=== PATIENT | male | born 1935 | race Caucasian/White ===

== ENCOUNTER 2016-06-19 14:29 | Inpatient (IN) | payer MEDICARE ==
[2016-06-19] MEDS ORDERED: IPRATROPIUM-ALBUTEROL 3 ML NEB INHALATION STA (14:54)
--- NOTE | 2016-06-19 15:01 | ED ---
SOB HPI - General Chief Complaint: Shortness of Breath Stated Complaint: diff breathing Time Seen by Provider: 06/19/16 14:48 Source: patient Mode of arrival: wheelchair Limitations: physical limitation - History of Present Illness Initial Comments: This patient is an 80-year-old man who presents to be evaluated for dyspnea. Most of the history comes from the patient's as the patient is very dyspneic and is only able to give very short answers. The shortness of breath came on starting last evening and became worse this morning. The patient believe that this was related to using his riding lawnmower yesterday. After he had used that he noted that his left lower quadrant of his abdomen seemed to be more prominent than usual. He does have an ostomy there. He also had a number of episodes of vomiting last night. The patient however denies any abdominal pain currently. In fact he is denying any pain at all including no chest pain or back pain. The shortness of breath became worse this morning and he did try his home medications and when they were working he came here to be seen. The patient denies fever or chills, cough, leg pain or swelling. MD Complaint: shortness of breath -: days(s) Consistency: constant Improves With: nothing Worsens With: nothing Known History Of: COPD Associated Symptoms: nausea/vomiting, abdominal pain Treatments Prior to Arrival: bronchodilator - Related Data Home Medications Medication Instructions Recorded Confirmed Citalopram Hydrobromide [CeleXA] 40 mg PO DAILY 11/18/13 06/19/16 Finasteride [Proscar] 5 mg PO DAILY 11/18/13 06/19/16 Fluticasone/Salmeterol [Advair 1 puff INHALATION RT-BID 11/18/13 06/19/16 500-50 Diskus] Metoprolol Tartrate [Lopressor] 6.25 mg PO HS 11/18/13 06/19/16 Tamsulosin [Flomax] 0.4 mg PO DAILY 11/18/13 06/19/16 Aspirin EC [Ecotrin] 325 mg PO DAILY 03/10/14 06/19/16 Simvastatin [Zocor] 40 mg PO HS 05/11/15 06/19/16 ALPRAZolam [Xanax] 0.5 mg PO DAILY PRN 06/19/16 06/19/16 Budesonide/Formoterol Fumarate 2 puff INHALATION RT-BID 06/19/16 06/19/16 [Symbicort 160-4.5 Mcg Inhaler] Levalbuterol HCl [Xopenex 1.25 mg INHALATION RT-QID 06/19/16 06/19/16 Nebulized] Primidone [Mysoline] 25 mg PO BID 06/19/16 06/19/16 guaiFENesin [Mucinex] 600 mg PO BID 06/19/16 06/19/16 Allergies Allergy/AdvReac Type Severity Reaction Status Date / Time dobutamine Allergy Severe Swelling Verified 06/19/16 15:59 hydromorphone HCl Allergy Intermediate AGRESSIVE Verified 06/19/16 15:59 [From Dilaudid] sulfamethoxazole Allergy DIAPHORESIS Verified 06/19/16 15:59 [From Bactrim] trimethoprim [From Bactrim] Allergy DIAPHORESIS Verified 06/19/16 15:59 Review of Systems ROS Statement: Those systems with pertinent positive or pertinent negative responses have been documented in the HPI. ROS Other: All systems not noted in ROS Statement are negative. Constitutional: Denies: fever, chills Respiratory: Reports: as per HPI, dyspnea, wheezes. Denies: cough, hemoptysis Cardiovascular: Reports: orthopnea. Denies: chest pain, edema, syncope Gastrointestinal: Reports: as per HPI, abdominal pain, vomiting. Denies: hematemesis, melena, hematochezia Genitourinary: Denies: dysuria Musculoskeletal: Denies: back pain Skin: Denies: rash Neurological: Denies: headache, weakness, numbness Past Medical History Past Medical History: Coronary Artery Disease (CAD), Cancer, COPD, Hyperlipidemia, Hypertension, Pneumonia, Prostate Disorder Additional Past Medical History / Comment(s): BLADDER CANCER, COPD, TREMORS, . HX OF DIVERTICULITIS WITH PERFORATED BOWEL . HAS COLOSTOMY. HERNIA AT [facility] AND INCISIONAL HERNIA . CAROTID ARTERY STENOSIS, ENLARGED PROSTATE. , FX LEFT HIP 10/2013 AND NOW USING WALKER AND HAS VISITING NURSE AND PHYSICAL THERAPY. History of Any Multi-Drug Resistant Organisms: None Reported Past Surgical History: Bowel Resection, Coronary Bypass/CABG, Hernia Repair Additional Past Surgical History / Comment(s): COLOSTOMY D/T PERFORATED BOWEL FROM DIVERTICULITIS, CABG (2005), ING HERNIA REPAIR, ORIF FX LEFT HIP (10/2013) Past Anesthesia/Blood Transfusion Reactions: No Reported Reaction, Motion Sickness Additional Past Anesthesia/Blood Transfusion Reaction / Comment(s): CLAUSTERPHOBIC Past Psychological History: Anxiety, Depression Smoking Status: Former smoker Past Alcohol Use History: None Reported Additional Past Alcohol Use History / Comment(s): STARTED SMOKING AT AGE 14- SMOKED 2 PPD, QUIT 1997 Past Drug Use History: None Reported - Past Family History Father Family Medical History: Unable to Obtain Mother Family Medical History: Unable to Obtain General Exam Limitations: no limitations General appearance: alert, in distress, cachectic Head exam: Present: atraumatic, normocephalic Eye exam: Present: normal appearance. Absent: scleral icterus, conjunctival injection Neck exam: Present: normal inspection Respiratory exam: Present: respiratory distress (Tachypnea), wheezes, accessory muscle use, decreased breath sounds, prolonged expiratory. Absent: rales, rhonchi, stridor Cardiovascular Exam: Present: tachycardia, irregular rhythm. Absent: systolic murmur, diastolic murmur, rubs, gallop GI/Abdominal exam: Present: soft, hernia, other (The patient has an ostomy in the left lower quadrant. There is no abdominal tenderness. The ostomy bag does not have much gas, however there is some brown stool present, and the patient's states that she had just changed the bag prior to coming to the hospital). Absent: distended, tenderness, guarding, rebound, mass, pulsatile mass Extremities exam: Present: normal inspection, normal capillary refill. Absent: pedal edema, calf tenderness Back exam: Present: normal inspection. Absent: CVA tenderness (R), CVA tenderness (L) Neurological exam: Present: alert Skin exam: Present: warm, dry, intact, normal color. Absent: rash, cyanosis, diaphoretic, erythema, petechiae, pallor, mottled Course Vital Signs 06/19/16 06/19/16 06/19/16 14:32 15:48 15:59 Temperature 99.4 F Pulse Rate 108 H 105 H 115 H Respiratory 36 H Rate Blood Pressure 155/98 O2 Sat by Pulse 84 L Oximetry 06/19/16 06/19/16 06/19/16 16:15 17:20 18:40 Temperature 98.5 F Pulse Rate 104 H 98 90 Respiratory 22 20 20 Rate Blood Pressure 138/73 117/66 146/69 O2 Sat by Pulse 99 99 100 Oximetry 06/19/16 06/19/16 19:42 20:51 Temperature 98.4 F Pulse Rate 93 84 Respiratory 20 20 Rate Blood Pressure 153/80 164/75 O2 Sat by Pulse 95 95 Oximetry Medical Decision Making - Medical Decision Making This patient is an 80-year-old man with COPD exacerbation, requiring BiPAP. Patient be admitted for further treatment. 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 In addition on the labs the patient does have an elevated BNP consistent with an element of congestive heart failure. Patient will have diuretics and if he has not had recent echocardiograms be provided. The patient's troponin is also elevated and this probably is related to the CHF as she is not having chest pain nor any ST segment changes on EKG. This will be repeated. the patient's d-dimer came back at 0.85 which is acceptable by the age adjusted criteria. - Lab Data Result diagrams: 06/19/16 14:50 06/19/16 14:50 Lab Results 06/19/16 06/19/16 06/19/16 Range/Units 14:50 14:50 14:50 WBC 19.7 H (3.8-10.6) k/uL RBC 5.01 (4.30-5.90) m/uL Hgb 15.4 (13.0-17.5) gm/dL Hct 48.4 (39.0-53.0) % MCV 96.7 (80.0-100.0) fL MCH 30.7 (25.0-35.0) pg MCHC 31.8 (31.0-37.0) g/dL RDW 14.7 (11.5-15.5) % Plt Count 221 (150-450) k/uL Neutrophils % 89 % Lymphocytes % 4 % Monocytes % 5 % Eosinophils % 1 % Basophils % 0 % Neutrophils # 17.4 H (1.3-7.7) k/uL Lymphocytes # 0.8 L (1.0-4.8) k/uL Monocytes # 1.1 H (0-1.0) k/uL Eosinophils # 0.1 (0-0.7) k/uL Basophils # 0.0 (0-0.2) k/uL PT 10.4 (9.0-12.0) sec INR 1.0 (<1.1) APTT 21.4 L (22.0-30.0) sec D-Dimer 0.85 H (<0.60) mg/L FEU Sodium 142 (137-145) mmol/L Potassium 4.2 (3.5-5.1) mmol/L Chloride 103 (98-107) mmol/L Carbon Dioxide 29 (22-30) mmol/L Anion Gap 10 mmol/L BUN 18 (9-20) mg/dL Creatinine 0.84 (0.66-1.25) mg/dL Est GFR (MDRD) Af Amer >60 (>60 ml/min/1.73 sqM) Est GFR (MDRD) Non-Af >60 (>60 ml/min/1.73 sqM) Glucose 78 (74-99) mg/dL Plasma Lactic Acid Hugh (0.7-2.0) mmol/L Calcium 9.1 (8.4-10.2) mg/dL Magnesium 2.0 (1.6-2.3) mg/dL Total Bilirubin 1.3 (0.2-1.3) mg/dL AST 21 (17-59) U/L ALT 33 (21-72) U/L Alkaline Phosphatase 85 (38-126) U/L Troponin I (0.000-0.034) ng/mL NT-Pro-B Natriuret Pep pg/mL Total Protein 7.0 (6.3-8.2) g/dL Albumin 4.0 (3.5-5.0) g/dL Urine Color Urine Appearance (Clear) Urine pH (5.0-8.0) Ur Specific Troy (1.001-1.035) Urine Protein (Negative) Urine Glucose (UA) (Negative) Urine Ketones (Negative) Urine Blood (Negative) Urine Nitrite (Negative) Urine Bilirubin (Negative) Urine Urobilinogen (<2.0) mg/dL Ur Leukocyte Esterase (Negative) Urine RBC (0-5) /hpf Urine WBC (0-5) /hpf Hyaline Casts (0-2) /lpf Urine Mucus (None) /hpf 06/19/16 06/19/16 06/19/16 Range/Units 14:50 14:50 14:50 WBC (3.8-10.6) k/uL RBC (4.30-5.90) m/uL Hgb (13.0-17.5) gm/dL Hct (39.0-53.0) % MCV (80.0-100.0) fL MCH (25.0-35.0) pg MCHC (31.0-37.0) g/dL RDW (11.5-15.5) % Plt Count (150-450) k/uL Neutrophils % % Lymphocytes % % Monocytes % % Eosinophils % % Basophils % % Neutrophils # (1.3-7.7) k/uL Lymphocytes # (1.0-4.8) k/uL Monocytes # (0-1.0) k/uL Eosinophils # (0-0.7) k/uL Basophils # (0-0.2) k/uL PT (9.0-12.0) sec INR (<1.1) APTT (22.0-30.0) sec D-Dimer (<0.60) mg/L FEU Sodium (137-145) mmol/L Potassium (3.5-5.1) mmol/L Chloride (98-107) mmol/L Carbon Dioxide (22-30) mmol/L Anion Gap mmol/L BUN (9-20) mg/dL Creatinine (0.66-1.25) mg/dL Est GFR (MDRD) Af Amer (>60 ml/min/1.73 sqM) Est GFR (MDRD) Non-Af (>60 ml/min/1.73 sqM) Glucose (74-99) mg/dL Plasma Lactic Acid Hugh 1.7 (0.7-2.0) mmol/L Calcium (8.4-10.2) mg/dL Magnesium (1.6-2.3) mg/dL Total Bilirubin (0.2-1.3) mg/dL AST (17-59) U/L ALT (21-72) U/L Alkaline Phosphatase (38-126) U/L Troponin I 0.222 H* (0.000-0.034) ng/mL NT-Pro-B Natriuret Pep 2630 pg/mL Total Protein (6.3-8.2) g/dL Albumin (3.5-5.0) g/dL Urine Color Urine Appearance (Clear) Urine pH (5.0-8.0) Ur Specific Troy (1.001-1.035) Urine Protein (Negative) Urine Glucose (UA) (Negative) Urine Ketones (Negative) Urine Blood (Negative) Urine Nitrite (Negative) Urine Bilirubin (Negative) Urine Urobilinogen (<2.0) mg/dL Ur Leukocyte Esterase (Negative) Urine RBC (0-5) /hpf Urine WBC (0-5) /hpf Hyaline Casts (0-2) /lpf Urine Mucus (None) /hpf 06/19/16 Range/Units 15:44 WBC (3.8-10.6) k/uL RBC (4.30-5.90) m/uL Hgb (13.0-17.5) gm/dL Hct (39.0-53.0) % MCV (80.0-100.0) fL MCH (25.0-35.0) pg MCHC (31.0-37.0) g/dL RDW (11.5-15.5) % Plt Count (150-450) k/uL Neutrophils % % Lymphocytes % % Monocytes % % Eosinophils % % Basophils % % Neutrophils # (1.3-7.7) k/uL Lymphocytes # (1.0-4.8) k/uL Monocytes # (0-1.0) k/uL Eosinophils # (0-0.7) k/uL Basophils # (0-0.2) k/uL PT (9.0-12.0) sec INR (<1.1) APTT (22.0-30.0) sec D-Dimer (<0.60) mg/L FEU Sodium (137-145) mmol/L Potassium (3.5-5.1) mmol/L Chloride (98-107) mmol/L Carbon Dioxide (22-30) mmol/L Anion Gap mmol/L BUN (9-20) mg/dL Creatinine (0.66-1.25) mg/dL Est GFR (MDRD) Af Amer (>60 ml/min/1.73 sqM) Est GFR (MDRD) Non-Af (>60 ml/min/1.73 sqM) Glucose (74-99) mg/dL Plasma Lactic Acid Hugh (0.7-2.0) mmol/L Calcium (8.4-10.2) mg/dL Magnesium (1.6-2.3) mg/dL Total Bilirubin (0.2-1.3) mg/dL AST (17-59) U/L ALT (21-72) U/L Alkaline Phosphatase (38-126) U/L Troponin I (0.000-0.034) ng/mL NT-Pro-B Natriuret Pep pg/mL Total Protein (6.3-8.2) g/dL Albumin (3.5-5.0) g/dL Urine Color Light Yellow Urine Appearance Clear (Clear) Urine pH 5.5 (5.0-8.0) Ur Specific [place] 1.009 (1.001-1.035) Urine Protein 2+ H (Negative) Urine Glucose (UA) Negative (Negative) Urine Ketones Negative (Negative) Urine Blood Negative (Negative) Urine Nitrite Negative (Negative) Urine Bilirubin Negative (Negative) Urine Urobilinogen <2.0 (<2.0) mg/dL Ur Leukocyte Esterase Negative (Negative) Urine RBC <1 (0-5) /hpf Urine WBC 2 (0-5) /hpf Hyaline Casts 1 (0-2) /lpf Urine Mucus Rare H (None) /hpf - EKG Data -: EKG Interpreted by Ne EKG shows normal: axis (Normal), intervals Rate: tachycardia Interpretation: other (The patient's EKG shows a narrow complex tachycardia there appear to be a couple of different P-wave morphologies. There are also relatively frequent PVCs.) Disposition Clinical Impression: Acute exacerbation of chronic obstructive airways disease, Elevated troponin I level, CHF exacerbation Disposition: ADMITTED IP TO THIS HOSP Condition: Fair
[2016-06-19 15:18] LABS: Basophils % (A) 0 %; CH 30.5; CHCM 31.8; Eosinophils # (A) 0.1 k/uL (0-0.7); Eosinophils % (A) 1 %; HCT 48.4 % (39.0-53.0); HDW 2.45; HGB 15.4 gm/dL (13.0-17.5); Luc # (Auto) 0.14; Luc % (Auto) 1; Lymphocytes # (A) 0.8 k/uL (1.0-4.8); Lymphocytes % (A) 4 %; MCH 30.7 pg (25.0-35.0); MCHC 31.8 g/dL (31.0-37.0); MCV 96.7 fL (80.0-100.0); Monocytes # (A) 1.1 k/uL (0-1.0); Monocytes % (A) 5 %; Neutrophils # (A) 17.4 k/uL (1.3-7.7); Neutrophils % (A) 89 %; RBC 5.01 m/uL (4.30-5.90); RDW 14.7 % (11.5-15.5); WBC 19.7 k/uL (3.8-10.6); WBC (Perox) 19.43
[2016-06-19 15:26] LABS: ALT 33 U/L (21-72); AST 21 U/L (17-59); Alkaline Phosphatase 85 U/L (38-126); Anion Gap 10 mmol/L; Blood Urea Nitrogen 18 mg/dL (9-20); Calcium 9.1 mg/dL (8.4-10.2); Carbon Dioxide 29 mmol/L (22-30); Chloride 103 mmol/L (98-107); Glucose 78 mg/dL (74-99); Non-African American GFR(MDRD) >60 (>60 ml/min/1.73 sqM); Partial Thromboplastin Time 21.4 sec (22.0-30.0); Potassium 4.2 mmol/L (3.5-5.1); Prothrombin Time 10.4 sec (9.0-12.0); Sodium 142 mmol/L (137-145); Total Bilirubin 1.3 mg/dL (0.2-1.3)
[2016-06-19 15:50] LABS: Appearance,Urine Clear (Clear); Bilirubin,Urine Negative (Negative); Glucose,Urine (UA) Negative (Negative); Ketones,Urine Negative (Negative); Leukocyte Esterase,Urine Negative (Negative); Mucus,Urine Rare /hpf; Nitrite,Urine Negative (Negative); PH, Urine 5.5 (5.0-8.0); Particle Count 817; Protein,Urine 2+ (Negative); RBC,Urine <1 /hpf (0-5); Specific Gravity,Urine 1.009 (1.001-1.035); UA Billing (MACRO vs. MICRO) MICRO; Urobilinogen,Urine <2.0 mg/dL (<2.0); WBC,Urine 2 /hpf (0-5)
--- NOTE | 2016-06-19 15:55 | XR ---
EXAMINATION TYPE: XR chest 1V portable DATE OF EXAM: 06/19/2016 3:47 PM COMPARISON: 11/26/2013 HISTORY: Shortness of breath TECHNIQUE: Single frontal view of the chest is obtained. FINDINGS: There is pleural-based thickening which appears increased from the previous exam within th e right upper lobe with areas of linear scar or atelectasis. Underlying diffuse COPD noted. Postopera tive change and epicardial lead noted. No interstitial congestion or pneumothorax. Diffuse osteopenia and arthropathy of the shoulder noted. IMPRESSION: 1. COPD with chronic pleural parenchymal changes, however, there appears to be increased pleural-base d thickening within the right upper lobe which could be correlated with CT scan.
[2016-06-19] MEDS ORDERED: ALBUTEROL NEBULIZED 2.5 MG/3 ML INHALATION PRN (16:30)
[2016-06-19] MEDS ORDERED: methylPREDNISolone SOD SUCCI 125 MG/2 ML VIAL IV STA (16:30)
[2016-06-19] MEDS ORDERED: FUROSEMIDE 10 MG/ML 4 ML VIAL IV STA ×2 (16:41→23:01)
[2016-06-19] MEDS ORDERED: methylPREDNISolone SOD SUCCI 125 MG/2 ML VIAL IV SCH (18:00)
[2016-06-19] MEDS ORDERED: NON-FORMULARY DRUG (Fluticasone/Salmeterol [Advair 500-50 Diskus] 1 PUFF) INHALATION SCH (20:00)
[2016-06-19] MEDS ORDERED: IPRATROPIUM-ALBUTEROL 3 ML NEB INHALATION SCH (20:00)
[2016-06-19] MEDS: SYMBICORT 160-4.5 MCG INHALER INHALATION SCH (21:26)
[2016-06-19 21:30] VITALS: BMI 22.5
[2016-06-19] MEDS: guaiFENesin 600 MG TABLET.ER PO SCH (21:52)
[2016-06-19] MEDS: METOPROLOL TARTRATE 12.5 MG TAB PO SCH (21:52)
[2016-06-19] MEDS: ATORVASTATIN 20 MG TAB PO SCH (21:52)
[2016-06-19] MEDS: PRIMIDONE 25 MG TAB PO SCH (21:53)
[2016-06-19] MEDS ORDERED: RX INFO: IV CONTRAST WAS GIVEN 1 EACH MISC MISCELLANE PRN (23:00)
[2016-06-19] MEDS: methylPREDNISolone SOD SUCCI 125 MG/2 ML VIAL IV SCH (23:55)
[2016-06-20] MEDS ORDERED: HEPARIN SODIUM,PORCINE 5,000 UNIT/ML 1 ML VIAL IV PRN
[2016-06-20] MEDS ORDERED: HEPARIN SODIUM,PORCINE 5,000 UNIT/ML 1 ML VIAL IV ONE
--- NOTE | 2016-06-20 00:18 | CT ---
EXAM: CT Angiography Chest With Intravenous Contrast CLINICAL HISTORY: Reason: elevated d-dimer TECHNIQUE: Axial computed tomographic angiography images of the chest with intravenous contrast using pulmonary embolism protocol. CTDI is 72.9 mGy and DLP is 206.40 mGy-cm This CT exam was performed using one or more of the following dose reduction techniques: automated exposure control, adjustment of the mA and/or kV according to patient size, and/or use of iterative reconstruction technique. MIP reconstructed images were created and reviewed. COMPARISON: CT chest on 11/26/2013 and 02/16/2015 FINDINGS: Lung parenchyma: Again seen are extensive paraseptal and centrilobular emphysematous changes throughout the lungs with biapical pleural thickening, calcifications, and scarring, including nodular areas of scarring that appears similar to prior exams. New patchy scattered densities and groundglass opacities are seen in both lower lobes. Pleural space: Normal. No pleural effusion or pneumothorax. Mediastinum/lesley: Median sternotomy changes. No mass or lymphadenopathy. Heart: Coronary artery calcifications. No cardiomegaly or pericardial effusion. Vasculature: Normal. No pulmonary embolus. Aorta: Atherosclerotic calcifications. No aneurysm. Airways: Patent. Bones: Generalized osteopenia. Degenerative changes of the spine. No bony lesion or acute fracture. Muscles: No mass. Subcutaneous tissues: Normal. Upper abdomen: Small hiatal hernia. Similar small hypodensity in the posterior right hepatic lobe is too small to characterize definitively. Similar bilateral renal cysts. Similar probable small nonspecific nodule in the right adrenal gland. Reflux of contrast into the hepatic veins suggests elevated right heart pressures. Other: Tiny hypodense nodules in the left thyroid lobe. IMPRESSION: 1. No pulmonary embolus identified. 2. New patchy scattered densities and groundglass opacities in both lower lobes may represent an infectious/inflammatory process. 3. Similar extensive paraseptal and centrilobular emphysematous changes with biapical pleural thickening, calcifications, and scarring.
[2016-06-20] MEDS: HEPARIN SODIUM,PORCINE/D5W PMX 25,000 UNIT in DEXTROSE/WATER 1 500ML.BAG IV SCH (00:58)
[2016-06-20] MEDS: methylPREDNISolone SOD SUCCI 125 MG/2 ML VIAL IV SCH ×4 (06:29→23:27)
[2016-06-20] MEDS: SYMBICORT 160-4.5 MCG INHALER INHALATION SCH ×2 (07:52→20:22)
[2016-06-20] MEDS: IPRATROPIUM-ALBUTEROL 3 ML NEB INHALATION SCH ×4 (07:52→20:22)
[2016-06-20] MEDS: ASPIRIN 325 MG TAB PO SCH (09:39)
[2016-06-20] MEDS: guaiFENesin 600 MG TABLET.ER PO SCH ×2 (09:40→21:18)
[2016-06-20] MEDS: CITALOPRAM HYDROBROMIDE 20 MG TAB PO SCH (09:40)
[2016-06-20] MEDS: FINASTERIDE 5 MG TAB PO SCH (09:40)
[2016-06-20] MEDS: TAMSULOSIN 0.4 MG CAP.ER.24H PO SCH (09:41)
[2016-06-20] MEDS: PRIMIDONE 25 MG TAB PO SCH ×2 (09:41→21:19)
[2016-06-20] MEDS: LEVOFLOXACIN 750 MG TAB PO SCH (11:49)
[2016-06-20 12:07] LABS: Glucose,Whole Blood 249 mg/dL (75-99)
[2016-06-20] MEDS: INSULIN LISPRO (humaLOG) 300 UNIT/3 ML VIAL SQ SCH ×3 (12:34→21:35)
--- NOTE | 2016-06-20 12:41 | P.CRDCN ---
History of Present Illness Consult date: 06/20/16 History of present illness: This is a 80-year-old gentleman with history of severe COPD and emphysema being followed by Dr. Hayes. He also has history of ischemic heart disease and previous bypass surgery, used to be followed by Dr. Rodas. Patient apparently was doing well until yesterday afternoon. He was on a lawnmower and suddenly started having shortness of breath. By the time patient came to the emergency room, He was very short of breath and most of the information was gathered from the patient's . His chest x-ray showed mostly chronic COPD changes without any overt signs of congestive heart failure. His EKG showed multifocal atrial rhythm with PVCs. D-dimer was mildly elevated but computed tomography scan did not reveal any evidence of pulmonary emboli but showed bilateral new infiltrates. His proBNP was elevated and his troponin values are also mildly elevated. The elevation of the troponin may represent type II [place] related to supply demand mismatch. The possibility of apical ballooning syndrome to be considered. Patient is going to have an echocardiogram and repeat EKG. Meanwhile we'll continue with current medical therapy. Review of Systems As per the chart Past Medical History Past Medical History: Coronary Artery Disease (CAD), Cancer, COPD, Hyperlipidemia, Hypertension, Pneumonia, Prostate Disorder Additional Past Medical History / Comment(s): BLADDER CANCER, COPD, TREMORS, . HX OF DIVERTICULITIS WITH PERFORATED BOWEL . HAS COLOSTOMY. HERNIA AT [facility] AND INCISIONAL HERNIA . CAROTID ARTERY STENOSIS, ENLARGED PROSTATE. , FX LEFT HIP 10/2013 AND NOW USING CANE History of Any Multi-Drug Resistant Organisms: None Reported Past Surgical History: Bowel Resection, Coronary Bypass/CABG, Hernia Repair Additional Past Surgical History / Comment(s): COLOSTOMY D/T PERFORATED BOWEL FROM DIVERTICULITIS, CABG (2005), ING HERNIA REPAIR, ORIF FX LEFT HIP (10/2013) Past Anesthesia/Blood Transfusion Reactions: No Reported Reaction, Motion Sickness Additional Past Anesthesia/Blood Transfusion Reaction / Comment(s): CLAUSTERPHOBIC Past Psychological History: Anxiety, Depression Smoking Status: Former smoker Past Alcohol Use History: None Reported Additional Past Alcohol Use History / Comment(s): STARTED SMOKING AT AGE 14- SMOKED 2 PPD, QUIT 1997 Past Drug Use History: None Reported - Past Family History Father Family Medical History: Unable to Obtain Mother Family Medical History: Unable to Obtain Medications and Allergies Home Medications Medication Instructions Recorded Confirmed Type Citalopram Hydrobromide [CeleXA] 40 mg PO DAILY 11/18/13 06/19/16 History Finasteride [Proscar] 5 mg PO DAILY 11/18/13 06/19/16 History Fluticasone/Salmeterol [Advair 1 puff INHALATION RT-BID 11/18/13 06/19/16 History 500-50 Diskus] Metoprolol Tartrate [Lopressor] 6.25 mg PO HS 11/18/13 06/19/16 History Tamsulosin [Flomax] 0.4 mg PO DAILY 11/18/13 06/19/16 History Aspirin EC [Ecotrin] 325 mg PO DAILY 03/10/14 06/19/16 History Simvastatin [Zocor] 40 mg PO HS 05/11/15 06/19/16 History ALPRAZolam [Xanax] 0.5 mg PO DAILY PRN 06/19/16 06/19/16 History Budesonide/Formoterol Fumarate 2 puff INHALATION RT-BID 06/19/16 06/19/16 History [Symbicort 160-4.5 Mcg Inhaler] Levalbuterol HCl [Xopenex 1.25 mg INHALATION RT-QID 06/19/16 06/19/16 History Nebulized] Primidone [Mysoline] 25 mg PO BID 06/19/16 06/19/16 History guaiFENesin [Mucinex] 600 mg PO BID 06/19/16 06/19/16 History Allergies Allergy/AdvReac Type Severity Reaction Status Date / Time dobutamine Allergy Severe Swelling Verified 06/19/16 15:59 hydromorphone HCl Allergy Intermediate AGRESSIVE Verified 06/19/16 15:59 [From Dilaudid] sulfamethoxazole Allergy DIAPHORESIS Verified 06/19/16 15:59 [From Bactrim] trimethoprim [From Bactrim] Allergy DIAPHORESIS Verified 06/19/16 15:59 Physical Exam Vitals: Vital Signs Temp Pulse Pulse Resp BP BP Pulse Ox 06/20/16 12:06 76 06/20/16 11:54 72 06/20/16 08:21 76 06/20/16 08:10 95 18 165/74 93 L 06/20/16 07:52 76 93 L 06/20/16 04:00 99.3 F 79 18 171/74 94 L 06/20/16 00:00 98.1 F 76 18 135/85 96 06/19/16 23:52 80 06/19/16 23:42 88 06/19/16 21:37 92 06/19/16 21:26 84 06/19/16 21:15 98 F 88 18 158/81 95 06/19/16 20:51 98.4 F 84 20 164/75 95 06/19/16 19:42 93 20 153/80 95 06/19/16 18:40 90 20 146/69 100 06/19/16 17:20 98 20 117/66 99 Intake and Output 06/19/16 06/20/16 06/20/16 22:59 06:59 14:59 Intake Total 221.798 0 Output Total 950 150 Balance -728.202 -150 Intake: IV 128.3 0.9 50 Heparin Sodium,Porcine/ 78.3 D5w Pmx 25,000 unit In Dextrose/Water 1 500ml. bag @ 12 UNITS/KG/HR 15. 67 mls/hr IV .Q24H [facility] Rx #:[id number] Intake, IV Titration 93.498 Amount Heparin Sodium,Porcine/ 93.498 D5w Pmx 25,000 unit In Dextrose/Water 1 500ml. bag @ 12 UNITS/KG/HR 15. 67 mls/hr IV .Q24H [facility] Rx #:[id number] Oral 0 0 Output: Urine 950 150 Other: Voiding Method Urinal Urinal Urinal # Voids 1 Weight 65.317 kg 57.6 kg GENERAL EXAM: Patient is alert and oriented and appears to be in severe distress HEENT: Normocephalic. Normal reaction of pupils, equal size, normal range of extraocular motion. No erythema or exudates in the throat. NECK: No masses, no nuchal rigidity. CHEST: No chest wall deformity. LUNGS: Diminished breath sounds and expiratory rhonchi and wheezing HEART: Distant heart sounds. Difficult to appreciate any murmurs ABDOMEN: No hepatosplenomegaly, normal bowel sounds, no guarding or rigidity. SKIN: No rashes CENTRAL NERVOUS SYSTEM: No focal deficits. EXTREMITIES: No cyanosis, clubbing or edema. Results 06/19/16 14:50 06/19/16 14:50 Cardiac Enzymes 06/19/16 Range/Units 21:11 Troponin I 1.360 H* (0.000-0.034) ng/mL Coagulation 06/20/16 06/20/16 Range/Units 06:00 11:46 APTT 93.0 H 49.1 H (22.0-30.0) sec Current Medications Generic Name Dose Route Start Last Admin Trade Name Freq PRN Reason Stop Dose Admin Albuterol Sulfate 2.5 mg 06/19/16 16:30 06/19/16 23:50 Ventolin Nebulized INHALATION 2.5 mg RT-QID PRN Administration Dyspnea Albuterol/Ipratropium 3 ml 06/20/16 08:00 06/20/16 11:54 Duoneb 0.5 Mg-3 Mg/3 Ml Soln INHALATION 3 ml RT-QID [facility] Administration Alprazolam 0.5 mg 06/19/16 16:35 Xanax PO DAILY PRN Anxiety Aspirin 325 mg 06/20/16 09:00 06/20/16 09:39 Aspirin PO 325 mg DAILY [facility] Administration Atorvastatin Calcium 20 mg 06/19/16 21:00 06/19/16 21:52 Lipitor PO 20 mg HS ALEX Administration Budesonide/Formoterol Fumarate 2 puff 06/19/16 20:00 06/20/16 07:52 Symbicort 160-4.5 Mcg Inhaler INHALATION 2 puff RT-BID [facility] Administration Citalopram Hydrobromide 40 mg 06/20/16 09:00 06/20/16 09:40 Celexa PO 40 mg DAILY [facility] Administration Finasteride 5 mg 06/20/16 09:00 06/20/16 09:40 Proscar PO 5 mg DAILY [facility]LEX Administration Guaifenesin 600 mg 06/19/16 21:00 06/20/16 09:40 Mucinex PO 600 mg BID ALEX Administration Heparin Sodium (Porcine) 0 unit 06/20/16 00:00 Heparin IV PER PROTOCOL PRN Low PTT Protocol Heparin Sodium/Dextrose 25,000 500 mls @ 15.67 mls/hr 06/20/16 00:00 06:56 unit/ IV Solution IV 10 units/kg/hr .Q24H [facility] 13.06 mls/hr Protocol Titration 12 UNITS/KG/HR Insulin Human Lispro 0 unit 06/20/16 12:30 Humalog SQ ACHS [facility] Protocol Levofloxacin 750 mg 06/20/16 12:00 06/20/16 11:49 Levaquin PO 750 mg DAILY@1200 [facility] Administration Methylprednisolone Sodium Succinate 60 mg 06/20/16 00:00 06/20/16 11:51 Solu-Medrol IV 60 mg Q6HR [facility] Administration Metoprolol Tartrate 6.25 mg 06/19/16 21:00 06/19/16 21:52 Lopressor PO 6.25 mg HS [facility]LEX Administration Miscellaneous Information 1 each 06/19/16 23:00 Rx Info: Iv Contrast Was Given MISCELLANE 06/21/16 23:01 DAILY PRN Per Protocol Primidone 25 mg 06/19/16 21:00 06/20/16 09:41 Mysoline PO 25 mg BID [facility] Administration Sodium Chloride 10 ml 06/19/16 21:00 06/20/16 09:39 Saline Flush IV 10 ml BID ALEX Administration Tamsulosin HCl 0.4 mg 06/20/16 09:00 06/20/16 09:41 Flomax PO 0.4 mg DAILY [facility] Administration Intake and Output 06/19/16 06/20/16 06/20/16 22:59 06:59 14:59 Intake Total 221.798 0 Output Total 950 150 Balance -728.202 -150 Intake: IV 128.3 0.9 50 Heparin Sodium,Porcine/ 78.3 D5w Pmx 25,000 unit In Dextrose/Water 1 500ml. bag @ 12 UNITS/KG/HR 15. 67 mls/hr IV .Q24H [facility] Rx #:[id number] Intake, IV Titration 93.498 Amount Heparin Sodium,Porcine/ 93.498 D5w Pmx 25,000 unit In Dextrose/Water 1 500ml. bag @ 12 UNITS/KG/HR 15. 67 mls/hr IV .Q24H [facility] Rx #:[id number] Oral 0 0 Output: Urine 950 150 Other: Voiding Method Urinal Urinal Urinal # Voids 1 Weight 65.317 kg 57.6 kg EKG Interpretations (text) 6. Multifocal atrial rhythm and PVCs Assessment and Plan (1) CAD (coronary artery disease) Status: Acute (2) Acute exacerbation of chronic obstructive airways disease Status: Acute (3) Elevated troponin I level Status: Acute (4) History of coronary artery bypass graft Status: Acute (5) Non-ST elevation [place] (NSTEMI) Status: Acute Plan: I will nitrates in the form of Nitropaste. I will wait for the reports of the echocardiogram and repeat EKG. Patient doesn't appear to be volume overloaded. Further recommendations will depend upon the clinical course and the results of the tests
--- NOTE | 2016-06-20 12:57 | P.CNPUL ---
History of Present Illness Consult date: 06/20/16 Reason for consult: dyspnea History of present illness: 80-year-old male patient, very well-known to me due to advanced COPD and chronic biapical scarring in addition to coronary artery disease and previous bypass surgery, and known history of bladder cancer coming to the emergency department yesterday because of increased shortness of breath. The patient was gradually getting worse over the past 1 week or so. He had a congested cough lung with increased dyspnea, and wheezing. The shortness of breath became worse on the day of the admission specially in the morning. Prior to that, the patient was quite active and apparently was riding the lawnmower without any major difficulties. He denied having any chest pain although his troponin was positive and it peaked at 1.36. The EKG showed normal sinus rhythm with frequent PVCs. No ischemic ST segment changes such as elevation or depression. In any rate, a cardiology consultation was requested in regards to this abnormal troponin. Meanwhile, the patient had a chest x-ray that showed biapical scarring more so on the right. CAT scan of the chest was also obtained and showed chronic scarring in the lung apices most on the right along with diffuse emphysematous changes more so in the upper lobes. No acute pneumonia. No lung masses or lesions identified. No pleural effusion and no pneumothorax. The patient denies having any fever or chills. The patient denies having any mental status change. He was feeling quite weak. No nausea. No vomiting. No diarrhea. No other complaints otherwise. Review of Systems A 12 point review of system was done and the positive findings are almost above in history of present illness. He is currently free of any chest pain. He is still short of breath. He is improved compared to yesterday. He is off the BiPAP. No nausea. No vomiting. No change in mental status. No dysuria frequency or urgency. No hematuria. Appetite has been relatively well- preserved. No falls. No open wounds or sores or ulceration. Past Medical History Past Medical History: Coronary Artery Disease (CAD), Cancer, COPD, Hyperlipidemia, Hypertension, Pneumonia, Prostate Disorder Additional Past Medical History / Comment(s): Advanced COPD with chronic biapical scarring and upper lobe COPD predominance, bladder cancer status post transurethral resection of bladder tumors on multiple occasions by Dr. Bernard , complicated diverticular disease/diverticulitis requiring a bowel resection and diverticular colostomy, parastomal hernia, carotid artery stenosis, BPH, coronary artery disease, previous bypass surgery, hypertension, hyperlipidemia, left hip fracture status post ORIF in October 2013 and since then the patient walking out with the help of a cane, carotid artery stenosis History of Any Multi-Drug Resistant Organisms: None Reported Past Surgical History: Bowel Resection, Coronary Bypass/CABG, Hernia Repair Additional Past Surgical History / Comment(s): COLOSTOMY D/T PERFORATED BOWEL FROM DIVERTICULITIS, CABG (2005), ING HERNIA REPAIR, ORIF FX LEFT HIP (10/2013) Past Anesthesia/Blood Transfusion Reactions: No Reported Reaction, Motion Sickness Additional Past Anesthesia/Blood Transfusion Reaction / Comment(s): CLAUSTERPHOBIC Past Psychological History: Anxiety, Depression Smoking Status: Former smoker Past Alcohol Use History: None Reported Additional Past Alcohol Use History / Comment(s): STARTED SMOKING AT AGE 14- SMOKED 2 PPD, QUIT 1997 Past Drug Use History: None Reported - Past Family History Father Family Medical History: Unable to Obtain Mother Family Medical History: Unable to Obtain Medications and Allergies Home Medications Medication Instructions Recorded Confirmed Type Citalopram Hydrobromide [CeleXA] 40 mg PO DAILY 11/18/13 06/19/16 History Finasteride [Proscar] 5 mg PO DAILY 11/18/13 06/19/16 History Fluticasone/Salmeterol [Advair 1 puff INHALATION RT-BID 11/18/13 06/19/16 History 500-50 Diskus] Metoprolol Tartrate [Lopressor] 6.25 mg PO HS 11/18/13 06/19/16 History Tamsulosin [Flomax] 0.4 mg PO DAILY 11/18/13 06/19/16 History Aspirin EC [Ecotrin] 325 mg PO DAILY 03/10/14 06/19/16 History Simvastatin [Zocor] 40 mg PO HS 05/11/15 06/19/16 History ALPRAZolam [Xanax] 0.5 mg PO DAILY PRN 06/19/16 06/19/16 History Budesonide/Formoterol Fumarate 2 puff INHALATION RT-BID 06/19/16 06/19/16 History [Symbicort 160-4.5 Mcg Inhaler] Levalbuterol HCl [Xopenex 1.25 mg INHALATION RT-QID 06/19/16 06/19/16 History Nebulized] Primidone [Mysoline] 25 mg PO BID 06/19/16 06/19/16 History guaiFENesin [Mucinex] 600 mg PO BID 06/19/16 06/19/16 History Allergies Allergy/AdvReac Type Severity Reaction Status Date / Time dobutamine Allergy Severe Swelling Verified 06/19/16 15:59 hydromorphone HCl Allergy Intermediate AGRESSIVE Verified 06/19/16 15:59 [From Dilaudid] sulfamethoxazole Allergy DIAPHORESIS Verified 06/19/16 15:59 [From Bactrim] trimethoprim [From Bactrim] Allergy DIAPHORESIS Verified 06/19/16 15:59 Physical Exam Vitals: Vital Signs Temp Pulse Pulse Resp BP BP Pulse Ox 06/20/16 12:06 76 06/20/16 11:54 72 06/20/16 08:21 76 06/20/16 08:10 95 18 165/74 93 L 06/20/16 07:52 76 93 L 06/20/16 04:00 99.3 F 79 18 171/74 94 L 06/20/16 00:00 98.1 F 76 18 135/85 96 06/19/16 23:52 80 06/19/16 23:42 88 06/19/16 21:37 92 06/19/16 21:26 84 06/19/16 21:15 98 F 88 18 158/81 95 06/19/16 20:51 98.4 F 84 20 164/75 95 06/19/16 19:42 93 20 153/80 95 06/19/16 18:40 90 20 146/69 100 06/19/16 17:20 98 20 117/66 99 Intake and Output 06/19/16 06/20/16 06/20/16 22:59 06:59 14:59 Intake Total 221.798 0 Output Total 950 150 Balance -728.202 -150 Intake: IV 128.3 0.9 50 Heparin Sodium,Porcine/ 78.3 D5w Pmx 25,000 unit In Dextrose/Water 1 500ml. bag @ 12 UNITS/KG/HR 15. 67 mls/hr IV .Q24H [facility] Rx #:[id number] Intake, IV Titration 93.498 Amount Heparin Sodium,Porcine/ 93.498 D5w Pmx 25,000 unit In Dextrose/Water 1 500ml. bag @ 12 UNITS/KG/HR 15. 67 mls/hr IV .Q24H [facility] Rx #:[id number] Oral 0 0 Output: Urine 950 150 Other: Voiding Method Urinal Urinal Urinal # Voids 1 Weight 65.317 kg 57.6 kg The patient appeared well nourished and normally developed. Vital signs as documented. Head exam is unremarkable. No scleral icterus or corneal arcus noted. Neck is without jugular venous distension, thyromegaly, or carotid bruits. Carotid upstrokes are brisk bilaterally. Lung sounds are diminished bilaterally along with that there is scattered rhonchi and diffuse extremity wheezes without the lung [place] bilaterally along with some degree of prolongation of expiratory phase of breathing. Heart examination shows a normal sternum. Cardiac exam revealed the PMI to be normally situated and sized. The rhythm was regular and no extrasystoles were noted during several minutes of auscultation. The first and second heart sounds were normal and physiologic splitting of the second heart sound was noted. There were no murmurs , rubs, clicks, or gallops. Surgical wound site over the anterior chest is dry clean and intact. Abdominal exam reveals normal bowel sounds, no masses, no organomegaly and no aortic enlargement. Extremities are nonedematous and both femoral and pedal pulses are normal. Results - Laboratory Findings CBC and BMP: 06/19/16 14:50 06/19/16 14:50 PT/INR, D-dimer PT 10.4 sec (9.0-12.0) 06/19/16 14:50 INR 1.0 (<1.1) 06/19/16 14:50 D-Dimer 0.85 mg/L FEU (<0.60) H 06/19/16 14:50 Abnormal lab findings: Abnormal Labs 06/19/16 06/20/16 06/20/16 21:11 06:00 11:46 APTT 93.0 H 49.1 H POC Glucose (mg/dL) Troponin I 1.360 H* 06/20/16 11:59 APTT POC Glucose (mg/dL) 249 H Troponin I - Diagnostic Findings Chest x-ray: image reviewed Assessment and Plan Plan: Assessment 1 acute COPD exacerbation/acute bronchitis with secondary shortness of breath. 2 abnormal troponin elevation, rule out acute non-ST segment elevation myocardial infarction 3 atherosclerotic heart disease with previous coronary bypass surgery 4 bladder cancer status post transurethral resection of the bladder tumor following that the patient received intravesicular chemotherapy 5 diverticular disease with history of complicated diverticulitis with bowel perforation requiring colostomy and colectomy. 6 large parastomal hernia/incisional hernia not candidate for surgical resection /repair 7 carotid artery stenosis 8 anxiety chronic/depression 9 hypertension 10 hyperlipidemia 11 history of smoking quit in 1997 Plan Treatment of acute COPD exacerbation with a combination of bronchodilators, and steroids. We'll add empiric antibiotic coverage with Levaquin 750 mg by mouth on a daily basis. Cardiology evaluation. Echocardiogram was ordered. Continue IV heparin until the patient is seen by cardiology. Outpatient medication will be resumed. We'll continue to follow make further recommendations based on his progress.
[2016-06-20] MEDS: BUDESONIDE 1 MG/2 ML NEBU INHALATION SCH ×2 (17:00→20:22)
[2016-06-20 17:17] LABS: Glucose,Whole Blood 134 mg/dL (75-99)
[2016-06-20] MEDS: NITROGLYCERIN OINT 1 INCH/GM PACKET TOPICAL SCH ×2 (18:44→23:27)
[2016-06-20 21:08] LABS: Glucose,Whole Blood 153 mg/dL (75-99)
[2016-06-20] MEDS: ATORVASTATIN 20 MG TAB PO SCH (21:18)
[2016-06-20] MEDS: METOPROLOL TARTRATE 12.5 MG TAB PO SCH (21:18)
--- NOTE | 2016-06-20 21:33 | HP ---
DATE OF ADMISSION: 06/19/2016 PRESENTING COMPLAINT: Short of breath. HISTORY OF PRESENTING COMPLAINT: This is a very pleasant 80-year-old patient of Dr. Hayes with a rather extensive medical history. Chronic stable medical conditions include hyperlipidemia, hypertension, lung and bladder cancer, carotid artery stenosis, BPH, anxiety, depression. Patient was out on the lawn using his lawnmower for about 2 hours. Patient became increasingly short of breath, started coughing and becoming congested, not able to expectorate, short of breath, tired, rundown. He presented to the ER. Patient's initial troponin was 0.2, then went up to 1.3. The patient is rather congested, tired. His is at the bedside. REVIEW OF SYSTEMS: CONSTITUTIONAL: Weak and tired. HEENT: None. RESPIRATORY: As above. CARDIOVASCULAR: Some chest pressure. GASTROINTESTINAL: None. GENITOURINARY: None. MUSCULOSKELETAL: Some pain in the joints. DERMATOLOGICAL: None. HEMATOLOGICAL: None. LYMPHATICS: None. PSYCHIATRY: Anxiety, depression. NEUROLOGICAL: None. PAST MEDICAL HISTORY: 1. Coronary artery disease. 2. COPD. 3. Hyperlipidemia. 4. Hypertension. 5. Bladder cancer. 6. Tremors. 7. Diverticulitis with perforated bowel; colostomy in place. 8. Hernia stoma and incisional hernia. 9. Carotid artery stenosis. 10. Enlarged prostate. 11. Fractured left hip. 12. Has a walker. PAST SURGICAL HISTORY: 1. Bowel resection. 2. CABG. 3. Hernia repair. 4. Colostomy due to perforated bowel from diverticulitis. 5. CABG in 2005. 6. Inguinal hernia repair. 7. ORIF of left hip in 2013. PAST PSYCHIATRIC HISTORY: Anxiety, depression. SOCIAL HISTORY: Patient smoked from the age of 49 two packs a day; quit in 1997. Patient lives with his . FAMILY HISTORY: Reviewed; noncontributory to presentation. HOME MEDICATIONS: 1. Advair 500/50 one puff twice a day. 2. Xopenex 1.25 q.i.d. 3. Symbicort 160/4.5 two puffs b.i.d. 4. Xanax 0.5 b.i.d. p.r.n. 5. Zocor 40 mg p.o. at bedtime. 6. Lopressor 6.25 p.o. at bedtime. 7. Mucinex 600 mg p.o. b.i.d. 8. Mysoline 25 p.o. b.i.d. 9. Celexa 40 mg p.o. daily. 10. Flomax 0.4 p.o. daily. 11. Proscar 5 mg p.o. daily. 12. Aspirin 325 p.o. daily. ALLERGIES: 1. DOBUTAMINE. 2. DILAUDID. 3. BACTRIM. PHYSICAL EXAMINATION: VITAL SIGNS ON PRESENTATION: Temperature 99.4, pulse 108, respiration 36, blood pressure 155/98, pulse ox 84% on room air. GENERAL APPEARANCE: Average build. Tired-appearing. Short of breath at rest. EYES: Pupils equal. Conjunctivae normal. HEENT: External appearance of nose and ears normal. Oral cavity normal. NECK: JVD unable to assess. Mass not palpable. RESPIRATORY: Effort increased. LUNGS: Some wheezing, congestion, expiratory crackles. CARDIOVASCULAR: First and second sounds normal. No edema. ABDOMEN: Soft, nontender. Liver and spleen not palpable. LYMPHATIC: No lymph node palpable in neck or axillae. PSYCHIATRY: Alert and oriented x3. Mood and affect tired-appearing. NEUROLOGIC: Pupils equal. Cranial nerves grossly intact. Power and sensation grossly intact. INVESTIGATIONS: White count 19.7, hemoglobin 15.4. Potassium 4.2. BUN and creatinine are normal. Troponin 0.22; repeat is 1.3. ProBNP is 2630. CT of the chest shows emphysematous changes, scarring and new patchy scattered densities in both the lower lobes. EKG showed multiple PVCs, PACs, some ST-segment changes. ASSESSMENT: 1. Acute [id number] myocardial infarction. 2. Acute chronic obstructive pulmonary disease exacerbation in an ex-smoker, possibly associated with community-acquired pneumonia; suspect Gram-negative organism. 3. Acute chronic obstructive pulmonary disease exacerbation in an ex-smoker. 4. Acute hypoxic respiratory failure from pneumonia. 5. Chronic hypoxic respiratory failure, on home oxygen. 6. Hyperlipidemia. 7. Essential hypertension. 8. Coronary artery disease with prior history of coronary artery bypass graft. 9. Carotid artery stenosis. 10. Benign prostatic hypertrophy. 11. Anxiety, depression not otherwise specified. PLAN: Patient was started on IV insulin, nebulized bronchodilators, steroids, Mucinex. Sputum will be sent off for Gram stain and culture. Patient is not really a good candidate for coronary intervention; will let Cardiology decide that. Pulmonary is also consulted for same. Overall prognosis is guarded. Sputum will be sent for Gram stain and culture. Patient is also on aspirin, Solu-Medrol and beta blockers.
[2016-06-21] MEDS: HEPARIN SODIUM,PORCINE/D5W PMX 25,000 UNIT in DEXTROSE/WATER 1 500ML.BAG IV SCH ×2 (05:36→10:14)
[2016-06-21 06:28] LABS: Glucose,Whole Blood 116 mg/dL (75-99)
[2016-06-21] MEDS: INSULIN LISPRO (humaLOG) 300 UNIT/3 ML VIAL SQ SCH ×4 (06:50→21:24)
[2016-06-21] MEDS: methylPREDNISolone SOD SUCCI 125 MG/2 ML VIAL IV SCH ×2 (06:50→12:44)
[2016-06-21] MEDS: NITROGLYCERIN OINT 1 INCH/GM PACKET TOPICAL SCH (08:31)
[2016-06-21] MEDS: CITALOPRAM HYDROBROMIDE 20 MG TAB PO SCH (08:32)
[2016-06-21] MEDS: ASPIRIN 325 MG TAB PO SCH (08:32)
[2016-06-21] MEDS: guaiFENesin 600 MG TABLET.ER PO SCH ×2 (08:32→21:24)
[2016-06-21] MEDS: FINASTERIDE 5 MG TAB PO SCH (08:32)
[2016-06-21] MEDS: PRIMIDONE 25 MG TAB PO SCH ×2 (08:33→21:24)
[2016-06-21] MEDS: TAMSULOSIN 0.4 MG CAP.ER.24H PO SCH (08:34)
--- NOTE | 2016-06-21 09:01 | XR ---
EXAMINATION TYPE: XR chest 2V DATE OF EXAM: 06/21/2016 8:19 AM COMPARISON: 06/19/2016 TECHNIQUE: PA and lateral views submitted. HISTORY: CHF FINDINGS: There is pleural-based thickening which appears increased from the previous exam within the right upp er lobe with areas of linear scar or atelectasis. Underlying diffuse COPD noted. Postoperative change and epicardial lead noted. No interstitial congestion or pneumothorax. Diffuse osteopenia and arthro raisa of the shoulder noted. IMPRESSION: 1. COPD with chronic pleural parenchymal changes, however, there appears to be increased pleural-base d thickening within the right upper lobe. Right paratracheal soft tissue fullness remains. Vague left upper lobe peripheral nodularity is also noted. No interval change.
[2016-06-21] MEDS: SYMBICORT 160-4.5 MCG INHALER INHALATION SCH ×2 (09:21→19:50)
[2016-06-21] MEDS: BUDESONIDE 1 MG/2 ML NEBU INHALATION SCH (09:21)
[2016-06-21] MEDS: IPRATROPIUM-ALBUTEROL 3 ML NEB INHALATION SCH ×4 (09:21→19:51)
--- NOTE | 2016-06-21 09:59 | ECHOF ---
Referral Reason:NSI MEASUREMENTS -------- HEIGHT: 170.2 cm WEIGHT: 57.6 kg BP: RVIDd: 2.9 cm (< 3.3) IVSd: 1.6 cm (0.6 - 1.1) LVIDd: 3.6 cm (3.9 - 5.3) LVPWd: 1.4 cm (0.6 - 1.1) IVSs: 1.9 cm LVIDs: 3.0 cm LVPWs: 1.5 cm LA Diam: 3.7 cm (2.7 - 3.8) Ao Diam: 3.2 cm (2.0 - 3.7) AV Cusp: 1.4 cm (1.5 - 2.6) LA Diam: 3.9 cm (2.7 - 3.8) MV EXCURSION: 17.354 mm (> 18.000) MV EF SLOPE: 59 mm/s (70 - 150) EPSS: 0.9 cm MV E Jason: 1.01 m/s MV DecT: 140 ms MV A Jason: 1.10 m/s MV E/A Ratio: 0.92 RAP: 5.00 mmHg RVSP: 25.07 mmHg FINDINGS -------- Sinus rhythm. This was a techncally difficult study with suboptimal views, , Definity utilized for enhancement of images. There is mild concentric left ventricular hypertrophy. Overall left ventricular systolic function is mildly impaired with, an EF between 45 - 50 %. Inferior Hypokinesis Basal septal hypokinesis The right ventricle is normal in size. The left atrial size is normal. The right atrial size is normal. 1.5MG OF DEFINITY UTLIZED: 2 OR MORE WALL SEGMENTS NOT VISUALIZED. The aortic valve was not well visualized. There is mild aortic valve sclerosis. Mild mitral annular calcification present. Mild mitral regurgitation is present. Mild tricuspid regurgitation present. There is no evidence of pulmonary hypertension. The right ventricular systolic pressure, as measured by Doppler, is 25.07mmHg. There is no pulmonic regurgitation present. The aortic root size is normal. There is no pericardial effusion. CONCLUSIONS -------- 1. This was a techncally difficult study with suboptimal views, , Definity utilized for enhancement of images. 2. Mild tricuspid regurgitation present. 3. There is no evidence of pulmonary hypertension. 4. The right ventricular systolic pressure, as measured by Doppler, is 25.07mmHg. 5. There is mild concentric left ventricular hypertrophy. 6. Overall left ventricular systolic function is mildly impaired with, an EF between 45 - 50 %. 7. Inferior Hypokinesis 8. Basal septal hypokinesis 9. 1.5MG OF DEFINITY UTLIZED: 2 OR MORE WALL SEGMENTS NOT VISUALIZED. 10. There is mild aortic valve sclerosis. 11. Mild mitral annular calcification present. 12. Mild mitral regurgitation is present. CLOTH REELER: Kortney Kemp RDCS
[2016-06-21 11:55] LABS: Glucose,Whole Blood 104 mg/dL (75-99)
[2016-06-21] MEDS: DOCUSATE 100 MG CAP PO SCH ×2 (12:39→21:24)
[2016-06-21] MEDS: LEVOFLOXACIN 750 MG TAB PO SCH (12:40)
--- NOTE | 2016-06-21 14:51 | P.PN ---
Subjective Principal diagnosis: COPD This is a 80-year-old gentleman with history of severe COPD and emphysema being followed by Dr. Hayes. He also has history of ischemic heart disease and previous bypass surgery, used to be followed by Dr. Rodas. He presented to the hospital with symptoms of progressively worsening shortness of breath. His chest x-ray revealed mostly chronic COPD changes without any evidence of congestive heart failure. EKG showed multifocal atrial rhythm with PVCs. D- dimer was mildly elevated but a CT of the chest did not reveal any evidence of a pulmonary embolism. It did reveal new bilateral infiltrates. Troponin was also noted to be mildly elevated, representing a type II myocardial infarction secondary to oxygen supply and demand mismatch. Echocardiogram with Doppler study was performed an ejection fraction of 45-50%. Patient is noted on the monitor to have episodes of multifocal atrial tachycardia mode no evidence of any atrial fibrillation. He is currently on metoprolol tartrate 6.25 mg at at bedtime which we will increase to 12-1/2 mg daily. We'll discontinue the Nitropaste. Discontinue. Objective - Vital Signs Vital signs: Vital Signs Temp 97.3 F L 06/21/16 12:00 Pulse 82 06/21/16 12:00 Resp 16 06/21/16 12:00 BP 129/71 06/21/16 12:00 Pulse Ox 94 L 06/21/16 12:00 Intake & Output 06/20/16 06/21/16 06/21/16 18:59 06:59 18:59 Intake Total 0 513.658 525.751 Output Total 150 200 200 Balance -150 313.658 325.751 Weight 63 kg Intake: IV 240 0.9 120 Heparin Sodium,Porcine/ 120 D5w Pmx 25,000 unit In Dextrose/Water 1 500ml. bag @ 12 UNITS/KG/HR 15. 67 mls/hr IV .Q24H ALEX Rx #:[id number] Intake, IV Titration 313.658 55.751 Amount Heparin Sodium,Porcine/ 313.658 55.751 D5w Pmx 25,000 unit In Dextrose/Water 1 500ml. bag @ 12 UNITS/KG/HR 15. 67 mls/hr IV .Q24H ALEX Rx #:[id number] Oral 0 200 230 Output: Urine 150 200 200 Other: Voiding Method Urinal Urinal Urinal # Voids 0 0 # Bowel Movements 0 - Exam PHYSICAL EXAMINATION: HEENT: Head is atraumatic, normocephalic. Pupils equal, round. Neck is supple. There is no elevated jugular venous pressure. HEART EXAMINATION: Heart S1, S2 normal. No murmur or gallop heard. CHEST EXAMINATION: Lungs reveal diminished breath sounds bilaterally with fine scattered ABDOMEN: Soft, nontender. Bowel sounds are heard. No organomegaly noted. EXTREMITIES: 2+ peripheral pulses with no evidence of peripheral edema and no calf tenderness noted. NEUROLOGIC patient is awake, alert and oriented -3. . - Labs CBC & Chem 7: 06/19/16 14:50 06/19/16 14:50 Labs: Abnormal Lab Results - Last 24 Hours (Table) 06/20/16 06/20/16 06/21/16 Range/Units 17:03 21:06 06:22 APTT 35.8 H (22.0-30.0) sec POC Glucose (mg/dL) 134 H 153 H (75-99) mg/dL 06/21/16 06/21/16 06/21/16 Range/Units 06:27 11:53 13:17 APTT 40.3 H (22.0-30.0) sec POC Glucose (mg/dL) 116 H 104 H (75-99) mg/dL Assessment and Plan (1) Acute exacerbation of chronic obstructive airways disease Status: Acute (2) CAD (coronary artery disease) Status: Acute (3) Elevated troponin I level Status: Acute (4) History of coronary artery bypass graft Status: Acute (5) Multifocal atrial tachycardia Status: Acute Plan: From cardiology's perspective, we will increase the patient's dose of metoprolol tartrate 12-1/2 mg one tablet by mouth twice a day, his continue Nitropaste and IV heparin. DNP note has been reviewed, I agree with a documented findings and plan of care. Patient was seen and examined.
[2016-06-21 17:17] LABS: Glucose,Whole Blood 140 mg/dL (75-99)
[2016-06-21] MEDS: methylPREDNISolone SOD SUCCI 40 MG/ML 1 ML VIAL IV SCH (17:54)
--- NOTE | 2016-06-21 17:55 | P.PN ---
Subjective Principal diagnosis: 80-year-old male patient, very well-known to me due to advanced COPD and chronic biapical scarring in addition to coronary artery disease and previous bypass surgery, and known history of bladder cancer coming to the emergency department yesterday because of increased shortness of breath. The patient was gradually getting worse over the past 1 week or so. He had a congested cough lung with increased dyspnea, and wheezing. The shortness of breath became worse on the day of the admission specially in the morning. Prior to that, the patient was quite active and apparently was riding the lawnmower without any major difficulties. He denied having any chest pain although his troponin was positive and it peaked at 1.36. The EKG showed normal sinus rhythm with frequent PVCs. No ischemic ST segment changes such as elevation or depression. In any rate, a cardiology consultation was requested in regards to this abnormal troponin. Meanwhile, the patient had a chest x-ray that showed biapical scarring more so on the right. CAT scan of the chest was also obtained and showed chronic scarring in the lung apices most on the right along with diffuse emphysematous changes more so in the upper lobes. No acute pneumonia. No lung masses or lesions identified. No pleural effusion and no pneumothorax. The patient denies having any fever or chills. The patient denies having any mental status change. He was feeling quite weak. No nausea. No vomiting. No diarrhea. No other complaints otherwise. The patient is seen again today in follow-up 06/21/2016 on the selective care unit. He is awake and alert in no acute distress. He is breathing easier today as compared to yesterday. Not quite back to his baseline. He is dyspneic on minimal exertion. Today's chest x-ray shows COPD with chronic pleural parenchymal changes. There is some increased pleural-based thickening within the right upper lobe. He denies any chest pain. No worsening shortness of breath. He has a loose nonproductive cough. No chills or night sweats. Objective - Vital Signs Vital signs: Vital Signs Temp 97.6 F 06/21/16 15:47 Pulse 108 H 06/21/16 15:47 Resp 16 06/21/16 16:00 BP 124/60 06/21/16 15:47 Pulse Ox 95 06/21/16 15:47 Intake & Output 06/20/16 06/21/16 06/21/16 18:59 06:59 18:59 Intake Total 0 513.658 835.707 Output Total 150 200 200 Balance -150 313.658 635.707 Weight 63 kg Intake: IV 456 0.9 200 Heparin Sodium,Porcine/ 256 D5w Pmx 25,000 unit In Dextrose/Water 1 500ml. bag @ 12 UNITS/KG/HR 15. 67 mls/hr IV .Q24H ALEX Rx #:[id number] Intake, IV Titration 313.658 149.707 Amount Heparin Sodium,Porcine/ 313.658 149.707 D5w Pmx 25,000 unit In Dextrose/Water 1 500ml. bag @ 12 UNITS/KG/HR 15. 67 mls/hr IV .Q24H ALEX Rx #:[id number] Oral 0 200 230 Output: Urine 150 200 200 Other: Voiding Method Urinal Urinal Urinal # Voids 0 0 # Bowel Movements 0 - Exam The patient appeared well nourished and normally developed. Vital signs as documented. Head exam is unremarkable. No scleral icterus or corneal arcus noted. Neck is without jugular venous distension, thyromegaly, or carotid bruits. Carotid upstrokes are brisk bilaterally. Lung sounds are diminished bilaterally along with that there is scattered rhonchi and diffuse extremity wheezes without the lung [place] bilaterally along with some degree of prolongation of expiratory phase of breathing. Heart examination shows a normal sternum. Cardiac exam revealed the PMI to be normally situated and sized. The rhythm was regular and no extrasystoles were noted during several minutes of auscultation. The first and second heart sounds were normal and physiologic splitting of the second heart sound was noted. There were no murmurs , rubs, clicks, or gallops. Surgical wound site over the anterior chest is dry clean and intact. Abdominal exam reveals normal bowel sounds, no masses, no organomegaly and no aortic enlargement. Extremities are nonedematous and both femoral and pedal pulses are normal. - Labs CBC & Chem 7: 06/19/16 14:50 06/19/16 14:50 Labs: Abnormal Lab Results - Last 24 Hours (Table) 06/20/16 06/21/16 06/21/16 Range/Units 21:06 06:22 06:27 APTT 35.8 H (22.0-30.0) sec POC Glucose (mg/dL) 153 H 116 H (75-99) mg/dL 06/21/16 06/21/16 06/21/16 Range/Units 11:53 13:17 17:16 APTT 40.3 H (22.0-30.0) sec POC Glucose (mg/dL) 104 H 140 H (75-99) mg/dL Assessment and Plan Plan: Assessment 1 acute COPD exacerbation/acute bronchitis with secondary shortness of breath. 2 abnormal troponin elevation, rule out acute non-ST segment elevation myocardial infarction. Echocardiogram reveals mildly impaired left ventricular systolic function with estimated ejection fraction 45-50%. There is also inferior, basal septal hypokinesia. 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 6 large parastomal hernia/incisional hernia not candidate for surgical resection /repair 7 carotid artery stenosis 8 anxiety chronic/depression 9 hypertension 10 hyperlipidemia 11 history of smoking quit in 1997 Plan The patient was seen and evaluated by Dr. Hayes. His chest x-ray was reviewed. We'll continue with his current pulmonary medications including empiric antibiotics in the form of Levaquin. Cardiology is on the case as well. We will increase his activity as tolerated. We'll continue to follow make further recommendations based on his clinical status.
--- NOTE | 2016-06-21 18:15 | PN ---
DATE OF SERVICE: 06/21/2016 PRESENTING COMPLAINT: Shortness of breath. INTERVAL HISTORY: This is an 80-year-old gentleman who presented with shortness of breath. He was using his complex care nurse and became increasingly short of breath, began coughing and congested and was not able to expectorate today. Patient appears tired, less short of breath then yesterday on the day of arrival. Patient is slow to respond to interventions. Review of systems done for constitutional cardiovascular, GI, pulmonary, with relevant findings listed above. Current medications: Patient continues on: 1. Albuterol. 2. DuoNeb. 3. Xanax for anxiety. 4. Mucinex. 5. Levaquin. 6. Solu-Medrol. Physical exam: Vital signs: Temperature 97.6, heart rate 108, respiratory rate 16, blood pressure 124/60. Oxygen saturation 95% on nasal cannula 3 liters. General appearance: Tired appearing, short of breath, but improved from yesterday. Eyes pupils equal. Conjunctivae normal. Neck JVD unable to assess. Mass not palpable. Respiratory effort increased lungs, some wheezing, congestion, some crackles noted. Cardiovascular, S1, S2 noted and normal. No edema. Abdomen soft, nontender. Liver and spleen are not palpable; psychiatric: alert and oriented x3. Mood and affect are tired appearing. INVESTIGATIONS: Chest x-ray from 06/21 reveals COPD with chronic pleural parenchymal changes, however, no interval change noted. ASSESSMENT: 1. Acute non-ST elevated myocardial infarction. 2. Acute chronic obstructive pulmonary disease exacerbation in an ex-smoker, possibly associated with community-acquired pneumonia suspect gram-negative organism. 3. Acute chronic obstructive pulmonary disease exacerbation in an ex-smoker. 4. Acute hypoxic respiratory failure from pneumonia. 5. Acute hypoxic respiratory failure, on home oxygen. 6. Hyperlipidemia. 7. Essential hypertension. 8. Coronary artery disease with history of coronary artery bypass graft. 9. Coronary artery stenosis. 10. Benign prostatic hypertrophy. 11. Anxiety, depression, not otherwise specified. PLAN: Patient was started on steroids, nebulized bronchodilators, Mucinex, and IV insulin. Sputum sent awaiting results from Gram stain and cultures, Solu-Medrol, will progressively exam, tapering the dose each day. History and physical was performed on the patient by me/the nurse practitioner and attending/Dr. Maddox. The relevant points of the history/physical/diagnoses/plan was discussed and is as dictated above. I performed a history and physical examination of this patient and discussed the same with the dictator. I agree with the dictator's note. Any additional findings/opinions, etc. will be noted.
[2016-06-21 18:44] LABS: Basophils # (A) 0.1 k/uL (0-0.2); Basophils % (A) 1 %; CH 30.8; CHCM 32.2; Eosinophils # (A) 0.1 k/uL (0-0.7); Eosinophils % (A) 0 %; HDW 2.22; HGB 14.3 gm/dL (13.0-17.5); Luc # (Auto) 0.07; Luc % (Auto) 0; Lymphocytes # (A) 0.3 k/uL (1.0-4.8); Lymphocytes % (A) 2 %; MCH 30.8 pg (25.0-35.0); MCHC 31.9 g/dL (31.0-37.0); MCV 96.4 fL (80.0-100.0); Monocytes # (A) 0.4 k/uL (0-1.0); Monocytes % (A) 2 %; Neutrophils # (A) 16.5 k/uL (1.3-7.7); Neutrophils % (A) 95 %; RBC 4.66 m/uL (4.30-5.90); RDW 14.8 % (11.5-15.5); WBC 17.5 k/uL (3.8-10.6); WBC (Perox) 16.65
[2016-06-21 18:51] LABS: Potassium 3.6 mmol/L (3.5-5.1)
[2016-06-21 21:12] LABS: Glucose,Whole Blood 138 mg/dL (75-99)
[2016-06-21] MEDS: ALPRAZolam 0.5 MG TAB PO PRN (21:24)
[2016-06-21] MEDS: ATORVASTATIN 20 MG TAB PO SCH (22:14)
[2016-06-21] MEDS ORDERED: LORazepam 1 MG TAB PO STA (23:44)
[2016-06-22] MEDS: methylPREDNISolone SOD SUCCI 40 MG/ML 1 ML VIAL IV SCH ×3 (00:15→08:07)
[2016-06-22 04:53] VITALS: RESP 18
[2016-06-22 06:41] LABS: Basophils % (A) 0 %; CHCM 32.8; Eosinophils # (A) 0.1 k/uL (0-0.7); Eosinophils % (A) 1 %; HCT 41.7 % (39.0-53.0); HDW 2.22; HGB 13.4 gm/dL (13.0-17.5); Luc # (Auto) 0.07; Luc % (Auto) 1; Lymphocytes # (A) 0.3 k/uL (1.0-4.8); Lymphocytes % (A) 2 %; MCH 30.4 pg (25.0-35.0); MCV 94.8 fL (80.0-100.0); Mean Platelet Volume 9.3; Monocytes # (A) 0.5 k/uL (0-1.0); Monocytes % (A) 3 %; Neutrophils # (A) 13.7 k/uL (1.3-7.7); Neutrophils % (A) 94 %; RDW 14.7 % (11.5-15.5); WBC 14.6 k/uL (3.8-10.6); WBC (Perox) 15.11
[2016-06-22 06:44] LABS: Glucose,Whole Blood 124 mg/dL (75-99)
[2016-06-22] MEDS: INSULIN LISPRO (humaLOG) 300 UNIT/3 ML VIAL SQ SCH ×4 (06:46→23:35)
[2016-06-22 06:50] LABS: Calcium 8.7 mg/dL (8.4-10.2); Potassium 3.3 mmol/L (3.5-5.1)
[2016-06-22] MEDS: CITALOPRAM HYDROBROMIDE 20 MG TAB PO SCH (07:57)
[2016-06-22] MEDS: PRIMIDONE 25 MG TAB PO SCH ×2 (07:57→23:39)
[2016-06-22] MEDS: FINASTERIDE 5 MG TAB PO SCH (07:57)
[2016-06-22] MEDS: TAMSULOSIN 0.4 MG CAP.ER.24H PO SCH (07:57)
[2016-06-22] MEDS: METOPROLOL TARTRATE 12.5 MG TAB PO SCH (07:58)
[2016-06-22] MEDS: ASPIRIN 325 MG TAB PO SCH (07:58)
[2016-06-22] MEDS: guaiFENesin 600 MG TABLET.ER PO SCH ×2 (07:58→23:39)
[2016-06-22] MEDS: DOCUSATE 100 MG CAP PO SCH ×2 (07:58→23:38)
[2016-06-22] MEDS: IPRATROPIUM-ALBUTEROL 3 ML NEB INHALATION SCH ×4 (08:08→20:49)
[2016-06-22] MEDS: SYMBICORT 160-4.5 MCG INHALER INHALATION SCH ×2 (08:11→20:47)
[2016-06-22] MEDS: POTASSIUM CHLORIDE 10 MEQ, LIDOCAINE 2% INJ 10 MG in SODIUM CHLORIDE 0.9% 100 ML IVPB SCH ×4 (10:04→14:18)
[2016-06-22 11:55] LABS: Glucose,Whole Blood 111 mg/dL (75-99)
[2016-06-22] MEDS: VERAPAMIL 40 MG TAB PO SCH ×3 (11:57→23:39)
[2016-06-22] MEDS: LEVOFLOXACIN 750 MG TAB PO SCH (11:58)
[2016-06-22] MEDS: predniSONE 20 MG TAB PO SCH (12:06)
--- NOTE | 2016-06-22 12:26 | P.PN ---
Subjective Principal diagnosis: COPD This is a 80-year-old gentleman with history of severe COPD and emphysema being followed by Dr. Hayes. He also has history of ischemic heart disease and previous bypass surgery, used to be followed by Dr. Rodas. He presented to the hospital with symptoms of progressively worsening shortness of breath. His chest x-ray revealed mostly chronic COPD changes without any evidence of congestive heart failure. EKG showed multifocal atrial rhythm with PVCs. D- dimer was mildly elevated but a CT of the chest did not reveal any evidence of a pulmonary embolism. It did reveal new bilateral infiltrates. Troponin was also noted to be mildly elevated, representing a type II myocardial infarction secondary to oxygen supply and demand mismatch. Echocardiogram with Doppler study was performed an ejection fraction of 45-50%. Patient is noted on the monitor to have episodes of multifocal atrial tachycardia mode no evidence of any atrial fibrillation. Start the patient today on verapamil. Continue current dose of beta yayo. Patient was given Ativan along with Xanax to help him sleep, he became quite confused was having hallucinations, still mildly confused this morning but improving significantly. Objective - Vital Signs Vital signs: Vital Signs Temp 97 F L 06/22/16 11:10 Pulse 131 H 06/22/16 11:10 Resp 18 06/22/16 11:10 BP 121/72 06/22/16 11:10 Pulse Ox 95 06/22/16 11:10 Intake & Output 06/21/16 06/22/16 06/22/16 18:59 06:59 18:59 Intake Total 1265.707 0 Output Total 200 280 Balance 1065.707 -280 0 Weight 60.4 kg Intake: IV 456 0.9 200 Heparin Sodium,Porcine/ 256 D5w Pmx 25,000 unit In Dextrose/Water 1 500ml. bag @ 12 UNITS/KG/HR 15. 67 mls/hr IV .Q24H ALEX Rx #:[id number] Intake, IV Titration 149.707 Amount Heparin Sodium,Porcine/ 149.707 D5w Pmx 25,000 unit In Dextrose/Water 1 500ml. bag @ 12 UNITS/KG/HR 15. 67 mls/hr IV .Q24H ALEX Rx #:[id number] Oral 660 0 Output: Urine 200 280 Other: Voiding Method Urinal Urinal # Voids 0 1 1 - Exam PHYSICAL EXAMINATION: HEENT: Head is atraumatic, normocephalic. Pupils equal, round. Neck is supple. There is no elevated jugular venous pressure. HEART EXAMINATION: Heart S1, S2 normal. No murmur or gallop heard. CHEST EXAMINATION: Lungs reveal diminished breath sounds bilaterally with fine scattered ABDOMEN: Soft, nontender. Bowel sounds are heard. No organomegaly noted. EXTREMITIES: 2+ peripheral pulses with no evidence of peripheral edema and no calf tenderness noted. NEUROLOGIC patient is awake, alert and oriented -3. . - Labs CBC & Chem 7: 06/22/16 06:26 06/22/16 06:26 Labs: Abnormal Lab Results - Last 24 Hours (Table) 06/21/16 06/21/16 06/21/16 Range/Units 13:17 17:16 18:21 WBC (3.8-10.6) k/uL Neutrophils # (1.3-7.7) k/uL Lymphocytes # (1.0-4.8) k/uL APTT 40.3 H (22.0-30.0) sec Sodium 135 L (137-145) mmol/L Potassium (3.5-5.1) mmol/L Chloride 95 L (98-107) mmol/L BUN 73 H (9-20) mg/dL Creatinine 1.88 H (0.66-1.25) mg/dL Glucose 106 H (74-99) mg/dL POC Glucose (mg/dL) 140 H (75-99) mg/dL 06/21/16 06/21/16 06/22/16 Range/Units 18:30 21:10 06:26 WBC 17.5 H (3.8-10.6) k/uL Neutrophils # 16.5 H (1.3-7.7) k/uL Lymphocytes # 0.3 L (1.0-4.8) k/uL APTT (22.0-30.0) sec Sodium 136 L (137-145) mmol/L Potassium 3.3 L (3.5-5.1) mmol/L Chloride (98-107) mmol/L BUN 76 H (9-20) mg/dL Creatinine 1.72 H (0.66-1.25) mg/dL Glucose 128 H (74-99) mg/dL POC Glucose (mg/dL) 138 H (75-99) mg/dL 06/22/16 06/22/16 06/22/16 Range/Units 06:26 06:42 11:41 WBC 14.6 H (3.8-10.6) k/uL Neutrophils # 13.7 H (1.3-7.7) k/uL Lymphocytes # 0.3 L (1.0-4.8) k/uL APTT (22.0-30.0) sec Sodium (137-145) mmol/L Potassium (3.5-5.1) mmol/L Chloride (98-107) mmol/L BUN (9-20) mg/dL Creatinine (0.66-1.25) mg/dL Glucose (74-99) mg/dL POC Glucose (mg/dL) 124 H 111 H (75-99) mg/dL Assessment and Plan (1) Acute exacerbation of chronic obstructive airways disease Status: Acute (2) CAD (coronary artery disease) Status: Acute (3) Elevated troponin I level Status: Acute (4) History of coronary artery bypass graft Status: Acute (5) Multifocal atrial tachycardia Status: Acute Plan: From cardiology's perspective, we'll add verapamil to his medication regime. Continue current dose of beta yayo. DNP note has been reviewed, I agree with a documented findings and plan of care. Patient was seen and examined.
--- NOTE | 2016-06-22 12:32 | P.PN ---
Progress Note - Text This is an addendum to the cardiology progress note dictated earlier today. The is concerned that the patient has not had an active a bowel movement, he does have a colostomy in place. We will request Dr. Zabala to see the patient in consultation. DNP note has been reviewed, I agree with a documented findings and plan of care. Patient was seen and examined.
[2016-06-22] MEDS ORDERED: DILTIAZEM 125 MG in SODIUM CHLORIDE 0.9% 100 ML IV SCH (13:00)
--- NOTE | 2016-06-22 13:38 | P.PN ---
Subjective 80 year-old male patient, very well-known to me due to advanced COPD and chronic biapical scarring in addition to coronary artery disease and previous bypass surgery, and known history of bladder cancer coming to the emergency department yesterday because of increased shortness of breath. The patient was gradually getting worse over the past 1 week or so. He had a congested cough lung with increased dyspnea, and wheezing. The shortness of breath became worse on the day of the admission specially in the morning. Prior to that, the patient was quite active and apparently was riding the lawnmower without any major difficulties. He denied having any chest pain although his troponin was positive and it peaked at 1.36. The EKG showed normal sinus rhythm with frequent PVCs. No ischemic ST segment changes such as elevation or depression. In any rate, a cardiology consultation was requested in regards to this abnormal troponin. Meanwhile, the patient had a chest x-ray that showed biapical scarring more so on the right. CAT scan of the chest was also obtained and showed chronic scarring in the lung apices most on the right along with diffuse emphysematous changes more so in the upper lobes. No acute pneumonia. No lung masses or lesions identified. No pleural effusion and no pneumothorax. The patient denies having any fever or chills. The patient denies having any mental status change. He was feeling quite weak. No nausea. No vomiting. No diarrhea. No other complaints otherwise. The patient is seen again today in follow-up 06/21/2016 on the selective care unit. He is awake and alert in no acute distress. He is breathing easier today as compared to yesterday. Not quite back to his baseline. He is dyspneic on minimal exertion. Today's chest x-ray shows COPD with chronic pleural parenchymal changes. There is some increased pleural-based thickening within the right upper lobe. He denies any chest pain. No worsening shortness of breath. He has a loose nonproductive cough. No chills or night sweats. The patient was seen and evaluated again today on 06/22/2016 on the selective care unit. He is currently awake and alert in no acute distress. He is maintaining good O2 saturations in the mid 90s on 3 L/m per nasal cannula. He is breathing easier today as compared to yesterday. Not quite back to his baseline. Objective - Vital Signs Vital signs: Vital Signs Temp 97 F L 06/22/16 11:10 Pulse 131 H 06/22/16 11:10 Resp 18 06/22/16 11:10 BP 121/72 06/22/16 11:10 Pulse Ox 95 06/22/16 11:10 Intake & Output 06/21/16 06/22/16 06/22/16 18:59 06:59 18:59 Intake Total 1265.707 0 Output Total 200 280 Balance 1065.707 -280 0 Weight 60.4 kg Intake: IV 456 0.9 200 Heparin Sodium,Porcine/ 256 D5w Pmx 25,000 unit In Dextrose/Water 1 500ml. bag @ 12 UNITS/KG/HR 15. 67 mls/hr IV .Q24H [facility] Rx #:[id number] Intake, IV Titration 149.707 Amount Heparin Sodium,Porcine/ 149.707 D5w Pmx 25,000 unit In Dextrose/Water 1 500ml. bag @ 12 UNITS/KG/HR 15. 67 mls/hr IV .Q24H [facility] Rx #:[id number] Oral 660 0 Output: Urine 200 280 Other: Voiding Method Urinal Urinal # Voids 0 1 1 - Exam The patient appeared well nourished and normally developed. Vital signs as documented. Head exam is unremarkable. No scleral icterus or corneal arcus noted. Neck is without jugular venous distension, thyromegaly, or carotid bruits. Carotid upstrokes are brisk bilaterally. Lung sounds are diminished bilaterally along with that there is scattered rhonchi and diffuse extremity wheezes without the lung mansfield bilaterally along with some degree of prolongation of expiratory phase of breathing. Heart examination shows a normal sternum. Cardiac exam revealed the PMI to be normally situated and sized. The rhythm was regular and no extrasystoles were noted during several minutes of auscultation. The first and second heart sounds were normal and physiologic splitting of the second heart sound was noted. There were no murmurs , rubs, clicks, or gallops. Surgical wound site over the anterior chest is dry clean and intact. Abdominal exam reveals normal bowel sounds, no masses, no organomegaly and no aortic enlargement. Extremities are nonedematous and both femoral and pedal pulses are normal. - Labs CBC & Chem 7: 06/22/16 06:26 06/22/16 06:26 Labs: Abnormal Lab Results - Last 24 Hours (Table) 06/21/16 06/21/16 06/21/16 Range/Units 13:17 17:16 18:21 WBC (3.8-10.6) k/uL Neutrophils # (1.3-7.7) k/uL Lymphocytes # (1.0-4.8) k/uL APTT 40.3 H (22.0-30.0) sec Sodium 135 L (137-145) mmol/L Potassium (3.5-5.1) mmol/L Chloride 95 L (98-107) mmol/L BUN 73 H (9-20) mg/dL Creatinine 1.88 H (0.66-1.25) mg/dL Glucose 106 H (74-99) mg/dL POC Glucose (mg/dL) 140 H (75-99) mg/dL 06/21/16 06/21/16 06/22/16 Range/Units 18:30 21:10 06:26 WBC 17.5 H (3.8-10.6) k/uL Neutrophils # 16.5 H (1.3-7.7) k/uL Lymphocytes # 0.3 L (1.0-4.8) k/uL APTT (22.0-30.0) sec Sodium 136 L (137-145) mmol/L Potassium 3.3 L (3.5-5.1) mmol/L Chloride (98-107) mmol/L BUN 76 H (9-20) mg/dL Creatinine 1.72 H (0.66-1.25) mg/dL Glucose 128 H (74-99) mg/dL POC Glucose (mg/dL) 138 H (75-99) mg/dL 06/22/16 06/22/16 06/22/16 Range/Units 06:26 06:42 11:41 WBC 14.6 H (3.8-10.6) k/uL Neutrophils # 13.7 H (1.3-7.7) k/uL Lymphocytes # 0.3 L (1.0-4.8) k/uL APTT (22.0-30.0) sec Sodium (137-145) mmol/L Potassium (3.5-5.1) mmol/L Chloride (98-107) mmol/L BUN (9-20) mg/dL Creatinine (0.66-1.25) mg/dL Glucose (74-99) mg/dL POC Glucose (mg/dL) 124 H 111 H (75-99) mg/dL Assessment and Plan Plan: Assessment 1 acute COPD exacerbation/acute bronchitis with secondary shortness of breath. 2 abnormal troponin elevation, rule out acute non-ST segment elevation myocardial infarction. Echocardiogram reveals mildly impaired left ventricular systolic function with estimated ejection fraction 45-50%. There is also inferior, basal septal hypokinesia. 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 6 large parastomal hernia/incisional hernia not candidate for surgical resection /repair 7 carotid artery stenosis 8 anxiety chronic/depression 9 hypertension 10 hyperlipidemia 11 history of smoking quit in 1997 Plan The patient was seen and evaluated by Dr. Hayes. We'll continue with his current pulmonary medications including empiric antibiotics in the form of Levaquin. Cardiology is on the case as well. Surgical services has been consulted regarding the inactivity of his colostomy. We will increase his activity as tolerated. We'll continue to follow make further recommendations based on his clinical status.
--- NOTE | 2016-06-22 13:59 | P.GSCN ---
History of Present Illness Consult date: 06/22/16 Reason for Consult: Patient hospitalized with shortness of breath. He also has had complaints of some decreased ostomy function. Denies abdominal pain. He says is been 3-4 days since he has had any bowel activity through the ostomy. He says he normally will go 1-2 days between bowel movements. He admits that he is eating less than normal. Denies nausea or vomiting. Some decrease in the appetite. No x-rays have been performed yet. Review of Systems The patient denies any acute changes in his vision or hearing, no dysphagia or odynophagia, no dysuria or hematuria, no headache, no runny nose, no rectal bleeding or melena, no unexplained weight loss Past Medical History Past Medical History: Coronary Artery Disease (CAD), Cancer, COPD, Hyperlipidemia, Hypertension, Pneumonia, Prostate Disorder Additional Past Medical History / Comment(s): BLADDER CANCER, COPD, TREMORS, . HX OF DIVERTICULITIS WITH PERFORATED BOWEL . HAS COLOSTOMY. HERNIA AT [facility] AND INCISIONAL HERNIA . CAROTID ARTERY STENOSIS, ENLARGED PROSTATE. , FX LEFT HIP 10/2013 AND NOW USING WALKER AND HAS VISITING NURSE AND PHYSICAL THERAPY. History of Any Multi-Drug Resistant Organisms: None Reported Past Surgical History: Bowel Resection, Coronary Bypass/CABG, Hernia Repair Additional Past Surgical History / Comment(s): COLOSTOMY D/T PERFORATED BOWEL FROM DIVERTICULITIS, CABG (2005), ING HERNIA REPAIR, ORIF FX LEFT HIP (10/2013) Past Anesthesia/Blood Transfusion Reactions: No Reported Reaction, Motion Sickness Additional Past Anesthesia/Blood Transfusion Reaction / Comm: CLAUSTERPHOBIC Past Psychological History: Anxiety, Depression Smoking Status: Former smoker Past Alcohol Use History: None Reported Additional Past Alcohol Use History / Comment(s): STARTED SMOKING AT AGE 14- SMOKED 2 PPD, QUIT 1997 Past Drug Use History: None Reported - Past Family History Father Family Medical History: Unable to Obtain Mother Family Medical History: Unable to Obtain Medications and Allergies Home Medications Medication Instructions Recorded Confirmed Type Citalopram Hydrobromide [CeleXA] 40 mg PO DAILY 11/18/13 06/19/16 History Finasteride [Proscar] 5 mg PO DAILY 11/18/13 06/19/16 History Fluticasone/Salmeterol [Advair 1 puff INHALATION RT-BID 11/18/13 06/19/16 History 500-50 Diskus] Metoprolol Tartrate [Lopressor] 6.25 mg PO HS 11/18/13 06/19/16 History Tamsulosin [Flomax] 0.4 mg PO DAILY 11/18/13 06/19/16 History Aspirin EC [Ecotrin] 325 mg PO DAILY 03/10/14 06/19/16 History Simvastatin [Zocor] 40 mg PO HS 05/11/15 06/19/16 History ALPRAZolam [Xanax] 0.5 mg PO DAILY PRN 06/19/16 06/19/16 History Budesonide/Formoterol Fumarate 2 puff INHALATION RT-BID 06/19/16 06/19/16 History [Symbicort 160-4.5 Mcg Inhaler] Levalbuterol HCl [Xopenex 1.25 mg INHALATION RT-QID 06/19/16 06/19/16 History Nebulized] Primidone [Mysoline] 25 mg PO BID 06/19/16 06/19/16 History guaiFENesin [Mucinex] 600 mg PO BID 06/19/16 06/19/16 History Allergies Allergy/AdvReac Type Severity Reaction Status Date / Time dobutamine Allergy Severe Swelling Verified 06/19/16 15:59 hydromorphone HCl Allergy Intermediate AGRESSIVE Verified 06/19/16 15:59 [From Dilaudid] sulfamethoxazole Allergy DIAPHORESIS Verified 06/19/16 15:59 [From Bactrim] trimethoprim [From Bactrim] Allergy DIAPHORESIS Verified 06/19/16 15:59 Surgical - Exam Vital Signs Temp Pulse Resp BP Pulse Ox 99.4 F 108 H 36 H 155/98 84 L 06/19/16 14:32 06/19/16 14:32 06/19/16 14:32 06/19/16 14:32 06/19/16 14:32 Physical exam: General: Elderly male slightly malnourished appearing HEENT: Normocephalic, sclerae nonicteric Abdomen: Nontender, nondistended, ostomy pink and viable, small reducible parastomal hernia noted Extremities: No edema Neuro: Alert and oriented Results - Labs 06/22/16 06:26 06/22/16 06:26 Abnormal Lab Results - Last 24 Hours (Table) 06/21/16 06/21/16 06/21/16 Range/Units 17:16 18:21 18:30 WBC 17.5 H (3.8-10.6) k/uL Neutrophils # 16.5 H (1.3-7.7) k/uL Lymphocytes # 0.3 L (1.0-4.8) k/uL Sodium 135 L (137-145) mmol/L Potassium (3.5-5.1) mmol/L Chloride 95 L (98-107) mmol/L BUN 73 H (9-20) mg/dL Creatinine 1.88 H (0.66-1.25) mg/dL Glucose 106 H (74-99) mg/dL POC Glucose (mg/dL) 140 H (75-99) mg/dL 06/21/16 06/22/16 06/22/16 Range/Units 21:10 06:26 06:26 WBC 14.6 H (3.8-10.6) k/uL Neutrophils # 13.7 H (1.3-7.7) k/uL Lymphocytes # 0.3 L (1.0-4.8) k/uL Sodium 136 L (137-145) mmol/L Potassium 3.3 L (3.5-5.1) mmol/L Chloride (98-107) mmol/L BUN 76 H (9-20) mg/dL Creatinine 1.72 H (0.66-1.25) mg/dL Glucose 128 H (74-99) mg/dL POC Glucose (mg/dL) 138 H (75-99) mg/dL 06/22/16 06/22/16 Range/Units 06:42 11:41 WBC (3.8-10.6) k/uL Neutrophils # (1.3-7.7) k/uL Lymphocytes # (1.0-4.8) k/uL Sodium (137-145) mmol/L Potassium (3.5-5.1) mmol/L Chloride (98-107) mmol/L BUN (9-20) mg/dL Creatinine (0.66-1.25) mg/dL Glucose (74-99) mg/dL POC Glucose (mg/dL) 124 H 111 H (75-99) mg/dL Diabetes panel 06/21/16 06/22/16 Range/Units 18:21 06:26 Sodium 135 L 136 L (137-145) mmol/L Potassium 3.6 3.3 L (3.5-5.1) mmol/L Chloride 95 L 98 (98-107) mmol/L Carbon Dioxide 25 27 (22-30) mmol/L BUN 73 H 76 H (9-20) mg/dL Creatinine 1.88 H 1.72 H (0.66-1.25) mg/dL Glucose 106 H 128 H (74-99) mg/dL Calcium 9.0 8.7 (8.4-10.2) mg/dL Calcium panel 06/21/16 06/22/16 Range/Units 18:21 06:26 Calcium 9.0 8.7 (8.4-10.2) mg/dL Pituitary panel 06/21/16 06/22/16 Range/Units 18:21 06:26 Sodium 135 L 136 L (137-145) mmol/L Potassium 3.6 3.3 L (3.5-5.1) mmol/L Chloride 95 L 98 (98-107) mmol/L Carbon Dioxide 25 27 (22-30) mmol/L BUN 73 H 76 H (9-20) mg/dL Creatinine 1.88 H 1.72 H (0.66-1.25) mg/dL Glucose 106 H 128 H (74-99) mg/dL Calcium 9.0 8.7 (8.4-10.2) mg/dL Adrenal panel 06/21/16 06/22/16 Range/Units 18:21 06:26 Sodium 135 L 136 L (137-145) mmol/L Potassium 3.6 3.3 L (3.5-5.1) mmol/L Chloride 95 L 98 (98-107) mmol/L Carbon Dioxide 25 27 (22-30) mmol/L BUN 73 H 76 H (9-20) mg/dL Creatinine 1.88 H 1.72 H (0.66-1.25) mg/dL Glucose 106 H 128 H (74-99) mg/dL Calcium 9.0 8.7 (8.4-10.2) mg/dL Assessment and Plan (1) Constipation Narrative/Plan: Will check abdominal x-rays. Likely will start laxatives following that. Status: Acute
--- NOTE | 2016-06-22 16:27 | XR ---
EXAMINATION TYPE: XR abdomen 2V DATE OF EXAM: 06/22/2016 2:50 PM COMPARISON: NONE HISTORY: Constipation TECHNIQUE: One view abdominal series FINDINGS: The osseous structures are intact. The bowel gas pattern is nonspecific. Postsurgical change left hi p with arthropathy bilaterally. Surgical clips overlying the left thigh. Vascular calcifications and degenerative change lower lumbar spine. Epicardial lead noted finding suggestive of a hiatal hernia. Previous surgery involving the mediastin um. Ostomy suggested overlying the left abdomen. Extensive retained fecal debris. IMPRESSION: 1. Nonspecific abdomen. Correlate for constipation. 2. Findings suggestive of hiatal hernia.
[2016-06-22 16:46] LABS: Glucose,Whole Blood 148 mg/dL (75-99)
[2016-06-22 21:13] LABS: Glucose,Whole Blood 119 mg/dL (75-99)
[2016-06-22] MEDS: ATORVASTATIN 20 MG TAB PO SCH (23:38)
[2016-06-23] MEDS: ALPRAZolam 0.5 MG TAB PO PRN (01:53)
[2016-06-23 06:19] LABS: Glucose,Whole Blood 101 mg/dL (75-99)
[2016-06-23] MEDS: INSULIN LISPRO (humaLOG) 300 UNIT/3 ML VIAL SQ SCH ×4 (06:25→22:32)
--- NOTE | 2016-06-23 07:16 | PN ---
DATE OF SERVICE: 06/22/2016 PRESENTING COMPLAINT: Shortness of breath. INTERVAL HISTORY: This is an 80-year-old gentleman who presented with shortness of breath. He was using his lawnmower and became increasingly short of breath, began coughing and congested and was not able to expectorate today. Patient is very sleepy today, secondary to administration of Xanax and Ativan overnight. Patient was hallucinating as well overnight. is at the bedside. Patient is slow to respond to the interventions. Review of systems done for constitutional, cardiovascular, GI, pulmonary, with relevant findings listed above. CURRENT MEDICATIONS: Albuterol, DuoNeb, Xanax, Mucinex, Levaquin, Solu-Medrol. PHYSICAL EXAM: VITAL SIGNS: Temperature 97, pulse 96, respiratory rate 18, blood pressure 127/65, oxygen saturation 95% on nasal cannula 3 L. GENERAL APPEARANCE: Tired-appearing, minimal shortness of breath noted. EYES: Pupils equal. Conjunctivae normal. NECK: JVD unable to assess. Mass not palpable. Respiratory effort increased. LUNGS: Some wheezing, congestion, some crackles. CARDIOVASCULAR: S1, S2 noted and normal. No edema. ABDOMEN: Soft, nontender. Liver and spleen not palpable. PSYCHIATRIC: Alert and oriented x3. Mood and affect is lethargic but arousable. INVESTIGATIONS: A chest x-ray from 06/21 revealed COPD with chronic pleural parenchymal changes; however, no interval change noted. White blood cell count 14.6. Sodium 136, potassium 3.3 for which he received supplementation. ASSESSMENT: 1. Acute non-ST elevated myocardial infarction. 2. Acute chronic obstructive pulmonary disease exacerbation in an ex-smoker, probably associated with community-acquired pneumonia, suspect gram-negative organism. 3. Acute hypoxic respiratory failure from pneumonia. 4. Acute hypoxic respiratory failure, on home oxygen. 5. Hyperlipidemia, continue Lipitor. 6. Essential hypertension. Will continue beta yayo and verapamil, which was added today by Cardiology. 7. Coronary artery disease with a history of coronary artery bypass graft. 8. Coronary artery stenosis. 9. Benign prostatic hypertrophy, patient currently on Flomax daily. 10. Anxiety, depression not otherwise specified. Patient experienced delirium overnight and confusion. 11. Constipation. General Surgery has been consulted, concerns for colostomy output. PLAN: Patient remains on steroids, nebulized bronchodilators, Mucinex and IV insulin. Sputum resulted with no growth over the past 72 hours. Solu-Medrol will be tapered each day. Concerns for patient's ostomy not putting out any stool over the past 3 days. Surgery was consulted and plan for them from their standpoint is to begin laxative therapy to have output in the ostomy. History and physical was performed on the patient by me/the nurse practitioner and attending/Dr. Maddox. Relevant points of the history/physical/diagnoses/plan were discussed and are as dictated above.
[2016-06-23] MEDS: IPRATROPIUM-ALBUTEROL 3 ML NEB INHALATION SCH ×5 (07:25→21:04)
[2016-06-23] MEDS: SYMBICORT 160-4.5 MCG INHALER INHALATION SCH ×3 (07:26→21:03)
[2016-06-23 09:09] LABS: Calcium 8.7 mg/dL (8.4-10.2); Potassium 3.6 mmol/L (3.5-5.1)
[2016-06-23] MEDS: ASPIRIN 325 MG TAB PO SCH (09:12)
[2016-06-23] MEDS: predniSONE 20 MG TAB PO SCH (09:12)
[2016-06-23] MEDS: METOPROLOL TARTRATE 12.5 MG TAB PO SCH (09:13)
[2016-06-23] MEDS: TAMSULOSIN 0.4 MG CAP.ER.24H PO SCH (09:13)
[2016-06-23] MEDS: PRIMIDONE 25 MG TAB PO SCH ×2 (09:14→22:32)
[2016-06-23] MEDS: guaiFENesin 600 MG TABLET.ER PO SCH ×2 (09:14→22:31)
[2016-06-23] MEDS: CITALOPRAM HYDROBROMIDE 20 MG TAB PO SCH (09:15)
[2016-06-23] MEDS: DOCUSATE 100 MG CAP PO SCH ×2 (09:16→22:31)
[2016-06-23] MEDS: VERAPAMIL 40 MG TAB PO SCH ×3 (09:16→22:32)
[2016-06-23] MEDS: FINASTERIDE 5 MG TAB PO SCH (09:16)
[2016-06-23 09:27] LABS: Basophils % (A) 0 %; CH 30.7; CHCM 32.1; Eosinophils % (A) 0 %; HCT 41.3 % (39.0-53.0); HDW 2.24; HGB 13.2 gm/dL (13.0-17.5); Luc # (Auto) 0.19; Luc % (Auto) 2; Lymphocytes # (A) 0.7 k/uL (1.0-4.8); Lymphocytes % (A) 6 %; MCH 30.7 pg (25.0-35.0); MCHC 31.9 g/dL (31.0-37.0); MCV 96.2 fL (80.0-100.0); Mean Platelet Volume 9.2; Monocytes # (A) 0.8 k/uL (0-1.0); Monocytes % (A) 6 %; Neutrophils # (A) 11.2 k/uL (1.3-7.7); Neutrophils % (A) 87 %; RBC 4.29 m/uL (4.30-5.90); RDW 14.6 % (11.5-15.5); WBC 12.9 k/uL (3.8-10.6); WBC (Perox) 14.08
[2016-06-23 12:13] LABS: Glucose,Whole Blood 118 mg/dL (75-99)
--- NOTE | 2016-06-23 13:34 | P.PN ---
Subjective Principal diagnosis: Constipation Patient is having large amounts of flatus through the ostomy. Some abdominal bloating sensation. Appetite remains diminished. Yesterday's x-rays show constipation. Objective - Vital Signs Vital signs: Vital Signs Temp 97.2 F L 06/23/16 12:00 Pulse 73 06/23/16 12:00 Resp 18 06/23/16 12:00 BP 124/77 06/23/16 12:00 Pulse Ox 95 06/23/16 12:00 Intake & Output 06/22/16 06/23/16 06/23/16 18:59 06:59 18:59 Intake Total 400 120 Output Total 500 150 250 Balance -100 -150 -130 Weight 61.4 kg Intake: IV 400 Potassium Chloride 10 meq 400 Lidocaine 2% Inj 10 mg In Sodium Chloride 0.9% 100 ml @ 100 mls/hr IVPB Q1HR [facility] Rx#:[id number] Oral 0 120 Output: Urine 500 150 250 Other: Voiding Method Urinal Urinal # Voids 1 1 - Exam Abdomen: Soft, nondistended, nontender, parastomal hernia reduced - Labs CBC & Chem 7: 06/23/16 08:38 06/23/16 08:38 Labs: Abnormal Lab Results - Last 24 Hours (Table) 06/22/16 06/22/16 06/23/16 Range/Units 16:40 21:11 06:18 WBC (3.8-10.6) k/uL RBC (4.30-5.90) m/uL Neutrophils # (1.3-7.7) k/uL Lymphocytes # (1.0-4.8) k/uL BUN (9-20) mg/dL Creatinine (0.66-1.25) mg/dL POC Glucose (mg/dL) 148 H 119 H 101 H (75-99) mg/dL 06/23/16 06/23/16 06/23/16 Range/Units 08:38 08:38 12:07 WBC 12.9 H (3.8-10.6) k/uL RBC 4.29 L (4.30-5.90) m/uL Neutrophils # 11.2 H (1.3-7.7) k/uL Lymphocytes # 0.7 L (1.0-4.8) k/uL BUN 67 H (9-20) mg/dL Creatinine 1.41 H (0.66-1.25) mg/dL POC Glucose (mg/dL) 118 H (75-99) mg/dL Assessment and Plan (1) Constipation Narrative/Plan: Add milk of magnesia. Continue diet as tolerated. We'll see this patient again on Sunday unless issues arise. Status: Acute
--- NOTE | 2016-06-23 16:27 | P.PN ---
Subjective 80 year-old male patient, very well-known to me due to advanced COPD and chronic biapical scarring in addition to coronary artery disease and previous bypass surgery, and known history of bladder cancer coming to the emergency department yesterday because of increased shortness of breath. The patient was gradually getting worse over the past 1 week or so. He had a congested cough lung with increased dyspnea, and wheezing. The shortness of breath became worse on the day of the admission specially in the morning. Prior to that, the patient was quite active and apparently was riding the lawnmower without any major difficulties. He denied having any chest pain although his troponin was positive and it peaked at 1.36. The EKG showed normal sinus rhythm with frequent PVCs. No ischemic ST segment changes such as elevation or depression. In any rate, a cardiology consultation was requested in regards to this abnormal troponin. Meanwhile, the patient had a chest x-ray that showed biapical scarring more so on the right. CAT scan of the chest was also obtained and showed chronic scarring in the lung apices most on the right along with diffuse emphysematous changes more so in the upper lobes. No acute pneumonia. No lung masses or lesions identified. No pleural effusion and no pneumothorax. The patient denies having any fever or chills. The patient denies having any mental status change. He was feeling quite weak. No nausea. No vomiting. No diarrhea. No other complaints otherwise. The patient is seen again today in follow-up 06/21/2016 on the selective care unit. He is awake and alert in no acute distress. He is breathing easier today as compared to yesterday. Not quite back to his baseline. He is dyspneic on minimal exertion. Today's chest x-ray shows COPD with chronic pleural parenchymal changes. There is some increased pleural-based thickening within the right upper lobe. He denies any chest pain. No worsening shortness of breath. He has a loose nonproductive cough. No chills or night sweats. The patient was seen and evaluated again today on 06/22/2016 on the selective care unit. He is currently awake and alert in no acute distress. He is maintaining good O2 saturations in the mid 90s on 3 L/m per nasal cannula. He is breathing easier today as compared to yesterday. Not quite back to his baseline. On 06/23/2016 the patient is being seen in follow-up in the patient not having any chest pain. Shortness of breath is slowly improving. He still has a congested cough. There is no significant sputum production. No nausea. No vomiting. No chest pain. The patient was seen by Dr. Zabala regarding constipation and follow-up on the patient's diabetic colostomy and parastomal hernia. The patient is producing gas and bowel movement and the surgeon recommended addition of milk of magnesium. Otherwise no other significant events over the past 24 hours. Objective - Vital Signs Vital signs: Vital Signs Temp 97.2 F L 06/23/16 12:00 Pulse 73 06/23/16 12:00 Resp 18 06/23/16 12:00 BP 124/77 06/23/16 12:00 Pulse Ox 95 06/23/16 12:00 Intake & Output 06/22/16 06/23/16 06/23/16 18:59 06:59 18:59 Intake Total 400 120 Output Total 500 150 250 Balance -100 -150 -130 Weight 61.4 kg Intake: IV 400 Potassium Chloride 10 meq 400 Lidocaine 2% Inj 10 mg In Sodium Chloride 0.9% 100 ml @ 100 mls/hr IVPB Q1HR ALEX Rx#:[id number] Oral 0 120 Output: Urine 500 150 250 Other: Voiding Method Urinal Urinal # Voids 1 1 - Exam The patient appeared well nourished and normally developed. Vital signs as documented. Head exam is unremarkable. No scleral icterus or corneal arcus noted. Neck is without jugular venous distension, thyromegaly, or carotid bruits. Carotid upstrokes are brisk bilaterally. Lung sounds are diminished bilaterally along with that there is scattered rhonchi and diffuse extremity wheezes without the lung mansfield bilaterally along with some degree of prolongation of expiratory phase of breathing. Heart examination shows a normal sternum. Cardiac exam revealed the PMI to be normally situated and sized. The rhythm was regular and no extrasystoles were noted during several minutes of auscultation. The first and second heart sounds were normal and physiologic splitting of the second heart sound was noted. There were no murmurs , rubs, clicks, or gallops. Surgical wound site over the anterior chest is dry clean and intact. Abdominal exam reveals normal bowel sounds, no masses, no organomegaly and no aortic enlargement. Extremities are nonedematous and both femoral and pedal pulses are normal. - Labs CBC & Chem 7: 06/23/16 08:38 06/23/16 08:38 Labs: Abnormal Lab Results - Last 24 Hours (Table) 06/22/16 06/22/16 06/23/16 Range/Units 16:40 21:11 06:18 WBC (3.8-10.6) k/uL RBC (4.30-5.90) m/uL Neutrophils # (1.3-7.7) k/uL Lymphocytes # (1.0-4.8) k/uL BUN (9-20) mg/dL Creatinine (0.66-1.25) mg/dL POC Glucose (mg/dL) 148 H 119 H 101 H (75-99) mg/dL 06/23/16 06/23/16 06/23/16 Range/Units 08:38 08:38 12:07 WBC 12.9 H (3.8-10.6) k/uL RBC 4.29 L (4.30-5.90) m/uL Neutrophils # 11.2 H (1.3-7.7) k/uL Lymphocytes # 0.7 L (1.0-4.8) k/uL BUN 67 H (9-20) mg/dL Creatinine 1.41 H (0.66-1.25) mg/dL POC Glucose (mg/dL) 118 H (75-99) mg/dL Assessment and Plan Plan: Assessment 1 acute COPD exacerbation/acute bronchitis with secondary shortness of breath, moving slowly 2 abnormal troponin elevation, rule out acute non-ST segment elevation myocardial infarction, no cardiac interventions and the echocardiogram showing a preserved LV function with an ejection fraction of 45-50%. 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 6 large parastomal hernia/incisional hernia not candidate for surgical resection /repair 7 carotid artery stenosis 8 anxiety chronic/depression 9 hypertension 10 hyperlipidemia 11 history of smoking quit in 1997 12 acute kidney injury improving and the creatinine is down to 1.4 Plan Continue treatment of acute COPD exacerbation. The patient is improving. It the case with general surgery regarding the constipation. The patient will have milk of magnesia added twice a day to enhance his bowel movements. No significant events overnight. The patient is free of any chest pain. The patient is gradually improving in terms of soap exacerbation. He is profoundly weak however he has declined to go to an ECF. We are probably ultimately considering discharging this patient home once his COPD exacerbation is improved. Avoid nephrotoxic agents. Modified Levaquin dose based on the renal failure. This continued IV Solu Medrol start the patient prednisone burst taper at 40 minutes by mouth daily.
[2016-06-23] MEDS: MAGNESIUM HYDROXIDE 2,400 MG/10 ML CUP PO SCH ×2 (16:44→22:32)
[2016-06-23 17:02] LABS: Glucose,Whole Blood 117 mg/dL (75-99)
[2016-06-23 20:53] LABS: Glucose,Whole Blood 127 mg/dL (75-99)
--- NOTE | 2016-06-23 21:50 | PN ---
DATE OF SERVICE: 06/23/2016 PRESENTING COMPLAINT: Shortness of breath. INTERVAL HISTORY: This is an 80-year-old gentleman who presented with shortness of breath. He was using a lawnmower and became increasingly short of breath. The patient today is very sleepy; however, arousable to voice command. His is at the bedside. Patient is a little slow to respond to interventions and/or voice commands. Review of systems done for constitutional, cardiovascular, GI, pulmonary, with relevant findings listed above. CURRENT MEDICATIONS: 1. Albuterol. 2. DuoNeb. 3. Xanax. 4. Mucinex. 5. Levaquin. 6. Solu-Medrol. PHYSICAL EXAMINATION: VITAL SIGNS: Temperature 97.9, heart rate 59, respiratory rate 18, blood pressure 152/71, oxygen saturation 96% on 3 L nasal cannula. GENERAL APPEARANCE: Tired-appearing. Minimal shortness of breath noted. Patient complaining of poor appetite. EYES: Pupils equal. Conjunctivae normal. NECK: JVD unable to assess. Mass not palpable. LUNGS: Some wheezing, congestion. Some crackles. CARDIOVASCULAR: S1, S2 noted and normal. No edema. ABDOMEN: Soft, nontender. Liver and spleen not palpable. PSYCHIATRIC: Alert and oriented x2 to 3. Mood and affect is lethargic but arousable. INVESTIGATIONS: Abdominal x-ray dated 06/22/2016 reveals nonspecific abdomen and hiatal hernia. Surgery consultation to start laxatives after the abdominal x-ray. White blood cell count 12.9. Creatinine 1.41, BUN 67. Blood cultures dated 06/19/2016 show no growth after 96 hours. ASSESSMENT: 1. Acute [id number] myocardial infarction. 2. Acute chronic obstructive pulmonary disease exacerbation in an ex-smoker, probably associated with community-acquired pneumonia; suspect Gram-negative organism. 3. Acute hypoxic respiratory failure from pneumonia. 4. Acute hypoxic respiratory failure, on home oxygen. 5. Hyperlipidemia. Continue Lipitor. 6. Essential hypertension. Will continue beta yayo and Verapamil, which was added by Cardiology. 7. Coronary artery disease with a history of coronary artery bypass graft. 8. Coronary artery stenosis. 9. Benign prostatic hypertrophy. Patient currently on Flomax daily. 10. Anxiety, depression not otherwise specified. Patient experienced delirium a few nights ago and some confusion. 11. Constipation. General Surgery consulted. X-ray reveals nonspecific abdomen. Laxatives to follow. 12. Acute renal failure, possibly prerenal. PLAN: Patient remains on steroids, nebulized bronchodilators, Mucinex and IV insulin. Cultures resulted with no growth over the past 96 hours. Solu-Medrol to be tapered. Surgery consult recommends laxatives secondary to nonspecific abdomen per abdominal x-ray. Patient was seen and examined by me, nurse practitioner, and attending, Dr. Maddox. The relevant points of the history, physical, diagnoses and plan were discussed and are as dictated above.
[2016-06-23] MEDS: ATORVASTATIN 20 MG TAB PO SCH (22:31)
[2016-06-24 06:27] LABS: Glucose,Whole Blood 94 mg/dL (75-99)
[2016-06-24 06:40] LABS: Basophils % (A) 0 %; CH 30.5; CHCM 31.9; Eosinophils % (A) 0 %; HCT 42.6 % (39.0-53.0); HDW 2.25; HGB 13.5 gm/dL (13.0-17.5); Luc # (Auto) 0.12; Luc % (Auto) 1; Lymphocytes # (A) 0.9 k/uL (1.0-4.8); Lymphocytes % (A) 9 %; MCH 30.4 pg (25.0-35.0); MCHC 31.7 g/dL (31.0-37.0); Mean Platelet Volume 9.1; Monocytes # (A) 0.8 k/uL (0-1.0); Monocytes % (A) 8 %; Neutrophils # (A) 9.1 k/uL (1.3-7.7); Neutrophils % (A) 82 %; RBC 4.44 m/uL (4.30-5.90); RDW 14.6 % (11.5-15.5); WBC (Perox) 11.74
[2016-06-24] MEDS: INSULIN LISPRO (humaLOG) 300 UNIT/3 ML VIAL SQ SCH ×4 (06:41→23:17)
[2016-06-24 06:55] LABS: Anion Gap 1 mmol/L; Blood Urea Nitrogen 52 mg/dL (9-20); Calcium 8.4 mg/dL (8.4-10.2); Carbon Dioxide 34 mmol/L (22-30); Chloride 104 mmol/L (98-107); Glucose 82 mg/dL (74-99); Non-African American GFR(MDRD) >60 (>60 ml/min/1.73 sqM); Sodium 139 mmol/L (137-145)
[2016-06-24] MEDS: SYMBICORT 160-4.5 MCG INHALER INHALATION SCH ×2 (07:48→20:18)
[2016-06-24] MEDS: IPRATROPIUM-ALBUTEROL 3 ML NEB INHALATION SCH ×4 (07:49→20:19)
[2016-06-24] MEDS ORDERED: LEVOFLOXACIN 750 MG TAB PO SCH (09:00)
[2016-06-24] MEDS: ASPIRIN 325 MG TAB PO SCH (09:05)
[2016-06-24] MEDS: CITALOPRAM HYDROBROMIDE 20 MG TAB PO SCH (09:05)
--- NOTE | 2016-06-24 09:05 | P.NPCON ---
History of Present Illness - Reason for Consult Consult date: 06/24/16 acute renal failure - Chief Complaint Acute kidney injury - History of Present Illness This is an 80-year-old male seen in consultation with acute kidney injury. Patient came in because of worsening shortness of breath about one week prior to admission and was admitted on 06/19/2016. A CTA was performed and it was negative. His creatinine started to go up from 0.84 dated 06/19/2016 to 1.8 as of 06/21/2016. This morning's come down to 1.1. Patient has fair appetite. He a remains short of breath but significantly improved. No nausea vomiting. His past medical history significant for COPD, coronary artery bypass graft, bladder cancer this with transurethral resection and intravesicular chemotherapy , previous history of diverticulitis and bowel perforation requiring colostomy and colectomy, large parastomal hernia, quit smoking 1997 and has history of coronary artery disease as well as carotid artery disease. Past Medical History Past Medical History: Coronary Artery Disease (CAD), Cancer, COPD, Hyperlipidemia, Hypertension, Pneumonia, Prostate Disorder Additional Past Medical History / Comment(s): BLADDER CANCER, COPD, TREMORS, . HX OF DIVERTICULITIS WITH PERFORATED BOWEL . HAS COLOSTOMY. HERNIA AT [facility] AND INCISIONAL HERNIA . CAROTID ARTERY STENOSIS, ENLARGED PROSTATE. , FX LEFT HIP 10/2013 AND NOW USING WALKER AND HAS VISITING NURSE AND PHYSICAL THERAPY. History of Any Multi-Drug Resistant Organisms: None Reported Past Surgical History: Bowel Resection, Coronary Bypass/CABG, Hernia Repair Additional Past Surgical History / Comment(s): COLOSTOMY D/T PERFORATED BOWEL FROM DIVERTICULITIS, CABG (2005), ING HERNIA REPAIR, ORIF FX LEFT HIP (10/2013) Past Anesthesia/Blood Transfusion Reactions: No Reported Reaction, Motion Sickness Additional Past Anesthesia/Blood Transfusion Reaction / Comment(s): CLAUSTERPHOBIC Past Psychological History: Anxiety, Depression Smoking Status: Former smoker Past Alcohol Use History: None Reported Additional Past Alcohol Use History / Comment(s): STARTED SMOKING AT AGE 14- SMOKED 2 PPD, QUIT 1997 Past Drug Use History: None Reported - Past Family History Father Family Medical History: Unable to Obtain Mother Family Medical History: Unable to Obtain Medications and Allergies Home Medications Medication Instructions Recorded Confirmed Type Citalopram Hydrobromide [CeleXA] 40 mg PO DAILY 11/18/13 06/19/16 History Finasteride [Proscar] 5 mg PO DAILY 11/18/13 06/19/16 History Fluticasone/Salmeterol [Advair 1 puff INHALATION RT-BID 11/18/13 06/19/16 History 500-50 Diskus] Metoprolol Tartrate [Lopressor] 6.25 mg PO HS 11/18/13 06/19/16 History Tamsulosin [Flomax] 0.4 mg PO DAILY 11/18/13 06/19/16 History Aspirin EC [Ecotrin] 325 mg PO DAILY 03/10/14 06/19/16 History Simvastatin [Zocor] 40 mg PO HS 05/11/15 06/19/16 History ALPRAZolam [Xanax] 0.5 mg PO DAILY PRN 06/19/16 06/19/16 History Budesonide/Formoterol Fumarate 2 puff INHALATION RT-BID 06/19/16 06/19/16 History [Symbicort 160-4.5 Mcg Inhaler] Levalbuterol HCl [Xopenex 1.25 mg INHALATION RT-QID 06/19/16 06/19/16 History Nebulized] Primidone [Mysoline] 25 mg PO BID 06/19/16 06/19/16 History guaiFENesin [Mucinex] 600 mg PO BID 06/19/16 06/19/16 History Allergies Allergy/AdvReac Type Severity Reaction Status Date / Time dobutamine Allergy Severe Swelling Verified 06/19/16 15:59 hydromorphone HCl Allergy Intermediate AGRESSIVE Verified 06/19/16 15:59 [From Dilaudid] sulfamethoxazole Allergy DIAPHORESIS Verified 06/19/16 15:59 [From Bactrim] trimethoprim [From Bactrim] Allergy DIAPHORESIS Verified 06/19/16 15:59 Physical Exam Vitals: Vital Signs Temp Pulse Pulse Pulse Resp BP Pulse Ox 06/24/16 08:06 92 06/24/16 07:50 88 06/24/16 04:00 97.0 F L 73 18 163/74 06/24/16 00:00 83 18 06/23/16 20:00 97.9 F 82 18 140/67 96 06/23/16 17:15 90 06/23/16 17:00 88 06/23/16 16:00 97.9 F 59 L 18 152/71 96 06/23/16 12:00 97.2 F L 73 18 124/77 95 Intake and Output 06/23/16 06/24/16 06/24/16 22:59 06:59 14:59 Intake Total 90 120 Output Total 200 400 Balance -110 -400 120 Intake: Oral 90 120 Output: Urine 200 400 Other: Voiding Method Urinal Urinal Weight 61.5 kg On exam concurrently is awake alert oriented comfortable. He is slightly hard of hearing. HEENT exam no JVP neck is supple no facial asymmetry no lymph nodes. Lungs are significant for bilateral end expiratory wheezing with good air entry bilaterally no dullness to percussion. Heart sounds are unremarkable for any murmur rub gallop. Abdomen soft nontender a ostomy is present in the left periumbilical area and he has a large ventral hernia about 6 inches in diameter. Extremity exam was no edema Neurologically awake alert oriented comfortable no focal motor deficit Results - Lab Results Most recent lab results Calcium 8.4 mg/dL (8.4-10.2) 06/24/16 06:05 Magnesium 2.0 mg/dL (1.6-2.3) 06/19/16 14:50 06/24/16 06:05 06/24/16 06:05 Assessment and Plan Plan: Impression. 1. Acute kidney injury likely from exposure to CTA and recovered with creatinine going from 0.8-1.8 and down to 1.1 as of this morning, urine output is somewhat low but not well documented collection. 2. Troponin leak and acute non-ST IL, history of previous coronary artery bypass graft. 3. History of carotid artery disease. 4. History of diverticulitis and perforation with bowel resection and colostomy. 5. History of COPD with exacerbation improving. Recommendation. No changes in medication. 1. Maintain current medication. 2. His blood pressure is at times slightly high but I would not change in medications for right now. Blood pressure ranges between 120-170. 3. Patient can be discharged and he should be followed up in the office in about 3-4 weeks.
[2016-06-24] MEDS: DOCUSATE 100 MG CAP PO SCH ×2 (09:06→22:28)
[2016-06-24] MEDS: FINASTERIDE 5 MG TAB PO SCH (09:06)
[2016-06-24] MEDS: MAGNESIUM HYDROXIDE 2,400 MG/10 ML CUP PO SCH (09:07)
[2016-06-24] MEDS: guaiFENesin 600 MG TABLET.ER PO SCH ×2 (09:07→22:29)
[2016-06-24] MEDS: METOPROLOL TARTRATE 12.5 MG TAB PO SCH (09:08)
[2016-06-24] MEDS: PRIMIDONE 25 MG TAB PO SCH ×2 (09:08→22:29)
[2016-06-24] MEDS: predniSONE 20 MG TAB PO SCH (09:08)
[2016-06-24] MEDS: VERAPAMIL 40 MG TAB PO SCH ×3 (09:09→22:30)
[2016-06-24] MEDS: TAMSULOSIN 0.4 MG CAP.ER.24H PO SCH (09:09)
[2016-06-24 11:47] LABS: Glucose,Whole Blood 111 mg/dL (75-99)
--- NOTE | 2016-06-24 12:38 | P.PN ---
Subjective 80 year-old male patient, very well-known to me due to advanced COPD and chronic biapical scarring in addition to coronary artery disease and previous bypass surgery, and known history of bladder cancer coming to the emergency department yesterday because of increased shortness of breath. The patient was gradually getting worse over the past 1 week or so. He had a congested cough lung with increased dyspnea, and wheezing. The shortness of breath became worse on the day of the admission specially in the morning. Prior to that, the patient was quite active and apparently was riding the lawnmower without any major difficulties. He denied having any chest pain although his troponin was positive and it peaked at 1.36. The EKG showed normal sinus rhythm with frequent PVCs. No ischemic ST segment changes such as elevation or depression. In any rate, a cardiology consultation was requested in regards to this abnormal troponin. Meanwhile, the patient had a chest x-ray that showed biapical scarring more so on the right. CAT scan of the chest was also obtained and showed chronic scarring in the lung apices most on the right along with diffuse emphysematous changes more so in the upper lobes. No acute pneumonia. No lung masses or lesions identified. No pleural effusion and no pneumothorax. The patient denies having any fever or chills. The patient denies having any mental status change. He was feeling quite weak. No nausea. No vomiting. No diarrhea. No other complaints otherwise. The patient is seen again today in follow-up 06/21/2016 on the selective care unit. He is awake and alert in no acute distress. He is breathing easier today as compared to yesterday. Not quite back to his baseline. He is dyspneic on minimal exertion. Today's chest x-ray shows COPD with chronic pleural parenchymal changes. There is some increased pleural-based thickening within the right upper lobe. He denies any chest pain. No worsening shortness of breath. He has a loose nonproductive cough. No chills or night sweats. The patient was seen and evaluated again today on 06/22/2016 on the selective care unit. He is currently awake and alert in no acute distress. He is maintaining good O2 saturations in the mid 90s on 3 L/m per nasal cannula. He is breathing easier today as compared to yesterday. Not quite back to his baseline. On 06/23/2016 the patient is being seen in follow-up in the patient not having any chest pain. Shortness of breath is slowly improving. He still has a congested cough. There is no significant sputum production. No nausea. No vomiting. No chest pain. The patient was seen by Dr. Zabala regarding constipation and follow-up on the patient's diabetic colostomy and parastomal hernia. The patient is producing gas and bowel movement and the surgeon recommended addition of milk of magnesium. Otherwise no other significant events over the past 24 hours. On 06/24/2016, the patient is less short of breath. He is ambulating. He was started on milk of magnesia and is moving his bowels. No fever. No chills. No change in mental status. He was taken off the IV Solu-Medrol and started on prednisone burst taper. He is on Symbicort. He is also on DuoNeb neb last treatment [id number]. Objective - Vital Signs Vital signs: Vital Signs Temp 97.0 F L 06/24/16 04:00 Pulse 96 06/24/16 11:51 Resp 18 06/24/16 04:00 BP 163/74 06/24/16 04:00 Pulse Ox 96 06/23/16 20:00 Intake & Output 06/23/16 06/24/16 06/24/16 18:59 06:59 18:59 Intake Total 210 120 Output Total 450 400 Balance -240 -400 120 Weight 61.5 kg Intake: Oral 210 120 Output: Urine 450 400 Other: Voiding Method Urinal Urinal - Exam The patient appeared well nourished and normally developed. Vital signs as documented. Head exam is unremarkable. No scleral icterus or corneal arcus noted. Neck is without jugular venous distension, thyromegaly, or carotid bruits. Carotid upstrokes are brisk bilaterally. Lung sounds are diminished bilaterally along with that there is scattered rhonchi and diffuse extremity wheezes without the lung mansfield bilaterally along with some degree of prolongation of expiratory phase of breathing. Heart examination shows a normal sternum. Cardiac exam revealed the PMI to be normally situated and sized. The rhythm was regular and no extrasystoles were noted during several minutes of auscultation. The first and second heart sounds were normal and physiologic splitting of the second heart sound was noted. There were no murmurs , rubs, clicks, or gallops. Surgical wound site over the anterior chest is dry clean and intact. Abdominal exam reveals normal bowel sounds, no masses, no organomegaly and no aortic enlargement. Extremities are nonedematous and both femoral and pedal pulses are normal. - Labs CBC & Chem 7: 06/24/16 06:05 06/24/16 06:05 Labs: Abnormal Lab Results - Last 24 Hours (Table) 06/23/16 06/23/16 06/24/16 Range/Units 16:50 20:52 06:05 WBC 11.0 H (3.8-10.6) k/uL Neutrophils # 9.1 H (1.3-7.7) k/uL Lymphocytes # 0.9 L (1.0-4.8) k/uL Carbon Dioxide (22-30) mmol/L BUN (9-20) mg/dL POC Glucose (mg/dL) 117 H 127 H (75-99) mg/dL 06/24/16 06/24/16 Range/Units 06:05 11:35 WBC (3.8-10.6) k/uL Neutrophils # (1.3-7.7) k/uL Lymphocytes # (1.0-4.8) k/uL Carbon Dioxide 34 H (22-30) mmol/L BUN 52 H (9-20) mg/dL POC Glucose (mg/dL) 111 H (75-99) mg/dL Assessment and Plan Plan: Assessment 1 acute COPD exacerbation/acute bronchitis with secondary shortness of breath, improving 2 abnormal troponin elevation, rule out acute non-ST segment elevation myocardial infarction, no cardiac interventions and the echocardiogram showing a preserved LV function with an ejection fraction of 45-50%. 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 6 large parastomal hernia/incisional hernia not candidate for surgical resection /repair 7 carotid artery stenosis 8 anxiety chronic/depression 9 hypertension 10 hyperlipidemia 11 history of smoking quit in 1997 12 acute kidney injury , resolved 13 constipation improved with milk of magnesia Plan Continue same treatment. Discharge planning is in progress. Possible discharge within next 24 hours.
[2016-06-24 17:10] LABS: Glucose,Whole Blood 144 mg/dL (75-99)
--- NOTE | 2016-06-24 21:15 | PN ---
INTERVAL HISTORY: This is an 80-year-old gentleman with advanced COPD comes to the hospital with progressive worsening of dyspnea. Patient was admitted to the hospital with concern for COPD exacerbation. Patient appears to be on chronic O2 at home. Imaging studies did not reveal any acute pneumonias since admission. Currently the patient appears to be on 2 liters supplemental oxygen, appears to be doing better. States to have a cough with some production of yellowish sputum. Denies having headaches nausea, vomiting, diarrhea. Has had a bowel movement. PHYSICAL EXAM: VITALS: Temperature is 97, heart rate 96, respiratory rate 18, blood pressure 162/77, pulse 74, saturating 96% on 2 liters supplemental oxygen. GENERAL APPEARANCE: Does not appear to be in distress. Alert, oriented x3. LUNGS: Diminished breath sounds. No significant wheezing, rhonchi or crackles. HEART: S1, S2 heard. A systolic murmur is appreciated. ABDOMEN: Soft, nontender, no organomegaly. LOWER EXTREMITIES: No significant edema appreciated. NEUROLOGIC EXAM: No focal motor or sensory deficits appreciated. LABORATORY DATA: Hemoglobin 13.5, hematocrit 42.6, white count 11, platelets 160. Sodium 139, potassium 4, chloride 104, bicarb 34, BUN 52, creatinine of 1.10. ASSESSMENT AND PLAN: 1. Acute exacerbation of chronic obstructive pulmonary disease with underlying acute on chronic hypoxic hypercapnic respiratory failure secondary to acute tracheobronchitis. 2. Undetermined Troponin leak. 3. Chronic heart failure with ejection fraction of 45% to 50%. 4. Coronary artery disease, status post coronary artery bypass grafting. 5. Bladder cancer, status post TURB and intravesicular chemotherapy. 6. Diverticular disease. 7. Peripheral artery disease. 8. Hypertension. 9. Dyslipidemia. 10. Acute kidney injury which is improved. 11. Constipation, which is improved. PLAN: Continue with ongoing care. Patient apparently is a two person assist at this time. The patient's chronic obstructive pulmonary disease and breathing appears to be more stable. Will need to evaluate discharge disposition as patient lives with his and will likely benefit from a short rehab stay. We will encourage activity and the patient is able to perform ADLs without significant help. The patient could be discharged home potentially tomorrow. Will follow up.
[2016-06-24] MEDS: ATORVASTATIN 20 MG TAB PO SCH (22:28)
[2016-06-24 22:57] LABS: Glucose,Whole Blood 120 mg/dL (75-99)
[2016-06-25 06:27] LABS: Glucose,Whole Blood 76 mg/dL (75-99)
[2016-06-25] MEDS: MAGNESIUM HYDROXIDE 2,400 MG/10 ML CUP PO SCH ×2 (06:31→09:40)
[2016-06-25] MEDS: INSULIN LISPRO (humaLOG) 300 UNIT/3 ML VIAL SQ SCH ×2 (06:31→12:21)
[2016-06-25 06:50] LABS: Basophils % (A) 0 %; CH 30.8; CHCM 32.4; Eosinophils # (A) 0.1 k/uL (0-0.7); Eosinophils % (A) 1 %; HCT 39.5 % (39.0-53.0); HDW 2.32; HGB 12.9 gm/dL (13.0-17.5); Luc # (Auto) 0.13; Luc % (Auto) 2; Lymphocytes % (A) 11 %; MCH 31.2 pg (25.0-35.0); MCHC 32.7 g/dL (31.0-37.0); MCV 95.5 fL (80.0-100.0); Mean Platelet Volume 8.7; Monocytes # (A) 0.5 k/uL (0-1.0); Monocytes % (A) 6 %; Neutrophils # (A) 6.9 k/uL (1.3-7.7); Neutrophils % (A) 81 %; RBC 4.14 m/uL (4.30-5.90); RDW 14.3 % (11.5-15.5); WBC 8.6 k/uL (3.8-10.6)
[2016-06-25 07:05] LABS: Anion Gap 5 mmol/L; Blood Urea Nitrogen 45 mg/dL (9-20); Calcium 8.1 mg/dL (8.4-10.2); Carbon Dioxide 32 mmol/L (22-30); Chloride 101 mmol/L (98-107); Glucose 73 mg/dL (74-99); Non-African American GFR(MDRD) >60 (>60 ml/min/1.73 sqM); Potassium 3.8 mmol/L (3.5-5.1); Sodium 138 mmol/L (137-145)
[2016-06-25] MEDS: SYMBICORT 160-4.5 MCG INHALER INHALATION SCH (08:08)
[2016-06-25] MEDS: IPRATROPIUM-ALBUTEROL 3 ML NEB INHALATION SCH ×2 (08:09→11:45)
[2016-06-25] MEDS: ASPIRIN 325 MG TAB PO SCH (09:38)
[2016-06-25] MEDS: DOCUSATE 100 MG CAP PO SCH (09:39)
[2016-06-25] MEDS: FINASTERIDE 5 MG TAB PO SCH (09:39)
[2016-06-25] MEDS: CITALOPRAM HYDROBROMIDE 20 MG TAB PO SCH (09:39)
[2016-06-25] MEDS: METOPROLOL TARTRATE 12.5 MG TAB PO SCH (09:40)
[2016-06-25] MEDS: predniSONE 20 MG TAB PO SCH (09:40)
[2016-06-25] MEDS: guaiFENesin 600 MG TABLET.ER PO SCH (09:40)
[2016-06-25] MEDS: TAMSULOSIN 0.4 MG CAP.ER.24H PO SCH (09:41)
[2016-06-25] MEDS: PRIMIDONE 25 MG TAB PO SCH (09:41)
[2016-06-25] MEDS: VERAPAMIL 40 MG TAB PO SCH (09:41)
--- NOTE | 2016-06-25 11:08 | P.PN ---
Subjective Principal diagnosis: This is an 80-year-old male seen with acute kidney injury from combination off prerenal and exposure to dye for a CTA. He has improved as far as his renal function is concerned, creatinine peaked at 1.88 from a baseline of 0.84 and is back down to 1.07 as of this morning. As far as his breathing is concerned he feels he is back to normal baseline and short of breath at rest with oxygen. Denies any cough dizziness. Good appetite no nausea vomiting diarrhea abdominal pain fever chills Is past history significant for her COPD coronary artery bypass graft bladder cancer with transurethral resection and intravesical chemotherapy in the past history of bowel perforation requiring colostomy colectomy with a large parastomal hernia. Is also known with previous history of smoking quit 1997. Objective - Vital Signs Vital signs: Vital Signs Temp 97.1 F L 06/25/16 09:35 Pulse 87 06/25/16 09:35 Resp 18 06/25/16 09:35 BP 158/71 06/25/16 09:35 Pulse Ox 97 06/25/16 09:35 Intake & Output 06/24/16 06/25/16 06/25/16 18:59 06:59 18:59 Intake Total 240 120 Output Total 200 100 Balance 40 120 -100 Weight 62.1 kg Intake: Oral 240 120 Output: Urine 200 100 Other: Voiding Method Urinal Urinal Urinal # Voids 1 # Bowel Movements 1 On examination is awake alert oriented Is on nasal cannula. HEENT exam no JVP neck is supple no facial asymmetry Lungs are clear to auscultation with an occasional end expiratory wheeze. Fair air entry bilaterally. No dullness percussion. Heart sounds are unremarkable for any murmur rub gallop. Abdomen soft nontender, ostomy is present in the left periumbilical area and he has a large ventral hernia about 6 inches in diameter. Extremity examination reveals no edema Neurologically awake alert oriented. - Labs CBC & Chem 7: 06/25/16 05:58 06/25/16 05:58 Labs: Abnormal Lab Results - Last 24 Hours (Table) 06/24/16 06/24/16 06/24/16 Range/Units 11:35 17:05 22:46 RBC (4.30-5.90) m/uL Hgb (13.0-17.5) gm/dL Carbon Dioxide (22-30) mmol/L BUN (9-20) mg/dL Glucose (74-99) mg/dL POC Glucose (mg/dL) 111 H 144 H 120 H (75-99) mg/dL Calcium (8.4-10.2) mg/dL 06/25/16 06/25/16 Range/Units 05:58 05:58 RBC 4.14 L (4.30-5.90) m/uL Hgb 12.9 L (13.0-17.5) gm/dL Carbon Dioxide 32 H (22-30) mmol/L BUN 45 H (9-20) mg/dL Glucose 73 L (74-99) mg/dL POC Glucose (mg/dL) (75-99) mg/dL Calcium 8.1 L (8.4-10.2) mg/dL Assessment and Plan Plan: Impression. 1. Acute kidney injury likely from exposure to CTA and recovered with creatinine going from 0.8-1.8 and down to 1.1 as of this morning, urine output is 18 and 50 mL for the last 24 hours. 2. Troponin leak and acute non-ST DC, history of previous coronary artery bypass graft. 3. History of carotid artery disease. 4. History of diverticulitis and perforation with bowel resection and colostomy. 5. History of COPD with exacerbation improving. Recommendation. No changes in medication. 1. Maintain current medication. 2. His blood pressure is at times slightly high but I would not change in medications for right now. Blood pressure ranges between 120-170. 3. Patient can be discharged and he should be followed up in the office in about 3-4 weeks. 4. If any cardiac catheterization is being considered he should be hydrated
[2016-06-25 11:47] VITALS: PULSE 72
[2016-06-25 12:16] LABS: Glucose,Whole Blood 105 mg/dL (75-99)
[2016-06-25 12:49] VITALS: BP 122/60; TEMP 97.2
--- NOTE | 2016-06-25 12:54 | P.PN ---
Subjective 80 year-old male patient, very well-known to me due to advanced COPD and chronic biapical scarring in addition to coronary artery disease and previous bypass surgery, and known history of bladder cancer coming to the emergency department yesterday because of increased shortness of breath. The patient was gradually getting worse over the past 1 week or so. He had a congested cough lung with increased dyspnea, and wheezing. The shortness of breath became worse on the day of the admission specially in the morning. Prior to that, the patient was quite active and apparently was riding the lawnmower without any major difficulties. He denied having any chest pain although his troponin was positive and it peaked at 1.36. The EKG showed normal sinus rhythm with frequent PVCs. No ischemic ST segment changes such as elevation or depression. In any rate, a cardiology consultation was requested in regards to this abnormal troponin. Meanwhile, the patient had a chest x-ray that showed biapical scarring more so on the right. CAT scan of the chest was also obtained and showed chronic scarring in the lung apices most on the right along with diffuse emphysematous changes more so in the upper lobes. No acute pneumonia. No lung masses or lesions identified. No pleural effusion and no pneumothorax. The patient denies having any fever or chills. The patient denies having any mental status change. He was feeling quite weak. No nausea. No vomiting. No diarrhea. No other complaints otherwise. The patient is seen again today in follow-up 06/21/2016 on the selective care unit. He is awake and alert in no acute distress. He is breathing easier today as compared to yesterday. Not quite back to his baseline. He is dyspneic on minimal exertion. Today's chest x-ray shows COPD with chronic pleural parenchymal changes. There is some increased pleural-based thickening within the right upper lobe. He denies any chest pain. No worsening shortness of breath. He has a loose nonproductive cough. No chills or night sweats. The patient was seen and evaluated again today on 06/22/2016 on the selective care unit. He is currently awake and alert in no acute distress. He is maintaining good O2 saturations in the mid 90s on 3 L/m per nasal cannula. He is breathing easier today as compared to yesterday. Not quite back to his baseline. On 06/23/2016 the patient is being seen in follow-up in the patient not having any chest pain. Shortness of breath is slowly improving. He still has a congested cough. There is no significant sputum production. No nausea. No vomiting. No chest pain. The patient was seen by Dr. Zabala regarding constipation and follow-up on the patient's diabetic colostomy and parastomal hernia. The patient is producing gas and bowel movement and the surgeon recommended addition of milk of magnesium. Otherwise no other significant events over the past 24 hours. On 06/24/2016, the patient is less short of breath. He is ambulating. He was started on milk of magnesia and is moving his bowels. No fever. No chills. No change in mental status. He was taken off the IV Solu-Medrol and started on prednisone burst taper. He is on Symbicort. He is also on DuoNeb neb last treatment [id number]. On 06/25/2016 the patient is doing well. Ambulating. Acute COPD exacerbation is improved considerably and is in a prednisone burst taper. No specific complaints. The colostomy site is functional. No nausea. No vomiting. No abdominal pain. He is on a 40 mg of prednisone as a part of the burst taper. Discharge planning is in progress Objective - Vital Signs Vital signs: Vital Signs Temp 97.2 F L 06/25/16 12:15 Pulse 72 06/25/16 12:15 Resp 18 06/25/16 12:15 BP 122/60 06/25/16 12:15 Pulse Ox 96 06/25/16 12:15 Intake & Output 06/24/16 06/25/16 06/25/16 18:59 06:59 18:59 Intake Total 240 120 240 Output Total 200 100 Balance 40 120 140 Weight 62.1 kg Intake: Oral 240 120 240 Output: Urine 200 100 Other: Voiding Method Urinal Urinal Urinal # Voids 1 # Bowel Movements 1 - Exam The patient appeared well nourished and normally developed. Vital signs as documented. Head exam is unremarkable. No scleral icterus or corneal arcus noted. Neck is without jugular venous distension, thyromegaly, or carotid bruits. Carotid upstrokes are brisk bilaterally. Lung sounds are diminished bilaterally along with that there is scattered rhonchi and diffuse extremity wheezes without the lung [place]field bilaterally along with some degree of prolongation of expiratory phase of breathing. Heart examination shows a normal sternum. Cardiac exam revealed the PMI to be normally situated and sized. The rhythm was regular and no extrasystoles were noted during several minutes of auscultation. The first and second heart sounds were normal and physiologic splitting of the second heart sound was noted. There were no murmurs , rubs, clicks, or gallops. Surgical wound site over the anterior chest is dry clean and intact. Abdominal exam reveals normal bowel sounds, no masses, no organomegaly and no aortic enlargement. Extremities are nonedematous and both femoral and pedal pulses are normal. - Labs CBC & Chem 7: 06/25/16 05:58 06/25/16 05:58 Labs: Abnormal Lab Results - Last 24 Hours (Table) 06/24/16 06/24/16 06/25/16 Range/Units 17:05 22:46 05:58 RBC 4.14 L (4.30-5.90) m/uL Hgb 12.9 L (13.0-17.5) gm/dL Carbon Dioxide (22-30) mmol/L BUN (9-20) mg/dL Glucose (74-99) mg/dL POC Glucose (mg/dL) 144 H 120 H (75-99) mg/dL Calcium (8.4-10.2) mg/dL 06/25/16 06/25/16 Range/Units 05:58 11:53 RBC (4.30-5.90) m/uL Hgb (13.0-17.5) gm/dL Carbon Dioxide 32 H (22-30) mmol/L BUN 45 H (9-20) mg/dL Glucose 73 L (74-99) mg/dL POC Glucose (mg/dL) 105 H (75-99) mg/dL Calcium 8.1 L (8.4-10.2) mg/dL Assessment and Plan Plan: Assessment 1 acute COPD exacerbation/acute bronchitis with secondary shortness of breath, improving 2 abnormal troponin elevation, rule out acute non-ST segment elevation myocardial infarction, no cardiac interventions and the echocardiogram showing a preserved LV function with an ejection fraction of 45-50%. 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 6 large parastomal hernia/incisional hernia not candidate for surgical resection /repair 7 carotid artery stenosis 8 anxiety chronic/depression 9 hypertension 10 hyperlipidemia 11 history of smoking quit in 1997 12 acute kidney injury , resolved 13 constipation improved with milk of magnesia Plan Patient is stable. The patient can be discharged home from the pulmonary perspective on a prednisone burst taper in addition to his routine maintenance inhalers at home. I'll see him back in the office in a few weeks time for follow-up.
--- NOTE | 2016-07-04 13:36 | P.DS ---
Providers Date of admission: 06/19/16 16:31 Attending physician: Samir Maddox Consults: 06/19/16 23:03 Consult Physician Routine Consulting Provider: Dre Hurst Consult Reason/Comments: elevated trop Do you want consulting provider notified?: Yes 06/22/16 12:16 Consult Physician Routine Consulting Provider: Jovanny Hung Consult Reason/Comments: constipation Do you want consulting provider notified?: Yes 06/23/16 12:56 Consult Physician Routine Consulting Provider: Celso Zurita Consult Reason/Comments: ARF Do you want consulting provider notified?: Yes Primary care physician: [facility] Hospital Course: 80-year-old gentleman with advanced COPD is admitted to the hospital with COPD exacerbation. Patient was treated with the antibiotics and inhaled steroids and IV steroids. Patient improved over the course of the hospitalization. On day of discharge lungs continue to have diminished breath sounds however no wheezing rhonchi or crackles were appreciated Heart S1-S2 are murmurs appreciated S1-S2 heard Lower extremities No edema appreciated #1 acute exacerbation of COPD with underlying acute on chronic hypoxic hypercapnic respiratory failure secondary to acute tracheobronchitis #2 indeterminant troponin leak #3 compensated heart failure with EF of 45-50% #4 CAD #5 bladder cancer #6 diverticular disease #7 PAD #8 hypertension #9 dyslipidemia #10 MOSES #11 constipation Patient Condition at Discharge: Fair Plan - Discharge Summary New Discharge Prescriptions: Levofloxacin [Levaquin] 750 mg PO Q48H #3 tab Metoprolol Tartrate [Lopressor] 6.25 mg PO BID #30 tab predniSONE 40 mg PO DAILY #7 tab Discharge Medication List Citalopram Hydrobromide [CeleXA] 40 mg PO DAILY 11/18/13 [History] Finasteride [Proscar] 5 mg PO DAILY 11/18/13 [History] Fluticasone/Salmeterol [Advair 500-50 Diskus] 1 puff INHALATION RT-BID 11/18/13 [History] Tamsulosin [Flomax] 0.4 mg PO DAILY 11/18/13 [History] Aspirin EC [Ecotrin] 325 mg PO DAILY 03/10/14 [History] Simvastatin [Zocor] 40 mg PO HS 05/11/15 [History] ALPRAZolam [Xanax] 0.5 mg PO DAILY PRN 06/19/16 [History] Budesonide/Formoterol Fumarate [Symbicort 160-4.5 Mcg Inhaler] 2 puff INHALATION RT-BID 06/19/16 [History] Levalbuterol HCl [Xopenex Nebulized] 1.25 mg INHALATION RT-QID 06/19/16 [History ] Primidone [Mysoline] 25 mg PO BID 06/19/16 [History] guaiFENesin [Mucinex] 600 mg PO BID 06/19/16 [History] Docusate [Colace] 100 mg PO BID cap 06/25/16 [Rx] Levofloxacin [Levaquin] 750 mg PO Q48H #3 tab 06/25/16 [Rx] Magnesium Hydroxide [Milk of Magnesia Concentrate] 2,400 mg PO BID ml 06/25/16 [Rx] Metoprolol Tartrate [Lopressor] 6.25 mg PO BID #30 tab 06/25/16 [Rx] predniSONE 40 mg PO DAILY #7 tab 06/25/16 [Rx] Follow up Appointment(s)/Referral(s): Fiona Hayes MD [Primary Care Provider] - 1-2 days (Please call office Sunday to schedule follow up appointment. ) Patient Instructions/Handouts: Atrial Fibrillation (DC), COPD (Chronic Obstructive Pulmonary Disease) (DC) Discharge Disposition: HOME SELF-CARE
--- NOTE | 2016-07-12 11:39 | CDI ---
In responding to this query, please exercise your independent professional judgment. The [facility] Coding Staff and Clinical Documentation Specialists appreciate your assistance in clarifying documentation, maintaining compliance with coding guidelines, accurately documenting patients condition and capturing severity of illness. The fact that a question is asked does not imply that any particular answer is desired or expected. Communication forms are a method of clarifying documentation and are not made part of the Legal Health Record. Thank you in advance for your clarification. Last Revision, April 2016 Juan Wynne [address] [place] [address] Documentation Clarification Form Date: 07/12/2016 11:26:00 AM From: Viky Ceballos CCS, CCDS Admit Date: 06/19/2016 4:31:00 PM Patient Name: Cliff Ward Visit Number: [id number] Discharge Date: 06/25/2016 Dr. Ted Mcallister: CHF is documented in the Cardiology consult as "no overt signs of heart failure ". Per the attending progress note dated 06/24 and also the DC Summary 07/04: Compensated, chronic heart failure with EF 45-50%. History/Risk Factors: 80 yo male, admitted with SOB w/extensive medical history : hyperlipidemia, hypertension, lung & bladder CA, carotid artery stenosis and chronic respiratory failure on home O2 with CAD & history of CABG. Clinical Indicators: Admission VS: T 99.4, P 108, R 36 (sob, labored, shallow, tachypnea), BP 155/98 & PO 84 on RA BNP: 2630 Echocardiogram Results 06/20: EF 45-50%, LV systolic function mildly impaired, mild LVH. Chest X Ray 06/19: COPD, increased pleural based thickening RUL. Treatment: Albuterol INH, IV Solumedrol, IV Lasix 40 mg, IV Heparin, Insulin sc Consults: Cardiology, Pulmonary, Surgery, Nephrology In your professional opinion, can you please clarify the acuity and type of CHF if known? Systolic Heart Failure: Acute Chronic Acute on Chronic Diastolic Heart Failure: Acute Chronic Acute on Chronic Systolic & Diastolic Heart Failure: Acute Chronic Acute on Chronic Unable to determine Other, please specify Please document in your progress notes and discharge summary in order to capture severity of illness and risk of mortality. Include clinical findings that support your diagnosis. FYI: Press F11 to launch patient chart. Place X here if this finding has no clinical significance, is not applicable or if you are not able to provide any additional documentation. Thank You. GIN
--- NOTE | 2016-07-19 22:41 | PN ---
DATE OF SERVICE: 06/22/2016 Attending note: This patient was seen and examined by me on 06/22/2016. I reviewed the note of my nurse practitioner, Ms. Patel, Agree and discussed the same. Patient admitted with acute DC, and chronic obstructive pulmonary disease exacerbation. The patient somewhat tired. Had some delirium with hallucinations. On examination, blood pressure 120/55, pulse ox 95% on 3 L. Patient is tired of ( ) some shortness of breath. LUNGS: Decreased breath sounds, crackles, some wheezing. CARDIOVASCULAR: First and second seconds normal. Patient will answer questions. LABS: Reviewed. ASSESSMENT: 1. Acute non-ST elevation segment myocardial infarction. 2. Acute chronic obstructive pulmonary disease exacerbation. 3. Possible pneumonia. 4. Acute hypoxic respiratory failure. PLAN: Continue with nebulized bronchodilators, steroids, scale back a bit on the same. Patient is getting a laxative. Follow.
--- NOTE | 2016-07-21 06:43 | PN ---
DATE OF SERVICE: 06/21/2016 ATTENDING NOTE: This patient examined by me on 06/21/2016. I reviewed the note of my nurse practitioner, Ms. Patel. Discussed and agreed. This patient admitted with COPD exacerbation and acute non-ST elevation myocardial infarction. Patient is a little bit less short of breath today, but tired. On examination, afebrile, blood pressure 124/60, pulse ox 95% on 3 L. Sitting up in bed, tired appearing, short of breath, but shade better than yesterday. On examination: RESPIRATORY: Effort increased. Decreased wheezing. Some congestion and crackles. CARDIOVASCULAR: First and second sounds normal. No edema. PSYCH: Awake, answering questions. ASSESSMENT: 1. Acute non-ST elevation myocardial infarction . 2. Acute chronic obstructive pulmonary disease exacerbation in an ex-smoker with possibly community-acquired pneumonia, suspect gram-negative organism. 3. Acute hypoxic respiratory failure from pneumonia, present on admission. PLAN: Continue with steroids, nebulized bronchodilators, IV insulin, sugars are running high, Solu-Medrol. Will follow. Patient is slow to respond.
--- NOTE | 2016-07-21 07:32 | PN ---
DATE OF SERVICE: 06/23/2016 ATTENDING NOTE: This patient was seen and examined by me on 06/23/2016. I review the progress note of my nurse practitioner, Ms. Patel. Discussed and agreed. Patient admitted with acute COPD exacerbation, acute hypoxia, and non-ST elevation myocardial infarction . Patient somewhat tired again. Some shortness of breath. On examination, blood pressure 152/71, pulse ox 96% on 3 L. LUNGS: Decreased breath sounds, wheezing. Some crackles. CARDIOVASCULAR: First and second sounds normal. No edema. PSYCH: Patient is tired, lethargic, but does wake up and answers questions. Abdominal x-ray results noted. ASSESSMENT: 1. Acute non-ST elevation myocardial infarction/acute chronic obstructive pulmonary disease exacerbation is an ex-smoker. 2. Possible pneumonia, suspect Gram-negative organism. 3. Acute hypoxic respiratory failure. 4. Constipation. Continue with steroids, nebulized bronchodilators, Mucinex. Sugars are running high, hence IV insulin. The patient is probably getting laxatives for constipation per surgery, slow to respond.
== END 2016-06-25 14:14 | disposition home or self-care (01) | DRG 190 ==
LOC: EC 14:29 → 6SEL 16:31
PROVIDERS: ADMIT Hospitalist; ATTEND Hospitalist
DX: J44.0 Chronic obstructive pulmonary disease with (acute) lower respiratory infection (principal); J96.21 Acute and chronic respiratory failure with hypoxia; J96.22 Acute and chronic respiratory failure with hypercapnia; N17.9 Acute kidney failure, unspecified; I50.32 Chronic diastolic (congestive) heart failure; I47.1 Supraventricular tachycardia; R44.3 Hallucinations, unspecified; I11.0 Hypertensive heart disease with heart failure; Z99.81 Dependence on supplemental oxygen; I73.9 Peripheral vascular disease, unspecified; F32.9 Major depressive disorder, single episode, unspecified; E78.5 Hyperlipidemia, unspecified; J20.9 Acute bronchitis, unspecified; J44.1 Chronic obstructive pulmonary disease with (acute) exacerbation; F41.9 Anxiety disorder, unspecified; I25.10 Atherosclerotic heart disease of native coronary artery without angina pectoris; I49.3 Ventricular premature depolarization; I65.29 Occlusion and stenosis of unspecified carotid artery; K43.2 Incisional hernia without obstruction or gangrene; K43.5 Parastomal hernia without obstruction or gangrene; K57.90 Diverticulosis of intestine, part unspecified, without perforation or abscess without bleeding; K59.00 Constipation, unspecified; N40.0 Benign prostatic hyperplasia without lower urinary tract symptoms; R25.1 Tremor, unspecified; F40.240 Claustrophobia; R41.0 Disorientation, unspecified; Z79.51 Long term (current) use of inhaled steroids; Z79.899 Other long term (current) drug therapy; Z79.82 Long term (current) use of aspirin; Z85.51 Personal history of malignant neoplasm of bladder; Z87.891 Personal history of nicotine dependence; Z93.3 Colostomy status; Z95.1 Presence of aortocoronary bypass graft; Z88.1 Allergy status to other antibiotic agents; Z88.5 Allergy status to narcotic agent; Z88.2 Allergy status to sulfonamides
CPT/HCPCS: 36415; 71010; 71020; 71275; 74020; 80048; 80053; 81001; 83605; 83735; 83880; 84484; 85025; 85379; 85610; 85730; 87040; 93005; 93306; 94640; 94660; 94760; 96374; 96375; 99285

== ENCOUNTER → 2016-12-06 | Outpatient (CLI) | payer MEDICARE ==
--- NOTE | 2016-12-06 16:03 | US ---
EXAMINATION TYPE: US kidneys/renal and bladder DATE OF EXAM: 12/06/2016 COMPARISON: US 04/2015 CLINICAL HISTORY: Renal Cyst N28.1. EXAM MEASUREMENTS: Right Kidney: 9.6 x 5.5 x 5.2 cm Left Kidney: 9.3 x 5.5 x 4.5 cm Right Kidney: No hydronephrosis. Cystic area visualized mid pole measuring 3.7 x 3.2 x 3.4 cm Left Kidney: No hydronephrosis. Multiple cystic areas visualized, largest mid pole measuring 3.2 x 2. 6 x 3.1 cm, cyst appears simple Bladder: wnl Bilateral Jets seen: Yes Cortical thinning again noted. Cystic focus at the upper pole the right kidney appears simple grown slightly in the interval. IMPRESSION: Simple cysts within the kidneys. Cortical thinning may be due to medical renal disease.
== END | disposition home or self-care (01) ==
LOC: RADUSWWP 13:51
PROVIDERS: ATTEND Urology
DX: N28.1 Cyst of kidney, acquired (principal)
CPT/HCPCS: 76770

== ENCOUNTER 2016-12-07 23:38 | Emergency (ER) | payer MEDICARE ==
[2016-12-08 00:39] LABS: Anisocytosis Slight; Basophils % (A) 0 %; CH 32.1; CHCM 31.8; Eosinophils # (A) 0.1 k/uL (0-0.7); Eosinophils % (A) 1 %; HCT 48.7 % (39.0-53.0); HDW 2.33; HGB 14.8 gm/dL (13.0-17.5); Luc # (Auto) 0.09; Luc % (Auto) 1; Lymphocytes # (A) 0.7 k/uL (1.0-4.8); Lymphocytes % (A) 6 %; MCH 30.9 pg (25.0-35.0); MCHC 30.3 g/dL (31.0-37.0); MCV 101.7 fL (80.0-100.0); Macrocytosis Slight; Monocytes # (A) 0.5 k/uL (0-1.0); Monocytes % (A) 4 %; Neutrophils # (A) 9.8 k/uL (1.3-7.7); Neutrophils % (A) 88 %; RBC 4.78 m/uL (4.30-5.90); RDW 16.5 % (11.5-15.5); WBC 11.1 k/uL (3.8-10.6); WBC (Perox) 11.06
[2016-12-08 00:52] LABS: ALT 48 U/L (21-72); AST 24 U/L (17-59); Alkaline Phosphatase 59 U/L (38-126); Amylase 70 U/L (30-110); Anion Gap 5 mmol/L; Blood Urea Nitrogen 35 mg/dL (9-20); Calcium 8.8 mg/dL (8.4-10.2); Carbon Dioxide 29 mmol/L (22-30); Chloride 102 mmol/L (98-107); Glucose 108 mg/dL (74-99); Non-African American GFR(MDRD) >60 (>60 ml/min/1.73 sqM); Potassium 5.5 mmol/L (3.5-5.1); Sodium 136 mmol/L (137-145); Total Bilirubin 0.8 mg/dL (0.2-1.3); Total Protein 5.8 g/dL (6.3-8.2)
--- NOTE | 2016-12-08 00:58 | XR ---
EXAMINATION TYPE: XR KUB DATE OF EXAM: 12/08/2016 COMPARISON: 06/22/2016 HISTORY: Abdominal pain TECHNIQUE: Single view FINDINGS: There is no sign of intestinal obstruction or pneumoperitoneum. Fecal pattern is normal. Th ere is no sign of a mass. There is left hip nailing noted. Lung bases appear clear of consolidation. IMPRESSION: Nonacute abdomen. No change compared to last exam.
[2016-12-08] MEDS ORDERED: RX INFO: IV CONTRAST WAS GIVEN 1 EACH MISC MISCELLANE PRN (01:22)
--- NOTE | 2016-12-08 02:12 | CT ---
EXAMINATION TYPE: CT abdomen pelvis w con DATE OF EXAM: 12/08/2016 COMPARISON: 12/14/2015 HISTORY: abd pain, constipation CT DLP: 690.80 mGycm Automated exposure control for dose reduction was used. TECHNIQUE: Helical acquisition of images was performed from the lung bases through the pelvis. CONTRAST: Performed without Oral Contrast and with IV Contrast, patient injected with 100 mL of Omnipaque 300. FINDINGS: There is diffuse emphysema in the lower lung [place]. There is no pleural effusion. Heart size is norm al. There is a 1 cm cyst in the right lobe of the liver. Bile ducts are not dilated. Spleen appears robert l. There is no pancreatic mass. Gallbladder has normal size. There are multiple bilateral renal cortical cysts. These measure up to 3.5 cm. There is no hydronephr osis. There is no sign of a solid renal mass. There is no retroperitoneal adenopathy. Abdominal aorta is atheromatous. 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 There is a descending colostomy. There is left hip nailing fixing the proximal left femur. I see no evidence of a mechanical bowel obstruction. There is some atherosclerotic vascular calcification. Th ere is no ascites. There is 10% wedging of L1 vertebral body. There are numerous diverticula in the s igmoid colon. There is retained material in the rectum. Rectum measures 5.3 cm in diameter. The appen jared appears normal. IMPRESSION: MULTIPLE BILATERAL RENAL CORTICAL CYSTS. SMALL HEPATIC CYST. PULMONARY EMPHYSEMA. DESCENDING COLOSTOMY WITH PARASTOMAL HERNIA CONTAINS MULTIPLE LOOPS OF SMALL BOWEL. NO EVIDENCE OF A MECHANICAL BOWEL OBSTRUCTION. RETAINED MUCUS IN THE RECTUM WHICH IS MILDLY DILATED. ABDOMEN AND PELVIS APPEAR NOT SIGNIFICANTLY DIF FERENT THAN 12/14/2015. NUMEROUS SIGMOID DIVERTICULA. THERE IS A NEW MILD COMPRESSION FRACTURE OF L1 COMPARED TO LAST EXAM.
--- NOTE | 2016-12-08 02:45 | ED ---
General Adult HPI - General Chief complaint: Abdominal Pain Stated complaint: Constipation/Abd pain Time Seen by Provider: 12/08/16 00:03 Source: patient Mode of arrival: EMS Limitations: no limitations - History of Present Illness Initial comments: 81-year-old male patient presents to emergency department today for evaluation due to no output from his colostomy 2 days. Patient states he has also been increasingly tender around the ostomy site and in the lower abdomen. Patient states that he has had pain in the lower abdomen throughout the day today. He describes the pain as cramping in nature. He states he has been eating and drinking without difficulty. He is not having any nausea or vomiting with this. He does have a large hernia around the area of the ostomy site however states that this is chronic for him. Patient is also reporting increased lower back pain. States that he is having some radiation of the pain into his buttocks. He states his pain started 4-5 days ago after attending a where he sat for a long period in a low chair. Patient states that he feels that he is having spasms to this area. He denies any loss of bowel or bladder control. Denies any saddle anesthesia. He denies any numbness or tingling to his lower extremities. Patient denies any recent rash, fever, chills, shortness breath, chest pain, numbness, tingling, dizziness, weakness, hematuria , dysuria, urinary urgency, urinary frequency, headache, visual changes, or any other complaints. - Related Data Home Medications Medication Instructions Recorded Confirmed Citalopram Hydrobromide [CeleXA] 40 mg PO DAILY 11/18/13 06/19/16 Finasteride [Proscar] 5 mg PO DAILY 11/18/13 06/19/16 Fluticasone/Salmeterol [Advair 1 puff INHALATION RT-BID 11/18/13 06/19/16 500-50 Diskus] Tamsulosin [Flomax] 0.4 mg PO DAILY 11/18/13 06/19/16 Aspirin EC [Ecotrin] 325 mg PO DAILY 03/10/14 06/19/16 Simvastatin [Zocor] 40 mg PO HS 05/11/15 06/19/16 ALPRAZolam [Xanax] 0.5 mg PO DAILY PRN 06/19/16 06/19/16 Budesonide/Formoterol Fumarate 2 puff INHALATION RT-BID 06/19/16 06/19/16 [Symbicort 160-4.5 Mcg Inhaler] Levalbuterol HCl [Xopenex 1.25 mg INHALATION RT-QID 06/19/16 06/19/16 Nebulized] Primidone [Mysoline] 25 mg PO BID 06/19/16 06/19/16 guaiFENesin [Mucinex] 600 mg PO BID 06/19/16 06/19/16 Previous Rx's Medication Instructions Recorded Docusate [Colace] 100 mg PO BID cap 06/25/16 Levofloxacin [Levaquin] 750 mg PO Q48H #3 tab 06/25/16 Magnesium Hydroxide [Milk of 2,400 mg PO BID ml 06/25/16 Magnesia Concentrate] Metoprolol Tartrate [Lopressor] 6.25 mg PO BID #30 tab 06/25/16 predniSONE 40 mg PO DAILY #7 tab 06/25/16 Hydrocodone/Acetaminophen [[place] 1 tab PO Q6HR PRN #20 tab 12/08/16 5-325] Allergies Allergy/AdvReac Type Severity Reaction Status Date / Time dobutamine Allergy Severe Swelling Verified 12/08/16 00:01 hydromorphone HCl Allergy Intermediate AGRESSIVE Verified 12/08/16 00:01 [From Dilaudid] sulfamethoxazole Allergy DIAPHORESIS Verified 12/08/16 00:01 [From Bactrim] trimethoprim [From Bactrim] Allergy DIAPHORESIS Verified 12/08/16 00:01 Review of Systems ROS Statement: Those systems with pertinent positive or pertinent negative responses have been documented in the HPI. ROS Other: All systems not noted in ROS Statement are negative. Past Medical History Past Medical History: Coronary Artery Disease (CAD), Cancer, COPD, Hyperlipidemia, Hypertension, Pneumonia, Prostate Disorder Additional Past Medical History / Comment(s): BLADDER CANCER, COPD, TREMORS, . HX OF DIVERTICULITIS WITH PERFORATED BOWEL . HAS COLOSTOMY. HERNIA AT STOMA AND INCISIONAL HERNIA . CAROTID ARTERY STENOSIS, ENLARGED PROSTATE. , FX LEFT HIP 10/2013 AND NOW USING WALKER AND HAS VISITING NURSE AND PHYSICAL THERAPY. History of Any Multi-Drug Resistant Organisms: None Reported Past Surgical History: Bowel Resection, Coronary Bypass/CABG, Hernia Repair Additional Past Surgical History / Comment(s): COLOSTOMY D/T PERFORATED BOWEL FROM DIVERTICULITIS, CABG (2005), ING HERNIA REPAIR, ORIF FX LEFT HIP (10/2013) Past Anesthesia/Blood Transfusion Reactions: No Reported Reaction, Motion Sickness Additional Past Anesthesia/Blood Transfusion Reaction / Comment(s): CLAUSTERPHOBIC Past Psychological History: Anxiety, Depression Smoking Status: Former smoker Past Alcohol Use History: None Reported Past Drug Use History: None Reported - Past Family History Father Family Medical History: Unable to Obtain Mother Family Medical History: Unable to Obtain General Exam Limitations: no limitations General appearance: alert, in no apparent distress, other (This is a well- developed, well-nourished adult male patient in no acute distress. Vital signs upon presentation are temperature 98.7F, pulse 67, respirations 16, blood pressure 143/73, pulse ox 91% on room air.) Eye exam: Present: normal appearance, PERRL, EOMI. Absent: scleral icterus, conjunctival injection, periorbital swelling ENT exam: Present: normal exam, normal oropharynx, mucous membranes moist Neck exam: Present: normal inspection. Absent: tenderness, meningismus, lymphadenopathy Respiratory exam: Present: normal lung sounds bilaterally. Absent: respiratory distress, wheezes, rales, rhonchi, stridor Cardiovascular Exam: Present: regular rate, normal rhythm, normal heart sounds. Absent: systolic murmur, diastolic murmur, rubs, gallop, clicks GI/Abdominal exam: Present: soft, tenderness (Patient does have tenderness in his right lower quadrant, mid lower abdomen, and over the left lower quadrant surrounding the ostomy site.), normal bowel sounds, hernia (Large peristomal hernia to the left lower quadrant.), other. Absent: distended, guarding, rebound, rigid Back exam: Present: normal inspection, vertebral tenderness (Over the lumbar spine.) Neurological exam: Present: alert, oriented X3, CN II-XII intact Psychiatric exam: Present: normal affect, normal mood Skin exam: Present: warm, dry, intact, normal color. Absent: rash Course Vital Signs 12/07/16 12/08/16 12/08/16 23:53 02:26 03:21 Temperature 98.7 F 98.3 F 98.0 F Pulse Rate 67 63 64 Respiratory 16 16 18 Rate Blood Pressure 143/73 149/69 166/72 O2 Sat by Pulse 91 L 98 96 Oximetry Medical Decision Making - Medical Decision Making 81-year-old male patient presented for evaluation of lower abdominal pain and no output from his colostomy 2 days. Patient has been eating and drinking without difficulty, denies any nausea or vomiting with this. Labs reviewed. Patient did have a potassium level 5.5. BUN was elevated at 35. We will give him a 1000 mL fluid bolus. KUB of the abdomen showed no evidence of obstruction or change from previous exam. CT of the abdomen and pelvis was obtained and did show no bowel obstruction. It did show a new mild compression fracture at the L1 vertebrae. Also did show incidentally a 1 cm cyst in the right lobe of the liver and bilateral renal cortical cysts patient was informed of this and was aware of the cysts on the kidneys. I discussed the case with my attending Dr. Kathleen who did speak to Dr. Hung the patient's general surgeon, he agreed that patient could be discharged home to follow-up in his office tomorrow. We will give the patient prescription for pain medication as well as instructions to follow-up with orthopedics for further evaluation of his compression fracture. I instructed him to return here immediately for any new, worsening, or concerning symptoms. They verbalize understanding and agreed with this plan. - Lab Data Result diagrams: 12/08/16 00:37 12/08/16 00:37 Lab Results 12/08/16 12/08/16 12/08/16 Range/Units 00:37 00:37 00:37 WBC 11.1 H (3.8-10.6) k/uL RBC 4.78 (4.30-5.90) m/uL Hgb 14.8 (13.0-17.5) gm/dL Hct 48.7 (39.0-53.0) % MCV 101.7 H (80.0-100.0) fL MCH 30.9 (25.0-35.0) pg MCHC 30.3 L (31.0-37.0) g/dL RDW 16.5 H (11.5-15.5) % Plt Count 163 (150-450) k/uL Neutrophils % 88 % Lymphocytes % 6 % Monocytes % 4 % Eosinophils % 1 % Basophils % 0 % Neutrophils # 9.8 H (1.3-7.7) k/uL Lymphocytes # 0.7 L (1.0-4.8) k/uL Monocytes # 0.5 (0-1.0) k/uL Eosinophils # 0.1 (0-0.7) k/uL Basophils # 0.0 (0-0.2) k/uL Anisocytosis Slight Macrocytosis Slight Sodium 136 L (137-145) mmol/L Potassium 5.5 H (3.5-5.1) mmol/L Chloride 102 (98-107) mmol/L Carbon Dioxide 29 (22-30) mmol/L Anion Gap 5 mmol/L BUN 35 H (9-20) mg/dL Creatinine 1.00 (0.66-1.25) mg/dL Est GFR (MDRD) Af Amer >60 (>60 ml/min/1.73 sqM) Est GFR (MDRD) Non-Af >60 (>60 ml/min/1.73 sqM) Glucose 108 H (74-99) mg/dL Plasma Lactic Acid Hugh 1.0 (0.7-2.0) mmol/L Calcium 8.8 (8.4-10.2) mg/dL Total Bilirubin 0.8 (0.2-1.3) mg/dL AST 24 (17-59) U/L ALT 48 (21-72) U/L Alkaline Phosphatase 59 (38-126) U/L Total Protein 5.8 L (6.3-8.2) g/dL Albumin 3.3 L (3.5-5.0) g/dL Amylase 70 (30-110) U/L Lipase 115 (23-300) U/L - Radiology Data Radiology results: report reviewed, image reviewed Single view of the abdomen shows no sign of intestinal obstruction or pneumoperitoneum. Fecal pattern is normal. There is no sign of a mass. There is left hip nailing noted. Lung bases appear clear consolidation. Impression by Dr. Palomo shows nonacute abdomen. No change compared to last exam. CT of the abdomen and pelvis with contrast shows diffuse emphysema and lower lung [place]. No pleural effusion. Heart size is normal. There is a 1 cm cyst in the right lobe of the liver. Bile ducts are not dilated. Skin appears normal. There is no pancreatic mass. Gallbladder has normal size. There are multiple bilateral renal cortical cysts. These measure up to 3.5 cm. There is no hydronephrosis. There is no sign of a solid renal mass. There is no retroperitoneal adenopathy. Abdominal aorta is atheromatous. 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 There is a descending colostomy. There is left hip nailing fixing the proximal left femur. I see no evidence of a mechanical bowel obstruction. There is some atherosclerotic vascular calcification. There is no ascites. There is 10% wedging of L1 vertebral body. There are numerous diverticula in the sigmoid colon. There is retained material in the rectum. Rectal measures 5.3 cm in diameter. The appendix appears normal. Impression by Dr. Palomo shows multiple bilateral renal cortical cysts. Small hepatic cyst. Pulmonary emphysema. Descending colostomy parastomal hernia contains multiple loops of small bowel. No evidence of a mechanical bowel obstruction. Retained mucous in the rectum which is mildly dilated. Abdomen and pelvis appeared not significantly different than 12/14/2015. Numerous sigmoid diverticula. There is a mild new compression fracture of L1 compared to old exam. Disposition Clinical Impression: Peristomal hernia, Constipation, Compression fracture of L1 lumbar vertebra, Abdominal pain, Liver cyst Disposition: HOME SELF-CARE Condition: Good Instructions: Constipation (ED), Vertebral Compression Fracture (ED), Abdominal Pain (ED) Additional Instructions: Take medications as directed. Follow-up with Dr. Hung in the morning. Follow- up with orthopedics as directed. Return here immediately for any new, worsening , or concerning symptoms. Prescriptions: Hydrocodone/Acetaminophen [[place] 5-325] 1 tab PO Q6HR PRN #20 tab PRN Reason: Pain Referrals: Fiona Hayes MD [Primary Care Provider] - 1-2 days Jovanny Hung MD [Medical Doctor] - 1-2 days Brenda Urbano DO [Doctor of Osteopathic Medicine] - 1-2 days Time of Disposition: 03:02
[2016-12-08] MEDS ORDERED: DIAZEPAM 5 MG TAB PO STA (03:03)
[2016-12-08] MEDS ORDERED: HYDROcodone/APAP 5-325MG 1 EACH TAB PO STA (03:04)
[2016-12-08] MEDS ORDERED: SODIUM CHLORIDE 0.9% 500 ML IV ONE (03:23)
[2016-12-08 03:24] VITALS: RESP 18; TEMP 98
[2016-12-08] MEDS ORDERED: SODIUM CHLORIDE 0.9% 1,000 ML IV ONE (03:27)
[2016-12-08 04:08] VITALS: BP 152/65; PULSE 56
== END 2016-12-08 04:23 | disposition home or self-care (01) ==
LOC: EC 23:38
DX: S32.010A Wedge compression fracture of first lumbar vertebra, initial encounter for closed fracture (principal); K43.5 Parastomal hernia without obstruction or gangrene; K59.00 Constipation, unspecified; K76.89 Other specified diseases of liver; I25.10 Atherosclerotic heart disease of native coronary artery without angina pectoris; J44.9 Chronic obstructive pulmonary disease, unspecified; E78.5 Hyperlipidemia, unspecified; N42.9 Disorder of prostate, unspecified; I10 Essential (primary) hypertension; F32.9 Major depressive disorder, single episode, unspecified; F41.9 Anxiety disorder, unspecified; Z85.51 Personal history of malignant neoplasm of bladder; Z87.891 Personal history of nicotine dependence; Z79.51 Long term (current) use of inhaled steroids; Z79.82 Long term (current) use of aspirin; Z79.899 Other long term (current) drug therapy; Z88.2 Allergy status to sulfonamides; Z88.5 Allergy status to narcotic agent; Z88.8 Allergy status to other drugs, medicaments and biological substances; Z93.3 Colostomy status
CPT/HCPCS: 99284 ×2; 96360 ×2; 36415; 80053; 82150; 83605; 83690; 85025; 74000; 74177; Q9967

== ENCOUNTER 2016-12-11 10:51 | Inpatient (IN) | payer MEDICARE ==
[2016-12-11] MEDS ORDERED: methylPREDNISolone SOD SUCCI 125 MG/2 ML VIAL IV STA (11:22)
[2016-12-11] MEDS ORDERED: IPRATROPIUM 0.5 MG/2.5 ML NEBU INHALATION STA (11:22)
[2016-12-11] MEDS ORDERED: ALBUTEROL NEBULIZED 2.5 MG/3 ML INHALATION STA (11:22)
--- NOTE | 2016-12-11 11:27 | ED ---
General Adult HPI - General Chief complaint: Shortness of Breath Stated complaint: Diff Breathing Time Seen by Provider: 12/11/16 11:02 Source: patient, family, RN notes reviewed, old records reviewed Mode of arrival: wheelchair Limitations: no limitations - History of Present Illness Initial comments: 81-year-old male history of COPD presents with a four-day history of worsening cough and dyspnea. Patient denies chest pain. Denies fever. According to the patient's patient has been confused this morning. Patient is alert and oriented time of evaluation. He is in moderate to severe respiratory distress. Patient has been taking his breathing treatments 4 times a day. He does wear oxygen at home typically just at night. Patient has ostomy secondary to perforated bowel. Decreased output over the past several days. No nausea or vomiting. - Related Data Home Medications Medication Instructions Recorded Confirmed Citalopram Hydrobromide [CeleXA] 40 mg PO DAILY 11/18/13 12/11/16 Finasteride [Proscar] 5 mg PO DAILY 11/18/13 12/11/16 Tamsulosin [Flomax] 0.4 mg PO DAILY 11/18/13 12/11/16 Aspirin EC [Ecotrin] 325 mg PO DAILY 03/10/14 12/11/16 Simvastatin [Zocor] 40 mg PO HS 05/11/15 12/11/16 ALPRAZolam [Xanax] 0.5 mg PO DAILY PRN 06/19/16 12/11/16 Budesonide/Formoterol Fumarate 2 puff INHALATION RT-BID 06/19/16 12/11/16 [Symbicort 160-4.5 Mcg Inhaler] Levalbuterol HCl [Xopenex 1.25 mg INHALATION RT-QID 06/19/16 12/11/16 Nebulized] Primidone [Mysoline] 25 mg PO BID 06/19/16 12/11/16 guaiFENesin [Mucinex] 600 mg PO BID 06/19/16 12/11/16 Metoprolol Tartrate 25 mg PO BID 12/11/16 12/11/16 predniSONE 10 mg PO DAILY 12/11/16 12/11/16 Allergies Allergy/AdvReac Type Severity Reaction Status Date / Time dobutamine Allergy Severe Swelling Verified 12/11/16 11:14 hydromorphone HCl Allergy Intermediate AGRESSIVE Verified 12/11/16 11:14 [From Dilaudid] sulfamethoxazole Allergy DIAPHORESIS Verified 12/11/16 11:14 [From Bactrim] trimethoprim [From Bactrim] Allergy DIAPHORESIS Verified 12/11/16 11:14 Review of Systems ROS Statement: Those systems with pertinent positive or pertinent negative responses have been documented in the HPI. ROS Other: All systems not noted in ROS Statement are negative. Past Medical History Past Medical History: Coronary Artery Disease (CAD), Cancer, COPD, Hyperlipidemia, Hypertension, Pneumonia, Prostate Disorder Additional Past Medical History / Comment(s): BLADDER CANCER, COPD, TREMORS, . HX OF DIVERTICULITIS WITH PERFORATED BOWEL . HAS COLOSTOMY. HERNIA AT STOMA AND INCISIONAL HERNIA . CAROTID ARTERY STENOSIS, ENLARGED PROSTATE. , FX LEFT HIP 10/2013 AND NOW USING WALKER AND HAS VISITING NURSE AND PHYSICAL THERAPY. History of Any Multi-Drug Resistant Organisms: None Reported Past Surgical History: Bowel Resection, Coronary Bypass/CABG, Hernia Repair Additional Past Surgical History / Comment(s): COLOSTOMY D/T PERFORATED BOWEL FROM DIVERTICULITIS, CABG (2005), ING HERNIA REPAIR, ORIF FX LEFT HIP (10/2013) Past Anesthesia/Blood Transfusion Reactions: No Reported Reaction, Motion Sickness Additional Past Anesthesia/Blood Transfusion Reaction / Comment(s): CLAUSTERPHOBIC Past Psychological History: Anxiety, Depression Smoking Status: Former smoker Past Alcohol Use History: None Reported Past Drug Use History: None Reported - Past Family History Father Family Medical History: Unable to Obtain Mother Family Medical History: Unable to Obtain General Exam Limitations: no limitations General appearance: alert, in distress Head exam: Present: atraumatic, normocephalic Eye exam: Present: normal appearance, PERRL Neck exam: Present: normal inspection. Absent: tenderness, meningismus Respiratory exam: Present: respiratory distress, wheezes, accessory muscle use, decreased breath sounds, prolonged expiratory Cardiovascular Exam: Present: regular rate, tachycardia GI/Abdominal exam: Present: soft, distended, hernia, other (Ostomy with small amount of liquid stool ). Absent: tenderness Extremities exam: Present: normal inspection, normal capillary refill. Absent: pedal edema Neurological exam: Present: alert, oriented X3 Psychiatric exam: Present: normal affect, normal mood Skin exam: Present: warm, dry, intact. Absent: cyanosis, diaphoretic Course Vital Signs 12/11/16 12/11/16 12/11/16 10:54 11:31 11:39 Temperature 97.0 F L Pulse Rate 97 92 107 H Respiratory 22 32 H Rate Blood Pressure 197/97 179/74 O2 Sat by Pulse 93 L 96 Oximetry 12/11/16 12/11/16 12/11/16 11:58 12:15 12:34 Temperature Pulse Rate 97 108 H 113 H Respiratory 30 H Rate Blood Pressure 177/82 O2 Sat by Pulse 95 Oximetry - Reevaluation(s) Reevaluation #1: 12/11/16 12:55 Patient continues to deny chest pain. Crestor status improves with albuterol, Atrovent, and steroids. EKG Findings - EKG Comments: EKG Findings:: EKG obtained at 1123, shows sinus tachycardia with frequent PVCs , there is ST segment depression in the precordium, no ST segment elevation noted, rate of 107,. 160, castration 78 QTC 480. EKG obtained at 1225 sinus tachycardia, frequent PVCs, persistent ST segment depression in the precordium, no ST segment elevation, ventricular rate 108, MO of 1:30, QRS duration 80, QTc 506 Medical Decision Making - Medical Decision Making 81-year-old male presenting with 4 days of worsening dyspnea. Patient does have COPD and is on home O2. On initial examination patient is in moderate to severe respiratory distress. Tachypnea, wheezing in all lung [place] with diminished air entry. Laboratory studies reveal stable hemoglobin 15.2, venous pCO2 is 67 consistent with COPD exacerbation. Potassium 5.7 which is elevated and treated with albuterol, Kayexalate, and calcium gluconate. Troponin is elevated at 0.262, there is ST segment depression, no ST segment elevation. Patient denies chest pain. This may be related to demand is a patient is tachycardic. EKG findings are discussed with cardiology Dr. Hahn. Patient will be heparinized, echo will be obtained. Diagnosis: COPD exacerbation, hypercarbic restaurant failure, hyperkalemia, elevated troponin - Lab Data Result diagrams: 12/11/16 11:20 12/11/16 11:20 Lab Results 12/11/16 12/11/16 12/11/16 Range/Units 11:20 11:20 11:20 WBC 10.4 (3.8-10.6) k/uL RBC 4.89 (4.30-5.90) m/uL Hgb 15.2 (13.0-17.5) gm/dL Hct 49.7 (39.0-53.0) % MCV 101.7 H (80.0-100.0) fL MCH 31.1 (25.0-35.0) pg MCHC 30.6 L (31.0-37.0) g/dL RDW 14.7 (11.5-15.5) % Plt Count 172 (150-450) k/uL Neutrophils % 78 % Lymphocytes % 11 % Monocytes % 6 % Eosinophils % 3 % Basophils % 1 % Neutrophils # 8.1 H (1.3-7.7) k/uL Lymphocytes # 1.2 (1.0-4.8) k/uL Monocytes # 0.6 (0-1.0) k/uL Eosinophils # 0.3 (0-0.7) k/uL Basophils # 0.1 (0-0.2) k/uL Hypochromasia Slight Macrocytosis Slight PT (9.0-12.0) sec INR (<1.2) APTT (22.0-30.0) sec VBG pH (7.31-7.41) VBG pCO2 (37-51) mmHg VBG HCO3 (24-28) mmol/L Sodium 143 (137-145) mmol/L Potassium 5.7 H (3.5-5.1) mmol/L Chloride 104 (98-107) mmol/L Carbon Dioxide 34 H (22-30) mmol/L Anion Gap 5 mmol/L BUN 34 H (9-20) mg/dL Creatinine 1.01 (0.66-1.25) mg/dL Est GFR (MDRD) Af Amer >60 (>60 ml/min/1.73 sqM) Est GFR (MDRD) Non-Af >60 (>60 ml/min/1.73 sqM) Glucose 83 (74-99) mg/dL Plasma Lactic Acid Hugh (0.7-2.0) mmol/L Calcium 9.0 (8.4-10.2) mg/dL Magnesium 2.4 H (1.6-2.3) mg/dL Total Bilirubin 1.2 (0.2-1.3) mg/dL AST 42 (17-59) U/L ALT 29 (21-72) U/L Alkaline Phosphatase 56 (38-126) U/L Total Creatine Kinase 58 (55-170) U/L CK-MB (CK-2) 3.8 H* (0.0-2.4) ng/mL CK-MB (CK-2) Rel Index 6.6 Troponin I 0.262 H* (0.000-0.034) ng/mL NT-Pro-B Natriuret Pep pg/mL Total Protein 6.6 (6.3-8.2) g/dL Albumin 3.6 (3.5-5.0) g/dL 12/11/16 12/11/16 12/11/16 Range/Units 11:20 11:20 11:20 WBC (3.8-10.6) k/uL RBC (4.30-5.90) m/uL Hgb (13.0-17.5) gm/dL Hct (39.0-53.0) % MCV (80.0-100.0) fL MCH (25.0-35.0) pg MCHC (31.0-37.0) g/dL RDW (11.5-15.5) % Plt Count (150-450) k/uL Neutrophils % % Lymphocytes % % Monocytes % % Eosinophils % % Basophils % % Neutrophils # (1.3-7.7) k/uL Lymphocytes # (1.0-4.8) k/uL Monocytes # (0-1.0) k/uL Eosinophils # (0-0.7) k/uL Basophils # (0-0.2) k/uL Hypochromasia Macrocytosis PT 9.9 (9.0-12.0) sec INR 1.0 (<1.2) APTT 22.3 (22.0-30.0) sec VBG pH (7.31-7.41) VBG pCO2 (37-51) mmHg VBG HCO3 (24-28) mmol/L Sodium (137-145) mmol/L Potassium (3.5-5.1) mmol/L Chloride (98-107) mmol/L Carbon Dioxide (22-30) mmol/L Anion Gap mmol/L BUN (9-20) mg/dL Creatinine (0.66-1.25) mg/dL Est GFR (MDRD) Af Amer (>60 ml/min/1.73 sqM) Est GFR (MDRD) Non-Af (>60 ml/min/1.73 sqM) Glucose (74-99) mg/dL Plasma Lactic Acid Huhg 1.6 (0.7-2.0) mmol/L Calcium (8.4-10.2) mg/dL Magnesium (1.6-2.3) mg/dL Total Bilirubin (0.2-1.3) mg/dL AST (17-59) U/L ALT (21-72) U/L Alkaline Phosphatase (38-126) U/L Total Creatine Kinase (55-170) U/L CK-MB (CK-2) (0.0-2.4) ng/mL CK-MB (CK-2) Rel Index Troponin I (0.000-0.034) ng/mL NT-Pro-B Natriuret Pep 5280 pg/mL Total Protein (6.3-8.2) g/dL Albumin (3.5-5.0) g/dL 12/11/16 Range/Units 11:20 WBC (3.8-10.6) k/uL RBC (4.30-5.90) m/uL Hgb (13.0-17.5) gm/dL Hct (39.0-53.0) % MCV (80.0-100.0) fL MCH (25.0-35.0) pg MCHC (31.0-37.0) g/dL RDW (11.5-15.5) % Plt Count (150-450) k/uL Neutrophils % % Lymphocytes % % Monocytes % % Eosinophils % % Basophils % % Neutrophils # (1.3-7.7) k/uL Lymphocytes # (1.0-4.8) k/uL Monocytes # (0-1.0) k/uL Eosinophils # (0-0.7) k/uL Basophils # (0-0.2) k/uL Hypochromasia Macrocytosis PT (9.0-12.0) sec INR (<1.2) APTT (22.0-30.0) sec VBG pH 7.32 (7.31-7.41) VBG pCO2 67 H (37-51) mmHg VBG HCO3 33 H (24-28) mmol/L Sodium (137-145) mmol/L Potassium (3.5-5.1) mmol/L Chloride (98-107) mmol/L Carbon Dioxide (22-30) mmol/L Anion Gap mmol/L BUN (9-20) mg/dL Creatinine (0.66-1.25) mg/dL Est GFR (MDRD) Af Amer (>60 ml/min/1.73 sqM) Est GFR (MDRD) Non-Af (>60 ml/min/1.73 sqM) Glucose (74-99) mg/dL Plasma Lactic Acid Hugh (0.7-2.0) mmol/L Calcium (8.4-10.2) mg/dL Magnesium (1.6-2.3) mg/dL Total Bilirubin (0.2-1.3) mg/dL AST (17-59) U/L ALT (21-72) U/L Alkaline Phosphatase (38-126) U/L Total Creatine Kinase (55-170) U/L CK-MB (CK-2) (0.0-2.4) ng/mL CK-MB (CK-2) Rel Index Troponin I (0.000-0.034) ng/mL NT-Pro-B Natriuret Pep pg/mL Total Protein (6.3-8.2) g/dL Albumin (3.5-5.0) g/dL Critical Care Time Critical Care Time: Yes Total Critical Care Time: 35 Disposition Clinical Impression: Acute exacerbation of chronic obstructive airways disease, Elevated troponin I level, Hyperkalemia Disposition: ADMITTED IP TO THIS [facility] Condition: Serious Referrals: Fiona Hayes MD [Primary Care Provider] - 1-2 days Decision to Admit Reason: Admit from EC Decision Date: 12/11/16 Decision Time: 12:30
[2016-12-11 11:32] LABS: Basophils # (A) 0.1 k/uL (0-0.2); Basophils % (A) 1 %; CH 30.8; CHCM 30.5; Eosinophils # (A) 0.3 k/uL (0-0.7); Eosinophils % (A) 3 %; HCT 49.7 % (39.0-53.0); HDW 2.38; HGB 15.2 gm/dL (13.0-17.5); Hypochromasia Slight; Luc # (Auto) 0.16; Luc % (Auto) 2; Lymphocytes # (A) 1.2 k/uL (1.0-4.8); Lymphocytes % (A) 11 %; MCH 31.1 pg (25.0-35.0); MCHC 30.6 g/dL (31.0-37.0); MCV 101.7 fL (80.0-100.0); Macrocytosis Slight; Mean Platelet Volume 9.5; Monocytes # (A) 0.6 k/uL (0-1.0); Monocytes % (A) 6 %; Neutrophils # (A) 8.1 k/uL (1.3-7.7); Neutrophils % (A) 78 %; RBC 4.89 m/uL (4.30-5.90); RDW 14.7 % (11.5-15.5); WBC 10.4 k/uL (3.8-10.6); WBC (Perox) 9.76
[2016-12-11 11:35] LABS: VBG PH 7.32 (7.31-7.41)
[2016-12-11 11:46] LABS: ALT 29 U/L (21-72); AST 42 U/L (17-59); Alkaline Phosphatase 56 U/L (38-126); Anion Gap 5 mmol/L; Blood Urea Nitrogen 34 mg/dL (9-20); Carbon Dioxide 34 mmol/L (22-30); Chloride 104 mmol/L (98-107); Glucose 83 mg/dL (74-99); Magnesium 2.4 mg/dL (1.6-2.3); Non-African American GFR(MDRD) >60 (>60 ml/min/1.73 sqM); Sodium 143 mmol/L (137-145); Total Bilirubin 1.2 mg/dL (0.2-1.3); Total Protein 6.6 g/dL (6.3-8.2)
--- NOTE | 2016-12-11 11:48 | XR ---
EXAMINATION TYPE: XR chest 1V portable DATE OF EXAM: 12/11/2016 COMPARISON: 06/21/2016 HISTORY: Difficulty breathing TECHNIQUE: Single frontal view of the chest is obtained. FINDINGS: Diffuse hyperinflation noted. Congestion epicardial lead. Changes. Pleural thickening righ t upper lobe noted somewhat nodular. Nodular density in the left upper lobe laterally also suspected. No pleural effusion or overt failure. Correlate for COPD. IMPRESSION: 1. COPD with right apical and left apical pleural-based thickening greater on the right. Underlying n eoplasm not excluded.
[2016-12-11 11:50] LABS: Partial Thromboplastin Time 22.3 sec (22.0-30.0); Prothrombin Time 9.9 sec (9.0-12.0)
[2016-12-11 11:51] LABS: Potassium 5.7 mmol/L (3.5-5.1)
[2016-12-11 12:12] LABS: Creatine Kinase MB 3.8 ng/mL (0.0-2.4); Troponin I 0.262 ng/mL (0.000-0.034)
[2016-12-11] MEDS ORDERED: HEPARIN SODIUM,PORCINE 5,000 UNIT/ML 1 ML VIAL IV PRN (12:30)
[2016-12-11] MEDS ORDERED: HEPARIN SODIUM,PORCINE/D5W PMX 25,000 UNIT in DEXTROSE/WATER 1 500ML.BAG IV SCH (12:30)
[2016-12-11] MEDS ORDERED: SODIUM POLYSTYRENE SULFONATE 15 GM/60 ML BOTTLE PO STA (12:30)
[2016-12-11] MEDS ORDERED: HEPARIN SODIUM,PORCINE 5,000 UNIT/ML 1 ML VIAL IV ONE (12:30)
[2016-12-11] MEDS ORDERED: NALOXONE 0.4 MG/ML 1 ML VIAL IV PRN (12:51)
[2016-12-11] MEDS ORDERED: IPRATROPIUM-ALBUTEROL 3 ML NEB INHALATION PRN (12:51)
[2016-12-11] MEDS ORDERED: CALCIUM GLUCONATE 1,000 MG in SODIUM CHLORIDE 0.9% 100 ML IVPB ONE (13:00)
[2016-12-11] MEDS: SODIUM CHLORIDE 0.9% 1,000 ML IV SCH (13:22)
[2016-12-11] MEDS ORDERED: ALPRAZolam 0.5 MG TAB PO PRN (16:28)
[2016-12-11] MEDS: METOPROLOL TARTRATE 25 MG TAB PO SCH ×2 (18:56→21:13)
[2016-12-11 19:06] LABS: Creatine Kinase MB 3.2 ng/mL (0.0-2.4); Troponin I 0.149 ng/mL (0.000-0.034)
[2016-12-11] MEDS: ATORVASTATIN 20 MG TAB PO SCH (20:33)
[2016-12-11] MEDS: PRIMIDONE 50 MG TAB PO SCH (20:34)
[2016-12-11] MEDS: guaiFENesin 600 MG TABLET.ER PO SCH (20:34)
[2016-12-11] MEDS: SYMBICORT 160-4.5 MCG INHALER INHALATION SCH (20:38)
[2016-12-11] MEDS: LEVALBUTEROL NEB 1.25 MG/3 ML AMP INHALATION SCH (20:39)
[2016-12-11] MEDS ORDERED: METOPROLOL TARTRATE 25 MG TAB PO SCH (21:00)
--- NOTE | 2016-12-11 21:02 | HP ---
HISTORY AND PHYSICAL DATE OF ADMISSION: December 11, 2016. PRESENTING COMPLAINT: Short of breath. HISTORY OF PRESENTING COMPLAINT: This is a pleasant 81-year-old patient of Dr. Hayes whose chronic stable medical conditions include hypertension, hyperlipidemia, BPH, some anxiety, coronary artery disease. The patient has a long-standing colostomy bag. The patient is here with his . The patient had a recent visit to the ER. The patient has episodes of increasing shortness of breath and getting increasingly confused especially at night. The patient is brought into the ER. Increasing confusion and shortness of breath after he was seen by Dr. Hayes in the office. The patient is getting breathing treatment to which he felt a bit better. Was not having significant amount of tremors. Patient also having some trouble with his colostomy and had to be given laxatives by his to have it. The patient also has a periostomy hernia which is becoming larger. No nausea or vomiting. No fevers. No abdominal pain. REVIEW OF SYSTEMS: Constitutional: Tired. HEENT none. Respiratory: Wheezing, slight cough. Cardiovascular none. Gastrointestinal as above. Genitourinary decreased urine output. MUSCULOSKELETAL: Pain in joints. Dermatological slight bruising. Hematologic: None. Lymphatics: None. Psychiatry intermittently confused. Neurological none. PAST MEDICAL HISTORY: Of hyperlipidemia, hypertension, coronary artery disease, carotid artery stenosis, BPH, anxiety, depression, coronary artery disease, COPD and colostomy. PAST SURGICAL HISTORY: Bowel resection from diverticulitis and colostomy, coronary bypass, hernia repair and ORIF of the left hip. SOCIAL HISTORY: The patient started smoking at age of 14, smoked 2 packs a day, stopped in 1997. Alcohol none. . Retired. FAMILY HISTORY: Congestive heart failure. HOME MEDICATIONS: 1. Prednisone 10 mg a day. 2. Mucinex 600 mg p.o. b.i.d. 3. Flomax 0.4 mg p.o. daily. 4. Zocor 40 mg q.h.s. 5. Mysoline 25 mg p.o. b.i.d. 6. Metoprolol 25 mg p.o. b.i.d. 7. Xopenex 1.25 q.i.d. 8. Proscar 5 mg p.o. daily. 9. Celexa 40 mg p.o. daily. 10.Symbicort 160/4.5, 2 puffs b.i.d. 11.Aspirin 325 p.o. daily. 12.Xanax 0.5 mg p.o. daily p.r.n. ALLERGIES: TO DOBUTAMINE, DILAUDID AND BACTRIM. PHYSICAL EXAMINATION: Temperature 97, pulse, respiration up to 30, blood pressure 139/74, pulse ox 93% room air in the ER. General appearance: Thin build, sitting up, somewhat anxious- appearing. Eyes pupils equal. Conjunctivae normal. HEENT: Oral cavity normal. NECK: JVD not raised. Mass not palpable. RESPIRATORY: Effort increased. Lungs decreased breath sounds. Some wheezing. Cardiovascular: First and second sounds normal. No edema. ABDOMEN: Slightly distended with periostomy hernia, colostomy bag in place. No tenderness. Liver and spleen not palpable. Lymphatics: No lymph nodes palpable in neck or axillae. PSYCHIATRY: Awake, answering questions. Anxious-appearing. Neurological: Pupils equal. Cranial nerves grossly intact. Power and sensation grossly intact. INVESTIGATIONS: White count 10.4, hemoglobin 15.2, venous blood gas showed pCO2 67, potassium 5.7 troponin 0.262, 0.149. ProBNP 5280. Chest x-ray showed some venous prominence. ASSESSMENT: 1. Acute hypercapnic respiratory failure underlying chronic obstructive pulmonary disease. 2. Acute chronic obstructive pulmonary disease exacerbation in an ex-smoker. 3. Troponin leak. Probably from hemodynamic mismatch, does not appear to be acute myocardial infarction. 4. Hyperkalemia. 5. Essential hypertension. 6. Coronary artery stenosis. 7. Benign prostatic hypertrophy. 8. Anxiety, depression, not otherwise specified. 9. Acute delirium probably from CO2 narcosis. 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 12.Coronary artery disease. 13.History of stents. 14.Increasing tremors noted from as a side effect of the albuterol. PLAN: Patient received Kayexalate and with breathing treatment and calcium carbonate from the ER. Repeat potassium will be done in the morning. The patient has had no chest pain. Hence we will stop the IV heparin. We will get pulmonary and cardiology consultation. We will also see patient if we can get a larger binder, last one was 2 years ago. Get opinion from Dr. Hung with opening in the same for the colostomy. Care was discussed. Questions were answered. Copy to Dr. Hayes. MMODL / IJN: [id number] /
[2016-12-12 00:46] LABS: Creatine Kinase MB 3.1 ng/mL (0.0-2.4)
[2016-12-12 00:47] LABS: Troponin I 0.155 ng/mL (0.000-0.034)
[2016-12-12 07:20] LABS: Anion Gap 5 mmol/L; Blood Urea Nitrogen 32 mg/dL (9-20); Calcium 8.3 mg/dL (8.4-10.2); Carbon Dioxide 32 mmol/L (22-30); Chloride 104 mmol/L (98-107); Glucose 81 mg/dL (74-99); Non-African American GFR(MDRD) >60 (>60 ml/min/1.73 sqM); Potassium 3.7 mmol/L (3.5-5.1); Sodium 141 mmol/L (137-145)
[2016-12-12] MEDS: LEVALBUTEROL NEB 1.25 MG/3 ML AMP INHALATION SCH ×3 (07:20→19:23)
[2016-12-12] MEDS: SYMBICORT 160-4.5 MCG INHALER INHALATION SCH ×3 (07:21→19:23)
[2016-12-12 07:27] LABS: Basophils % (A) 0 %; CH 31.1; Eosinophils % (A) 1 %; HCT 39.7 % (39.0-53.0); HDW 2.33; HGB 12.3 gm/dL (13.0-17.5); Hypochromasia Slight; Luc # (Auto) 0.13; Luc % (Auto) 2; Lymphocytes % (A) 11 %; MCH 31.3 pg (25.0-35.0); MCV 100.8 fL (80.0-100.0); Macrocytosis Slight; Mean Platelet Volume 10.1; Monocytes # (A) 0.6 k/uL (0-1.0); Monocytes % (A) 7 %; Neutrophils # (A) 7.4 k/uL (1.3-7.7); Neutrophils % (A) 80 %; RBC 3.94 m/uL (4.30-5.90); RDW 14.7 % (11.5-15.5); WBC 9.2 k/uL (3.8-10.6); WBC (Perox) 9.28
[2016-12-12] MEDS: guaiFENesin 600 MG TABLET.ER PO SCH ×2 (08:14→21:12)
[2016-12-12] MEDS: FINASTERIDE 5 MG TAB PO SCH (08:14)
[2016-12-12] MEDS: CITALOPRAM HYDROBROMIDE 20 MG TAB PO SCH (08:14)
[2016-12-12] MEDS: predniSONE 20 MG TAB PO SCH (08:14)
[2016-12-12] MEDS: METOPROLOL TARTRATE 25 MG TAB PO SCH ×2 (08:14→21:12)
[2016-12-12] MEDS: TAMSULOSIN 0.4 MG CAP.ER.24H PO SCH (08:15)
[2016-12-12] MEDS: SODIUM CHLORIDE 0.9% 1,000 ML IV SCH (08:15)
[2016-12-12] MEDS: PRIMIDONE 50 MG TAB PO SCH ×2 (08:15→21:12)
--- NOTE | 2016-12-12 10:11 | ECHOF ---
Referral Reason:TROP ELEVATION MEASUREMENTS -------- HEIGHT: 175.3 cm WEIGHT: 67.1 kg BP: 82 RVIDd: 2.6 cm (< 3.3) IVSd: 1.2 cm (0.6 - 1.1) LVIDd: 4.0 cm (3.9 - 5.3) LVPWd: 1.0 cm (0.6 - 1.1) IVSs: 1.3 cm LVIDs: 3.2 cm LVPWs: 1.3 cm LAESV Index (A-L): 13.91 ml/m Ao Diam: 3.2 cm (2.0 - 3.7) AV Cusp: 1.0 cm (1.5 - 2.6) LA Diam: 3.3 cm (2.7 - 3.8) MV E Jason: 0.57 m/s MV DecT: 298 ms MV A Jasno: 1.07 m/s MV E/A Ratio: 0.53 RAP: 5.00 mmHg RVSP: 15.73 mmHg FINDINGS -------- Frequent ventricular premature beats. This was a technically adequate study. The left ventricular size is normal. Left ventricular wall thickness is normal. Overall left ventricular systolic function is normal with, an EF between 55 - 60 %. The right ventricle is normal in size and function. Normal LA size by volume 22+/-6 ml/m2. The right atrium is normal in size. Aortic valve is trileaflet and is mildly thickened. There is no evidence of aortic regurgitation. There is no evidence of aortic stenosis. The mitral valve leaflets are mildly thickened. There is trace mitral regurgitation. Trace tricuspid regurgitation present. Right ventricular systolic pressure is normal at < 35 mmHg. There is no evidence of pulmonary hypertension. The pulmonic valve was not well visualized. The aortic root size is normal. Normal inferior vena cava with normal inspiratory collapse consistent with estimated right atrial pressure of 5 mmHg. The pericardium is normal. There is no pericardial effusion. CONCLUSIONS -------- 1. Frequent ventricular premature beats. 2. Trace tricuspid regurgitation present. 3. Right ventricular systolic pressure is normal at < 35 mmHg. 4. There is no evidence of pulmonary hypertension. 5. The pulmonic valve was not well visualized. 6. The aortic root size is normal. 7. There is no pericardial effusion. 8. This was a technically adequate study. 9. The left ventricular size is normal. 10. Left ventricular wall thickness is normal. 11. Overall left ventricular systolic function is normal with, an EF between 55 - 60 %. 12. Normal LA size by volume 22+/-6 ml/m2. 13. Aortic valve is trileaflet and is mildly thickened. 14. The mitral valve leaflets are mildly thickened. 15. There is trace mitral regurgitation. [employer]: Froylan Garcia RDCS
--- NOTE | 2016-12-12 10:28 | P.CRDCN ---
History of Present Illness Consult date: 12/12/16 Requesting physician: Samir Maddox Consult reason: congestive heart failure Chief complaint: Shortness of breath History of present illness: This is an 81-year-old gentleman with known history of coronary artery disease and prior bypass surgery, he used to follow with Dr. Rodas in the office, he now sees Dr. Morgan. Patient also has history of hypertension, hyperlipidemia, COPD, mild dementia, diverticulitis with prior perforated bowel for which he has a colostomy in place, he presents to the hospital with symptoms of worsening shortness of breath. Most of the history was obtained from the medical record, patient actually states he is unsure of why he is here when I asked him he does state that he's been more short of breath at home than usual and he's been coughing a significant amount. He denies any fever or chills, denies any chest discomfort. EKG on arrival here shows a sinus tachycardia with nonspecific ST-T wave changes and occasional PVC. Repeat EKG this morning shows a sinus tachycardia with nonspecific ST-T wave changes and occasional PVC. Chest x-ray reveals COPD with a right apical and left apical pleural based thickening. Underlying neoplasm not excluded. White blood cell count is normal, hemoglobin on admission 15.2, 12.3 this morning. Platelet count 172 on admission, 144 this morning. Calcium on admission 5.7, 3.7 this morning. BUN 32, creatinine 0.9. Magnesium level 2.4. BNP level 5280. Troponin 0.26, 0.14, 0.15. PH 7.3, HCO3 33, pCO2 67. Blood pressure 148/70 with a heart rate in the low 100s. 3 days prior patient was in the emergency room due to no output from his colostomy for 2 days. He had significant abdominal tenderness. CT of the abdomen was performed which did not reveal any evidence of mechanical bowel obstruction. KUB nonacute. Ultrasound of the abdomen and bladder revealed simple cyst within the kidneys. At the time of my examination this morning, patient is sitting up in the chair at bedside. He does have a nonproductive cough, denies chest pain, denies any further abdominal discomfort. Past Medical History Past Medical History: Coronary Artery Disease (CAD), Cancer, COPD, Hyperlipidemia, Hypertension, Pneumonia, Prostate Disorder Additional Past Medical History / Comment(s): BLADDER CANCER, COPD-USES 02 2 LITERS N/C AT HS, TREMORS, . HX OF DIVERTICULITIS WITH PERFORATED BOWEL . HAS COLOSTOMY. HERNIA AT STOMA AND INCISIONAL HERNIA . CAROTID ARTERY STENOSIS, ENLARGED PROSTATE. 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 Past Anesthesia/Blood Transfusion Reactions: No Reported Reaction, Motion Sickness Additional Past Anesthesia/Blood Transfusion Reaction / Comment(s): CLAUSTERPHOBIC. DO NOT GIVE HIS DILAUDID- PT BECAME VERY AGGRESSIVE Smoking Status: Former smoker - Past Family History Father Family Medical History: Congestive Heart Failure (CHF) Mother Family Medical History: Congestive Heart Failure (CHF) Medications and Allergies Home Medications Medication Instructions Recorded Confirmed Type Citalopram Hydrobromide [CeleXA] 40 mg PO DAILY 11/18/13 12/11/16 History Finasteride [Proscar] 5 mg PO DAILY 11/18/13 12/11/16 History Tamsulosin [Flomax] 0.4 mg PO DAILY 11/18/13 12/11/16 History Aspirin EC [Ecotrin] 325 mg PO DAILY 03/10/14 12/11/16 History Simvastatin [Zocor] 40 mg PO HS 05/11/15 12/11/16 History ALPRAZolam [Xanax] 0.5 mg PO DAILY PRN 06/19/16 12/11/16 History Budesonide/Formoterol Fumarate 2 puff INHALATION RT-BID 06/19/16 12/11/16 History [Symbicort 160-4.5 Mcg Inhaler] Levalbuterol HCl [Xopenex 1.25 mg INHALATION RT-QID 06/19/16 12/11/16 History Nebulized] Primidone [Mysoline] 25 mg PO BID 06/19/16 12/11/16 History guaiFENesin [Mucinex] 600 mg PO BID 06/19/16 12/11/16 History Metoprolol Tartrate 25 mg PO BID 12/11/16 12/11/16 History predniSONE 10 mg PO DAILY 12/11/16 12/11/16 History Allergies Allergy/AdvReac Type Severity Reaction Status Date / Time dobutamine Allergy Severe Swelling Verified 12/11/16 11:14 hydromorphone HCl Allergy Intermediate AGRESSIVE Verified 12/11/16 11:14 [From Dilaudid] sulfamethoxazole Allergy DIAPHORESIS Verified 12/11/16 11:14 [From Bactrim] trimethoprim [From Bactrim] Allergy DIAPHORESIS Verified 12/11/16 11:14 Physical Exam Vitals: Vital Signs Temp Pulse Pulse Resp BP BP Pulse Ox 12/12/16 08:00 97.0 F L 69 18 148/72 99 12/12/16 07:46 100 12/12/16 07:21 100 12/12/16 04:00 97.9 F 80 16 128/74 95 12/12/16 00:00 97.4 F L 68 16 177/78 97 12/11/16 20:54 94 95 12/11/16 20:40 96 12/11/16 20:00 97.7 F 76 18 165/77 93 L 12/11/16 18:26 22 12/11/16 18:08 97.9 F 84 22 175/80 94 L 12/11/16 16:34 98.0 F 96 18 152/67 94 L 12/11/16 15:47 96 18 186/85 94 L 12/11/16 15:15 98 12/11/16 15:04 99 12/11/16 14:25 89 24 198/91 96 12/11/16 13:33 106 H 24 158/70 94 L 12/11/16 13:32 107 H 24 158/70 98 12/11/16 12:34 113 H 30 H 177/82 95 12/11/16 12:15 108 H 12/11/16 11:58 97 12/11/16 11:39 107 H 12/11/16 11:31 92 32 H 179/74 96 12/11/16 10:54 97.0 F L 97 22 197/97 93 L Intake and Output 12/11/16 12/12/16 12/12/16 22:59 06:59 14:59 Intake Total 120 640 Output Total 225 Balance -105 640 Intake: Intake, IV Titration 160 Amount Heparin Sodium,Porcine/ 160 D5w Pmx 25,000 unit In Dextrose/Water 1 500ml. bag @ 12 UNITS/KG/HR 16. 11 mls/hr IV .Q24H [facility] Rx #:[id number] Oral 120 480 Output: Urine 225 Other: Voiding Method Urinal # Voids 0 2 Weight 65 kg PHYSICAL EXAMINATION: HEENT: Head is atraumatic, normocephalic. Pupils equal, round. Neck is supple. There is elevated jugular venous pressure. HEART EXAMINATION: Heart S1, S2 normal. No murmur or gallop heard. CHEST EXAMINATION: Lungs reveal rales bilaterally with scattered wheezing throughout. ABDOMEN: Soft, mild tenderness around the colostomy . Bowel sounds are heard. No organomegaly noted. EXTREMITIES: 2+ peripheral pulses with no evidence of peripheral edema and no calf tenderness noted. NEUROLOGIC patient is awake, alert and mildly confused. . Results 12/12/16 06:30 12/12/16 06:30 Cardiac Enzymes 12/11/16 12/11/16 12/11/16 Range/Units 11:20 11:20 18:11 AST 42 (17-59) U/L CK-MB (CK-2) 3.8 H* 3.2 H* (0.0-2.4) ng/mL Troponin I 0.262 H* 0.149 H* (0.000-0.034) ng/mL 12/11/16 Range/Units 23:23 AST (17-59) U/L CK-MB (CK-2) 3.1 H* (0.0-2.4) ng/mL Troponin I 0.155 H* (0.000-0.034) ng/mL Coagulation 12/11/16 12/11/16 12/12/16 Range/Units 11:20 18:11 06:30 PT 9.9 (9.0-12.0) sec APTT 22.3 49.5 H 46.9 H (22.0-30.0) sec CBC 12/11/16 12/12/16 Range/Units 11:20 06:30 WBC 10.4 9.2 (3.8-10.6) k/uL RBC 4.89 3.94 L (4.30-5.90) m/uL Hgb 15.2 12.3 L (13.0-17.5) gm/dL Hct 49.7 39.7 (39.0-53.0) % Plt Count 172 144 L (150-450) k/uL Comprehensive Metabolic Panel 12/11/16 12/12/16 Range/Units 11:20 06:30 Sodium 143 141 (137-145) mmol/L Potassium 5.7 H 3.7 (3.5-5.1) mmol/L Chloride 104 104 (98-107) mmol/L Carbon Dioxide 34 H 32 H (22-30) mmol/L BUN 34 H 32 H (9-20) mg/dL Creatinine 1.01 0.94 (0.66-1.25) mg/dL Glucose 83 81 (74-99) mg/dL Calcium 9.0 8.3 L (8.4-10.2) mg/dL AST 42 (17-59) U/L ALT 29 (21-72) U/L Alkaline Phosphatase 56 (38-126) U/L Total Protein 6.6 (6.3-8.2) g/dL Albumin 3.6 (3.5-5.0) g/dL Current Medications Generic Name Dose Route Start Last Admin Trade Name Freq PRN Reason Stop Dose Admin Alprazolam 0.5 mg 12/11/16 16:28 Xanax PO DAILY PRN Anxiety Atorvastatin Calcium 20 mg 12/11/16 21:00 12/11/16 20:33 Lipitor PO 20 mg HS ALEX Administration Budesonide/Formoterol Fumarate 2 puff 12/11/16 20:00 12/12/16 07:27 Symbicort 160-4.5 Mcg Inhaler INHALATION Not Given RT-BID ALEX Citalopram Hydrobromide 40 mg 12/12/16 09:00 12/12/16 08:14 Celexa PO 40 mg DAILY ALEX Administration Finasteride 5 mg 12/12/16 09:00 12/12/16 08:14 Proscar PO 5 mg DAILY ALEX Administration Guaifenesin 600 mg 12/11/16 21:00 12/12/16 08:14 Mucinex PO 600 mg BID ALEX Administration Heparin Sodium (Porcine) 0 unit 12/11/16 12:30 Heparin IV PER PROTOCOL PRN Low PTT Protocol Heparin Sodium/Dextrose 25,000 500 mls @ 16.11 mls/hr 12/11/16 12:30 13:23 unit/ IV Solution IV 12 units/kg/hr .Q24H ALEX 16.11 mls/hr Protocol Administration 12 UNITS/KG/HR Sodium Chloride 1,000 mls @ 50 mls/hr 12/11/16 13:00 12/12/16 08:15 Saline 0.9% IV 50 mls/hr .Q20H ALEX Administration Levalbuterol HCl 1.25 mg 12/11/16 20:00 12/12/16 07:20 Xopenex Nebulized INHALATION 1.25 mg RT-QID ALEX Administration Metoprolol Tartrate 25 mg 12/11/16 17:49 12/12/16 08:14 Lopressor PO 25 mg BID ALEX Administration Naloxone HCl 0.2 mg 12/11/16 12:51 Narcan IV Q2M PRN Opioid Reversal Prednisone 40 mg 12/12/16 09:00 12/12/16 08:14 PO 40 mg DAILY ALEX Administration Primidone 25 mg 12/11/16 21:00 12/12/16 08:15 Mysoline PO 25 mg BID ALEX Administration Tamsulosin HCl 0.4 mg 12/12/16 09:00 12/12/16 08:15 Flomax PO 0.4 mg DAILY ALEX Administration Intake and Output 12/11/16 12/12/16 12/12/16 22:59 06:59 14:59 Intake Total 120 640 Output Total 225 Balance -105 640 Intake: Intake, IV Titration 160 Amount Heparin Sodium,Porcine/ 160 D5w Pmx 25,000 unit In Dextrose/Water 1 500ml. bag @ 12 UNITS/KG/HR 16. 11 mls/hr IV .Q24H [facility] Rx #:[id number] Oral 120 480 Output: Urine 225 Other: Voiding Method Urinal # Voids 0 2 Weight 65 kg 12/12/16 06:30 12/12/16 06:30 EKG Interpretations (text) EKG shows a sinus tachycardia with nonspecific ST-T wave changes and occasional PVC Assessment and Plan Plan: Assessment and Plan #1 diastolic congestive heart failure acute on chronic. BNP level 5280. #2 known history of coronary artery disease with prior bypass surgery #3 abnormal troponins, not consistent with acute coronary syndrome, could be secondary to oxygen supply and demand mismatch. Patient denies having any chest discomfort. #4 hypertension #5 hyperlipidemia #6 history of diverticulitis with perforated bowel status post colostomy #7 mildly dementia #8 COPD Plan We'll start the patient on IV Lasix. Monitor intake and output along with daily weights. Patient does have a known history of coronary artery disease, we 'll put the patient on a baby aspirin, along with statin, continue beta yayo. Initiate low-dose LYRIC inhibitor. Most recent echocardiogram with Doppler study was performed in May which revealed an ejection fraction of 45- 50% with inferior basal hypokinesia. We will repeat an echocardiogram with Doppler study. Recommendations to follow. DNP note has been reviewed, I agree with a documented findings and plan of care. Patient was seen and examined.
[2016-12-12] MEDS: ASPIRIN 81 MG PO SCH (11:19)
[2016-12-12] MEDS: FUROSEMIDE 10 MG/ML 4 ML VIAL IV SCH ×2 (11:23→21:12)
--- NOTE | 2016-12-12 12:07 | P.GSCN ---
History of Present Illness Consult date: 12/12/16 Reason for Consult: Stomal hernia History of present illness: Patient is well known to our service. He has a history of a parastomal hernia. Last week he was constipated and was seen in the ER with some pain near the ostomy site. After taking stool softeners his bowel function returned. His stoma he states was always soft. He is having decent bowel function at this time. No nausea or vomiting. He was admitted with exacerbation of COPD. Review of Systems The patient denies any acute changes in vision or hearing, no dysphagia or odynophagia, no chest pain or shortness of breath, no dysuria or hematuria, no headache, no runny nose, no rectal bleeding or melena, no unexplained weight loss Past Medical History Past Medical History: Coronary Artery Disease (CAD), Cancer, COPD, Hyperlipidemia, Hypertension, Pneumonia, Prostate Disorder Additional Past Medical History / Comment(s): BLADDER CANCER, COPD-USES 02 2 LITERS N/C AT HS, TREMORS, . HX OF DIVERTICULITIS WITH PERFORATED BOWEL . HAS COLOSTOMY. HERNIA AT STOMA AND INCISIONAL HERNIA . CAROTID ARTERY STENOSIS, ENLARGED PROSTATE. 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 Past Anesthesia/Blood Transfusion Reactions: No Reported Reaction, Motion Sickness Additional Past Anesthesia/Blood Transfusion Reaction / Comm: CLAUSTERPHOBIC. DO NOT GIVE HIS DILAUDID- PT BECAME VERY AGGRESSIVE Smoking Status: Former smoker - Past Family History Father Family Medical History: Congestive Heart Failure (CHF) Mother Family Medical History: Congestive Heart Failure (CHF) Medications and Allergies Home Medications Medication Instructions Recorded Confirmed Type Citalopram Hydrobromide [CeleXA] 40 mg PO DAILY 11/18/13 12/11/16 History Finasteride [Proscar] 5 mg PO DAILY 11/18/13 12/11/16 History Tamsulosin [Flomax] 0.4 mg PO DAILY 11/18/13 12/11/16 History Aspirin EC [Ecotrin] 325 mg PO DAILY 03/10/14 12/11/16 History Simvastatin [Zocor] 40 mg PO HS 05/11/15 12/11/16 History ALPRAZolam [Xanax] 0.5 mg PO DAILY PRN 06/19/16 12/11/16 History Budesonide/Formoterol Fumarate 2 puff INHALATION RT-BID 06/19/16 12/11/16 History [Symbicort 160-4.5 Mcg Inhaler] Levalbuterol HCl [Xopenex 1.25 mg INHALATION RT-QID 06/19/16 12/11/16 History Nebulized] Primidone [Mysoline] 25 mg PO BID 06/19/16 12/11/16 History guaiFENesin [Mucinex] 600 mg PO BID 06/19/16 12/11/16 History Metoprolol Tartrate 25 mg PO BID 12/11/16 12/11/16 History predniSONE 10 mg PO DAILY 12/11/16 12/11/16 History Allergies Allergy/AdvReac Type Severity Reaction Status Date / Time dobutamine Allergy Severe Swelling Verified 12/11/16 11:14 hydromorphone HCl Allergy Intermediate AGRESSIVE Verified 12/11/16 11:14 [From Dilaudid] sulfamethoxazole Allergy DIAPHORESIS Verified 12/11/16 11:14 [From Bactrim] trimethoprim [From Bactrim] Allergy DIAPHORESIS Verified 12/11/16 11:14 Surgical - Exam Vital Signs Temp Pulse Resp BP Pulse Ox 97.0 F L 97 22 197/97 93 L 12/11/16 10:54 12/11/16 10:54 12/11/16 10:54 12/11/16 10:54 12/11/16 10:54 Physical exam: General: Well-developed, well-nourished, appears mildly short of breath HEENT: Normocephalic, sclerae nonicteric Abdomen: Nontender, nondistended, reducible large parastomal hernia left midabdomen Extremities: No edema Neuro: Alert and oriented Results - Labs 12/12/16 06:30 12/12/16 06:30 Abnormal Lab Results - Last 24 Hours (Table) 12/11/16 12/11/16 12/11/16 Range/Units 11:20 18:11 18:11 RBC (4.30-5.90) m/uL Hgb (13.0-17.5) gm/dL MCV (80.0-100.0) fL Plt Count (150-450) k/uL APTT 49.5 H (22.0-30.0) sec Carbon Dioxide (22-30) mmol/L BUN (9-20) mg/dL Calcium (8.4-10.2) mg/dL Total Creatine Kinase 53 L (55-170) U/L CK-MB (CK-2) 3.8 H* 3.2 H* (0.0-2.4) ng/mL Troponin I 0.262 H* 0.149 H* (0.000-0.034) ng/mL 12/11/16 12/12/16 12/12/16 Range/Units 23:23 06:30 06:30 RBC 3.94 L (4.30-5.90) m/uL Hgb 12.3 L (13.0-17.5) gm/dL MCV 100.8 H (80.0-100.0) fL Plt Count 144 L (150-450) k/uL APTT 46.9 H (22.0-30.0) sec Carbon Dioxide (22-30) mmol/L BUN (9-20) mg/dL Calcium (8.4-10.2) mg/dL Total Creatine Kinase 46 L (55-170) U/L CK-MB (CK-2) 3.1 H* (0.0-2.4) ng/mL Troponin I 0.155 H* (0.000-0.034) ng/mL 12/12/16 Range/Units 06:30 RBC (4.30-5.90) m/uL Hgb (13.0-17.5) gm/dL MCV (80.0-100.0) fL Plt Count (150-450) k/uL APTT (22.0-30.0) sec Carbon Dioxide 32 H (22-30) mmol/L BUN 32 H (9-20) mg/dL Calcium 8.3 L (8.4-10.2) mg/dL Total Creatine Kinase (55-170) U/L CK-MB (CK-2) (0.0-2.4) ng/mL Troponin I (0.000-0.034) ng/mL Diabetes panel 12/12/16 Range/Units 06:30 Sodium 141 (137-145) mmol/L Potassium 3.7 (3.5-5.1) mmol/L Chloride 104 (98-107) mmol/L Carbon Dioxide 32 H (22-30) mmol/L BUN 32 H (9-20) mg/dL Creatinine 0.94 (0.66-1.25) mg/dL Glucose 81 (74-99) mg/dL Calcium 8.3 L (8.4-10.2) mg/dL Calcium panel 12/12/16 Range/Units 06:30 Calcium 8.3 L (8.4-10.2) mg/dL Pituitary panel 12/12/16 Range/Units 06:30 Sodium 141 (137-145) mmol/L Potassium 3.7 (3.5-5.1) mmol/L Chloride 104 (98-107) mmol/L Carbon Dioxide 32 H (22-30) mmol/L BUN 32 H (9-20) mg/dL Creatinine 0.94 (0.66-1.25) mg/dL Glucose 81 (74-99) mg/dL Calcium 8.3 L (8.4-10.2) mg/dL Adrenal panel 12/12/16 Range/Units 06:30 Sodium 141 (137-145) mmol/L Potassium 3.7 (3.5-5.1) mmol/L Chloride 104 (98-107) mmol/L Carbon Dioxide 32 H (22-30) mmol/L BUN 32 H (9-20) mg/dL Creatinine 0.94 (0.66-1.25) mg/dL Glucose 81 (74-99) mg/dL Calcium 8.3 L (8.4-10.2) mg/dL Assessment and Plan (1) Parastomal hernia Narrative/Plan: No surgical intervention planned at this time. Continue stool softeners. We' ll consult ostomy nurse to see if a new ostomy belt appliance can be obtained. Status: Acute
--- NOTE | 2016-12-12 12:59 | P.CNPUL ---
History of Present Illness Consult date: 12/12/16 Requesting physician: Samir Maddox Reason for consult: dyspnea Chief complaint: Shortness of breath, confusion History of present illness: This is a very pleasant 81-year-old gentleman who follows with Dr. Hayes as his primary care physician. He has a history of hypertension, hyperlipidemia, diverticulitis with previous perforated bowel and colostomy in place, coronary artery disease with previous coronary artery bypass grafting, bladder cancer anxiety/depression, tremors, carotid artery stenosis. He also has a history of chronic obstructive pulmonary disease oxygen dependent, mainly in the evening. He is also developed some question of mild dementia. The patient was seen last week in the office by Dr. Hayes and he was quite bronchospastic and wheezing at that point. He is also having some chronic low back pain and difficulty with ambulation. Yesterday his noticed him having increased confusion, agitation and restlessness and brought him here for the same. His chest x-ray does show evidence of chronic obstructive pulmonary disease with chronic right apical pleural-based thickening that is unchanged compared to previous. He's been afebrile. No leukocytosis. Hemodynamically stable. He was trialed on a nasal BiPAP in the emergency room which he did not tolerate. He did have a small troponin leak with a peak of 0.262. Echocardiogram revealed preserved left ventricular systolic function. The patient is seen today in consultation on the selective care unit. Currently he is awake and alert and oriented 3. He is sitting up in a chair at the bedside. He is breathing easier today as compared to yesterday. He has a faint end expiratory wheeze bilaterally more so on the upper apical areas. Maintain O2 saturations up to 100% on 2 L/m per nasal cannula. His is at the bedside. She does have concerns regarding his intermittent confusion. This may be related to CO2 retention and/or hypoxemia times. There is also some question of underlying early dementia. Review of Systems 14 point review of system was conducted. All negative other than as mentioned in the HPI. Past Medical History Past Medical History: Coronary Artery Disease (CAD), Cancer, COPD, Hyperlipidemia, Hypertension, Pneumonia, Prostate Disorder Additional Past Medical History / Comment(s): BLADDER CANCER, COPD-USES 02 2 LITERS N/C AT HS, TREMORS, . HX OF DIVERTICULITIS WITH PERFORATED BOWEL . HAS COLOSTOMY. HERNIA AT STOMA AND INCISIONAL HERNIA . CAROTID ARTERY STENOSIS, ENLARGED PROSTATE. 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 Past Anesthesia/Blood Transfusion Reactions: No Reported Reaction, Motion Sickness Additional Past Anesthesia/Blood Transfusion Reaction / Comment(s): CLAUSTERPHOBIC. DO NOT GIVE HIS DILAUDID- PT BECAME VERY AGGRESSIVE Smoking Status: Former smoker - Past Family History Father Family Medical History: Congestive Heart Failure (CHF) Mother Family Medical History: Congestive Heart Failure (CHF) Medications and Allergies Home Medications Medication Instructions Recorded Confirmed Type Citalopram Hydrobromide [CeleXA] 40 mg PO DAILY 11/18/13 12/11/16 History Finasteride [Proscar] 5 mg PO DAILY 11/18/13 12/11/16 History Tamsulosin [Flomax] 0.4 mg PO DAILY 11/18/13 12/11/16 History Aspirin EC [Ecotrin] 325 mg PO DAILY 03/10/14 12/11/16 History Simvastatin [Zocor] 40 mg PO HS 05/11/15 12/11/16 History ALPRAZolam [Xanax] 0.5 mg PO DAILY PRN 06/19/16 12/11/16 History Budesonide/Formoterol Fumarate 2 puff INHALATION RT-BID 06/19/16 12/11/16 History [Symbicort 160-4.5 Mcg Inhaler] Levalbuterol HCl [Xopenex 1.25 mg INHALATION RT-QID 06/19/16 12/11/16 History Nebulized] Primidone [Mysoline] 25 mg PO BID 06/19/16 12/11/16 History guaiFENesin [Mucinex] 600 mg PO BID 06/19/16 12/11/16 History Metoprolol Tartrate 25 mg PO BID 12/11/16 12/11/16 History predniSONE 10 mg PO DAILY 12/11/16 12/11/16 History Allergies Allergy/AdvReac Type Severity Reaction Status Date / Time dobutamine Allergy Severe Swelling Verified 12/11/16 11:14 hydromorphone HCl Allergy Intermediate AGRESSIVE Verified 12/11/16 11:14 [From Dilaudid] sulfamethoxazole Allergy DIAPHORESIS Verified 12/11/16 11:14 [From Bactrim] trimethoprim [From Bactrim] Allergy DIAPHORESIS Verified 12/11/16 11:14 Physical Exam Vitals: Vital Signs Temp Pulse Pulse Resp BP BP Pulse Ox 12/12/16 11:44 68 16 12/12/16 11:25 92 12/12/16 11:11 97.0 F L 68 16 178/74 100 12/12/16 11:06 88 12/12/16 08:00 97.0 F L 69 18 148/72 99 12/12/16 07:46 100 12/12/16 07:21 100 12/12/16 04:00 97.9 F 80 16 128/74 95 12/12/16 00:00 97.4 F L 68 16 177/78 97 12/11/16 20:54 94 95 12/11/16 20:40 96 12/11/16 20:00 97.7 F 76 18 165/77 93 L 12/11/16 18:26 22 12/11/16 18:08 97.9 F 84 22 175/80 94 L 12/11/16 16:34 98.0 F 96 18 152/67 94 L 12/11/16 15:47 96 18 186/85 94 L 12/11/16 15:15 98 12/11/16 15:04 99 12/11/16 14:25 89 24 198/91 96 12/11/16 13:33 106 H 24 158/70 94 L 12/11/16 13:32 107 H 24 158/70 98 Intake and Output 12/11/16 12/12/16 12/12/16 22:59 06:59 14:59 Intake Total 120 640 Output Total 225 Balance -105 640 Intake: Intake, IV Titration 160 Amount Heparin Sodium,Porcine/ 160 D5w Pmx 25,000 unit In Dextrose/Water 1 500ml. bag @ 12 UNITS/KG/HR 16. 11 mls/hr IV .Q24H [facility] Rx #:[id number] Oral 120 480 Output: Urine 225 Other: Voiding Method Urinal # Voids 0 2 Weight 65 kg GENERAL EXAM: Frail, cachectic Alert, comfortable in no apparent distress. HEAD: Normocephalic. EYES: Normal reaction of pupils, equal size. NOSE: Clear with pink turbinates. THROAT: No erythema or exudates. NECK: No masses, no JVD. CHEST: No chest wall deformity. LUNGS: Equal air entry with faint end expiratory wheeze. Diminished. CVS: S1 and S2 normal with no audible murmur, regular rhythm. ABDOMEN: No hepatosplenomegaly, normal bowel sounds, no guarding or rigidity. SPINE: No scoliosis or deformity SKIN: No rashes CENTRAL NERVOUS SYSTEM: No focal deficits, tone is normal in all 4 extremities. EXTREMITIES: There is no peripheral edema. No clubbing, no cyanosis. Peripheral pulses are intact. Results - Laboratory Findings CBC and BMP: 12/12/16 06:30 12/12/16 06:30 PT/INR, D-dimer PT 9.9 sec (9.0-12.0) 12/11/16 11:20 INR 1.0 (<1.2) 12/11/16 11:20 Abnormal lab findings: Abnormal Labs 12/11/16 12/11/16 12/11/16 11:20 11:20 11:20 RBC Hgb MCV 101.7 H MCHC 30.6 L Plt Count Neutrophils # 8.1 H APTT VBG pCO2 VBG HCO3 Potassium 5.7 H Carbon Dioxide 34 H BUN 34 H Calcium Magnesium 2.4 H Total Creatine Kinase CK-MB (CK-2) 3.8 H* Troponin I 0.262 H* 12/11/16 12/11/16 12/11/16 11:20 18:11 18:11 RBC Hgb MCV MCHC Plt Count Neutrophils # APTT 49.5 H VBG pCO2 67 H VBG HCO3 33 H Potassium Carbon Dioxide BUN Calcium Magnesium Total Creatine Kinase 53 L CK-MB (CK-2) 3.2 H* Troponin I 0.149 H* 12/11/16 12/12/16 12/12/16 23:23 06:30 06:30 RBC 3.94 L Hgb 12.3 L MCV 100.8 H MCHC Plt Count 144 L Neutrophils # APTT 46.9 H VBG pCO2 VBG HCO3 Potassium Carbon Dioxide BUN Calcium Magnesium Total Creatine Kinase 46 L CK-MB (CK-2) 3.1 H* Troponin I 0.155 H* 12/12/16 06:30 RBC Hgb MCV MCHC Plt Count Neutrophils # APTT VBG pCO2 VBG HCO3 Potassium Carbon Dioxide 32 H BUN 32 H Calcium 8.3 L Magnesium Total Creatine Kinase CK-MB (CK-2) Troponin I - Diagnostic Findings Chest x-ray: image reviewed Assessment and Plan Plan: Impression: #1 Acute exacerbation of severe oxygen dependent chronic obstructive pulmonary disease. #2 Altered mental status which is waxing and waning, suspect hypercapnic and/or hypoxic respiratory failure. There also may be some component of early underlying dementia. #3 Borderline troponin elevation, acute coronary syndrome less likely. Possible oxygen supply/demand mismatch. #4 Acute exacerbation of chronic diastolic congestive heart failure. #5 Coronary artery disease with previous coronary artery bypass grafting. #6 Hypertension. #7 Hyperlipidemia. #8 History of chronic tobacco dependence however quit 1997. #9 History of diverticular disease with bowel perforation and secondary colostomy. #10 Large parastomal hernia/incisional hernia however not a candidate for surgical resection or repair. #11 History of bladder cancer status post transurethral resection of the bladder tumor followed by intra-vesicular chemotherapy. #12 Poor overall functional performance based on the above mentioned multiple comorbidities. Plan: The patient was seen and evaluated by Dr. Flores. His chest x-ray and labs were reviewed. We'll continue with his current medications including Xopenex inhalations 4 times a day and when necessary along with Symbicort and prednisone. He is also been seen and evaluated by cardiology. He is being diuresed with Lasix 40 mg every 12 hours. He remains on Lovenox for DVT prophylaxis. He may benefit from an outpatient workup with neurologist in regards to the suspected dementia. We will increase his activity as tolerated. We'll continue to follow. I, the cosigning physician, have performed a history and physical examination on this patient. Lung sounds have bilateral end expiratory wheeze. Diminished throughout. I have discussed the assessment and plan of care with my nurse practitioner, Mickie Slaughter. I attest the note as dictated above by her. Time with Patient: Greater than 30
--- NOTE | 2016-12-12 14:23 | P.PN ---
Progress Note - Text Progress Note Date: 12/12/16 DATE OF SERVICE: 12/12/2016 PRESENTING COMPLAINT: Shortness of breath HISTORY OF PRESENT ILLNESS: 81-year-old male presented with increasing shortness of breath and increasing confusion. Has a long-standing colostomy bag which has been giving him some difficulty. The parastomal hernia increasing in size, Gen. surgery and pulmonology consulted. INTERVAL HISTORY: 12/12/2016 Sitting up in a chair at the bedside, appears comfortable. Breathing easily. Ambulatory with assistance Daughter at the bedside. Tolerating his diet, eating approximately 50%. Colostomy bag producing liquid stool. Discussion had with the daughter regarding depression and adding antidepressants. Suggested engaging patient in activity, prior to getting just medications. REVIEW OF SYSTEMS: Done for constitutional ,cardiovascular, GI, pulmonary with relevant findings as above. CURRENT MEDICATIONS Xanax, aspirin, Lipitor, Celexa 40 mg by mouth daily, Lovenox 40 mg subcu, Lasix 40 mg IV every 12 hours, Mucinex 600 mg by mouth twice a day, Xopenex, Lopressor 25 mg by mouth twice a day, prednisone 40 mg by mouth daily, Flomax 0.4 mg by mouth daily. PHYSICAL EXAM VITAL SIGNS: Temperature 97.0, pulse 69, respiratory rate 18, blood pressure 148/72, oxygen saturation 98% on 2 L. GENERAL APPEARANCE: Lying in bed, not in distress. EYES: Pupils equal. Conjunctiva normal. NECK: JVD not raised. Mass not palpable. RESPIRATORY: Respiratory effort normal. Lungs diminished to auscultation. CARDIOVASCULAR: First and second sounds normal. Mild edema. ABDOMEN: Soft. Liver and spleen not palpable. No tenderness. No mass palpable. PSYCHIATRY: Alert and oriented x3. Mood and affect normal. NEUROLOGICAL: Cranial nerves grossly intact. No facial asymmetry. Power and sensation grossly intact INVESTIGATIONS: Hemoglobin 12.3, BNP 5280 on day of admission ASSESSMENT: -Acute hypercapnic respiratory failure underlying chronic obstructive pulmonary disease. -Acute chronic obstructive pulmonary disease exacerbation and an ex-smoker. -Troponin leak, probably from hemodynamic mismatch, does not appear to be acute myocardial infarction. -Hyperkalemia. -Essential hypertension. -Coronary artery stenosis. -Benign prostatic hypertrophy. -Anxiety depression not otherwise specified. -Acute delirium probably from CO2 narcosis. -Chronic colostomy from bowel resection. -Parastomal hernia slowly enlarging with no obstruction. -Coronary artery disease. -History of stents. -Increasing tremors noted from side effect of albuterol. PLAN: Continue Xopenex Symbicort and prednisone. Cardiology on consult diuresis with Lasix 40 mg every 12 hours, Lovenox for DVT prophylaxis. Consider outpatient workup with neurology with concerns for dementia. Plan of care discussed with the patient at the bedside we'll continue to follow closely. PROPERTY INSPECTOR statement: Patient was seen and examined by nurse practitioner Aarti Patel and all elements of the case discussed with attending Dr. Maddox
[2016-12-12] MEDS: ATORVASTATIN 20 MG TAB PO SCH (21:12)
--- NOTE | 2016-12-12 21:24 | PN ---
PROGRESS NOTE DATE OF SERVICE: December 12, 2016. ATTENDING NOTE: This patient was seen and examined by me. I discussed with nurse practitioner, Ms. Patel. Patient admitted with COPD exacerbation. CO2 retention, possibly causing delirium. The patient doing better. Also had tremors from albuterol, improved with Xopenex. Doing much better. is at bedside. PHYSICAL EXAM: Lungs slightly improved air entry. The patient is answering questions. Afebrile. White count 9.2. ASSESSMENT: 1. Acute hypercapnic respiratory failure from underlying chronic obstructive pulmonary disease causing acute delirium which is now much improved. 2. Chronic colostomy with a parastomal hernia. The patient will need a new band as per Dr. Hung. Care was discussed at length with the patient and . Also element of possibly acute on chronic congestive heart failure from diastolic dysfunction. Patient getting IV Lasix. MMODL / IJN: [id number] /
[2016-12-13 06:36] LABS: Basophils % (A) 0 %; CH 31.2; CHCM 31.5; Eosinophils # (A) 0.1 k/uL (0-0.7); Eosinophils % (A) 1 %; HCT 43.5 % (39.0-53.0); HDW 2.31; HGB 13.7 gm/dL (13.0-17.5); Luc # (Auto) 0.19; Luc % (Auto) 2; Lymphocytes # (A) 1.6 k/uL (1.0-4.8); Lymphocytes % (A) 17 %; MCH 31.4 pg (25.0-35.0); MCHC 31.5 g/dL (31.0-37.0); MCV 99.6 fL (80.0-100.0); Macrocytosis Slight; Mean Platelet Volume 8.6; Monocytes # (A) 0.7 k/uL (0-1.0); Monocytes % (A) 7 %; Neutrophils # (A) 6.7 k/uL (1.3-7.7); Neutrophils % (A) 72 %; RBC 4.36 m/uL (4.30-5.90); RDW 14.6 % (11.5-15.5); WBC 9.2 k/uL (3.8-10.6); WBC (Perox) 9.02
[2016-12-13 07:47] VITALS: RESP 16
[2016-12-13] MEDS: FINASTERIDE 5 MG TAB PO SCH (07:58)
[2016-12-13] MEDS: CITALOPRAM HYDROBROMIDE 20 MG TAB PO SCH (07:58)
[2016-12-13] MEDS: ASPIRIN 81 MG PO SCH (07:58)
[2016-12-13] MEDS: FUROSEMIDE 10 MG/ML 4 ML VIAL IV SCH (07:58)
[2016-12-13] MEDS: guaiFENesin 600 MG TABLET.ER PO SCH (07:58)
[2016-12-13] MEDS: TAMSULOSIN 0.4 MG CAP.ER.24H PO SCH (07:59)
[2016-12-13] MEDS: predniSONE 20 MG TAB PO SCH (07:59)
[2016-12-13] MEDS: PRIMIDONE 50 MG TAB PO SCH (07:59)
[2016-12-13] MEDS: METOPROLOL TARTRATE 25 MG TAB PO SCH (07:59)
[2016-12-13] MEDS: SYMBICORT 160-4.5 MCG INHALER INHALATION SCH (08:50)
[2016-12-13] MEDS: LEVALBUTEROL NEB 1.25 MG/3 ML AMP INHALATION SCH ×2 (08:50→13:27)
[2016-12-13] MEDS ORDERED: ENOXAPARIN 40 MG/0.4 ML SYRINGE SQ SCH (09:00)
[2016-12-13 11:17] VITALS: BP 143/67; TEMP 97.2
--- NOTE | 2016-12-13 11:57 | P.PN ---
Subjective Progress Note Date: 12/13/16 Principal diagnosis: Altered mental status This is a very pleasant 81-year-old gentleman who follows with Dr. Hayes as his primary care physician. He has a history of hypertension, hyperlipidemia, diverticulitis with previous perforated bowel and colostomy in place, coronary artery disease with previous coronary artery bypass grafting, bladder cancer anxiety/depression, tremors, carotid artery stenosis. He also has a history of chronic obstructive pulmonary disease oxygen dependent, mainly in the evening. He is also developed some question of mild dementia. The patient was seen last week in the office by Dr. Hayes and he was quite bronchospastic and wheezing at that point. He is also having some chronic low back pain and difficulty with ambulation. Yesterday his noticed him having increased confusion, agitation and restlessness and brought him here for the same. His chest x-ray does show evidence of chronic obstructive pulmonary disease with chronic right apical pleural-based thickening that is unchanged compared to previous. He's been afebrile. No leukocytosis. Hemodynamically stable. He was trialed on a nasal BiPAP in the emergency room which he did not tolerate. He did have a small troponin leak with a peak of 0.262. Echocardiogram revealed preserved left ventricular systolic function. The patient is seen today in consultation on the selective care unit. Currently he is awake and alert and oriented 3. He is sitting up in a chair at the bedside. He is breathing easier today as compared to yesterday. He has a faint end expiratory wheeze bilaterally more so on the upper apical areas. Maintain O2 saturations up to 100% on 2 L/m per nasal cannula. His is at the bedside. She does have concerns regarding his intermittent confusion. This may be related to CO2 retention and/or hypoxemia at times. There is also some question of underlying early dementia. The patient was seen and evaluated again today 12/13/2016 in follow-up on the selective care unit. He is currently awake and alert in no acute distress. He is quite anxious to go home. He is maintaining good O2 saturations in the upper 90s on 2 L/m per nasal cannula. He is afebrile. Hemodynamically stable. No leukocytosis. He remains in a negative balance. Blood culture reveals no growth. Objective - Vital Signs Vital signs: Vital Signs Temp 97.2 F L 12/13/16 11:12 Pulse 65 12/13/16 11:12 Resp 16 12/13/16 11:12 BP 143/67 12/13/16 11:12 Pulse Ox 94 L 12/13/16 11:12 Intake & Output 12/12/16 12/13/16 12/13/16 18:59 06:59 18:59 Intake Total 480 0 Output Total 450 876 425 Balance 30 -876 -425 Weight 59.2 kg Intake: Oral 480 0 Output: Urine 325 751 350 Stool 125 125 75 Other: Voiding Method Urinal # Voids 2 750 1 - Exam GENERAL EXAM: Frail, cachectic Alert, comfortable in no apparent distress. HEAD: Normocephalic. EYES: Normal reaction of pupils, equal size. NOSE: Clear with pink turbinates. THROAT: No erythema or exudates. NECK: No masses, no JVD. CHEST: No chest wall deformity. LUNGS: Equal air entry with faint end expiratory wheeze. Diminished. CVS: S1 and S2 normal with no audible murmur, regular rhythm. ABDOMEN: No hepatosplenomegaly, normal bowel sounds, no guarding or rigidity. SPINE: No scoliosis or deformity SKIN: No rashes CENTRAL NERVOUS SYSTEM: No focal deficits, tone is normal in all 4 extremities. EXTREMITIES: There is no peripheral edema. No clubbing, no cyanosis. Peripheral pulses are intact. - Labs CBC & Chem 7: 12/13/16 06:03 12/12/16 06:30 Labs: Abnormal Lab Results - Last 24 Hours (Table) 12/13/16 Range/Units 06:03 Plt Count 145 L (150-450) k/uL Microbiology - Last 24 Hours (Table) 12/11/16 11:20 Blood Culture - Preliminary Blood No Growth after 24 hours Assessment and Plan Plan: Impression: #1 Acute exacerbation of severe oxygen dependent chronic obstructive pulmonary disease. #2 Altered mental status which is waxing and waning, suspect hypercapnic and/or hypoxic respiratory failure. There also may be some component of early underlying dementia. #3 Borderline troponin elevation, acute coronary syndrome less likely. Possible oxygen supply/demand mismatch. #4 Acute exacerbation of chronic diastolic congestive heart failure. #5 Coronary artery disease with previous coronary artery bypass grafting. #6 Hypertension. #7 Hyperlipidemia. #8 History of chronic tobacco dependence however quit 1997. #9 History of diverticular disease with bowel perforation and secondary colostomy. #10 Large parastomal hernia/incisional hernia however not a candidate for surgical resection or repair. #11 History of bladder cancer status post transurethral resection of the bladder tumor followed by intra-vesicular chemotherapy. #12 Poor overall functional performance based on the above mentioned multiple comorbidities. Plan: The patient was seen and evaluated by Dr. Rivera. The patient is quite adamant about going home today. His would like to take him home as well. He may benefit from home care services which they have utilized in the past. We'll continue with his current medications including Xopenex inhalations 4 times a day and when necessary along with Symbicort and prednisone. He may benefit from an outpatient workup with neurologist in regards to the suspected dementia. He will follow-up with Dr. Hayes in 1-2 weeks' time. They're both encouraged to call sooner with any recurrence of symptoms or other questions or concerns. I, the cosigning physician, have performed a history and physical examination on this patient. Lung sounds have few scattered rhonchi, faint end expiratory wheeze. Diminished throughout. I have discussed the assessment and plan of care with my nurse practitioner, Mickie Slaughter. I attest the note as dictated above by her.
--- NOTE | 2016-12-13 12:06 | P.PN ---
Subjective Progress Note Date: 12/13/16 Principal diagnosis: Peristomal hernia Patient doing well today. His shortness of breath is improved. He has had good bowel function. No pain at the ostomy site. Objective - Vital Signs Vital signs: Vital Signs Temp 97.2 F L 12/13/16 11:12 Pulse 65 12/13/16 12:00 Resp 16 12/13/16 12:00 BP 143/67 12/13/16 11:12 Pulse Ox 94 L 12/13/16 11:12 Intake & Output 12/12/16 12/13/16 12/13/16 18:59 06:59 18:59 Intake Total 480 0 Output Total 450 876 425 Balance 30 -876 -425 Weight 59.2 kg Intake: Oral 480 0 Output: Urine 325 751 350 Stool 125 125 75 Other: Voiding Method Urinal # Voids 2 750 1 - Exam Abdomen: Soft, nontender, nondistended, stomal hernia reducible - Labs CBC & Chem 7: 12/13/16 06:03 12/12/16 06:30 Labs: Abnormal Lab Results - Last 24 Hours (Table) 12/13/16 Range/Units 06:03 Plt Count 145 L (150-450) k/uL Microbiology - Last 24 Hours (Table) 12/11/16 11:20 Blood Culture - Preliminary Blood No Growth after 24 hours Assessment and Plan (1) Parastomal hernia Narrative/Plan: Continue on a support. Ostomy belt reapplied today. We'll sign off at this point. Please contact if needed. Current Visit: Yes Status: Acute Code(s): K43.5 - PARASTOMAL HERNIA WITHOUT OBSTRUCTION OR GANGRENE SNOMED Code(s): 199098650
[2016-12-13 13:30] VITALS: PULSE 82
--- NOTE | 2016-12-13 19:40 | DS ---
DISCHARGE SUMMARY DATE OF ADMISSION: December 11, 2016. DATE OF DISCHARGE: December 13, 2016. FINAL DIAGNOSES: 1. Acute congestive heart failure exacerbation from diastolic dysfunction. EF 55-60%. Probably from hypertensive heart disease. 2. Acute hypercapnic respiratory failure from underlying chronic obstructive pulmonary disease present on admission. 3. Acute chronic obstructive pulmonary disease exacerbation in an ex-smoker. Present on admission. 4. Troponin leak from hemodynamic mismatch, patient does not have acute myocardial infarction. 5. Hypokalemia. 6. Essential hypertension. 7. Carotid artery stenosis chronic. 8. Benign prostatic hypertrophy. 9. Anxiety, depression, not otherwise specified. 10.Acute delirium present on admission from CO2 narcosis. 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 12.Coronary artery disease with prior history of stent. 13.Increasing tremors as a side effect of albuterol. 14.Benign forgetfulness of the elderly with early manifestations of dementia. HOSPITAL COURSE: This patient presented from Dr. Hayes's office with increasing shortness of breath with a bit of confusion, felt to be acute delirium from CO2 narcosis. Also felt to have CHF exacerbation. The patient's proBNP was elevated at 5280. Patient did respond well to Lasix. Nebulized bronchodilators. Potassium did come down nicely. The patient has a peristomal hernia. New binder was prescribed by Dr. Hung. Care was discussed at length with the patient and . Overall prognosis is guarded. The patient is getting early signs of dementia. CONSULTATIONS: Dr. Rivera from Pulmonary and Dr. Gillian Hahn from Cardiology, Dr. Hung from general surgery. Discharge planning more than 35 minutes. DISCHARGE MEDICATIONS: 1. Celexa 40 mg p.o. daily. 2. Proscar 5 mg p.o. daily. 3. Flomax 0.4 mg p.o. daily. 4. Aspirin 325 mg p.o. daily. 5. Zocor 40 mg p.o. q.h.s. 6. Xanax 0.5 p.o. daily. 7. Symbicort 160/4.5, 2 puffs b.i.d. 8. Xopenex 1.25 mg q.i.d. 9. Mysoline 25 mg p.o. b.i.d. 10.Mucinex 600 mg p.o. b.i.d. 11.Metoprolol 25 mg b.i.d. 12.Prednisone 10 mg daily. 13.Aspirin 81 mg p.o. daily not 325. 14.Lasix 40 mg on Sunday, Sunday and Sunday. 15.Potassium 10 mEq on Sunday, Sunday and Sunday. FOLLOWUP: Follow up with Dr. Morgan in [address] Hayes on December 18, 2016. BMP in 3- 5 days. Discharge planning more than 35 minutes. MMODL / IJN: [id number] /
--- NOTE | 2017-01-04 07:11 | DS ---
DISCHARGE SUMMARY ADDENDUM TO DISCHARGE SUMMARY: DATE OF ADMISSION: 12/11/16. DATE OF DISCHARGE: 12/13/16. EXAM: LUNGS: Decreased breath sounds. Prolonged expiration. CARDIOVASCULAR: 1st and 2nd sounds normal. PSYCH: Patient able to answer questions. VELASQUEZ / JOEYN: [id number] /
== END 2016-12-13 14:41 | disposition home health service (06) | DRG 291 ==
LOC: EC 10:51 → 6SEL 12:52
PROVIDERS: ADMIT Hospitalist; ATTEND Hospitalist
DX: I11.0 Hypertensive heart disease with heart failure (principal); J96.02 Acute respiratory failure with hypercapnia; J44.1 Chronic obstructive pulmonary disease with (acute) exacerbation; I50.33 Acute on chronic diastolic (congestive) heart failure; F03.90 Unspecified dementia, unspecified severity, without behavioral disturbance, psychotic disturbance, mood disturbance, and anxiety; E87.5 Hyperkalemia; I25.10 Atherosclerotic heart disease of native coronary artery without angina pectoris; N40.0 Benign prostatic hyperplasia without lower urinary tract symptoms; F41.9 Anxiety disorder, unspecified; F32.9 Major depressive disorder, single episode, unspecified; R41.0 Disorientation, unspecified; G25.1 Drug-induced tremor; E78.5 Hyperlipidemia, unspecified; T48.6X5A Adverse effect of antiasthmatics, initial encounter; I65.29 Occlusion and stenosis of unspecified carotid artery; N28.1 Cyst of kidney, acquired; K43.5 Parastomal hernia without obstruction or gangrene; K43.2 Incisional hernia without obstruction or gangrene; G89.29 Other chronic pain; Z79.51 Long term (current) use of inhaled steroids; Z99.81 Dependence on supplemental oxygen; Z79.899 Other long term (current) drug therapy; Z87.891 Personal history of nicotine dependence; Z90.49 Acquired absence of other specified parts of digestive tract; Z93.3 Colostomy status; Z79.82 Long term (current) use of aspirin; Z79.52 Long term (current) use of systemic steroids; Z82.49 Family history of ischemic heart disease and other diseases of the circulatory system; Z95.1 Presence of aortocoronary bypass graft; Z87.19 Personal history of other diseases of the digestive system; Z85.51 Personal history of malignant neoplasm of bladder; Z88.6 Allergy status to analgesic agent; Z87.01 Personal history of pneumonia (recurrent); Z88.8 Allergy status to other drugs, medicaments and biological substances
CPT/HCPCS: 36415; 71010; 74000; 74177; 80048; 80053; 82150; 82550; 82553; 82803; 83605; 83690; 83735; 83880; 84484; 85025; 85610; 85730; 87040; 93005; 93306; 94640; 94644; 94660; 94760; 96365; 96368; 96375; 96376; 99214; 99291

== ENCOUNTER 2017-03-01 14:52 | Inpatient (IN) | payer MEDICARE ==
[2017-03-01] MEDS ORDERED: IPRATROPIUM-ALBUTEROL 3 ML NEB INHALATION STA ×2 (15:01→15:08)
[2017-03-01] MEDS ORDERED: PIPERACILLIN-TAZOBACTAM 3.375 GM in DEXTROSE/WATER 1 50ML.BAG IVPB STA (15:01)
[2017-03-01] MEDS ORDERED: VANCOMYCIN IV PER PHARMACY 1 EACH MISC MISCELLANE PRN (15:09)
[2017-03-01] MEDS ORDERED: VANCOMYCIN 1,500 MG in SODIUM CHLORIDE 0.9% 250 ML IVPB STA (15:10)
--- NOTE | 2017-03-01 15:21 | ED ---
SOB HPI - General Chief Complaint: Shortness of Breath Stated Complaint: SOB Time Seen by Provider: 03/01/17 14:55 Source: EMS Mode of arrival: EMS Limitations: no limitations - History of Present Illness Initial Comments: This 81-year-old white male presents with a complaint of some difficulty in breathing and wheezing. He states that he has felt short of breath for the last 2 days. He's had a cough with a whitish production. He also denies any fever or chest pain. He denies any leg pain or swelling. He does have a long history of COPD but quit smoking 20 years ago. He was here last month with similar symptoms. He states that he has severe exertional dyspnea to the point that he cannot walk across the room. He does present via EMS and does receive a breathing treatment and route as well as Solu-Medrol 125 mg IV. No other complaints or modifying factors. - Related Data Home Medications Medication Instructions Recorded Confirmed Citalopram Hydrobromide [CeleXA] 40 mg PO QAM 11/18/13 03/01/17 Finasteride [Proscar] 5 mg PO QAM 11/18/13 03/01/17 Tamsulosin [Flomax] 0.4 mg PO QAM 11/18/13 03/01/17 Aspirin EC [Ecotrin] 325 mg PO DAILY 03/10/14 03/01/17 Simvastatin [Zocor] 40 mg PO HS 05/11/15 03/01/17 Budesonide/Formoterol Fumarate 2 puff INHALATION RT-BID 06/19/16 03/01/17 [Symbicort 160-4.5 Mcg Inhaler] Levalbuterol HCl [Xopenex 1.25 mg INHALATION RT-QID 06/19/16 03/01/17 Nebulized] Primidone [Mysoline] 25 mg PO QAM 06/19/16 03/01/17 guaiFENesin [Mucinex] 600 mg PO BID 06/19/16 03/01/17 Metoprolol Tartrate 12.5 mg PO BID 12/11/16 03/01/17 predniSONE 10 mg PO QAM 12/11/16 03/01/17 ALPRAZolam [Xanax] 0.5 mg PO BID 03/01/17 03/01/17 Fluticasone/Salmeterol [Advair 1 puff INHALATION RT-BID 03/01/17 03/01/17 500-50 Diskus] Furosemide [Lasix] 20 mg PO QAM 03/01/17 03/01/17 Previous Rx's Medication Instructions Recorded Primidone [Mysoline] 50 mg PO HS #30 tab 02/05/17 Allergies Allergy/AdvReac Type Severity Reaction Status Date / Time dobutamine Allergy Severe Swelling Verified 03/01/17 15:02 hydromorphone HCl Allergy Intermediate AGRESSIVE Verified 03/01/17 15:02 [From Dilaudid] sulfamethoxazole Allergy DIAPHORESIS Verified 03/01/17 15:02 [From Bactrim] trimethoprim [From Bactrim] Allergy DIAPHORESIS Verified 03/01/17 15:02 Review of Systems ROS Statement: Those systems with pertinent positive or pertinent negative responses have been documented in the HPI. ROS Other: All systems not noted in ROS Statement are negative. Past Medical History Past Medical History: Coronary Artery Disease (CAD), Cancer, COPD, Hyperlipidemia, Hypertension, Pneumonia, Prostate Disorder Additional Past Medical History / Comment(s): BLADDER CANCER, still has some residual tumor cells, plan for cystoscopy in the near future (02/03/17), COPD- USES 02 2 LITERS N/C AT HS, TREMORS, . HX OF DIVERTICULITIS WITH PERFORATED BOWEL . HAS COLOSTOMY. HERNIA AT STOMA AND INCISIONAL HERNIA . CAROTID ARTERY STENOSIS, ENLARGED PROSTATE. , FX LEFT HIP 10/2013 AND NOW USES CANE/ WALKER . "CYST ON KIDNEY", "FX VERTEBRE-NOT SURE WHICH ONE" History of Any Multi-Drug Resistant Organisms: None Reported Past Surgical History: Bowel Resection, Coronary Bypass/CABG, Hernia Repair Additional Past Surgical History / Comment(s): COLOSTOMY D/T PERFORATED BOWEL FROM DIVERTICULITIS, CABG (2005), ING HERNIA REPAIR, ORIF FX LEFT HIP (10/2013) , CYSOSCOPY. Past Anesthesia/Blood Transfusion Reactions: No Reported Reaction, Motion Sickness Additional Past Anesthesia/Blood Transfusion Reaction / Comment(s): CLAUSTERPHOBIC. DO NOT GIVE HIS DILAUDID- PT BECAME VERY AGGRESSIVE Past Psychological History: Anxiety, Depression Smoking Status: Former smoker Past Alcohol Use History: None Reported Past Drug Use History: None Reported - Past Family History Father Family Medical History: Congestive Heart Failure (CHF) Mother Family Medical History: Congestive Heart Failure (CHF) General Exam - General Exam Comments Initial Comments: GENERAL: The patient is well nourished and well hydrated. VITAL SIGNS: Heart rate, blood pressure, respiratory rate reviewed as recorded in nurse's notes. EYES: Pupils are round and reactive. Extraocular movements are intact. No conjunctival / lid redness or swelling. ENT: No external evidence of injury, swelling, or ecchymosis. Airway is patent. Throat is clear. NECK: Nontender. No swelling or evidence of injury. No subcutaneous emphysema. Trachea is midline. No thyroid mass. HEART: Regular rate and rhythm. Good peripheral pulses. LUNGS/CHEST: Wheezing is noted to bilateral chest. There is some mild tachypnea. No ecchymosis, subcutaneous emphysema, or tenderness. ABDOMEN: Abdomen soft without tenderness. No palpable masses or organomegaly. No peritoneal signs. No abdominal wall swelling or ecchymosis. EXTREMITIES: No extremity tenderness. Normal muscle tone and function. No thoracolumbar tenderness. No lower extremity edema noted. NEUROLOGIC: Sensation is grossly intact. Cranial nerve exam reveals face is symmetrical, tongue is midline, speech is clear. SKIN: No abrasions or ecchymosis is noted. No induration or masses noted. PSYCHIATRIC: Alert and oriented. Appropriate behavior and judgment. Limitations: no limitations Course Vital Signs 03/01/17 03/01/17 03/01/17 14:58 15:14 15:36 Pulse Rate 68 67 70 Respiratory 24 Rate Blood Pressure 159/75 O2 Sat by Pulse 95 Oximetry Medical Decision Making - Medical Decision Making The patient was seen and examined. All diagnostics were reviewed. The EKG shows a normal sinus rhythm at a rate of 67. There is some nonspecific ST-T wave changes although there is moderate amount of artifact noted as well due to his tremor. The SD intervals 146, QRS duration is 82, and the QTc interval is 416. The patient does receive 2 DuoNeb breathing treatments in the ER as well as IV antibiotics for suspected pneumonia versus bronchitis. He receives vancomycin as well as some Zosyn. Yesterday he received steroids via EMS. The chest x-ray shows evidence of COPD plus a stable right upper lobe pleural mass which is consistent with previous x-rays. The laboratories reviewed and does show an elevation of the potassium at 5.7. It is felt as though the patient would require admission to the hospital for further treatment. - Lab Data Result diagrams: 03/01/17 15:11 03/01/17 15:11 Lab Results 03/01/17 03/01/17 03/01/17 Range/Units 15:11 15:11 15:11 WBC 9.5 (3.8-10.6) k/uL RBC 4.47 (4.30-5.90) m/uL Hgb 13.9 (13.0-17.5) gm/dL Hct 44.5 (39.0-53.0) % MCV 99.4 (80.0-100.0) fL MCH 31.1 (25.0-35.0) pg MCHC 31.3 (31.0-37.0) g/dL RDW 14.7 (11.5-15.5) % Plt Count 125 L (150-450) k/uL Neutrophils % (Manual) 82 % Band Neutrophils % 1 % Lymphocytes % (Manual) 11 % Monocytes % (Manual) 6 % Neutrophils # (Manual) 7.80 H (1.3-7.7) k/uL Lymphocytes # (Manual) 1.05 (1.0-4.8) k/uL Monocytes # (Manual) 0.57 (0-1.0) k/uL Nucleated RBCs 0 (0-0) /100 WBC Differential Comment P Manual Slide Review Performed Large Platelets Present Hypochromasia Slight Macrocytosis Slight PT (9.0-12.0) sec INR (<1.2) APTT (22.0-30.0) sec Sodium 137 (137-145) mmol/L Potassium 5.7 H (3.5-5.1) mmol/L Chloride 104 (98-107) mmol/L Carbon Dioxide 26 (22-30) mmol/L Anion Gap 7 mmol/L BUN 41 H (9-20) mg/dL Creatinine 0.98 (0.66-1.25) mg/dL Est GFR (MDRD) Af Amer >60 (>60 ml/min/1.73 sqM) Est GFR (MDRD) Non-Af >60 (>60 ml/min/1.73 sqM) Glucose 104 H (74-99) mg/dL Calcium 8.8 (8.4-10.2) mg/dL Total Bilirubin 1.0 (0.2-1.3) mg/dL AST 32 (17-59) U/L ALT 51 (21-72) U/L Alkaline Phosphatase 56 (38-126) U/L Total Creatine Kinase 50 L (55-170) U/L CK-MB (CK-2) 1.2 (0.0-2.4) ng/mL CK-MB (CK-2) Rel Index 2.4 Troponin I 0.041 H* (0.000-0.034) ng/mL Total Protein 5.9 L (6.3-8.2) g/dL Albumin 3.2 L (3.5-5.0) g/dL 03/01/17 Range/Units 15:11 WBC (3.8-10.6) k/uL RBC (4.30-5.90) m/uL Hgb (13.0-17.5) gm/dL Hct (39.0-53.0) % MCV (80.0-100.0) fL MCH (25.0-35.0) pg MCHC (31.0-37.0) g/dL RDW (11.5-15.5) % Plt Count (150-450) k/uL Neutrophils % (Manual) % Band Neutrophils % % Lymphocytes % (Manual) % Monocytes % (Manual) % Neutrophils # (Manual) (1.3-7.7) k/uL Lymphocytes # (Manual) (1.0-4.8) k/uL Monocytes # (Manual) (0-1.0) k/uL Nucleated RBCs (0-0) /100 WBC Differential Comment Manual Slide Review Large Platelets Hypochromasia Macrocytosis PT 9.6 (9.0-12.0) sec INR 1.0 (<1.2) APTT 22.7 (22.0-30.0) sec Sodium (137-145) mmol/L Potassium (3.5-5.1) mmol/L Chloride (98-107) mmol/L Carbon Dioxide (22-30) mmol/L Anion Gap mmol/L BUN (9-20) mg/dL Creatinine (0.66-1.25) mg/dL Est GFR (MDRD) Af Amer (>60 ml/min/1.73 sqM) Est GFR (MDRD) Non-Af (>60 ml/min/1.73 sqM) Glucose (74-99) mg/dL Calcium (8.4-10.2) mg/dL Total Bilirubin (0.2-1.3) mg/dL AST (17-59) U/L ALT (21-72) U/L Alkaline Phosphatase (38-126) U/L Total Creatine Kinase (55-170) U/L CK-MB (CK-2) (0.0-2.4) ng/mL CK-MB (CK-2) Rel Index Troponin I (0.000-0.034) ng/mL Total Protein (6.3-8.2) g/dL Albumin (3.5-5.0) g/dL Disposition Clinical Impression: Dyspnea, COPD exacerbation, Hypertension, Bronchitis, Pleural mass, Hyperkalemia, Elevated troponin Disposition: ADMITTED IP TO THIS HOSP Condition: Fair Referrals: None,Stated [REFERRING] - 1-2 days Time of Disposition: 16:05 Decision Date: 03/01/17 Decision Time: 16:05
[2017-03-01 15:32] LABS: ALT 51 U/L (21-72); Albumin 3.2 g/dL (3.5-5.0); Alkaline Phosphatase 56 U/L (38-126); Anion Gap 7 mmol/L; Calcium 8.8 mg/dL (8.4-10.2); Carbon Dioxide 26 mmol/L (22-30); Chloride 104 mmol/L (98-107); Glucose 104 mg/dL (74-99); HCT 44.5 % (39.0-53.0); HGB 13.9 gm/dL (13.0-17.5); Hypochromasia Slight; MCH 31.1 pg (25.0-35.0); MCHC 31.3 g/dL (31.0-37.0); MCV 99.4 fL (80.0-100.0); Macrocytosis Slight; Mean Platelet Volume 11.6; Partial Thromboplastin Time 22.7 sec (22.0-30.0); Prothrombin Time 9.6 sec (9.0-12.0); RBC 4.47 m/uL (4.30-5.90); RDW 14.7 % (11.5-15.5); Sodium 137 mmol/L (137-145); Total Protein 5.9 g/dL (6.3-8.2); WBC 9.5 k/uL (3.8-10.6)
[2017-03-01 15:37] LABS: AST 32 U/L (17-59); Blood Urea Nitrogen 41 mg/dL (9-20); Potassium 5.7 mmol/L (3.5-5.1)
--- NOTE | 2017-03-01 15:51 | XR ---
EXAMINATION TYPE: XR chest 1V portable DATE OF EXAM: 03/01/2017 COMPARISON: 02/03/2017 HISTORY: Shortness of breath TECHNIQUE: Single frontal view of the chest is obtained. FINDINGS: Postsurgical changes are noted. Pleural-based mass in the right upper lobe noted. Arthropa thy shoulders. Heart size stable. Suggestion of an epicardial lead. Underlying COPD suspected. IMPRESSION: COPD with stable pleural-based mass.
[2017-03-01 15:56] LABS: Band Neutrophils % 1 %; Creatine Kinase MB 1.2 ng/mL (0.0-2.4); Lymphocytes # (M) 1.05 k/uL (1.0-4.8); Monocytes # (M) 0.57 k/uL (0-1.0); Neutrophils % (M) 82 %; Nucleated Red Blood Cells 0 /100 WBC (0-0); Total Cells Counted 100
[2017-03-01 15:59] LABS: Large Platelets Present; Platelet Count 125 k/uL (150-450); Troponin I 0.041 ng/mL (0.000-0.034)
[2017-03-01] MEDS ORDERED: ACETAMINOPHEN TAB 325 MG TAB PO PRN (17:00)
[2017-03-01] MEDS ORDERED: SODIUM POLYSTYRENE SULFONATE 15 GM/60 ML BOTTLE PO STA (17:05)
[2017-03-01] MEDS ORDERED: IPRATROPIUM-ALBUTEROL 3 ML NEB INHALATION PRN (17:06)
--- NOTE | 2017-03-01 17:25 | CT ---
EXAMINATION TYPE: CT brain wo con DATE OF EXAM: 03/01/2017 COMPARISON: 10/03/2013 HISTORY: Confusion and weakness. CT DLP: 1079 mGycm Automated exposure control for dose reduction was used. FINDINGS: There is cerebral cortical atrophy. There is no mass effect nor midline shift. There is no sign of in tracranial hemorrhage. There is patchy hypodensity in the periventricular white matter. The calvarium is intact. 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 IMPRESSION: CEREBRAL ATROPHY. OLD LEFT OCCIPITAL INFARCT. NO ACUTE INTRACRANIAL ABNORMALITY. NO CHANGE.
--- NOTE | 2017-03-01 17:47 | P.HPIM ---
History of Present Illness H&P Date: 03/01/17 Chief Complaint: SOB 81-year-old male presents for evaluation of dyspnea, worsening over the past 2 days. Patient has history of COPD and was just discharged from the hospital after he was treated for acute exacerbation a few weeks ago. He uses home oxygen at night 2 L. He has been on 10 mg of prednisone daily as well. He denies chest pain, has been having cough productive of white phlegm. Denies fever or chills, nausea or vomiting, abdominal pain or diarrhea. No sick contacts. He has a chronic colostomy status post diverticulosis which was complicated by bowel perforation. Patient has some chronic lower extremity edema , he usually takes some Lasix as needed when the edema gets worse. Patient was at the bedside stated that patient has been confused since last night, he also had some slurred speech as well. The was thinking that these symptoms might have been caused by not sleeping last night. Both his legs were weak and when the physical therapist was at their house she couldn't get him to lift any of his legs. Patient denied any focal weakness, blurry or double vision. Review of Systems 12 point review of system was performed, negative except for HPI Past Medical History Past Medical History: Coronary Artery Disease (CAD), Cancer, COPD, Hyperlipidemia, Hypertension, Pneumonia, Prostate Disorder Additional Past Medical History / Comment(s): BLADDER CANCER, still has some residual tumor cells, plan for cystoscopy in the near future (02/03/17), COPD- USES 02 2 LITERS N/C AT HS, TREMORS, . HX OF DIVERTICULITIS WITH PERFORATED BOWEL . HAS COLOSTOMY. HERNIA AT STOMA AND INCISIONAL HERNIA . CAROTID ARTERY STENOSIS, ENLARGED PROSTATE. , FX LEFT HIP 10/2013 AND NOW USES CANE/ WALKER . "CYST ON KIDNEY", "FX VERTEBRE-NOT SURE WHICH ONE" History of Any Multi-Drug Resistant Organisms: None Reported Past Surgical History: Bowel Resection, Coronary Bypass/CABG, Hernia Repair Additional Past Surgical History / Comment(s): COLOSTOMY D/T PERFORATED BOWEL FROM DIVERTICULITIS, CABG (2005), ING HERNIA REPAIR, ORIF FX LEFT HIP (10/2013) , CYSOSCOPY. Past Anesthesia/Blood Transfusion Reactions: No Reported Reaction, Motion Sickness Additional Past Anesthesia/Blood Transfusion Reaction / Comment(s): CLAUSTERPHOBIC. DO NOT GIVE HIS DILAUDID- PT BECAME VERY AGGRESSIVE Past Psychological History: Anxiety, Depression Smoking Status: Former smoker Past Alcohol Use History: None Reported Past Drug Use History: None Reported - Past Family History Father Family Medical History: Congestive Heart Failure (CHF) Mother Family Medical History: Congestive Heart Failure (CHF) Medications and Allergies Home Medications Medication Instructions Recorded Confirmed Type Citalopram Hydrobromide [CeleXA] 40 mg PO QAM 11/18/13 03/01/17 History Finasteride [Proscar] 5 mg PO QAM 11/18/13 03/01/17 History Tamsulosin [Flomax] 0.4 mg PO QAM 11/18/13 03/01/17 History Aspirin EC [Ecotrin] 325 mg PO DAILY 03/10/14 03/01/17 History Simvastatin [Zocor] 40 mg PO HS 05/11/15 03/01/17 History Budesonide/Formoterol Fumarate 2 puff INHALATION RT-BID 06/19/16 03/01/17 History [Symbicort 160-4.5 Mcg Inhaler] Levalbuterol HCl [Xopenex 1.25 mg INHALATION RT-QID 06/19/16 03/01/17 History Nebulized] Primidone [Mysoline] 25 mg PO QAM 06/19/16 03/01/17 History guaiFENesin [Mucinex] 600 mg PO BID 06/19/16 03/01/17 History Metoprolol Tartrate 12.5 mg PO BID 12/11/16 03/01/17 History predniSONE 10 mg PO QAM 12/11/16 03/01/17 History Primidone [Mysoline] 50 mg PO HS #30 tab 02/05/17 03/01/17 Rx ALPRAZolam [Xanax] 0.5 mg PO BID 03/01/17 03/01/17 History Fluticasone/Salmeterol [Advair 1 puff INHALATION RT-BID 03/01/17 03/01/17 History 500-50 Diskus] Furosemide [Lasix] 20 mg PO QAM 03/01/17 03/01/17 History Allergies Allergy/AdvReac Type Severity Reaction Status Date / Time dobutamine Allergy Severe Swelling Verified 03/01/17 15:02 hydromorphone HCl Allergy Intermediate AGRESSIVE Verified 01/04/18 15:02 [From Dilaudid] sulfamethoxazole Allergy DIAPHORESIS Verified 03/01/17 15:02 [From Bactrim] trimethoprim [From Bactrim] Allergy DIAPHORESIS Verified 03/01/17 15:02 Physical Exam Vitals: Vital Signs Pulse Resp BP Pulse Ox 03/01/17 15:36 70 03/01/17 15:14 67 03/01/17 14:58 68 24 159/75 95 Intake and Output 03/01/17 03/01/17 03/01/17 06:59 14:59 22:59 Other: Weight 63.503 kg Patient Weight 03/02/17 06:59 Weight 63.503 kg Constitutional: No acute distress, conversant, pleasant Eyes:Anicteric sclerae, moist conjunctiva, no lid-lag, PERRLA, ENMT: Oropharynx clear, no erythema, exudates Neck: Supple, FROM, no masses, or JVD, No carotid bruits, No thyromegaly Lungs: Very diminished breath sounds bilaterally, Clear to percussion, Normal respiratory effort, no accessory muscle use Cardiovascular: Heart regular in rate and rhythm, No murmurs, gallops, or rubs, 1+ ankle edema Abdominal: Soft, Nontender, no guarding, rebound or rigidity, Normoactive bowel sounds, No hepatomegaly, No splenomegaly, No palpable mass Skin: Normal temperature, tone, texture, turgor, no induration, No subcutaneous nodules, No rash, lesions, No ulcers Extremities: No digital cyanosis, No clubbing, Pedal pulses intact and symmetrical, Radial pulses intact and symmetrical, No calf tenderness Psychiatric: Alert and oriented to person, place and time, appropriate affect, intact judgement Neuro: Muscles Strength 5/5 in all 4 extremities, Sensation to light touch grossly present throughout, Cranial nerves II-XII grossly intact, no focal sensory deficits Results CBC & Chem 7: 03/01/17 15:11 03/01/17 15:11 Labs: Abnormal Lab Results - Last 24 Hours (Table) 03/01/17 03/01/17 03/01/17 Range/Units 15:11 15:11 15:11 Plt Count 125 L (150-450) k/uL Neutrophils # (Manual) 7.80 H (1.3-7.7) k/uL Potassium 5.7 H (3.5-5.1) mmol/L BUN 41 H (9-20) mg/dL Glucose 104 H (74-99) mg/dL Total Creatine Kinase 50 L (55-170) U/L Troponin I 0.041 H* (0.000-0.034) ng/mL Total Protein 5.9 L (6.3-8.2) g/dL Albumin 3.2 L (3.5-5.0) g/dL Assessment and Plan Plan: #1 Acute COPD exacerbation: Admit to selective Labs reviewed. Solumedrol. DuoNebs qid Start ceftriaxone and azithromycin Hold metoprolol Check pro calcitonin #2 Hx of chronic diastolic CHF Stable, no evidence of acute exacerbation. BNP better than last admission Continue home lasix. #3 Frequent PVCs, high trops Seen and cleared by cardiology last time. No need for cardiology consult this time Cycle trops Recently had an echocardiogram, no need to repeat #4 Confusion and slurred speech: Could be secondary to being tired from not sleeping last night Rule out stroke Rule out hypercarbia Stat head CT and ABG #4 Benign HTN, hyperlipidemia, BPH: Stable continue home meds #5 DVT prophylaxis: early mobilization. SCDs
[2017-03-01] MEDS: cefTRIAXone IN SWFI 1,000 MG/10 ML SYRINGE IVP SCH (18:06)
[2017-03-01] MEDS: AZITHROMYCIN 500 MG in SODIUM CHLORIDE 0.9% 250 ML IVPB SCH (18:10)
[2017-03-01 19:30] LABS: ABG PH 7.42 (7.35-7.45)
[2017-03-01 19:31] LABS: ABG Base Excess -0.3 mmol/L; ABG HCO3 24 mmol/L (21-25); ABG PCO2 37 mmHg (35-45); ABG PO2 110 mmHg (83-108); ABG TCO2 25 mmol/L (19-24)
[2017-03-01] MEDS: SYMBICORT 160-4.5 MCG INHALER INHALATION SCH (19:50)
[2017-03-01] MEDS: IPRATROPIUM-ALBUTEROL 3 ML NEB INHALATION SCH (19:51)
[2017-03-01] MEDS ORDERED: NON-FORMULARY DRUG (Fluticasone/Salmeterol [Advair 500-50 Diskus] 1 PUFF) INHALATION SCH (20:00)
[2017-03-01] MEDS: methylPREDNISolone SOD SUCCI 125 MG/2 ML VIAL IV SCH (22:22)
[2017-03-01] MEDS: guaiFENesin 600 MG TABLET.ER PO SCH (22:22)
[2017-03-01] MEDS: PRIMIDONE 50 MG TAB PO SCH (22:22)
[2017-03-01] MEDS: ATORVASTATIN 20 MG TAB PO SCH (22:22)
[2017-03-01] MEDS: ALPRAZolam 0.5 MG TAB PO SCH (22:23)
[2017-03-02] MEDS: methylPREDNISolone SOD SUCCI 125 MG/2 ML VIAL IV SCH ×5 (00:01→23:23)
[2017-03-02 03:57] LABS: Anisocytosis Slight; Basophils % (A) 0 %; Eosinophils % (A) 0 %; Hypochromasia Moderate; Lymphocytes # (A) 0.4 k/uL (1.0-4.8); Lymphocytes % (A) 5 %; MCH 31.9 pg (25.0-35.0); MCHC 31.5 g/dL (31.0-37.0); MCV 101.1 fL (80.0-100.0); Macrocytosis Slight; Mean Platelet Volume 10.2; Monocytes # (A) 0.2 k/uL (0-1.0); Monocytes % (A) 2 %; Neutrophils # (A) 7.3 k/uL (1.3-7.7); Neutrophils % (A) 92 %; Platelet Count 152 k/uL (150-450); RBC 3.36 m/uL (4.30-5.90); RDW 16.1 % (11.5-15.5); WBC 7.9 k/uL (3.8-10.6)
[2017-03-02 04:17] LABS: ALT 48 U/L (21-72); AST 15 U/L (17-59); Albumin 2.7 g/dL (3.5-5.0); Alkaline Phosphatase 57 U/L (38-126); Anion Gap 7 mmol/L; Blood Urea Nitrogen 43 mg/dL (9-20); Calcium 8.6 mg/dL (8.4-10.2); Carbon Dioxide 28 mmol/L (22-30); Chloride 107 mmol/L (98-107); Glucose 136 mg/dL (74-99); Magnesium 2.5 mg/dL (1.6-2.3); Phosphorus 4.4 mg/dL (2.5-4.5); Potassium 4.7 mmol/L (3.5-5.1); Sodium 142 mmol/L (137-145); Total Bilirubin 0.3 mg/dL (0.2-1.3)
[2017-03-02 04:30] LABS: HGB 10.7 gm/dL (13.0-17.5)
[2017-03-02] MEDS ORDERED: VANCOMYCIN 1,250 MG in SODIUM CHLORIDE 0.9% 250 ML IVPB SCH (06:00)
[2017-03-02] MEDS: SYMBICORT 160-4.5 MCG INHALER INHALATION SCH ×2 (08:23→20:24)
[2017-03-02] MEDS: IPRATROPIUM-ALBUTEROL 3 ML NEB INHALATION SCH ×4 (08:23→20:24)
[2017-03-02] MEDS: ALPRAZolam 0.5 MG TAB PO SCH ×2 (09:28→19:48)
[2017-03-02] MEDS: ASPIRIN 325 MG TAB PO SCH (09:29)
[2017-03-02] MEDS: CITALOPRAM HYDROBROMIDE 20 MG TAB PO SCH (09:29)
[2017-03-02] MEDS: FINASTERIDE 5 MG TAB PO SCH (09:29)
[2017-03-02] MEDS: FUROSEMIDE 20 MG TAB PO SCH (09:30)
[2017-03-02] MEDS: TAMSULOSIN 0.4 MG CAP.ER.24H PO SCH (09:30)
[2017-03-02] MEDS: guaiFENesin 600 MG TABLET.ER PO SCH ×2 (09:30→19:48)
[2017-03-02] MEDS: AZITHROMYCIN 500 MG in SODIUM CHLORIDE 0.9% 250 ML IVPB SCH (09:32)
[2017-03-02] MEDS: cefTRIAXone IN SWFI 1,000 MG/10 ML SYRINGE IVP SCH (12:06)
--- NOTE | 2017-03-02 12:50 | P.PN ---
Subjective Progress Note Date: 03/02/17 Principal diagnosis: SOB Patient is feeling better, confusion has resolved. He is stronger today and able to get up from the bed. Objective - Vital Signs Vital signs: Vital Signs Temp 96.9 F L 03/02/17 09:20 Pulse 72 03/02/17 12:01 Resp 18 03/02/17 09:20 BP 141/63 03/02/17 09:20 Pulse Ox 92 L 03/02/17 09:20 Intake & Output 03/01/17 03/02/17 03/02/17 18:59 06:59 18:59 Intake Total 410 360 Output Total 300 Balance 410 60 Weight 63.503 kg 64.7 kg Intake: IV 160 0.9 160 Intake, IV Titration 250 Amount Azithromycin 500 mg In 250 Sodium Chloride 0.9% 250 ml @ 125 mls/hr IVPB DAILY [facility] Rx#:[id number] Oral 360 Output: Urine 300 Other: Voiding Method Toilet Toilet Urinal Urinal - Labs CBC & Chem 7: 03/02/17 03:22 03/02/17 03:22 Labs: Abnormal Lab Results - Last 24 Hours (Table) 03/01/17 03/01/17 03/01/17 Range/Units 15:11 15:11 15:11 RBC (4.30-5.90) m/uL Hgb (13.0-17.5) gm/dL Hct (39.0-53.0) % MCV (80.0-100.0) fL RDW (11.5-15.5) % Plt Count 125 L (150-450) k/uL Neutrophils # (Manual) 7.80 H (1.3-7.7) k/uL Lymphocytes # (1.0-4.8) k/uL ABG pO2 (83-108) mmHg ABG Total CO2 (19-24) mmol/L ABG O2 Saturation (94-97) % Potassium 5.7 H (3.5-5.1) mmol/L BUN 41 H (9-20) mg/dL Glucose 104 H (74-99) mg/dL Magnesium (1.6-2.3) mg/dL AST (17-59) U/L Total Creatine Kinase 50 L (55-170) U/L Troponin I 0.041 H* (0.000-0.034) ng/mL Total Protein 5.9 L (6.3-8.2) g/dL Albumin 3.2 L (3.5-5.0) g/dL Procalcitonin (0.02-0.09) ng/mL 03/01/17 03/01/17 03/02/17 Range/Units 15:11 19:20 03:22 RBC 3.36 L (4.30-5.90) m/uL Hgb 10.7 L D (13.0-17.5) gm/dL Hct 34.0 L (39.0-53.0) % MCV 101.1 H (80.0-100.0) fL RDW 16.1 H (11.5-15.5) % Plt Count (150-450) k/uL Neutrophils # (Manual) (1.3-7.7) k/uL Lymphocytes # 0.4 L (1.0-4.8) k/uL ABG pO2 110 H (83-108) mmHg ABG Total CO2 25 H (19-24) mmol/L ABG O2 Saturation 98.0 H (94-97) % Potassium (3.5-5.1) mmol/L BUN (9-20) mg/dL Glucose (74-99) mg/dL Magnesium (1.6-2.3) mg/dL AST (17-59) U/L Total Creatine Kinase (55-170) U/L Troponin I (0.000-0.034) ng/mL Total Protein (6.3-8.2) g/dL Albumin (3.5-5.0) g/dL Procalcitonin 0.18 H (0.02-0.09) ng/mL 03/02/17 Range/Units 03:22 RBC (4.30-5.90) m/uL Hgb (13.0-17.5) gm/dL Hct (39.0-53.0) % MCV (80.0-100.0) fL RDW (11.5-15.5) % Plt Count (150-450) k/uL Neutrophils # (Manual) (1.3-7.7) k/uL Lymphocytes # (1.0-4.8) k/uL ABG pO2 (83-108) mmHg ABG Total CO2 (19-24) mmol/L ABG O2 Saturation (94-97) % Potassium (3.5-5.1) mmol/L BUN 43 H (9-20) mg/dL Glucose 136 H (74-99) mg/dL Magnesium 2.5 H (1.6-2.3) mg/dL AST 15 L (17-59) U/L Total Creatine Kinase (55-170) U/L Troponin I (0.000-0.034) ng/mL Total Protein 5.0 L (6.3-8.2) g/dL Albumin 2.7 L (3.5-5.0) g/dL Procalcitonin (0.02-0.09) ng/mL Assessment and Plan Plan: #1 Acute COPD exacerbation induced by acute bronchitis: Labs reviewed. Continue solumedrol and duoNebs qid Continue ceftriaxone and azithromycin Hold metoprolol #2 Hx of chronic diastolic CHF Stable, no evidence of acute exacerbation. BNP better than last admission Continue home lasix. #3 Frequent PVCs, high trops Seen and cleared by cardiology last admission. No need for cardiology consult this time. Trops trended down Recently had an echocardiogram, no need to repeat #4 Confusion and slurred speech: Could be secondary to being tired from not sleeping vs. transient hypercarbia/ hypoxia sec to COPD Head CT no acute changes. #4 Benign HTN, hyperlipidemia, BPH: Stable continue home meds #5 DVT prophylaxis: Lovenox s.q
--- NOTE | 2017-03-02 15:47 | P.CNPUL ---
History of Present Illness Consult date: 03/02/17 Reason for consult: dyspnea, COPD History of present illness: 81-year-old male patient with advanced COPD and right debilitated condition due to multiple medical problems and comorbidities. In terms of his COPD, the patient has advanced oxygen-dependent COPD and he has chronic biapical scarring and he has had recurrent exacerbation of his COPD. He has required multiple hospitalizations. He is quite limited in terms of his exercise capacity gets short of breath with limited amount of activity and even sometimes at rest. He came into the hospital back in December 2016 and he was treated appropriately was discharged home. Yesterday he was readmitted to the hospital because of increased shortness of breath. He was feeling very weak and he was lethargic and he was shaky and at one point he was also noted to have some altered mentation. He was having a congested cough. Unable to move around and his was concerned and the patient got moved today emergency department for further evaluation. He was afebrile. No reported aspiration. The patient was not having any chest pain. No pleurisy. No headache. No focal neurological deficit and his weakness was not focal. No hematuria. No dysuria frequency or urgency. No constipation. He has a large parastomal hernia at the site of a colostomy and the site was quite functional. He also has a right inguinal hernia that has not been of any concern at this point. In any Rate, the patient had a CAT scan of the brain in the emergency department that showed chronic atrophic changes and previous CVA. Chest x-ray showed biapical scarring more so on the right without evidence of any new onset pulmonary infiltration or pneumonias. The patient was started on antibiotics. The patient was started on systemic steroids. The patient was admitted to the hospital. Note that he is on a timely grams a prednisone on a daily basis. He is much more awake and alert at the right now. His communicating. He is pleasant. He feels better. He has no specific complaints for now. He understands this is gradually getting weaker and more debilitated. In fact he did not want to come to the hospital he was brought in by his was concerned about his respiratory deterioration. Review of Systems Constitutional: Reports chronic pain, Reports daytime sleepiness, Reports fatigue, Reports lethargy, Reports poor appetite, Reports weakness, Reports weight loss Eyes: denies blurred vision, denies bulging eye, denies decreased vision Ears: deny: decreased hearing, ear discharge, earache Ears, nose, mouth and throat: Denies headache, Denies sore throat Cardiovascular: Reports decreased exercise tolerance, Reports dyspnea on exertion, Reports edema, Reports shortness of breath Respiratory: Reports cough, Reports dyspnea, Reports home oxygen, Reports respiratory infections, Reports wheezing Gastrointestinal: Reports as per HPI (The patient has a large parastomal hernia. A complicated diverticulitis requiring colectomy and diverting colostomy. He also has a right inguinal hernia.), Reports loss of appetite Genitourinary: Reports as per HPI (Patient has bladder cancer requiring multiple cystoscopies and transurethral urethral tumor resection), Reports incontinence, Reports nocturia Musculoskeletal: Reports atrophy, Reports gait dysfunction, Reports limitation of motion, Reports muscle weakness Musculoskeletal: bilateral: ankle swelling, absent: ankle pain, ankle stiffness Integumentary: Reports brittle nails, Reports color changes Neurological: Reports change in mentation, Reports gait dysfunction, Reports weakness Psychiatric: Denies anxiety, Denies depression Endocrine: Denies fatigue, Denies weight change Hematologic/Lymphatic: Reports as per HPI Allergic/Immunologic: Reports as per HPI Past Medical History Past Medical History: Coronary Artery Disease (CAD), Cancer, COPD, Hyperlipidemia, Hypertension, Pneumonia, Prostate Disorder Additional Past Medical History / Comment(s): Severe COPD, multiple hospitalization for COPD exacerbation, coronary artery disease, Dr. disease, previous CVA, bladder cancer, hyperlipidemia, hypertension, previous complicated diverticulitis with bowel perforation requiring diverting colostomy , parastomal hernia, right inguinal hernia, BPH, previous history of fall and left hip fracture status post ORIF, tremors, chronic hypoxic respiratory failure the patient is on oxygen at 2 L/m nasal cannula History of Any Multi-Drug Resistant Organisms: None Reported Past Surgical History: Bowel Resection, Coronary Bypass/CABG, Hernia Repair Additional Past Surgical History / Comment(s): COLOSTOMY D/T PERFORATED BOWEL FROM DIVERTICULITIS, CABG (2005), ING HERNIA REPAIR, ORIF FX LEFT HIP (10/2013) , CYSOSCOPY. Past Anesthesia/Blood Transfusion Reactions: No Reported Reaction, Motion Sickness Additional Past Anesthesia/Blood Transfusion Reaction / Comment(s): CLAUSTERPHOBIC. DO NOT GIVE HIS DILAUDID- PT BECAME VERY AGGRESSIVE Smoking Status: Former smoker - Past Family History Father Family Medical History: Congestive Heart Failure (CHF) Mother Family Medical History: Congestive Heart Failure (CHF) Medications and Allergies Home Medications Medication Instructions Recorded Confirmed Type Citalopram Hydrobromide [CeleXA] 40 mg PO QAM 11/18/13 03/01/17 History Finasteride [Proscar] 5 mg PO QAM 11/18/13 03/01/17 History Tamsulosin [Flomax] 0.4 mg PO QAM 11/18/13 03/01/17 History Aspirin EC [Ecotrin] 325 mg PO DAILY 03/10/14 03/01/17 History Simvastatin [Zocor] 40 mg PO HS 05/11/15 03/01/17 History Budesonide/Formoterol Fumarate 2 puff INHALATION RT-BID 06/19/16 03/01/17 History [Symbicort 160-4.5 Mcg Inhaler] Levalbuterol HCl [Xopenex 1.25 mg INHALATION RT-QID 06/19/16 03/01/17 History Nebulized] Primidone [Mysoline] 25 mg PO QAM 06/19/16 03/01/17 History guaiFENesin [Mucinex] 600 mg PO BID 06/19/16 03/01/17 History Metoprolol Tartrate 12.5 mg PO BID 12/11/16 03/01/17 History predniSONE 10 mg PO QAM 12/11/16 03/01/17 History Primidone [Mysoline] 50 mg PO HS #30 tab 02/05/17 03/01/17 Rx ALPRAZolam [Xanax] 0.5 mg PO BID 03/01/17 03/01/17 History Fluticasone/Salmeterol [Advair 1 puff INHALATION RT-BID 03/01/17 03/01/17 History 500-50 Diskus] Furosemide [Lasix] 20 mg PO QAM 03/01/17 03/01/17 History Allergies Allergy/AdvReac Type Severity Reaction Status Date / Time dobutamine Allergy Severe Swelling Verified 03/01/17 15:02 hydromorphone HCl Allergy Intermediate AGRESSIVE Verified 03/01/17 15:02 [From Dilaudid] sulfamethoxazole Allergy DIAPHORESIS Verified 03/01/17 15:02 [From Bactrim] trimethoprim [From Bactrim] Allergy DIAPHORESIS Verified 01/04/18 15:02 Physical Exam Vitals: Vital Signs Temp Pulse Pulse Resp BP BP Pulse Ox 03/02/17 12:01 72 03/02/17 12:00 98.0 F 82 18 130/58 98 03/02/17 11:46 68 03/02/17 09:20 96.9 F L 42 L 18 141/63 92 L 03/02/17 08:39 72 03/02/17 08:23 72 03/02/17 04:00 97.0 F L 65 19 122/63 97 03/02/17 00:00 97.0 F L 64 19 129/57 03/01/17 20:03 70 03/01/17 20:00 69 20 03/01/17 19:54 68 03/01/17 19:00 76 18 140/65 97 03/01/17 18:00 97.8 F 77 20 127/62 98 03/01/17 15:36 70 Intake and Output 03/02/17 03/02/17 03/02/17 06:59 14:59 22:59 Intake Total 160 478 Output Total 300 Balance 160 178 Intake: IV 160 0.9 160 Oral 478 Output: Urine 300 Other: Voiding Method Toilet Toilet Urinal Urinal # Voids 3 Weight 64.7 kg Head exam was generally normal. There was no scleral icterus or corneal arcus. Mucous membranes were moist.Neck was supple and without jugular venous distension, thyromegaly, or carotid bruits. Carotids were easily palpable bilaterally. There was no adenopathy. Lungs diminished breath sound bilaterally along with scattered external wheezes throughout the lung [place]. Cardiac exam revealed the PMI to be normally situated and sized. The rhythm was regular and no extrasystoles were noted during several minutes of auscultation. The first and second heart sounds were normal and physiologic splitting of the second heart sound was noted. There were no murmurs, rubs, clicks, or gallops. Abdomen is soft there is an incisional hernia colostomy site is fully functional and viable. No direct tenderness no rebound tenderness or guarding. Extremities the left lower extremity is a bit externally rotated. Neurovascularly intact. No cyanosis or clubbing. Neurologically there is significant motor weakness both in upper and lower extremities. The patient has intentional tremors. Psychiatrically the patient has appropriate mood and affect.Examination of the skin revealed no evidence of significant rashes, suspicious appearing nevi or other concerning lesions. Results - Laboratory Findings CBC and BMP: 03/02/17 03:22 03/02/17 03:22 ABG ABG pH 7.42 (7.35-7.45) 03/01/17 19:20 ABG pCO2 37 mmHg (35-45) 03/01/17 19:20 ABG pO2 110 mmHg (83-108) H 03/01/17 19:20 ABG O2 Saturation 98.0 % (94-97) H 03/01/17 19:20 PT/INR, D-dimer PT 9.6 sec (9.0-12.0) 03/01/17 15:11 INR 1.0 (<1.2) 03/01/17 15:11 Abnormal lab findings: Abnormal Labs 03/01/17 03/01/17 03/01/17 15:11 15:11 15:11 RBC Hgb Hct MCV RDW Plt Count 125 L Neutrophils # (Manual) 7.80 H Lymphocytes # ABG pO2 ABG Total CO2 ABG O2 Saturation Potassium 5.7 H BUN 41 H Glucose 104 H Magnesium AST Total Creatine Kinase 50 L Troponin I 0.041 H* Total Protein 5.9 L Albumin 3.2 L Procalcitonin 03/01/17 03/01/17 03/02/17 15:11 19:20 03:22 RBC 3.36 L Hgb 10.7 L D Hct 34.0 L MCV 101.1 H RDW 16.1 H Plt Count Neutrophils # (Manual) Lymphocytes # 0.4 L ABG pO2 110 H ABG Total CO2 25 H ABG O2 Saturation 98.0 H Potassium BUN Glucose Magnesium AST Total Creatine Kinase Troponin I Total Protein Albumin Procalcitonin 0.18 H 03/02/17 03:22 RBC Hgb Hct MCV RDW Plt Count Neutrophils # (Manual) Lymphocytes # ABG pO2 ABG Total CO2 ABG O2 Saturation Potassium BUN 43 H Glucose 136 H Magnesium 2.5 H AST 15 L Total Creatine Kinase Troponin I Total Protein 5.0 L Albumin 2.7 L Procalcitonin - Diagnostic Findings Chest x-ray: image reviewed Assessment and Plan Plan: Assessment 1 acute COPD exacerbation/acute bronchitis with secondary shortness of breath, improving. Chest x-ray shows evidence of an acute pneumonia. There is biapical scarring which has been a chronic finding worse on the right. 2 shortness of breath secondary to above 3 atherosclerotic heart disease with previous coronary bypass surgery, echocardiogram showing a preserved LV function with an ejection fraction of 45- 50%. The patient has had previous non-ST segment elevation myocardial infarction. 4 bladder cancer status post transurethral resection of the bladder tumor following that the patient received intravesicular chemotherapy 5 diverticular disease with history of complicated diverticulitis with bowel perforation requiring colostomy and colectomy. 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 Patient also has cerebral atrophy. Plan We'll treat acute COPD exacerbation with a combination of bronchodilators and steroids and antibiotics. Clinically improving. Doubt any superinfection at this point. We will try to collect the sputum sample if possible. The patient was given a dose of Lasix at home and no major edema at this point in the lower extremities. He has mild component of CHF. His chest x-ray is not showing any signs of any fluid overload. CAT scan of the brain is showing old CVA. No acute abnormalities seen. Overall functional performance scheduled getting worse. We'll continue to follow.
[2017-03-02] MEDS: ATORVASTATIN 20 MG TAB PO SCH (19:48)
[2017-03-02] MEDS: PRIMIDONE 50 MG TAB PO SCH (19:49)
[2017-03-03] MEDS: methylPREDNISolone SOD SUCCI 125 MG/2 ML VIAL IV SCH ×3 (05:57→17:09)
[2017-03-03] MEDS: ALPRAZolam 0.5 MG TAB PO SCH ×2 (08:16→20:59)
[2017-03-03] MEDS: TAMSULOSIN 0.4 MG CAP.ER.24H PO SCH (08:17)
[2017-03-03] MEDS: ASPIRIN 325 MG TAB PO SCH (08:17)
[2017-03-03] MEDS: guaiFENesin 600 MG TABLET.ER PO SCH ×2 (08:17→20:59)
[2017-03-03] MEDS: CITALOPRAM HYDROBROMIDE 20 MG TAB PO SCH (08:18)
[2017-03-03] MEDS: FUROSEMIDE 20 MG TAB PO SCH (08:18)
[2017-03-03] MEDS: ENOXAPARIN 40 MG/0.4 ML SYRINGE SQ SCH (08:18)
[2017-03-03] MEDS: FINASTERIDE 5 MG TAB PO SCH (08:18)
[2017-03-03] MEDS: cefTRIAXone IN SWFI 1,000 MG/10 ML SYRINGE IVP SCH (08:21)
[2017-03-03] MEDS: IPRATROPIUM-ALBUTEROL 3 ML NEB INHALATION SCH ×2 (09:00→12:07)
[2017-03-03] MEDS ORDERED: AZITHROMYCIN 500 MG TAB PO SCH (09:00)
[2017-03-03] MEDS: SYMBICORT 160-4.5 MCG INHALER INHALATION SCH ×2 (09:00→20:18)
[2017-03-03 09:33] LABS: Anion Gap 11 mmol/L; Blood Urea Nitrogen 47 mg/dL (9-20); Calcium 8.9 mg/dL (8.4-10.2); Carbon Dioxide 28 mmol/L (22-30); Chloride 105 mmol/L (98-107); Glucose 166 mg/dL (74-99); Potassium 5.2 mmol/L (3.5-5.1); Sodium 144 mmol/L (137-145)
--- NOTE | 2017-03-03 13:05 | P.PN ---
Subjective Progress Note Date: 03/03/17 81-year-old male patient with advanced COPD and right debilitated condition due to multiple medical problems and comorbidities. In terms of his COPD, the patient has advanced oxygen-dependent COPD and he has chronic biapical scarring and he has had recurrent exacerbation of his COPD. He has required multiple hospitalizations. He is quite limited in terms of his exercise capacity gets short of breath with limited amount of activity and even sometimes at rest. He came into the hospital back in December 2016 and he was treated appropriately was discharged home. Yesterday he was readmitted to the hospital because of increased shortness of breath. He was feeling very weak and he was lethargic and he was shaky and at one point he was also noted to have some altered mentation. He was having a congested cough. Unable to move around and his was concerned and the patient got moved today emergency department for further evaluation. He was afebrile. No reported aspiration. The patient was not having any chest pain. No pleurisy. No headache. No focal neurological deficit and his weakness was not focal. No hematuria. No dysuria frequency or urgency. No constipation. He has a large parastomal hernia at the site of a colostomy and the site was quite functional. He also has a right inguinal hernia that has not been of any concern at this point. In any Rate, the patient had a CAT scan of the brain in the emergency department that showed chronic atrophic changes and previous CVA. Chest x-ray showed biapical scarring more so on the right without evidence of any new onset pulmonary infiltration or pneumonias. The patient was started on antibiotics. The patient was started on systemic steroids. The patient was admitted to the hospital. Note that he is on a timely grams a prednisone on a daily basis. He is much more awake and alert at the right now. His communicating. He is pleasant. He feels better. He has no specific complaints for now. He understands this is gradually getting weaker and more debilitated. In fact he did not want to come to the hospital he was brought in by his was concerned about his respiratory deterioration. On 03/03/2017 I'm seeing this patient for a follow-up. Cliff is doing slightly better compared to yesterday. He still has some tremors. He is still feeling weak. He has a congested cough. No fever or chills. No change in mental status. No headaches. No other complaints otherwise. Objective - Vital Signs Vital signs: Vital Signs Temp 96.9 F L 03/03/17 08:00 Pulse 87 03/03/17 09:15 Resp 20 03/03/17 08:00 BP 144/69 03/03/17 08:00 Pulse Ox 98 03/03/17 09:03 Intake & Output 03/02/17 03/03/17 03/03/17 18:59 06:59 18:59 Intake Total 838 320 120 Output Total 300 Balance 538 320 120 Weight 65.5 kg Intake: IV 320 0.9 320 Oral 838 120 Output: Urine 300 Other: Voiding Method Toilet Toilet Urinal Urinal # Voids 3 1 - Exam Head exam was generally normal. There was no scleral icterus or corneal arcus. Mucous membranes were moist.Neck was supple and without jugular venous distension, thyromegaly, or carotid bruits. Carotids were easily palpable bilaterally. There was no adenopathy. Lungs diminished breath sound bilaterally along with scattered external wheezes throughout the lung mansfield. Cardiac exam revealed the PMI to be normally situated and sized. The rhythm was regular and no extrasystoles were noted during several minutes of auscultation. The first and second heart sounds were normal and physiologic splitting of the second heart sound was noted. There were no murmurs, rubs, clicks, or gallops. Abdomen is soft there is an incisional hernia colostomy site is fully functional and viable. No direct tenderness no rebound tenderness or guarding. Extremities the left lower extremity is a bit externally rotated. Neurovascularly intact. No cyanosis or clubbing. Neurologically there is significant motor weakness both in upper and lower extremities. The patient has intentional tremors. Psychiatrically the patient has appropriate mood and affect.Examination of the skin revealed no evidence of significant rashes, suspicious appearing nevi or other concerning lesions. - Labs CBC & Chem 7: 03/02/17 03:22 03/03/17 08:54 Labs: Abnormal Lab Results - Last 24 Hours (Table) 03/03/17 Range/Units 08:54 Potassium 5.2 H (3.5-5.1) mmol/L BUN 47 H (9-20) mg/dL Glucose 166 H (74-99) mg/dL Microbiology - Last 24 Hours (Table) 03/01/17 15:11 Blood Culture - Preliminary Blood No Growth after 24 hours Assessment and Plan Plan: Assessment 1 acute COPD exacerbation/acute bronchitis with secondary shortness of breath, improving. Chest x-ray shows evidence of an acute pneumonia. There is biapical scarring which has been a chronic finding worse on the right. 2 shortness of breath secondary to above 3 atherosclerotic heart disease with previous coronary bypass surgery, echocardiogram showing a preserved LV function with an ejection fraction of 45- 50%. The patient has had previous non-ST segment elevation myocardial infarction. 4 bladder cancer status post transurethral resection of the bladder tumor following that the patient received intravesicular chemotherapy 5 diverticular disease with history of complicated diverticulitis with bowel perforation requiring colostomy and colectomy. 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 Patient also has cerebral atrophy. Plan Restart the patient on metoprolol 12.5 mg by mouth twice a day. Continue bronchodilators. Continue systemic steroids. Continue antibiotics. Aggressive physical therapy. We'll continue to follow. Condition is stable and slightly improved compared to yesterday. The albuterol will be switched to Xopenex and the patient will be bringing is on Xopenex from home to be used and this will potentially improve his underlying tremors.
[2017-03-03] MEDS: METOPROLOL TARTRATE 12.5 MG TAB PO SCH ×2 (14:16→21:00)
[2017-03-03] MEDS: LEVALBUTEROL HCL 1.25 MG INHALATION SCH ×2 (15:28→20:18)
[2017-03-03] MEDS ORDERED: LACTATED RINGERS 1,000 ML IV SCH (18:30)
[2017-03-03] MEDS ORDERED: FLUCONAZOLE 100 MG TAB PO ONE (18:30)
[2017-03-03] MEDS: IPRATROPIUM 0.5 MG/2.5 ML NEBU INHALATION SCH (20:12)
--- NOTE | 2017-03-03 20:53 | PN ---
PROGRESS NOTE DATE OF SERVICE: 03/03/2017 PRESENTING COMPLAINT: Cough, short of breath. INTERVAL HISTORY: The patient and the requested the services to be switched over to myself. I have known the patient before. The patient presented with short of breath, cough, not able to expectorate much, but rather congested in the chest, not eating much. Tremors had been bothering him, rather weak in his leg. REVIEW OF SYSTEMS: Done for constitutional, cardiovascular, GI, pulmonary, musculoskeletal; relevant findings as above. CURRENT MEDICATIONS: Reviewed, include: 1. IV ceftriaxone. 2. Zithromax. EXAMINATION: Temperature 98, pulse 18, respirations 18, blood pressure 130/58, pulse ox 98% on room air. GENERAL APPEARANCE: Sitting up on a chair, anxious-appearing. EYES: Pupils equal. Conjunctivae normal. HEENT: Oral cavity showing white patches in the pharynx. RESPIRATORY: Effort increased. LUNGS: Decreased breath sounds. Expiratory wheezing. CARDIOVASCULAR: First and second sounds normal. No edema. ABDOMEN: Soft, nontender. Liver and spleen not palpable. PSYCHIATRY: Patient anxious-appearing, answering questions. MUSCULOSKELETAL: Diffuse wasting of muscles. INVESTIGATIONS: White count 7.9, hemoglobin 10.7. Potassium 5.2, BUN 47, creatinine 1.10. Chest x- ray: COPD. ASSESSMENT: 1. Acute chronic obstructive pulmonary disease exacerbation, slow to respond in an ex- smoker. 2. Chronic congestive heart failure from diastolic dysfunction, ejection fraction 55%- 60%. 3. Essential hypertension. 4. Chronic carotid artery stenosis. 5. Benign prostatic hypertrophy. 6. Anxiety, depression, not otherwise specified. 7. Chronic colostomy. 8. Coronary artery disease with prior history of stent. 9. Chronic cognitive impairment. 10.Uncontrolled tremors with some contribution from beta agonist. 11.Oropharyngeal candidiasis from patient being on steroids. PLAN: At this point, we will increase patient's Mucinex to 200 mg twice a day. Will add a flutter valve and also humidify the patient's oxygen. The patient was switched over earlier by Dr. Hayes to Xopenex, which is appropriate. Will cut back the dose of Solu-Medrol and also had nebulized Atrovent. Will cut back on the dose of aspirin to 81 mg a day. Lopressor was earlier added by Dr. Hayes. Will space out patient's primidone to 25 mg p.o. t.i.d. and the dose can gradually be graduated, given that patient has extremely small muscle mass. The patient probably appears to be, is likely on the dry side. Will gently hydrate the patient for 1000 mL. Care was discussed at length with the patient and the at the bedside. Also, patient's Lasix will be discontinued. Total time spent today was about 40 minutes with over 25 minutes of discussion. VELASQUEZ / JOEYN: [id number] /
[2017-03-03] MEDS: PRIMIDONE 25 MG TAB PO SCH (20:59)
[2017-03-03] MEDS: ATORVASTATIN 20 MG TAB PO SCH (21:00)
[2017-03-03 21:34] LABS: Glucose,Whole Blood 184 mg/dL (75-99)
[2017-03-04] MEDS: methylPREDNISolone SOD SUCCI 40 MG/ML 1 ML VIAL IV SCH ×3 (00:09→15:37)
[2017-03-04 06:32] LABS: Glucose,Whole Blood 121 mg/dL (75-99)
[2017-03-04 07:27] LABS: Anion Gap 6 mmol/L; Blood Urea Nitrogen 47 mg/dL (9-20); Calcium 8.8 mg/dL (8.4-10.2); Carbon Dioxide 29 mmol/L (22-30); Chloride 106 mmol/L (98-107); Glucose 114 mg/dL (74-99); Potassium 4.5 mmol/L (3.5-5.1); Sodium 141 mmol/L (137-145)
[2017-03-04] MEDS: SYMBICORT 160-4.5 MCG INHALER INHALATION SCH ×2 (09:07→21:36)
[2017-03-04] MEDS: LEVALBUTEROL HCL 1.25 MG INHALATION SCH ×4 (09:07→21:40)
[2017-03-04] MEDS: IPRATROPIUM 0.5 MG/2.5 ML NEBU INHALATION SCH ×4 (09:08→21:37)
[2017-03-04] MEDS: METOPROLOL TARTRATE 12.5 MG TAB PO SCH ×2 (09:20→21:05)
[2017-03-04] MEDS: ASPIRIN 81 MG PO SCH (09:20)
[2017-03-04] MEDS: guaiFENesin 600 MG TABLET.ER PO SCH ×2 (09:20→21:03)
[2017-03-04] MEDS: PRIMIDONE 25 MG TAB PO SCH ×3 (09:20→21:02)
[2017-03-04] MEDS: CITALOPRAM HYDROBROMIDE 20 MG TAB PO SCH (09:21)
[2017-03-04] MEDS: TAMSULOSIN 0.4 MG CAP.ER.24H PO SCH (09:21)
[2017-03-04] MEDS: ATORVASTATIN 20 MG TAB PO SCH (09:21)
[2017-03-04] MEDS: ENOXAPARIN 40 MG/0.4 ML SYRINGE SQ SCH (09:22)
[2017-03-04] MEDS: FINASTERIDE 5 MG TAB PO SCH (09:22)
[2017-03-04] MEDS: cefTRIAXone IN SWFI 1,000 MG/10 ML SYRINGE IVP SCH (09:25)
[2017-03-04] MEDS: ALPRAZolam 0.5 MG TAB PO SCH ×2 (09:25→21:03)
[2017-03-04 11:31] LABS: Glucose,Whole Blood 83 mg/dL (75-99)
--- NOTE | 2017-03-04 13:36 | P.PN ---
Subjective Progress Note Date: 03/04/17 81-year-old male patient with advanced COPD and right debilitated condition due to multiple medical problems and comorbidities. In terms of his COPD, the patient has advanced oxygen-dependent COPD and he has chronic biapical scarring and he has had recurrent exacerbation of his COPD. He has required multiple hospitalizations. He is quite limited in terms of his exercise capacity gets short of breath with limited amount of activity and even sometimes at rest. He came into the hospital back in December 2016 and he was treated appropriately was discharged home. Yesterday he was readmitted to the hospital because of increased shortness of breath. He was feeling very weak and he was lethargic and he was shaky and at one point he was also noted to have some altered mentation. He was having a congested cough. Unable to move around and his was concerned and the patient got moved today emergency department for further evaluation. He was afebrile. No reported aspiration. The patient was not having any chest pain. No pleurisy. No headache. No focal neurological deficit and his weakness was not focal. No hematuria. No dysuria frequency or urgency. No constipation. He has a large parastomal hernia at the site of a colostomy and the site was quite functional. He also has a right inguinal hernia that has not been of any concern at this point. In any Rate, the patient had a CAT scan of the brain in the emergency department that showed chronic atrophic changes and previous CVA. Chest x-ray showed biapical scarring more so on the right without evidence of any new onset pulmonary infiltration or pneumonias. The patient was started on antibiotics. The patient was started on systemic steroids. The patient was admitted to the hospital. Note that he is on a timely grams a prednisone on a daily basis. He is much more awake and alert at the right now. His communicating. He is pleasant. He feels better. He has no specific complaints for now. He understands this is gradually getting weaker and more debilitated. In fact he did not want to come to the hospital he was brought in by his was concerned about his respiratory deterioration. On 03/03/2017 I'm seeing this patient for a follow-up. Cliff is doing slightly better compared to yesterday. He still has some tremors. He is still feeling weak. He has a congested cough. No fever or chills. No change in mental status. No headaches. No other complaints otherwise. On 03/04/2017, the patient is excess rest or secretions and the patient will benefit from a flutter valve. The patient is getting slightly stronger. He was able to sit up on a chair today. Is tolerating his diet. No issues with his colostomy and the patient's parastomal hernias and inguinal hernia remain essentially unchanged. No fever. No chills. No altered mentation. Tremors are improved currently on Mysoline 25 mg 3 times a day. No other significant events over the past 24 hours. Mucinex was added to mobilize rest or secretions. Objective - Vital Signs Vital signs: Vital Signs Temp 97.9 F 03/04/17 08:00 Pulse 68 03/04/17 13:28 Resp 20 03/04/17 08:00 BP 140/81 03/04/17 08:00 Pulse Ox 97 03/04/17 09:08 Intake & Output 03/03/17 03/04/17 03/04/17 18:59 06:59 18:59 Intake Total 600 75 120 Output Total 250 Balance 600 -175 120 Weight 65 kg Intake: Intake, IV Titration 75 Amount Lactated Ringers 1,000 ml 75 @ 75 mls/hr IV .[id number] ALEX Rx#:[id number] Oral 600 120 Output: Urine 250 Other: # Voids 1 # Bowel Movements 1 - Exam Head exam was generally normal. There was no scleral icterus or corneal arcus. Mucous membranes were moist.Neck was supple and without jugular venous distension, thyromegaly, or carotid bruits. Carotids were easily palpable bilaterally. There was no adenopathy. Lungs diminished breath sound bilaterally along with scattered external wheezes throughout the lung [place]. Cardiac exam revealed the PMI to be normally situated and sized. The rhythm was regular and no extrasystoles were noted during several minutes of auscultation. The first and second heart sounds were normal and physiologic splitting of the second heart sound was noted. There were no murmurs, rubs, clicks, or gallops. Abdomen is soft there is an incisional hernia colostomy site is fully functional and viable. No direct tenderness no rebound tenderness or guarding. Extremities the left lower extremity is a bit externally rotated. Neurovascularly intact. No cyanosis or clubbing. Neurologically there is significant motor weakness both in upper and lower extremities. The patient has intentional tremors. Psychiatrically the patient has appropriate mood and affect.Examination of the skin revealed no evidence of significant rashes, suspicious appearing nevi or other concerning lesions. - Labs CBC & Chem 7: 03/02/17 03:22 03/04/17 06:46 Labs: Abnormal Lab Results - Last 24 Hours (Table) 03/03/17 03/04/17 03/04/17 Range/Units 21:32 06:19 06:46 BUN 47 H (9-20) mg/dL Glucose 114 H (74-99) mg/dL POC Glucose (mg/dL) 184 H 121 H (75-99) mg/dL Microbiology - Last 24 Hours (Table) 03/01/17 15:11 Blood Culture - Preliminary Blood No Growth after 48 hours Assessment and Plan Plan: Assessment 1 acute COPD exacerbation/acute bronchitis with secondary shortness of breath, improving. Chest x-ray shows evidence of an acute pneumonia. There is biapical scarring which has been a chronic finding worse on the right. 2 shortness of breath secondary to above 3 atherosclerotic heart disease with previous coronary bypass surgery, echocardiogram showing a preserved LV function with an ejection fraction of 45- 50%. The patient has had previous non-ST segment elevation myocardial infarction. 4 bladder cancer status post transurethral resection of the bladder tumor following that the patient received intravesicular chemotherapy 5 diverticular disease with history of complicated diverticulitis with bowel perforation requiring colostomy and colectomy. 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 Patient also has cerebral atrophy. Plan Provide the patient flutter valve. Provide this patient Mucinex. May consider bronchoscopy for therapeutic airway suctioning if mucus and rest or secretions become an ongoing issue. Increased level of activity as tolerated. Rest of the medication will be kept unchanged. We'll continue to follow.
[2017-03-04] MEDS: FLUCONAZOLE 100 MG TAB PO SCH (15:38)
--- NOTE | 2017-03-04 16:17 | P.PN ---
Progress Note - Text Progress Note Date: 03/04/17 DATE OF SERVICE: 03/04/2017 PRESENTING COMPLAINT: Cough, short of breath HISTORY OF PRESENT ILLNESS: 81-year-old male presents with increasing difficulty breathing with wheezing. Short of breath for the previous 2 days cough present with white sputum. Has exertional dyspnea to the point that he can is not able to walk across the room. Admitted for acute COPD exacerbation. INTERVAL HISTORY: 03/04/2017: Patient sitting up in bed at the bedside, medication changes yesterday include Xopenex was added, Solu-Medrol was cut back nebulize Atrovent was added. Primidone 25 mg by mouth 3 times a day was added and he received liter fluid yesterday. cough is productive with greenish white sputum. Tremoring is improved, appetite is also improving. Requires assistance in order to stand up requires a walker as well. Colostomy bag is working well. REVIEW OF SYSTEMS: Done for constitutional ,cardiovascular, GI, pulmonary with relevant findings as above. CURRENT MEDICATIONS Tylenol, Xanax, aspirin, Symbicort 160-4.5 g inhaler, Rocephin thousand milligrams IV piggyback, Celexa 40 mg by mouth every morning, Lovenox, Rocephin thousand milligrams IV piggyback every 24 hours, Proscar 5 mg by mouth daily, Diflucan 100 mg by mouth daily, Mucinex 1200 mg by mouth every 12 hours, Solu- Medrol 40 mg IV every 8 hours metoprolol 12.5 mg by mouth twice a day, primidone 25 mg by mouth 3 times a day Flomax 0.4 mg by mouth daily PHYSICAL EXAM VITAL SIGNS: Temperature 97.9, pulse 79, respirations 20, blood pressure 140/81, oxygen saturation 93% on 2 L. GENERAL APPEARANCE: Lying in bed, mildly anxious. HEENT: Normocephalic,Pupils equal. Conjunctiva normal. JVD not raised. Mass not palpable.white patches noted to posterior throat RESPIRATORY: Respiratory effort increased. Bronchial breath sounds bilaterally , expiratory wheezing and coarse rhonchi bilaterally to auscultation. CARDIOVASCULAR: First and second sounds normal. No edema. ABDOMEN: Soft. Liver and spleen not palpable. No tenderness. No mass palpable. PSYCHIATRY: Able to answer simple straightforward questions mentation does wax and wane, somewhat anxious. MUSCULOSKELETAL: Diffuse wasting of the muscles. INVESTIGATIONS: LABS: Sodium 141, potassium 4.5, Accu-Cheks noted. Blood culture no growth after 48 hours. ASSESSMENT: -Acute chronic obstructive pulmonary disease exacerbation, slow to respond and an ex-smoker. -Chronic congestive heart failure from diastolic dysfunction, ejection fraction 55-60%. -Essential hypertension. -Chronic carotid artery stenosis. -Benign prostatic hypertrophy. -Anxiety, depression not otherwise specified. -Chronic colostomy. -Coronary artery disease with prior history of stent. -Chronic cognitive impairment -Uncontrolled tremors with some contribution from beta agonist, slowly improving -Oropharyngeal candidiasis from patient being on steroids. PLAN: Continue with current dose of Mucinex, get patient a flutter valve, pulmonology will consider bronchoscopy for therapeutic airway suctioning of mucous or if secretions become an ongoing issue. Plan of care discussed at the bedside with patient and they are in agreement. We will follow closely. CONFIDENTIAL SECRETARY statement: Patient was seen and examined by nurse practitioner Aarti Patel and all elements of the case discussed with attending Dr. Maddox
[2017-03-04 16:40] LABS: Glucose,Whole Blood 119 mg/dL (75-99)
--- NOTE | 2017-03-04 19:55 | XR ---
EXAMINATION TYPE: XR chest 1V portable DATE OF EXAM: 03/04/2017 CLINICAL HISTORY: Difficulty breathing progress study. TECHNIQUE: Single AP portable upright view of the chest is obtained. COMPARISON: Chest x-ray from 3 days earlier. FINDINGS: Post-CABG changes with a subsequent to the sternal wires is redemonstrated. There is chron ic emphysematous change with scattered areas of fibrosis including right upper lung pleural thickenin g and most prominent scarring. There is no new suspicious focal airspace opacity, pleural effusion, o r pneumothorax seen bilaterally. Osseous structures are demineralized. There is high riding right hum eral head suggesting chronic rotator cuff tear. IMPRESSION: Overall stable findings, chronic emphysematous change and fibrosis without acute pulmon jenny process.
[2017-03-04 20:58] LABS: Glucose,Whole Blood 177 mg/dL (75-99)
[2017-03-05] MEDS: methylPREDNISolone SOD SUCCI 40 MG/ML 1 ML VIAL IV SCH ×4 (00:20→23:00)
[2017-03-05 06:16] LABS: Glucose,Whole Blood 128 mg/dL (75-99)
[2017-03-05 06:50] LABS: Magnesium 2.3 mg/dL (1.6-2.3); Potassium 5.5 mmol/L (3.5-5.1)
[2017-03-05] MEDS: IPRATROPIUM 0.5 MG/2.5 ML NEBU INHALATION SCH ×4 (07:29→19:45)
[2017-03-05] MEDS: SYMBICORT 160-4.5 MCG INHALER INHALATION SCH ×2 (07:29→19:45)
[2017-03-05] MEDS: LEVALBUTEROL HCL 1.25 MG INHALATION SCH ×4 (07:35→19:48)
[2017-03-05] MEDS: ASPIRIN 81 MG PO SCH (08:04)
[2017-03-05] MEDS: cefTRIAXone IN SWFI 1,000 MG/10 ML SYRINGE IVP SCH (08:04)
[2017-03-05] MEDS: ALPRAZolam 0.5 MG TAB PO SCH ×2 (08:04→21:10)
[2017-03-05] MEDS: PRIMIDONE 25 MG TAB PO SCH ×3 (08:05→21:10)
[2017-03-05] MEDS: FINASTERIDE 5 MG TAB PO SCH (08:05)
[2017-03-05] MEDS: guaiFENesin 600 MG TABLET.ER PO SCH ×2 (08:05→21:10)
[2017-03-05] MEDS: CITALOPRAM HYDROBROMIDE 20 MG TAB PO SCH (08:05)
[2017-03-05] MEDS: METOPROLOL TARTRATE 12.5 MG TAB PO SCH ×2 (08:05→21:10)
[2017-03-05] MEDS: ENOXAPARIN 40 MG/0.4 ML SYRINGE SQ SCH (08:05)
[2017-03-05] MEDS: TAMSULOSIN 0.4 MG CAP.ER.24H PO SCH (08:06)
--- NOTE | 2017-03-05 08:49 | PN ---
PROGRESS NOTE DATE OF SERVICE: 03/04/2017. ATTENDING NOTE: Patient seen and examined by me. I discussed with nurse practitioner, Ariadneluna. Some medications were changed around yesterday. The patient has got a quite a bit of cough and now actually bringing up sputum. Appetite is a bit better. Patient's tremors are better after increased the dose of primidone. PHYSICAL EXAMINATION: Temperature 97.9, pulse 79, respiration 20, blood pressure 140/81, pulse ox 93% on 2 L. LUNGS: Decreased breath sounds. No expiration, crackles. CARDIOVASCULAR First and second sounds normal. NEUROLOGICAL: Tremors are a bit decreased. Patient is actually eating his meal. PSYCH: Able to answer questions. INVESTIGATION: Potassium 4.5. ASSESSMENT: 1. Acute chronic obstructive pulmonary disease exacerbation, possibly acute tracheobronchitis, slow to respond. 2. Multiple medical problems. Will repeat a chest x-ray. Care was discussed at length with the , slow to respond. Sputum will be sent for Gram stain and culture. MMODL / IJN: [id number] /
[2017-03-05 11:36] LABS: Glucose,Whole Blood 147 mg/dL (75-99)
--- NOTE | 2017-03-05 12:46 | P.PN ---
Subjective Progress Note Date: 03/05/17 Principal diagnosis: acute exacerbation of severe chronic obstructive pulmonary disease 81-year-old male patient with advanced COPD and right debilitated condition due to multiple medical problems and comorbidities. In terms of his COPD, the patient has advanced oxygen-dependent COPD and he has chronic biapical scarring and he has had recurrent exacerbation of his COPD. He has required multiple hospitalizations. He is quite limited in terms of his exercise capacity gets short of breath with limited amount of activity and even sometimes at rest. He came into the hospital back in December 2016 and he was treated appropriately was discharged home. Yesterday he was readmitted to the hospital because of increased shortness of breath. He was feeling very weak and he was lethargic and he was shaky and at one point he was also noted to have some altered mentation. He was having a congested cough. Unable to move around and his was concerned and the patient got moved today emergency department for further evaluation. He was afebrile. No reported aspiration. The patient was not having any chest pain. No pleurisy. No headache. No focal neurological deficit and his weakness was not focal. No hematuria. No dysuria frequency or urgency. No constipation. He has a large parastomal hernia at the site of a colostomy and the site was quite functional. He also has a right inguinal hernia that has not been of any concern at this point. In any Rate, the patient had a CAT scan of the brain in the emergency department that showed chronic atrophic changes and previous CVA. Chest x-ray showed biapical scarring more so on the right without evidence of any new onset pulmonary infiltration or pneumonias. The patient was started on antibiotics. The patient was started on systemic steroids. The patient was admitted to the hospital. Note that he is on a timely grams a prednisone on a daily basis. He is much more awake and alert at the right now. His communicating. He is pleasant. He feels better. He has no specific complaints for now. He understands this is gradually getting weaker and more debilitated. In fact he did not want to come to the hospital he was brought in by his was concerned about his respiratory deterioration. On 03/03/2017 I'm seeing this patient for a follow-up. Cliff is doing slightly better compared to yesterday. He still has some tremors. He is still feeling weak. He has a congested cough. No fever or chills. No change in mental status. No headaches. No other complaints otherwise. On 03/04/2017, the patient is excess rest or secretions and the patient will benefit from a flutter valve. The patient is getting slightly stronger. He was able to sit up on a chair today. Is tolerating his diet. No issues with his colostomy and the patient's parastomal hernias and inguinal hernia remain essentially unchanged. No fever. No chills. No altered mentation. Tremors are improved currently on Mysoline 25 mg 3 times a day. No other significant events over the past 24 hours. Mucinex was added to mobilize rest or secretions. On 03/05/2017, patient remains short of breath, continues to have some productive cough with excessive purulent secretions. Compliant with the medications and bronchodilators. Clearly the patient is feeling improved but definitely not worse.chest x-ray from yesterday was reviewed patient continues to have chronic changes in the right upper lobe, mostly fibrotic changes old and chronic. Objective - Vital Signs Vital signs: Vital Signs Temp 96.6 F L 03/05/17 00:00 Pulse 68 03/05/17 12:18 Resp 18 03/05/17 08:00 BP 155/69 03/05/17 08:00 Pulse Ox 99 03/05/17 08:00 Intake & Output 03/04/17 03/05/17 03/05/17 18:59 06:59 18:59 Intake Total 600 360 Output Total 350 250 200 Balance 250 -250 160 Weight 66.6 kg Intake: Oral 600 360 Output: Urine 350 250 200 Other: Voiding Method Urinal Urinal # Voids 0 # Bowel Movements 1 - Exam Physical Exam: Revealed an 81-year-old white male, frail looking, in no distress. HEENT:[Neck is supple.] [No neck masses.] [No thyromegaly.] [No JVD.] Chest: [diminished breath sounds at the bases, scattered rhonchi and wheezes noted bilaterally. No chest wall tenderness. Cardiac Exam: [Normal S1 and S2, no S3 gallop, no murmur.] Abdomen: [Soft, nontender, no megaly, no rebound, no guarding, normal bowel sounds.]colostomy site is fully functional and viable. Extremities: [No clubbing, no edema, no cyanosis.] Neurological Exam: [No focal neurologic deficit.] lymphatics: No lymphadenopathy Psychiatric: Normal mood affect and mental status exam. - Labs CBC & Chem 7: 03/02/17 03:22 03/05/17 10:46 Labs: Abnormal Lab Results - Last 24 Hours (Table) 03/04/17 03/04/17 03/05/17 Range/Units 16:26 20:56 05:35 Potassium 5.5 H (3.5-5.1) mmol/L POC Glucose (mg/dL) 119 H 177 H (75-99) mg/dL 03/05/17 03/05/17 Range/Units 06:13 11:30 Potassium (3.5-5.1) mmol/L POC Glucose (mg/dL) 128 H 147 H (75-99) mg/dL Microbiology - Last 24 Hours (Table) 03/01/17 15:11 Blood Culture - Preliminary Blood No Growth after 72 hours Assessment and Plan Assessment: 1 acute COPD exacerbation/acute bronchitis with secondary shortness of breath, improving. Chest x-ray shows evidence of an acute pneumonia. There is biapical scarring which has been a chronic finding worse on the right. 2 shortness of breath secondary to above 3 atherosclerotic heart disease with previous coronary bypass surgery, echocardiogram showing a preserved LV function with an ejection fraction of 45- 50%. The patient has had previous non-ST segment elevation myocardial infarction. 4 bladder cancer status post transurethral resection of the bladder tumor following that the patient received intravesicular chemotherapy 5 diverticular disease with history of complicated diverticulitis with bowel perforation requiring colostomy and colectomy. 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 Patient also has cerebral atrophy. Recommendation: Continue present supportive care measures, no need for bronchoscopy at this point since the patient seems to be improving. We'll follow closely, possible discharge planning in the next 24-48 hours may consider rehab referral. Time with Patient: Less than 30
--- NOTE | 2017-03-05 15:41 | P.PN ---
Progress Note - Text Progress Note Date: 03/05/17 DATE OF SERVICE: 03/05/2017 PRESENTING COMPLAINT: Cough, short of breath HISTORY OF PRESENT ILLNESS: 81-year-old male presents with increasing difficulty breathing with wheezing. Short of breath for the previous 2 days cough present with white sputum. Has exertional dyspnea to the point that he can is not able to walk across the room. Admitted for acute COPD exacerbation. INTERVAL HISTORY: 03/05/2017: patient lying in bed, appears comfortable yet mildly anxious. Continues to have a cough with some sputum production, green yellow in color. Short of breath with minimal exertion. Tremors improved, appetite improving eating about 50% of his meals.requires a walker and assistance to stand, colostomy bag is working well. at the bedside. 03/04/2017: Patient sitting up in bed at the bedside, medication changes yesterday include Xopenex was added, Solu-Medrol was cut back nebulize Atrovent was added. Primidone 25 mg by mouth 3 times a day was added and he received liter fluid yesterday. cough is productive with greenish white sputum. Tremoring is improved, appetite is also improving. Requires assistance in order to stand up requires a walker as well. Colostomy bag is working well. REVIEW OF SYSTEMS: Done for constitutional ,cardiovascular, GI, pulmonary with relevant findings as above. CURRENT MEDICATIONS Tylenol, Xanax, aspirin, Symbicort 160-4.5 g inhaler, Rocephin thousand milligrams IV piggyback, Celexa 40 mg by mouth every morning, Lovenox, Rocephin thousand milligrams IV piggyback every 24 hours, Proscar 5 mg by mouth daily, Diflucan 100 mg by mouth daily, Mucinex 1200 mg by mouth every 12 hours, Solu- Medrol 40 mg IV every 8 hours metoprolol 12.5 mg by mouth twice a day, primidone 25 mg by mouth 3 times a day Flomax 0.4 mg by mouth daily PHYSICAL EXAM VITAL SIGNS: Temperature 96.6, pulse 63, respiratory rate 18, blood pressure 139/77, oxygen saturation 99% on 2 L. GENERAL APPEARANCE: Lying in bed, mildly anxious. HEENT: normocephalic Pupils equal. Conjunctiva normal. JVD not raised. Mass not palpable, white patches noted to oropharynx and posterior throat RESPIRATORY: Respiratory effort increased. Bronchial breath sounds bilaterally , expiratory wheezing and coarse rhonchi bilaterally to auscultation. CARDIOVASCULAR: First and second sounds normal. No edema. ABDOMEN: Soft. Liver and spleen not palpable. No tenderness. No mass palpable. PSYCHIATRY: Able to answer simple straightforward questions mentation does wax and wane, somewhat anxious. MUSCULOSKELETAL: Diffuse wasting of the muscles. INVESTIGATIONS: LABS: Potassium 5.0 Blood culture no growth after 72 hours. ASSESSMENT: -Acute chronic obstructive pulmonary disease exacerbation, possibly acute tracheobronchitis and an ex-smoker slow to respond . -Chronic congestive heart failure from diastolic dysfunction, ejection fraction 55-60%. -Essential hypertension. -Chronic carotid artery stenosis. -Benign prostatic hypertrophy. -Anxiety, depression not otherwise specified. -Chronic colostomy. -Coronary artery disease with prior history of stent. -Chronic cognitive impairment -Uncontrolled tremors with some contribution from beta agonist, slowly improving -Oropharyngeal candidiasis from patient being on steroids. PLAN: Continue with current dose of Mucinex, encourage flutter valve use, oral thrush improving,continue diflucan increase activity as patient can tolerate no need for bronchoscopy at this time as the patient is improving. Discharge planning for the next 24-48 hours possibly to rehab. Plan of care discussed at the bedside with patient and they are in agreement. We will follow closely. DRUM SANDER statement: Patient was seen and examined by nurse practitioner Aarti Patel and all elements of the case discussed with attending Dr. Maddox
[2017-03-05 16:54] LABS: Glucose,Whole Blood 113 mg/dL (75-99)
[2017-03-05] MEDS: FLUCONAZOLE 100 MG TAB PO SCH (18:07)
[2017-03-05] MEDS: ATORVASTATIN 20 MG TAB PO SCH (21:10)
[2017-03-05 21:13] LABS: Glucose,Whole Blood 152 mg/dL (75-99)
--- NOTE | 2017-03-05 21:52 | PN ---
PROGRESS NOTE DATE OF SERVICE: 03/05/2017 ATTENDING NOTE: This patient was seen and examined by me. I discussed the case with the nurse practitioner Ms. Patel. Patient was admitted with multiple problems, including acute COPD exacerbation. Coughing up some yellow-green sputum. Wheezing is somewhat better. Tremors are better. Eating better. Sitting up in a chair. PHYSICAL EXAMINATION: Temperature 96.6, pulse 63, respiration 18, blood pressure 139/77, pulse ox 99% on room air. LUNGS: Decreased breath sounds. Decreased crackles. Some wheezing. Less tremors. PSYCH: Answering questions. ASSESSMENT: 1. Acute chronic obstructive pulmonary disease exacerbation, probably acute tracheobronchitis, slow to respond. 2. Uncontrolled tremors. Responded well to primidone. PLAN: Care was discussed with the patient and his at the bedside. The patient is also on Diflucan for oropharyngeal candidiasis, improved. MMODL / IJN: [id number] /
[2017-03-06 06:16] LABS: Glucose,Whole Blood 113 mg/dL (75-99)
[2017-03-06] MEDS: CITALOPRAM HYDROBROMIDE 20 MG TAB PO SCH (08:17)
[2017-03-06] MEDS: PRIMIDONE 25 MG TAB PO SCH ×3 (08:17→23:34)
[2017-03-06] MEDS: guaiFENesin 600 MG TABLET.ER PO SCH ×2 (08:17→23:33)
[2017-03-06] MEDS: FINASTERIDE 5 MG TAB PO SCH (08:17)
[2017-03-06] MEDS: TAMSULOSIN 0.4 MG CAP.ER.24H PO SCH (08:17)
[2017-03-06] MEDS: METOPROLOL TARTRATE 12.5 MG TAB PO SCH ×2 (08:17→23:33)
[2017-03-06] MEDS: ENOXAPARIN 40 MG/0.4 ML SYRINGE SQ SCH (08:17)
[2017-03-06] MEDS: ALPRAZolam 0.5 MG TAB PO SCH ×2 (08:17→23:33)
[2017-03-06] MEDS: methylPREDNISolone SOD SUCCI 40 MG/ML 1 ML VIAL IV SCH ×3 (08:18→23:33)
[2017-03-06] MEDS: cefTRIAXone IN SWFI 1,000 MG/10 ML SYRINGE IVP SCH (08:18)
[2017-03-06] MEDS: ASPIRIN 81 MG PO SCH (08:18)
[2017-03-06] MEDS: LEVALBUTEROL HCL 1.25 MG INHALATION SCH ×4 (08:31→20:27)
[2017-03-06] MEDS: IPRATROPIUM 0.5 MG/2.5 ML NEBU INHALATION SCH ×4 (08:31→20:27)
[2017-03-06] MEDS: SYMBICORT 160-4.5 MCG INHALER INHALATION SCH ×2 (08:36→20:27)
[2017-03-06 12:21] LABS: Glucose,Whole Blood 114 mg/dL (75-99)
--- NOTE | 2017-03-06 13:43 | P.PN ---
Subjective Progress Note Date: 03/06/17 Principal diagnosis: Acute exacerbation of severe chronic obstructive pulmonary disease, oxygen dependent 81-year-old male patient with advanced COPD and right debilitated condition due to multiple medical problems and comorbidities. In terms of his COPD, the patient has advanced oxygen-dependent COPD and he has chronic biapical scarring and he has had recurrent exacerbation of his COPD. He has required multiple hospitalizations. He is quite limited in terms of his exercise capacity gets short of breath with limited amount of activity and even sometimes at rest. He came into the hospital back in December 2016 and he was treated appropriately was discharged home. Yesterday he was readmitted to the hospital because of increased shortness of breath. He was feeling very weak and he was lethargic and he was shaky and at one point he was also noted to have some altered mentation. He was having a congested cough. Unable to move around and his was concerned and the patient got moved today emergency department for further evaluation. He was afebrile. No reported aspiration. The patient was not having any chest pain. No pleurisy. No headache. No focal neurological deficit and his weakness was not focal. No hematuria. No dysuria frequency or urgency. No constipation. He has a large parastomal hernia at the site of a colostomy and the site was quite functional. He also has a right inguinal hernia that has not been of any concern at this point. In any Rate, the patient had a CAT scan of the brain in the emergency department that showed chronic atrophic changes and previous CVA. Chest x-ray showed biapical scarring more so on the right without evidence of any new onset pulmonary infiltration or pneumonias. The patient was started on antibiotics. The patient was started on systemic steroids. The patient was admitted to the hospital. Note that he is on a timely grams a prednisone on a daily basis. He is much more awake and alert at the right now. His communicating. He is pleasant. He feels better. He has no specific complaints for now. He understands this is gradually getting weaker and more debilitated. In fact he did not want to come to the hospital he was brought in by his was concerned about his respiratory deterioration. On 03/03/2017 I'm seeing this patient for a follow-up. Cliff is doing slightly better compared to yesterday. He still has some tremors. He is still feeling weak. He has a congested cough. No fever or chills. No change in mental status. No headaches. No other complaints otherwise. On 03/04/2017, the patient is excess rest or secretions and the patient will benefit from a flutter valve. The patient is getting slightly stronger. He was able to sit up on a chair today. Is tolerating his diet. No issues with his colostomy and the patient's parastomal hernias and inguinal hernia remain essentially unchanged. No fever. No chills. No altered mentation. Tremors are improved currently on Mysoline 25 mg 3 times a day. No other significant events over the past 24 hours. Mucinex was added to mobilize rest or secretions. On 03/05/2017, patient remains short of breath, continues to have some productive cough with excessive purulent secretions. Compliant with the medications and bronchodilators. Clearly the patient is feeling improved but definitely not worse.chest x-ray from yesterday was reviewed patient continues to have chronic changes in the right upper lobe, mostly fibrotic changes old and chronic. The patient is seen again today 03/06/2017 in follow-up on the selective care unit. He is awake and alert in no acute distress. He does remain quite weak and debilitated. He states he is breathing a little better today as compared to yesterday. He's been up in the chair with assistance. Blood and sputum cultures reveal no growth. He remains on empiric ceftriaxone. Lisa afebrile. Maintaining good O2 saturations in the upper 90s on 2 L/m per nasal cannula. He is hemodynamically stable. Objective - Vital Signs Vital signs: Vital Signs Temp 97.6 F 03/06/17 12:00 Pulse 68 03/06/17 12:00 Resp 20 03/06/17 12:00 BP 153/78 03/06/17 12:00 Pulse Ox 96 03/06/17 12:00 Intake & Output 03/05/17 03/06/17 03/06/17 18:59 06:59 18:59 Intake Total 850 120 Output Total 200 540 Balance 650 -540 120 Weight 70 kg Intake: IV 10 0.9 10 Oral 840 120 Output: Urine 200 540 Other: Voiding Method Urinal Urinal Urinal - Exam Physical Exam: Revealed an 81-year-old white male, frail looking, in no distress. HEENT:[Neck is supple.] [No neck masses.] [No thyromegaly.] [No JVD.] Chest: [diminished breath sounds at the bases, scattered rhonchi and wheezes noted bilaterally. No chest wall tenderness. Cardiac Exam: [Normal S1 and S2, no S3 gallop, no murmur.] Abdomen: [Soft, nontender, no megaly, no rebound, no guarding, normal bowel sounds.]colostomy site is fully functional and viable. Extremities: [No clubbing, no edema, no cyanosis.] Neurological Exam: [No focal neurologic deficit.] lymphatics: No lymphadenopathy Psychiatric: Normal mood affect and mental status exam. - Labs CBC & Chem 7: 03/02/17 03:22 03/05/17 10:46 Labs: Abnormal Lab Results - Last 24 Hours (Table) 03/05/17 03/05/17 03/06/17 Range/Units 16:49 21:11 06:10 POC Glucose (mg/dL) 113 H 152 H 113 H (75-99) mg/dL 03/06/17 Range/Units 12:19 POC Glucose (mg/dL) 114 H (75-99) mg/dL Microbiology - Last 24 Hours (Table) 03/06/17 11:03 Gram Stain - Final Sputum Sputum Culture - Final 03/01/17 15:11 Blood Culture - Preliminary Blood No Growth after 96 hours Assessment and Plan Assessment: acute COPD exacerbation/acute bronchitis with secondary shortness of breath, improving. Chest x-ray shows evidence of an acute pneumonia. There is biapical scarring which has been a chronic finding worse on the right. 2 shortness of breath secondary to above 3 atherosclerotic heart disease with previous coronary bypass surgery, echocardiogram showing a preserved LV function with an ejection fraction of 45- 50%. The patient has had previous non-ST segment elevation myocardial infarction. 4 bladder cancer status post transurethral resection of the bladder tumor following that the patient received intravesicular chemotherapy 5 diverticular disease with history of complicated diverticulitis with bowel perforation requiring colostomy and colectomy. 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 Patient also has cerebral atrophy. Plan: The patient was seen and evaluated by Dr. Rivera. He is currently stable from the pulmonary standpoint. He does remain however progressively more weak and debilitated from previous admissions. Inpatient rehabilitation may be beneficial. In the interim we'll continue with his current pulmonary medications. We'll continue to follow. I, the cosigning physician, have performed a history and physical examination on the patient. Lung sounds are clear with diminished throughout. Maintaining good O2 saturations in the 90s on 2 L/m per nasal cannula. I have discussed the assessment and plan of care with my nurse practitioner, Mickie Slaughter. I attest to the above note as dictated by her.
[2017-03-06] MEDS: FLUCONAZOLE 100 MG TAB PO SCH (16:49)
[2017-03-06 17:06] LABS: Glucose,Whole Blood 114 mg/dL (75-99)
--- NOTE | 2017-03-06 19:35 | P.PN ---
Progress Note - Text Progress Note Date: 03/06/17 DATE OF SERVICE: 03/06/2017 PRESENTING COMPLAINT: Cough, short of breath HISTORY OF PRESENT ILLNESS: 81-year-old male presents with increasing difficulty breathing with wheezing. Short of breath for the previous 2 days cough present with white sputum. Has exertional dyspnea to the point that he can is not able to walk across the room. Admitted for acute COPD exacerbation. INTERVAL HISTORY: 03/06/2017: Patient resting quietly in bed at the bedside appears comfortable, minimal tremors noted. Continues to have a very coarse productive cough, however patient has difficulties bringing sputum up. Continues to be short of breath with minimal exertion. Activity endurance is low, weak and debilitated agreeable to work with physical therapy, tolerating his diet eating about 50% of each meal, uses his flutter valve, colostomy bag is working well. 03/05/2017: patient lying in bed, appears comfortable yet mildly anxious. Continues to have a cough with some sputum production, green yellow in color. Short of breath with minimal exertion. Tremors improved, appetite improving eating about 50% of his meals.requires a walker and assistance to stand, colostomy bag is working well. at the bedside. 03/04/2017: Patient sitting up in bed at the bedside, medication changes yesterday include Xopenex was added, Solu-Medrol was cut back nebulize Atrovent was added. Primidone 25 mg by mouth 3 times a day was added and he received liter fluid yesterday. cough is productive with greenish white sputum. Tremoring is improved, appetite is also improving. Requires assistance in order to stand up requires a walker as well. Colostomy bag is working well. REVIEW OF SYSTEMS: Done for constitutional ,cardiovascular, GI, pulmonary with relevant findings as above. CURRENT MEDICATIONS Tylenol, Xanax, aspirin, Lipitor, Symbicort, Rocephin, Celexa, Lovenox, Proscar , Diflucan, the Xanax, Solu-Medrol, Lopressor, Mysoline, Flomax, PHYSICAL EXAM VITAL SIGNS: GENERAL APPEARANCE: Lying in bed, mildly anxious. HEENT: normocephalic Pupils equal. Conjunctiva normal. JVD not raised. Mass not palpable, white patches noted to oropharynx and posterior throat RESPIRATORY: Respiratory effort increased. Bronchial breath sounds bilaterally , expiratory wheezing and coarse rhonchi bilaterally to auscultation. CARDIOVASCULAR: First and second sounds normal. No edema. ABDOMEN: Soft. Liver and spleen not palpable. No tenderness. No mass palpable. PSYCHIATRY: Able to answer simple straightforward questions mentation does wax and wane, somewhat anxious. MUSCULOSKELETAL: Diffuse wasting of the muscles. INVESTIGATIONS: LABS: Accu-Cheks noted. Blood culture no growth after 72 hours. ASSESSMENT: -Acute chronic obstructive pulmonary disease exacerbation, possibly acute tracheobronchitis in an ex-smoker slow to respond . -Chronic congestive heart failure from diastolic dysfunction, ejection fraction 55-60%. -Essential hypertension. -Chronic carotid artery stenosis. -Benign prostatic hypertrophy. -Anxiety, depression not otherwise specified. -Chronic colostomy. -Coronary artery disease with prior history of stent. -Chronic cognitive impairment -Uncontrolled tremors with some contribution from beta agonist, responded well with primidone -Oropharyngeal candidiasis from patient being on steroids. PLAN: Continue with current dose of Mucinex, encourage flutter valve use, continue diflucan increase activity as patient can tolerate no need for bronchoscopy at this time as the patient is improving. Discharge planning home versus rehab. Plan of care discussed at the bedside with patient and they are in agreement. We will follow closely. BIN OPERATOR statement: Patient was seen and examined by nurse practitioner Aarti Patel and all elements of the case discussed with attending Dr. Maddox
[2017-03-06 21:07] LABS: Glucose,Whole Blood 163 mg/dL (75-99)
--- NOTE | 2017-03-06 21:47 | PN ---
PROGRESS NOTE DATE OF SERVICE: 03/06/17. ATTENDING NOTE: The patient was seen and examined by me. Discussed with nurse practitioner, Ms. Patel. The patient with COPD exacerbation. Overall doing much better. Breathing is better. Tolerating a diet. Tremors are improved with primidone. PHYSICAL EXAMINATION: Temperature 97.3, pulse 59, respiratory 18, blood pressure 135/68, pulse ox 98% on 2 L. Lungs improved air entry. Decreased congestion anteriorly. Oral cavity increased. Siobhan patches. Neurological: Tremors improved. Accu-Cheks are noted. ASSESSMENT: 1. Acute chronic obstructive pulmonary disease exacerbation and tracheobronchitis, clinically improving. 2. Other medical conditions stable. PLAN: The patient's keen to go home, probably looking at discharge in next 24 hours with home care. Dose of Solu-Medrol to be further cut back. MMODL / IJN: [id number] /
[2017-03-06] MEDS: ATORVASTATIN 20 MG TAB PO SCH (23:33)
[2017-03-07 07:32] LABS: Glucose,Whole Blood 114 mg/dL (75-99)
[2017-03-07] MEDS: SYMBICORT 160-4.5 MCG INHALER INHALATION SCH ×2 (07:55→20:19)
[2017-03-07] MEDS: IPRATROPIUM 0.5 MG/2.5 ML NEBU INHALATION SCH ×4 (07:55→20:19)
[2017-03-07] MEDS: LEVALBUTEROL HCL 1.25 MG INHALATION SCH ×4 (07:56→20:20)
[2017-03-07] MEDS: CITALOPRAM HYDROBROMIDE 20 MG TAB PO SCH (07:56)
[2017-03-07] MEDS: ASPIRIN 81 MG PO SCH (07:57)
[2017-03-07] MEDS: ALPRAZolam 0.5 MG TAB PO SCH ×2 (07:57→21:32)
[2017-03-07] MEDS: TAMSULOSIN 0.4 MG CAP.ER.24H PO SCH (07:57)
[2017-03-07] MEDS: ENOXAPARIN 40 MG/0.4 ML SYRINGE SQ SCH (07:57)
[2017-03-07] MEDS: guaiFENesin 600 MG TABLET.ER PO SCH ×2 (07:57→21:33)
[2017-03-07] MEDS: methylPREDNISolone SOD SUCCI 40 MG/ML 1 ML VIAL IV SCH (07:57)
[2017-03-07] MEDS: PRIMIDONE 25 MG TAB PO SCH ×3 (07:57→21:33)
[2017-03-07] MEDS: FINASTERIDE 5 MG TAB PO SCH (07:57)
[2017-03-07] MEDS: METOPROLOL TARTRATE 12.5 MG TAB PO SCH ×2 (07:57→21:34)
[2017-03-07 08:07] LABS: Anion Gap 3 mmol/L; Blood Urea Nitrogen 40 mg/dL (9-20); Calcium 8.8 mg/dL (8.4-10.2); Carbon Dioxide 31 mmol/L (22-30); Chloride 105 mmol/L (98-107); Glucose 104 mg/dL (74-99); Sodium 139 mmol/L (137-145)
[2017-03-07] MEDS: cefTRIAXone IN SWFI 1,000 MG/10 ML SYRINGE IVP SCH (08:19)
[2017-03-07 11:26] LABS: Glucose,Whole Blood 166 mg/dL (75-99)
--- NOTE | 2017-03-07 11:57 | P.PN ---
Subjective Progress Note Date: 03/07/17 Principal diagnosis: acute COPD exacerbation/acute bronchitis with secondary shortness of breath, improving 81-year-old male patient with advanced COPD and right debilitated condition due to multiple medical problems and comorbidities. In terms of his COPD, the patient has advanced oxygen-dependent COPD and he has chronic biapical scarring and he has had recurrent exacerbation of his COPD. He has required multiple hospitalizations. He is quite limited in terms of his exercise capacity gets short of breath with limited amount of activity and even sometimes at rest. He came into the hospital back in December 2016 and he was treated appropriately was discharged home. Yesterday he was readmitted to the hospital because of increased shortness of breath. He was feeling very weak and he was lethargic and he was shaky and at one point he was also noted to have some altered mentation. He was having a congested cough. Unable to move around and his was concerned and the patient got moved today emergency department for further evaluation. He was afebrile. No reported aspiration. The patient was not having any chest pain. No pleurisy. No headache. No focal neurological deficit and his weakness was not focal. No hematuria. No dysuria frequency or urgency. No constipation. He has a large parastomal hernia at the site of a colostomy and the site was quite functional. He also has a right inguinal hernia that has not been of any concern at this point. In any Rate, the patient had a CAT scan of the brain in the emergency department that showed chronic atrophic changes and previous CVA. Chest x-ray showed biapical scarring more so on the right without evidence of any new onset pulmonary infiltration or pneumonias. The patient was started on antibiotics. The patient was started on systemic steroids. The patient was admitted to the hospital. Note that he is on a timely grams a prednisone on a daily basis. He is much more awake and alert at the right now. His communicating. He is pleasant. He feels better. He has no specific complaints for now. He understands this is gradually getting weaker and more debilitated. In fact he did not want to come to the hospital he was brought in by his was concerned about his respiratory deterioration. On 03/03/2017 I'm seeing this patient for a follow-up. Cliff is doing slightly better compared to yesterday. He still has some tremors. He is still feeling weak. He has a congested cough. No fever or chills. No change in mental status. No headaches. No other complaints otherwise. On 03/04/2017, the patient is excess rest or secretions and the patient will benefit from a flutter valve. The patient is getting slightly stronger. He was able to sit up on a chair today. Is tolerating his diet. No issues with his colostomy and the patient's parastomal hernias and inguinal hernia remain essentially unchanged. No fever. No chills. No altered mentation. Tremors are improved currently on Mysoline 25 mg 3 times a day. No other significant events over the past 24 hours. Mucinex was added to mobilize rest or secretions. On 03/05/2017, patient remains short of breath, continues to have some productive cough with excessive purulent secretions. Compliant with the medications and bronchodilators. Clearly the patient is feeling improved but definitely not worse.chest x-ray from yesterday was reviewed patient continues to have chronic changes in the right upper lobe, mostly fibrotic changes old and chronic. The patient is seen again today 03/06/2017 in follow-up on the selective care unit. He is awake and alert in no acute distress. He does remain quite weak and debilitated. He states he is breathing a little better today as compared to yesterday. He's been up in the chair with assistance. Blood and sputum cultures reveal no growth. He remains on empiric ceftriaxone. Lisa afebrile. Maintaining good O2 saturations in the upper 90s on 2 L/m per nasal cannula. He is hemodynamically stable. On July 18 patient seen in follow-up on medical surgical floor. He has been up ambulating with a walker with therapy, tolerated activity well. He is awake, alert, in no acute distress. Lung sounds reveal coarse rhonchi bilaterally, patient has audible rattling in his chest. The is at the bedside, states patient has not been able to bring up much sputum. otherwise patient is alert in no respiratory distress, on 2 L per nasal cannula. afebrile, respirations are even and nonlabored. Some mild swelling noted in his bilateral feet. last chest x-ray from [facility] 2017 shows chronic emphysematous change and fibrosis without acute pulmonary process. discharge planning is in progress, for subacute rehab placement, however patient is insisting on going home. The spouse is concerned that the patient is still little weak to go straight home. Objective - Vital Signs Vital signs: Vital Signs Temp 97.2 F L 03/07/17 07:00 Pulse 60 03/07/17 11:40 Resp 18 03/07/17 08:00 BP 175/78 03/07/17 07:00 Pulse Ox 97 03/07/17 07:00 Intake & Output 03/06/17 03/07/17 03/07/17 18:59 06:59 18:59 Intake Total 120 Output Total 400 Balance -280 Intake: Oral 120 Output: Urine 400 Other: Voiding Method Toilet Toilet Toilet Urinal Urinal Urinal # Voids 1 - Exam Physical Exam: Revealed an 81-year-old white male, frail looking, in no distress. HEENT:[Neck is supple.] [No neck masses.] [No thyromegaly.] [No JVD.] Chest: [diminished breath sounds at the bases, scattered rhonchi and wheezes noted bilaterally. No chest wall tenderness. Cardiac Exam: [Normal S1 and S2, no S3 gallop, no murmur.] Abdomen: [Soft, nontender, no megaly, no rebound, no guarding, normal bowel sounds.]colostomy site is fully functional and viable. Extremities: [No clubbing, no edema, no cyanosis.] Neurological Exam: [No focal neurologic deficit.] lymphatics: No lymphadenopathy Psychiatric: Normal mood affect and mental status exam. - Labs CBC & Chem 7: 03/02/17 03:22 03/07/17 07:18 Labs: Abnormal Lab Results - Last 24 Hours (Table) 03/06/17 03/06/17 03/06/17 Range/Units 12:19 17:04 21:06 Carbon Dioxide (22-30) mmol/L BUN (9-20) mg/dL Glucose (74-99) mg/dL POC Glucose (mg/dL) 114 H 114 H 163 H (75-99) mg/dL 03/07/17 03/07/17 03/07/17 Range/Units 07:18 07:26 11:22 Carbon Dioxide 31 H (22-30) mmol/L BUN 40 H (9-20) mg/dL Glucose 104 H (74-99) mg/dL POC Glucose (mg/dL) 114 H 166 H (75-99) mg/dL Microbiology - Last 24 Hours (Table) 03/01/17 15:11 Blood Culture - Preliminary Blood No Growth after 120 hours 03/06/17 11:03 Gram Stain - Final Sputum Sputum Culture - Final Assessment and Plan Plan: Assessment: 1 acute COPD exacerbation/acute bronchitis with secondary shortness of breath, improving. Chest x-ray shows no evidence of an acute pneumonia. There is biapical scarring which has been a chronic finding worse on the right. 2 shortness of breath secondary to above 3 atherosclerotic heart disease with previous coronary bypass surgery, echocardiogram showing a preserved LV function with an ejection fraction of 45- 50%. The patient has had previous non-ST segment elevation myocardial infarction. 4 bladder cancer status post transurethral resection of the bladder tumor following that the patient received intravesicular chemotherapy 5 diverticular disease with history of complicated diverticulitis with bowel perforation requiring colostomy and colectomy. 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 Patient also has cerebral atrophy. Plan: Patient remains stable from pulmonary standpoint, increase activity, encourage walking with a walker. Patient is however still generally weak, could definitely benefit from short-term subacute rehab, however he insists on going home. Still has some scattered rhonchi, and audible rattling in his chest, from pulmonary secretions. Increase pulmonary toileting. Continue the rest the medical treatments. I performed a history & physical examination of the patient and discussed their management with my nurse practitioner, Adelaida Griggs. I reviewed the nurse practitioner's note and agree with the documented findings and plan of care. Lung sounds are positive for scattered rhonchi throughout. The findings and the impression was discussed with the patient. I attest to the documentation by the nurse practitioner. Time with Patient: Less than 30
[2017-03-07] MEDS: FLUCONAZOLE 100 MG TAB PO SCH (16:04)
[2017-03-07 16:56] LABS: Glucose,Whole Blood 101 mg/dL (75-99)
--- NOTE | 2017-03-07 19:45 | PN ---
PROGRESS NOTE DATE OF SERVICE: 03/07/2017. ATTENDING NOTE: This patient was seen and examined by me. I discussed the case with the nurse practitioner Ms. Patel. Patient is sitting up in a chair. Feeling better. Cough. Sputum production has greatly gone done. Tolerating a diet. Tremors are better. PHYSICAL EXAMINATION: Temperature 97.5, pulse 56, respiration 18, blood pressure 139/77, pulse ox 97% on 2 L. LUNGS: Decreased breath sounds. PSYCH: Answering questions. Tremors have improved. INVESTIGATIONS: Potassium 5, BUN 40, creatinine 0.94. ASSESSMENT: 1. Acute chronic obstructive pulmonary disease exacerbation and tracheobronchitis, improving. 2. Other medical conditions are stable. Patient has now agreed to go to rehab, which probably will be appropriate. Overall prognosis is guarded. The patient will switch over to oral prednisone. Will switch the patient to p.o. Ceftin. MMODL / IJN: [id number] /
[2017-03-07 20:03] LABS: Glucose,Whole Blood 141 mg/dL (75-99)
--- NOTE | 2017-03-07 20:10 | P.PN ---
Progress Note - Text Progress Note Date: 03/07/17 DATE OF SERVICE: 03/07/2017 PRESENTING COMPLAINT: Cough, short of breath HISTORY OF PRESENT ILLNESS: 81-year-old male presents with increasing difficulty breathing with wheezing. Short of breath for the previous 2 days cough present with white sputum. Has exertional dyspnea to the point that he can is not able to walk across the room. Admitted for acute COPD exacerbation. INTERVAL HISTORY: 03/07/2017: patient sitting on the edge of the bed attempting to get up with assistance of staff. Using a walker. Gait is very tentative weak, he is max assist. Cough present coarse productive continues to have difficulty bringing up sputum. Shortness of breath improving, tremors less noticeable, activity and endurance is low would benefit from a stay at rehabilitation however patient is not very agreeable to this idea. Tolerating his diet eating about 50% of each meal, continues to use his flutter valve and incentive spirometer, colostomy bag is working well. 03/06/2017: Patient resting quietly in bed at the bedside appears comfortable, minimal tremors noted. Continues to have a very coarse productive cough, however patient has difficulties bringing sputum up. Continues to be short of breath with minimal exertion. Activity endurance is low, weak and debilitated agreeable to work with physical therapy, tolerating his diet eating about 50% of each meal, uses his flutter valve, colostomy bag is working well. 03/05/2017: patient lying in bed, appears comfortable yet mildly anxious. Continues to have a cough with some sputum production, green yellow in color. Short of breath with minimal exertion. Tremors improved, appetite improving eating about 50% of his meals.requires a walker and assistance to stand, colostomy bag is working well. at the bedside. 03/04/2017: Patient sitting up in bed at the bedside, medication changes yesterday include Xopenex was added, Solu-Medrol was cut back nebulize Atrovent was added. Primidone 25 mg by mouth 3 times a day was added and he received liter fluid yesterday. cough is productive with greenish white sputum. Tremoring is improved, appetite is also improving. Requires assistance in order to stand up requires a walker as well. Colostomy bag is working well. REVIEW OF SYSTEMS: Done for constitutional ,cardiovascular, GI, pulmonary with relevant findings as above. CURRENT MEDICATIONS Tylenol, Xanax, aspirin, Lipitor, Symbicort, Ceftin Celexa, Lovenox, Proscar, Diflucan, Xanax, prednisone Lopressor, Mysoline, Flomax, PHYSICAL EXAM VITAL SIGNS: temperature 97.5, pulse 56, respiratory rate 18, blood pressure 179/77, oxygen saturation 97% on 2 L. GENERAL APPEARANCE: Lying in bed, mildly anxious. HEENT: normocephalic Pupils equal. Conjunctiva normal. JVD not raised. Mass not palpable, white patches noted to oropharynx and posterior throat RESPIRATORY: Respiratory effort increased. Bronchial breath sounds bilaterally , expiratory wheezing and coarse rhonchi bilaterally to auscultation. CARDIOVASCULAR: First and second sounds normal. No edema. ABDOMEN: Soft. Liver and spleen not palpable. No tenderness. No mass palpable. PSYCHIATRY: Able to answer simple straightforward questions mentation does wax and wane, somewhat anxious. MUSCULOSKELETAL: Diffuse wasting of the muscles. INVESTIGATIONS: LABS: Accu-Cheks noted. Blood culture no growth after 72 hours. ASSESSMENT: -Acute chronic obstructive pulmonary disease exacerbation, possibly acute tracheobronchitis in an ex-smoker Clinically improving . -Chronic congestive heart failure from diastolic dysfunction, ejection fraction 55-60%. -Essential hypertension. -Chronic carotid artery stenosis. -Benign prostatic hypertrophy. -Anxiety, depression not otherwise specified. -Chronic colostomy. -Coronary artery disease with prior history of stent. -Chronic cognitive impairment -Uncontrolled tremors with some contribution from beta agonist, responded well with primidone -Oropharyngeal candidiasis from patient being on steroids. PLAN: Continue with current dose of Mucinex, encourage flutter valve use, continue diflucan increase activity as patient can tolerate antibiotic therapy switched to Ceftin. patient decided that going to rehab was a good idea, Discharge planning [facility], as soon as insurance authorization is obtained Plan of care discussed at the bedside with patient and they are in agreement. We will follow closely. SENIOR RISK ANALYST statement: Patient was seen and examined by nurse practitioner Aarti Patel and all elements of the case discussed with attending Dr. Maddox
[2017-03-07] MEDS: ATORVASTATIN 20 MG TAB PO SCH (21:33)
[2017-03-07] MEDS: predniSONE 20 MG TAB PO SCH (21:33)
[2017-03-07] MEDS: CEFUROXIME 250 MG TAB PO SCH (22:57)
[2017-03-08 07:14] LABS: Glucose,Whole Blood 115 mg/dL (75-99)
[2017-03-08] MEDS: IPRATROPIUM 0.5 MG/2.5 ML NEBU INHALATION SCH ×3 (07:25→16:00)
[2017-03-08] MEDS: LEVALBUTEROL HCL 1.25 MG INHALATION SCH ×3 (07:25→15:59)
[2017-03-08] MEDS: SYMBICORT 160-4.5 MCG INHALER INHALATION SCH (07:25)
[2017-03-08] MEDS: CEFUROXIME 250 MG TAB PO SCH (08:28)
[2017-03-08] MEDS: ALPRAZolam 0.5 MG TAB PO SCH (08:28)
[2017-03-08] MEDS: PRIMIDONE 25 MG TAB PO SCH (08:28)
[2017-03-08] MEDS: METOPROLOL TARTRATE 12.5 MG TAB PO SCH (08:29)
[2017-03-08] MEDS: guaiFENesin 600 MG TABLET.ER PO SCH (08:29)
[2017-03-08] MEDS: TAMSULOSIN 0.4 MG CAP.ER.24H PO SCH (08:29)
[2017-03-08] MEDS: predniSONE 20 MG TAB PO SCH (08:29)
[2017-03-08] MEDS: CITALOPRAM HYDROBROMIDE 20 MG TAB PO SCH (08:30)
[2017-03-08] MEDS: ASPIRIN 81 MG PO SCH (08:30)
[2017-03-08] MEDS: ENOXAPARIN 40 MG/0.4 ML SYRINGE SQ SCH (08:30)
[2017-03-08] MEDS: FINASTERIDE 5 MG TAB PO SCH (08:30)
[2017-03-08 11:14] VITALS: BMI 26.4
--- NOTE | 2017-03-08 11:41 | P.PN ---
Subjective Progress Note Date: 03/08/17 Principal diagnosis: acute COPD exacerbation/acute bronchitis with secondary shortness of breath, improving 81-year-old male patient with advanced COPD and right debilitated condition due to multiple medical problems and comorbidities. In terms of his COPD, the patient has advanced oxygen-dependent COPD and he has chronic biapical scarring and he has had recurrent exacerbation of his COPD. He has required multiple hospitalizations. He is quite limited in terms of his exercise capacity gets short of breath with limited amount of activity and even sometimes at rest. He came into the hospital back in December 2016 and he was treated appropriately was discharged home. Yesterday he was readmitted to the hospital because of increased shortness of breath. He was feeling very weak and he was lethargic and he was shaky and at one point he was also noted to have some altered mentation. He was having a congested cough. Unable to move around and his was concerned and the patient got moved today emergency department for further evaluation. He was afebrile. No reported aspiration. The patient was not having any chest pain. No pleurisy. No headache. No focal neurological deficit and his weakness was not focal. No hematuria. No dysuria frequency or urgency. No constipation. He has a large parastomal hernia at the site of a colostomy and the site was quite functional. He also has a right inguinal hernia that has not been of any concern at this point. In any Rate, the patient had a CAT scan of the brain in the emergency department that showed chronic atrophic changes and previous CVA. Chest x-ray showed biapical scarring more so on the right without evidence of any new onset pulmonary infiltration or pneumonias. The patient was started on antibiotics. The patient was started on systemic steroids. The patient was admitted to the hospital. Note that he is on a timely grams a prednisone on a daily basis. He is much more awake and alert at the right now. His communicating. He is pleasant. He feels better. He has no specific complaints for now. He understands this is gradually getting weaker and more debilitated. In fact he did not want to come to the hospital he was brought in by his was concerned about his respiratory deterioration. On 03/03/2017 I'm seeing this patient for a follow-up. Cliff is doing slightly better compared to yesterday. He still has some tremors. He is still feeling weak. He has a congested cough. No fever or chills. No change in mental status. No headaches. No other complaints otherwise. On 03/04/2017, the patient is excess rest or secretions and the patient will benefit from a flutter valve. The patient is getting slightly stronger. He was able to sit up on a chair today. Is tolerating his diet. No issues with his colostomy and the patient's parastomal hernias and inguinal hernia remain essentially unchanged. No fever. No chills. No altered mentation. Tremors are improved currently on Mysoline 25 mg 3 times a day. No other significant events over the past 24 hours. Mucinex was added to mobilize rest or secretions. On 03/05/2017, patient remains short of breath, continues to have some productive cough with excessive purulent secretions. Compliant with the medications and bronchodilators. Clearly the patient is feeling improved but definitely not worse.chest x-ray from yesterday was reviewed patient continues to have chronic changes in the right upper lobe, mostly fibrotic changes old and chronic. The patient is seen again today 03/06/2017 in follow-up on the selective care unit. He is awake and alert in no acute distress. He does remain quite weak and debilitated. He states he is breathing a little better today as compared to yesterday. He's been up in the chair with assistance. Blood and sputum cultures reveal no growth. He remains on empiric ceftriaxone. Lisa afebrile. Maintaining good O2 saturations in the upper 90s on 2 L/m per nasal cannula. He is hemodynamically stable. On 03/07/2017 patient seen in follow-up on medical surgical floor. He has been up ambulating with a walker with therapy, tolerated activity well. He is awake , alert, in no acute distress. Lung sounds reveal coarse rhonchi bilaterally, patient has audible rattling in his chest. The is at the bedside, states patient has not been able to bring up much sputum. otherwise patient is alert in no respiratory distress, on 2 L per nasal cannula. afebrile, respirations are even and nonlabored. Some mild swelling noted in his bilateral feet. last chest x-ray from [facility] 2018 shows chronic emphysematous change and fibrosis without acute pulmonary process. discharge planning is in progress, for subacute rehab placement, however patient is insisting on going home. The spouse is concerned that the patient is still little weak to go straight home. On 03/08/2017 patient seen in follow-up. He is resting comfortably in bed, appears a little tired today. Yesterday he ambulated extensively in the hallway , with a walker and physical therapist, tolerating it well. Lung sounds are still positive for scattered rhonchi, still audible fremitus in the chest, but patient states he cannot tolerate CPT, he would rather just ambulate more. Otherwise no acute events overnight, he denies worsening dyspnea, at times she is able to bring up small amount of yellow brownish sputum. His vitals are stable, he is on room air with O2 sat 98%. No new labs or chest x-ray today. From pulmonary standpoint he is stable for discharge to [facility] rehab today. Objective - Vital Signs Vital signs: Vital Signs Temp 97.6 F 03/08/17 07:00 Pulse 65 03/08/17 11:17 Resp 18 03/08/17 11:17 BP 183/73 03/08/17 07:00 Pulse Ox 98 03/08/17 07:37 Intake & Output 03/07/17 03/08/17 03/08/17 18:59 06:59 18:59 Intake Total 500 590 Output Total 300 Balance 500 290 Weight 70 kg Intake: Oral 500 590 Output: Urine 300 Other: Voiding Method Toilet Toilet Toilet Urinal Urinal Urinal - Exam Physical Exam: Revealed an 81-year-old white male, frail looking, in no distress. HEENT:[Neck is supple.] [No neck masses.] [No thyromegaly.] [No JVD.] Chest: [diminished breath sounds at the bases, scattered rhonchi and wheezes noted bilaterally. No chest wall tenderness. Cardiac Exam: [Normal S1 and S2, no S3 gallop, no murmur.] Abdomen: [Soft, nontender, no megaly, no rebound, no guarding, normal bowel sounds.]colostomy site is fully functional and viable. Extremities: [No clubbing, no edema, no cyanosis.] Neurological Exam: [No focal neurologic deficit.] lymphatics: No lymphadenopathy Psychiatric: Normal mood affect and mental status exam. - Labs CBC & Chem 7: 03/02/17 03:22 03/07/17 07:18 Labs: Abnormal Lab Results - Last 24 Hours (Table) 03/07/17 03/07/17 03/08/17 Range/Units 16:50 20:03 07:11 POC Glucose (mg/dL) 101 H 141 H 115 H (75-99) mg/dL Microbiology - Last 24 Hours (Table) 03/01/17 15:11 Blood Culture - Final Blood No Growth after 144 hours Assessment and Plan Plan: Assessment: 1 acute COPD exacerbation/acute bronchitis with secondary shortness of breath, improving. Chest x-ray shows no evidence of an acute pneumonia. There is biapical scarring which has been a chronic finding worse on the right. 2 shortness of breath secondary to above 3 atherosclerotic heart disease with previous coronary bypass surgery, echocardiogram showing a preserved LV function with an ejection fraction of 45- 50%. The patient has had previous non-ST segment elevation myocardial infarction. 4 bladder cancer status post transurethral resection of the bladder tumor following that the patient received intravesicular chemotherapy 5 diverticular disease with history of complicated diverticulitis with bowel perforation requiring colostomy and colectomy. 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 Patient also has cerebral atrophy. Plan: Patient remains stable, no acute events overnight, vital signs are stable, patient is afebrile, currently on room air with O2 sat at 90%. Still has some rhonchi, still has congested bronchospastic cough, but this has improved since admission. Yesterday he had ambulated extensively in the hallway, a little fatigued today. Discharge planning is in progress for transfer to [facility] rehab for short-term rehab. Patient is in agreement. From pulmonary standpoint he is stable for discharge today, and prednisone taper, finish outpatient course of antibiotics, and continue his maintenance inhalers and nebulized treatments. Follow-up with Dr. Hayes in the office in 7-10 days. I performed a history & physical examination of the patient and discussed their management with my nurse practitioner, Adelaida Griggs. I reviewed the nurse practitioner's note and agree with the documented findings and plan of care. Lung sounds are positive for scattered rhonchi throughout. The findings and the impression was discussed with the patient. I attest to the documentation by the nurse practitioner. Time with Patient: Less than 30
[2017-03-08 12:03] LABS: Glucose,Whole Blood 156 mg/dL (75-99)
[2017-03-08 14:55] VITALS: BP 155/69; RESP 16; TEMP 98.1
--- NOTE | 2017-03-08 16:14 | P.DS ---
Providers Date of admission: 03/01/17 16:07 Expected date of discharge: 03/08/17 Attending physician: Samir Maddox Primary care physician: [facility] Course: FINAL DIAGNOSES: -Acute chronic obstructive pulmonary disease exacerbation, possibly acute tracheobronchitis in an ex-smoker Clinically improving . -Chronic congestive heart failure from diastolic dysfunction, ejection fraction 55-60%. -Essential hypertension. -Chronic carotid artery stenosis. -Benign prostatic hypertrophy. -Anxiety, depression not otherwise specified. -Chronic colostomy. -Coronary artery disease with prior history of stent. -Chronic cognitive impairment -Uncontrolled tremors with some contribution from beta agonist, responded well with primidone -Oropharyngeal candidiasis from patient being on steroids. HOSPTIAL COURSE: 81-year-old male admitted with acute COPD exacerbation and pneumonia. Antibiotics initiated, steroids, nebulized bronchodilators. Breathing improved. Noted to have tremors medication adjusted, tremor improved. Patient is very debilitated from his COPD has some difficulty getting around work with physical therapy. Uses walker and assistance in order to get around. Physical therapy evaluation recommended placement at rehabilitation for strengthening and gait training. Tolerating his diet, ambulatory with assistance and a walker , continues to be weak but is getting around better, discharge planning for [facility], consultants agree patient is stable for discharge. PHYSICAL EXAM: CARDIOVASCULAR: First and second sounds noted mild edema. RESPIRATORY: Respiratory effort mildly increased, especially with activity, lung sounds diminished with expiratory wheezing noted, cough nonproductive GI: Abdomen soft nontender liver and spleen not palpable. MUSKULOSKELETAL: Diffuse wasting of muscles, using a walker to get around Patient was seen and examined by nurse practitioner Aarti Patel in all elements of the case discussed with attending Dr. Maddox DISPOSITION: Transfer to [facility] for rehabilitation. Patient Condition at Discharge: Fair Plan - Discharge Summary Discharge Rx Participant: No New Discharge Prescriptions: New Aspirin 81 mg PO DAILY chew Fluconazole [Diflucan] 100 mg PO DAILY@1800 #5 tab guaiFENesin [Mucinex] 1,200 mg PO Q12HR #10 tablet.er predniSONE 10 mg PO DAILY 50 Days #80 tab Cefuroxime [Ceftin] 500 mg PO BID #6 tab Atorvastatin [Lipitor] 20 mg PO HS tab Ipratropium Nebulized [Atrovent Nebulized] 0.5 mg INHALATION RT-QID nebu Primidone [Mysoline] 25 mg PO TID dose Continue Tamsulosin [Flomax] 0.4 mg PO QAM Finasteride [Proscar] 5 mg PO QAM Citalopram Hydrobromide [CeleXA] 40 mg PO QAM Levalbuterol HCl [Xopenex Nebulized] 1.25 mg INHALATION RT-QID Metoprolol Tartrate 12.5 mg PO BID Furosemide [Lasix] 20 mg PO QAM Fluticasone/Salmeterol [Advair 500-50 Diskus] 1 puff INHALATION RT-BID ALPRAZolam [Xanax] 0.5 mg PO BID #10 tab Discontinued Aspirin EC [Ecotrin] 325 mg PO DAILY Simvastatin [Zocor] 40 mg PO HS Budesonide/Formoterol Fumarate [Symbicort 160-4.5 Mcg Inhaler] 2 puff INHALATION RT-BID guaiFENesin [Mucinex] 600 mg PO BID Primidone [Mysoline] 25 mg PO QAM Primidone [Mysoline] 50 mg PO HS #30 tab Discharge Medication List Citalopram Hydrobromide [CeleXA] 40 mg PO QAM 11/18/13 [History] Finasteride [Proscar] 5 mg PO QAM 11/18/13 [History] Tamsulosin [Flomax] 0.4 mg PO QAM 11/18/13 [History] Levalbuterol HCl [Xopenex Nebulized] 1.25 mg INHALATION RT-QID 06/19/16 [History ] Metoprolol Tartrate 12.5 mg PO BID 12/11/16 [History] Fluticasone/Salmeterol [Advair 500-50 Diskus] 1 puff INHALATION RT-BID 03/01/17 [History] Furosemide [Lasix] 20 mg PO QAM 03/01/17 [History] Aspirin 81 mg PO DAILY chew 03/07/17 [Rx] Fluconazole [Diflucan] 100 mg PO DAILY@1800 #5 tab 03/07/17 [Rx] guaiFENesin [Mucinex] 1,200 mg PO Q12HR #10 tablet.er 03/07/17 [Rx] ALPRAZolam [Xanax] 0.5 mg PO BID #10 tab 03/08/17 [Rx] Atorvastatin [Lipitor] 20 mg PO HS tab 01/11/18 [Rx] Cefuroxime [Ceftin] 500 mg PO BID #6 tab 03/08/17 [Rx] Ipratropium Nebulized [Atrovent Nebulized] 0.5 mg INHALATION RT-QID nebu [Rx] Primidone [Mysoline] 25 mg PO TID dose 03/08/17 [Rx] predniSONE 10 mg PO DAILY 50 Days #80 tab 03/08/17 [Rx] Follow up Appointment(s)/Referral(s): [facility], [NON-STAFF] - Dominic Scherer DO [STAFF PHYSICIAN] - 03/08/17 Fiona Hayes MD [Primary Care Provider] - 1 Week Ambulatory/Diagnostic Orders: Basic Metabolic Panel [LAB.AMB] Location: Determined By Patient Patient Instructions/Handouts: COPD (Chronic Obstructive Pulmonary Disease) (DC ) Activity/Diet/Wound Care/Special Instructions: Heart healthy diet, continue to use flutter valve Discharge Disposition: HOME WITH HOME HEALTH SERVICES
[2017-03-08 16:26] VITALS: PULSE 60
--- NOTE | 2017-03-10 06:51 | DS ---
DISCHARGE SUMMARY DATE OF SERVICE: 03/08/17 ATTENDING NOTE: Patient seen and examined by me. Discussed with my nurse practitioner, Ms. Patel. The patient is doing much better. Will be discharged to the [facility] today. EXAM: Lungs improved air entry. Minimal crackles. Psych: AO x3. Tremors are much better controlled. Care was discussed with the patient. DISPOSITION: [facility]. PROGNOSIS: Guarded. MMODL / IJN: [id number] /
== END 2017-03-08 17:50 | DRG 190 ==
LOC: EC 14:52 → 6SEL 16:07 → 5MS5E 03-06 12:11
PROVIDERS: ADMIT Hospitalist; ATTEND Hospitalist
DX: J44.1 Chronic obstructive pulmonary disease with (acute) exacerbation (principal); J18.9 Pneumonia, unspecified organism; B37.89 Other sites of candidiasis; J96.11 Chronic respiratory failure with hypoxia; E87.5 Hyperkalemia; B37.0 Candidal stomatitis; I50.32 Chronic diastolic (congestive) heart failure; I11.0 Hypertensive heart disease with heart failure; I65.29 Occlusion and stenosis of unspecified carotid artery; J20.9 Acute bronchitis, unspecified; J44.0 Chronic obstructive pulmonary disease with (acute) lower respiratory infection; E78.5 Hyperlipidemia, unspecified; F32.9 Major depressive disorder, single episode, unspecified; F41.9 Anxiety disorder, unspecified; I25.10 Atherosclerotic heart disease of native coronary artery without angina pectoris; I25.2 Old myocardial infarction; I49.3 Ventricular premature depolarization; K40.90 Unilateral inguinal hernia, without obstruction or gangrene, not specified as recurrent; K43.2 Incisional hernia without obstruction or gangrene; K43.5 Parastomal hernia without obstruction or gangrene; K57.90 Diverticulosis of intestine, part unspecified, without perforation or abscess without bleeding; N40.0 Benign prostatic hyperplasia without lower urinary tract symptoms; R25.1 Tremor, unspecified; R47.81 Slurred speech; R74.8 Abnormal levels of other serum enzymes; R41.0 Disorientation, unspecified; J94.9 Pleural condition, unspecified; G31.9 Degenerative disease of nervous system, unspecified; R53.81 Other malaise; Z79.51 Long term (current) use of inhaled steroids; Z79.82 Long term (current) use of aspirin; Z79.899 Other long term (current) drug therapy; Z79.52 Long term (current) use of systemic steroids; Z85.51 Personal history of malignant neoplasm of bladder; Z87.891 Personal history of nicotine dependence; Z93.3 Colostomy status; Z95.1 Presence of aortocoronary bypass graft; Z99.81 Dependence on supplemental oxygen; Z86.73 Personal history of transient ischemic attack (TIA), and cerebral infarction without residual deficits; Z88.1 Allergy status to other antibiotic agents; Z88.5 Allergy status to narcotic agent; Z88.2 Allergy status to sulfonamides; Z88.8 Allergy status to other drugs, medicaments and biological substances; Z87.01 Personal history of pneumonia (recurrent); Z82.49 Family history of ischemic heart disease and other diseases of the circulatory system; T38.0X5A Adverse effect of glucocorticoids and synthetic analogues, initial encounter; Y92.239 Unspecified place in hospital as the place of occurrence of the external cause
CPT/HCPCS: 36415; 36600; 70450; 71045; 80048; 80053; 82550; 82553; 82805; 83735; 83880; 84100; 84132; 84145; 84484; 85025; 85610; 85730; 87040; 87070; 87205; 93005; 94640; 94667; 94668; 94760; 99285

== ENCOUNTER 2017-03-09 09:15 | Inpatient (IN) | payer MEDICARE ==
[2017-03-09] MEDS ORDERED: IPRATROPIUM-ALBUTEROL 3 ML NEB INHALATION STA (09:21)
[2017-03-09] MEDS ORDERED: methylPREDNISolone SOD SUCCI 125 MG/2 ML VIAL IV STA (09:21)
--- NOTE | 2017-03-09 09:27 | ED ---
General Adult HPI - General Stated complaint: Difficulty Breathing Time Seen by Provider: 03/09/17 09:18 Source: patient, EMS, RN notes reviewed, old records reviewed - History of Present Illness Initial comments: 81-year-old male history COPD presenting from the [facility] with difficulty breathing, hypoxia, and epigastric pain. Patient has history of COPD and CAD, he has been admitted several times over the past few months with similar respiratory issues. He has a remote history of smoking, quit approximately 20 years ago. Patient and EMS states that patient normally wears 2 L of oxygen, he was taken off of his oxygen yesterday evening, noted to have a pulse ox of 94 and patient remained off oxygen throughout the night, woke up this morning, was quite dyspneic when he woke, he had a pulse ox in the low 80s at that time, he was complaining of some epigastric and low chest pain. The time my evaluation chest pain has resolved. He does complain of significant cough, which is nonproductive according to the patient. Denies fever or chills. Denies abdominal pain. Patient has a colostomy, which according to him has had normal output. - Related Data Home Medications Medication Instructions Recorded Confirmed Citalopram Hydrobromide [CeleXA] 40 mg PO QAM 11/18/13 03/09/17 Finasteride [Proscar] 5 mg PO QAM 11/18/13 03/09/17 Tamsulosin [Flomax] 0.4 mg PO QAM 11/18/13 03/09/17 Levalbuterol HCl [Xopenex 1.25 mg INHALATION RT-QID 06/19/16 03/09/17 Nebulized] Furosemide [Lasix] 20 mg PO QAM 03/01/17 03/09/17 Aspirin 81 mg PO DAILY@1700 03/09/17 03/09/17 Bisacodyl [Dulcolax] 10 mg RECTAL DAILY PRN 03/09/17 03/09/17 Cefuroxime Axetil [Ceftin] 500 mg PO BID 03/09/17 03/09/17 Fluconazole [Diflucan] 100 mg PO DAILY@1700 03/09/17 03/09/17 Fluticasone/Salmeterol [Advair 1 puff INHALATION RT-BID 03/09/17 03/09/17 250-50 Diskus] Ipratropium-Albuterol Nebulize 3 ml INHALATION RT-QID 03/09/17 03/09/17 [Duoneb 0.5 mg-3 mg/3 ml Soln] Magnesium Hydroxide [Milk of 2,400 mg PO DAILY PRN 03/09/17 03/09/17 Magnesia] Metoprolol Tartrate [Lopressor] 12.5 mg PO BID 03/09/17 03/09/17 Na Phos,M-B/Na Phos,Di-Ba [Fleet 133 ml RECTAL DAILY PRN 03/09/17 03/09/17 Adult] Primidone [Mysoline] 12.5 mg PO TID 03/09/17 03/09/17 predniSONE 20 mg PO DAILY 03/09/17 03/09/17 predniSONE 30 mg PO BID 03/09/17 03/09/17 Previous Rx's Medication Instructions Recorded guaiFENesin [Mucinex] 1,200 mg PO Q12HR #10 tablet.er 03/07/17 ALPRAZolam [Xanax] 0.5 mg PO BID #10 tab 03/08/17 Atorvastatin [Lipitor] 20 mg PO HS tab 03/08/17 Allergies Allergy/AdvReac Type Severity Reaction Status Date / Time dobutamine Allergy Severe Swelling Verified 03/09/17 09:21 hydromorphone HCl Allergy Intermediate AGRESSIVE Verified 03/09/17 09:21 [From Dilaudid] sulfamethoxazole Allergy DIAPHORESIS Verified 03/09/17 09:21 [From Bactrim] trimethoprim [From Bactrim] Allergy DIAPHORESIS Verified 03/09/17 09:21 Review of Systems ROS Statement: Those systems with pertinent positive or pertinent negative responses have been documented in the HPI. ROS Other: All systems not noted in ROS Statement are negative. Past Medical History Past Medical History: Coronary Artery Disease (CAD), Cancer, COPD, Hyperlipidemia, Hypertension, Pneumonia, Prostate Disorder Additional Past Medical History / Comment(s): Severe COPD, multiple hospitalization for COPD exacerbation, coronary artery disease, Dr. disease, previous CVA, bladder cancer, hyperlipidemia, hypertension, previous complicated diverticulitis with bowel perforation requiring diverting colostomy , parastomal hernia, right inguinal hernia, BPH, previous history of fall and left hip fracture status post ORIF, tremors, chronic hypoxic respiratory failure the patient is on oxygen at 2 L/m nasal cannula History of Any Multi-Drug Resistant Organisms: None Reported Past Surgical History: Bowel Resection, Coronary Bypass/CABG, Hernia Repair Additional Past Surgical History / Comment(s): COLOSTOMY D/T PERFORATED BOWEL FROM DIVERTICULITIS, CABG (2005), ING HERNIA REPAIR, ORIF FX LEFT HIP (10/2013) , CYSOSCOPY. Past Anesthesia/Blood Transfusion Reactions: No Reported Reaction, Motion Sickness Additional Past Anesthesia/Blood Transfusion Reaction / Comment(s): CLAUSTERPHOBIC. DO NOT GIVE HIS DILAUDID- PT BECAME VERY AGGRESSIVE Smoking Status: Former smoker - Past Family History Father Family Medical History: Congestive Heart Failure (CHF) Mother Family Medical History: Congestive Heart Failure (CHF) General Exam General appearance: alert, in distress Head exam: Present: atraumatic, normocephalic Eye exam: Present: normal appearance, PERRL ENT exam: Present: normal exam Neck exam: Present: normal inspection. Absent: tenderness, meningismus Respiratory exam: Present: respiratory distress, wheezes, chest wall tenderness , decreased breath sounds, prolonged expiratory Cardiovascular Exam: Present: tachycardia, irregular rhythm GI/Abdominal exam: Present: soft, other (Colostomy). Absent: distended, tenderness Extremities exam: Present: normal inspection, normal capillary refill, pedal edema Neurological exam: Present: alert, oriented X3. Absent: motor sensory deficit Psychiatric exam: Present: normal affect, normal mood Skin exam: Present: warm, dry, intact. Absent: cyanosis, diaphoretic Course Vital Signs 03/09/17 03/09/17 03/09/17 09:15 10:09 10:25 Temperature 96.9 F L Pulse Rate 113 H 90 Respiratory 20 20 20 Rate Blood Pressure 162/101 191/80 O2 Sat by Pulse 97 96 Oximetry 03/09/17 03/09/17 10:44 10:56 Temperature Pulse Rate 101 H 92 Respiratory Rate Blood Pressure O2 Sat by Pulse Oximetry EKG Findings - EKG Comments: EKG Findings:: EKG shows sinus tachycardia with occasional PVC, ST segment changes with questionable elevation in aVR, depression in the precordial leads, [place] interval 118, ventricular rate 117, castration 80, QTc 474 Medical Decision Making - Medical Decision Making 81-year-old presenting with cough dyspnea and chest pain which is resolved. EKG does show some ST segment changes, cardiology is able to evaluate the patient in the emergency department. Dyspnea multifactorial, including COPD, heart failure, and chest x-ray that reveals large right upper lobe pneumonia. Patient is started on antibiotics for hospital acquired pneumonia, he will be treated for COPD and heart failure as well. He will be admitted for further evaluation and treatment. Laboratory studies reveal elevated white blood cell count 13.1, hemoglobin 12.1, CO2 and pH are normal on venous blood gas, BNP significant elevated 8310. Diagnosis: Healthcare associated pneumonia, COPD, heart failure - Lab Data Result diagrams: 03/09/17 09:30 03/09/17 09:30 Lab Results 03/09/17 03/09/17 03/09/17 Range/Units 09:30 09:30 09:30 WBC 13.1 H (3.8-10.6) k/uL RBC 4.01 L (4.30-5.90) m/uL Hgb 12.1 L (13.0-17.5) gm/dL Hct 40.1 (39.0-53.0) % MCV 100.0 (80.0-100.0) fL MCH 30.2 (25.0-35.0) pg MCHC 30.2 L (31.0-37.0) g/dL RDW 15.8 H (11.5-15.5) % Plt Count 229 (150-450) k/uL Neutrophils % 76 % Lymphocytes % 16 % Monocytes % 6 % Eosinophils % 1 % Basophils % 1 % Neutrophils # 10.0 H (1.3-7.7) k/uL Lymphocytes # 2.1 (1.0-4.8) k/uL Monocytes # 0.7 (0-1.0) k/uL Eosinophils # 0.1 (0-0.7) k/uL Basophils # 0.1 (0-0.2) k/uL Hypochromasia Slight Macrocytosis Slight PT (9.0-12.0) sec INR (<1.2) APTT (22.0-30.0) sec VBG pH (7.31-7.41) VBG pCO2 (37-51) mmHg VBG HCO3 (24-28) mmol/L Sodium 141 (137-145) mmol/L Potassium 4.2 (3.5-5.1) mmol/L Chloride 103 (98-107) mmol/L Carbon Dioxide 30 (22-30) mmol/L Anion Gap 8 mmol/L BUN 31 H (9-20) mg/dL Creatinine 0.90 (0.66-1.25) mg/dL Est GFR (MDRD) Af Amer >60 (>60 ml/min/1.73 sqM) Est GFR (MDRD) Non-Af >60 (>60 ml/min/1.73 sqM) Glucose 66 L (74-99) mg/dL Plasma Lactic Acid Hugh (0.7-2.0) mmol/L Calcium 8.7 (8.4-10.2) mg/dL Magnesium 2.1 (1.6-2.3) mg/dL Total Bilirubin 0.4 (0.2-1.3) mg/dL AST 25 (17-59) U/L ALT 42 (21-72) U/L Alkaline Phosphatase 58 (38-126) U/L Total Creatine Kinase 26 L (55-170) U/L CK-MB (CK-2) 1.5 (0.0-2.4) ng/mL CK-MB (CK-2) Rel Index 5.8 Troponin I 0.042 H* (0.000-0.034) ng/mL NT-Pro-B Natriuret Pep pg/mL Total Protein 5.7 L (6.3-8.2) g/dL Albumin 2.9 L (3.5-5.0) g/dL Influenza Type A RNA (Not Detectd) Influenza Type B (PCR) (Not Detectd) 03/09/17 03/09/17 03/09/17 Range/Units 09:30 09:30 09:30 WBC (3.8-10.6) k/uL RBC (4.30-5.90) m/uL Hgb (13.0-17.5) gm/dL Hct (39.0-53.0) % MCV (80.0-100.0) fL MCH (25.0-35.0) pg MCHC (31.0-37.0) g/dL RDW (11.5-15.5) % Plt Count (150-450) k/uL Neutrophils % % Lymphocytes % % Monocytes % % Eosinophils % % Basophils % % Neutrophils # (1.3-7.7) k/uL Lymphocytes # (1.0-4.8) k/uL Monocytes # (0-1.0) k/uL Eosinophils # (0-0.7) k/uL Basophils # (0-0.2) k/uL Hypochromasia Macrocytosis PT 9.9 (9.0-12.0) sec INR 1.0 (<1.2) APTT 20.7 L (22.0-30.0) sec VBG pH (7.31-7.41) VBG pCO2 (37-51) mmHg VBG HCO3 (24-28) mmol/L Sodium (137-145) mmol/L Potassium (3.5-5.1) mmol/L Chloride (98-107) mmol/L Carbon Dioxide (22-30) mmol/L Anion Gap mmol/L BUN (9-20) mg/dL Creatinine (0.66-1.25) mg/dL Est GFR (MDRD) Af Amer (>60 ml/min/1.73 sqM) Est GFR (MDRD) Non-Af (>60 ml/min/1.73 sqM) Glucose (74-99) mg/dL Plasma Lactic Acid Hugh 1.0 (0.7-2.0) mmol/L Calcium (8.4-10.2) mg/dL Magnesium (1.6-2.3) mg/dL Total Bilirubin (0.2-1.3) mg/dL AST (17-59) U/L ALT (21-72) U/L Alkaline Phosphatase (38-126) U/L Total Creatine Kinase (55-170) U/L CK-MB (CK-2) (0.0-2.4) ng/mL CK-MB (CK-2) Rel Index Troponin I (0.000-0.034) ng/mL NT-Pro-B Natriuret Pep 8310 pg/mL Total Protein (6.3-8.2) g/dL Albumin (3.5-5.0) g/dL Influenza Type A RNA (Not Detectd) Influenza Type B (PCR) (Not Detectd) 03/09/17 03/09/17 Range/Units 09:30 09:35 WBC (3.8-10.6) k/uL RBC (4.30-5.90) m/uL Hgb (13.0-17.5) gm/dL Hct (39.0-53.0) % MCV (80.0-100.0) fL MCH (25.0-35.0) pg MCHC (31.0-37.0) g/dL RDW (11.5-15.5) % Plt Count (150-450) k/uL Neutrophils % % Lymphocytes % % Monocytes % % Eosinophils % % Basophils % % Neutrophils # (1.3-7.7) k/uL Lymphocytes # (1.0-4.8) k/uL Monocytes # (0-1.0) k/uL Eosinophils # (0-0.7) k/uL Basophils # (0-0.2) k/uL Hypochromasia Macrocytosis PT (9.0-12.0) sec INR (<1.2) APTT (22.0-30.0) sec VBG pH 7.42 H (7.31-7.41) VBG pCO2 44 (37-51) mmHg VBG HCO3 28 (24-28) mmol/L Sodium (137-145) mmol/L Potassium (3.5-5.1) mmol/L Chloride (98-107) mmol/L Carbon Dioxide (22-30) mmol/L Anion Gap mmol/L BUN (9-20) mg/dL Creatinine (0.66-1.25) mg/dL Est GFR (MDRD) Af Amer (>60 ml/min/1.73 sqM) Est GFR (MDRD) Non-Af (>60 ml/min/1.73 sqM) Glucose (74-99) mg/dL Plasma Lactic Acid Hugh (0.7-2.0) mmol/L Calcium (8.4-10.2) mg/dL Magnesium (1.6-2.3) mg/dL Total Bilirubin (0.2-1.3) mg/dL AST (17-59) U/L ALT (21-72) U/L Alkaline Phosphatase (38-126) U/L Total Creatine Kinase (55-170) U/L CK-MB (CK-2) (0.0-2.4) ng/mL CK-MB (CK-2) Rel Index Troponin I (0.000-0.034) ng/mL NT-Pro-B Natriuret Pep pg/mL Total Protein (6.3-8.2) g/dL Albumin (3.5-5.0) g/dL Influenza Type A RNA Not Detected (Not Detectd) Influenza Type B (PCR) Not Detected (Not Detectd) Critical Care Time Critical Care Time: Yes Total Critical Care Time: 35 Disposition Clinical Impression: Congestive heart failure, Healthcare-associated pneumonia, Acute exacerbation of chronic obstructive airways disease Disposition: ADMITTED IP TO THIS [facility] Condition: Serious Referrals: Brad Randall MD [STAFF PHYSICIAN] - 1-2 days Decision to Admit Reason: Admit from [facility] Decision Date: 03/09/17 Decision Time: 11:07
[2017-03-09 10:09] LABS: VBG PH 7.42 (7.31-7.41)
[2017-03-09 10:10] LABS: Basophils # (A) 0.1 k/uL (0-0.2); Basophils % (A) 1 %; Eosinophils # (A) 0.1 k/uL (0-0.7); Eosinophils % (A) 1 %; HCT 40.1 % (39.0-53.0); HGB 12.1 gm/dL (13.0-17.5); Hypochromasia Slight; Lymphocytes # (A) 2.1 k/uL (1.0-4.8); Lymphocytes % (A) 16 %; MCH 30.2 pg (25.0-35.0); MCHC 30.2 g/dL (31.0-37.0); Macrocytosis Slight; Mean Platelet Volume 10.7; Monocytes # (A) 0.7 k/uL (0-1.0); Monocytes % (A) 6 %; Neutrophils % (A) 76 %; Platelet Count 229 k/uL (150-450); RBC 4.01 m/uL (4.30-5.90); RDW 15.8 % (11.5-15.5); WBC 13.1 k/uL (3.8-10.6)
[2017-03-09 10:20] LABS: Prothrombin Time 9.9 sec (9.0-12.0)
[2017-03-09 10:25] LABS: ALT 42 U/L (21-72); AST 25 U/L (17-59); Albumin 2.9 g/dL (3.5-5.0); Alkaline Phosphatase 58 U/L (38-126); Anion Gap 8 mmol/L; Blood Urea Nitrogen 31 mg/dL (9-20); Calcium 8.7 mg/dL (8.4-10.2); Carbon Dioxide 30 mmol/L (22-30); Chloride 103 mmol/L (98-107); Glucose 66 mg/dL (74-99); Magnesium 2.1 mg/dL (1.6-2.3); Sodium 141 mmol/L (137-145); Total Bilirubin 0.4 mg/dL (0.2-1.3); Total Protein 5.7 g/dL (6.3-8.2)
[2017-03-09 10:27] LABS: Potassium 4.2 mmol/L (3.5-5.1)
[2017-03-09 10:28] LABS: Partial Thromboplastin Time 20.7 sec (22.0-30.0)
--- NOTE | 2017-03-09 10:35 | XR ---
EXAMINATION TYPE: XR chest 2V DATE OF EXAM: 03/09/2017 COMPARISON: 03/04/2017 HISTORY: Difficulty breathing with history of pneumonia. TECHNIQUE: Frontal and lateral views of the chest are obtained. FINDINGS: There is increasing confluence of the right upper lobe opacity comparison to the prior 03/04. Underlying emphysematous changes are seen as pulmonary hyperinflation and flattening the diaph ragms as well as biapical lucency. Left upper lobe apical 1.5 cm nodule is also present. This could r elate to reach or pulmonary nodule or pleural parenchymal apical thickening. Post-CABG changes are seen of the mediastinum. Epicardial pacing leads are also seen. Cardiac silhoue tte is within normal limits. Moderate acromioclavicular arthropathy and glenohumeral arthropathy are seen bilaterally, right greater than left with high riding right humeral head likely related to chron ic rotator cuff tear. Mild multilevel degenerative changes of the thoracic spine are noted. IMPRESSION: 1. Increasing confluence of the right upper lobe opacity, highly suspicious for pneumonia given its s hort-term increasing density in comparison to exam of 03/04/2017. Follow-up to resolution is recommende d to evaluate for underlying neoplasm given the patient's high risk background emphysema. 2. 1.5 cm left apical pulmonary nodularity that could relate to pleural parenchymal apical thickening or true pulmonary nodule. Attention on follow-up exams.
[2017-03-09 10:46] LABS: Creatine Kinase MB 1.5 ng/mL (0.0-2.4); Troponin I 0.042 ng/mL (0.000-0.034)
[2017-03-09] MEDS ORDERED: FUROSEMIDE 10 MG/ML 4 ML VIAL IV STA (10:46)
[2017-03-09] MEDS ORDERED: ASPIRIN 325 MG TAB PO STA (10:47)
[2017-03-09] MEDS ORDERED: CEFEPIME 2 GM in SODIUM CHLORIDE 0.9% 50 ML IVPB STA (10:48)
[2017-03-09] MEDS ORDERED: VANCOMYCIN IV PER PHARMACY 1 EACH MISC MISCELLANE PRN (10:48)
[2017-03-09] MEDS ORDERED: VANCOMYCIN 1,250 MG in SODIUM CHLORIDE 0.9% 250 ML IVPB STA (10:56)
[2017-03-09] MEDS ORDERED: NALOXONE 0.4 MG/ML 1 ML VIAL IV PRN (11:03)
[2017-03-09] MEDS ORDERED: ACETAMINOPHEN TAB 325 MG TAB PO PRN (11:03)
[2017-03-09] MEDS ORDERED: ALBUTEROL NEBULIZED 2.5 MG/3 ML INHALATION PRN ×2 (11:04)
[2017-03-09] MEDS ORDERED: IPRATROPIUM-ALBUTEROL 3 ML NEB INHALATION PRN (12:33)
--- NOTE | 2017-03-09 12:57 | P.CNPUL ---
History of Present Illness Consult date: 03/09/17 Requesting physician: Samir Maddox Reason for consult: dyspnea, cough, COPD, pneumonia, abnormal CXR/CT Chief complaint: Shortness of breath, hypoxia, cough History of present illness: Cliff is a 81-year-old white male patient that sees Dr. Hayes in our office for his history of advanced COPD, he was discharged to [facility] rehab yesterday on 03/08/2017 after eating treated for acute COPD exacerbation with tracheobronchitis. Chest x-rays during that admission showed no evidence of an acute pneumonia, does have chronic biapical scarring. He was treated with bronchodilators, steroids and antibiotics, was clinically improving, and hence was discharged to subacute rehab for short-term rehabilitation. Patient's spouse stated he arrived at the rehab around 5:00 last evening, he was taken off his oxygen because his O2 saturations were around 94%, however patient wears oxygen at bedtime and sometimes around the clock. He became quite dyspneic when she awoke, his pulse ox was found to be in the 80s, he was started having some epigastric discomfort, lasted a couple of hours, and resolved on its own. He does have loose congested cough, lung sounds are quite rhonchorous, was able to bring up some sputum, describes it as brown. He denied any fever or chills, denied any abdominal pain. Chest x-ray taken in the emergency room and Lenny 2017 showed increasing confluence of the right upper lobe opacity, highly suspicious for pneumonia. Patient was placed on nebulized treatments, cefepime and vancomycin, and admitted for further treatment. Review of Systems All systems: negative Constitutional: Denies chills, Denies fever Eyes: denies blurred vision, denies pain Ears, nose, mouth and throat: Denies headache, Denies sore throat Cardiovascular: Denies chest pain, Denies shortness of breath Respiratory: Denies cough Gastrointestinal: Denies abdominal pain, Denies diarrhea, Denies nausea, Denies vomiting Musculoskeletal: Denies myalgias Integumentary: Denies pruritus, Denies rash Neurological: Denies numbness, Denies weakness Psychiatric: Denies anxiety, Denies depression Endocrine: Denies fatigue, Denies weight change Past Medical History Past Medical History: Coronary Artery Disease (CAD), Cancer, Heart Failure, COPD , GERD/Reflux, GI Bleed, Hyperlipidemia, Hypertension, Pneumonia, Prostate Disorder, Renal Disease Additional Past Medical History / Comment(s): Pt recently admitted to [facility] on 03/01/17 with exacerbation COPD/pneumonia. Other hx: Severe COPD, bladder cancer with surgery/chemo-some residual cancer remains, previous complicated diverticulitis with bowel perforation requiring diverting colostomy, parastomal hernia, right inguinal hernia, BPH, previous history of fall and left hip fracture status post ORIF, tremors, chronic hypoxic respiratory failure the patient is on oxygen at 2 L/nasal cannula at HS, bronchitis, caratid artery disease bilaterally . STATES PT NORMALLY WEARS 2 HERNIA BELTS AND THAT SHE WILL BE BRINGING IN ONE FOR HIS TO WEAR-NEEDS TO BE REMOVED AT BEDTIME AND WORN DURING DAYTIME. History of Any Multi-Drug Resistant Organisms: None Reported Past Surgical History: Bowel Resection, Coronary Bypass/CABG, Heart Catheterization, Hernia Repair, Orthopedic Surgery Additional Past Surgical History / Comment(s): COLOSTOMY D/T PERFORATED BOWEL FROM DIVERTICULITIS, 3 vessel CABG (2005), ING HERNIA REPAIR, ORIF FX LEFT HIP (10/2013), CYSTOSCOPIES WITH TUMOR RESECTION/FULFURATION. Past Anesthesia/Blood Transfusion Reactions: No Reported Reaction, Motion Sickness Additional Past Anesthesia/Blood Transfusion Reaction / Comment(s): CLAUSTERPHOBIC. DO NOT GIVE HIS DILAUDID- PT BECAME VERY AGGRESSIVE Past Psychological History: No Psychological Hx Reported Smoking Status: Former smoker Past Alcohol Use History: None Reported Past Drug Use History: None Reported - Past Family History Father Family Medical History: Congestive Heart Failure (CHF) Mother Family Medical History: Congestive Heart Failure (CHF) Medications and Allergies Home Medications Medication Instructions Recorded Confirmed Type Citalopram Hydrobromide [CeleXA] 40 mg PO QAM 11/18/13 03/09/17 History Finasteride [Proscar] 5 mg PO QAM 11/18/13 03/09/17 History Tamsulosin [Flomax] 0.4 mg PO QAM 11/18/13 03/09/17 History Levalbuterol HCl [Xopenex 1.25 mg INHALATION RT-QID 06/19/16 03/09/17 History Nebulized] Furosemide [Lasix] 20 mg PO QAM 03/01/17 03/09/17 History guaiFENesin [Mucinex] 1,200 mg PO Q12HR #10 tablet.er 03/07/17 03/09/17 Rx ALPRAZolam [Xanax] 0.5 mg PO BID #10 tab 03/08/17 03/09/17 Rx Atorvastatin [Lipitor] 20 mg PO HS tab 03/08/17 03/09/17 Rx Aspirin 81 mg PO DAILY@1700 03/09/17 03/09/17 History Bisacodyl [Dulcolax] 10 mg RECTAL DAILY PRN 03/09/17 03/09/17 History Cefuroxime Axetil [Ceftin] 500 mg PO BID 03/09/17 03/09/17 History Fluconazole [Diflucan] 100 mg PO DAILY@1700 03/09/17 03/09/17 History Fluticasone/Salmeterol [Advair 1 puff INHALATION RT-BID 03/09/17 03/09/17 History 250-50 Diskus] Ipratropium-Albuterol Nebulize 3 ml INHALATION RT-QID 03/09/17 03/09/17 History [Duoneb 0.5 mg-3 mg/3 ml Soln] Magnesium Hydroxide [Milk of 2,400 mg PO DAILY PRN 03/09/17 03/09/17 History Magnesia] Metoprolol Tartrate [Lopressor] 12.5 mg PO BID 03/09/17 03/09/17 History Na Phos,M-B/Na Phos,Di-Ba [Fleet 133 ml RECTAL DAILY PRN 03/09/17 03/09/17 History Adult] Primidone [Mysoline] 12.5 mg PO TID 03/09/17 03/09/17 History predniSONE 20 mg PO DAILY 03/09/17 03/09/17 History predniSONE 30 mg PO BID 03/09/17 03/09/17 History Allergies Allergy/AdvReac Type Severity Reaction Status Date / Time dobutamine Allergy Severe Swelling Verified 03/09/17 09:21 hydromorphone HCl Allergy Intermediate AGRESSIVE Verified 03/09/17 09:21 [From Dilaudid] sulfamethoxazole Allergy DIAPHORESIS Verified 03/09/17 09:21 [From Bactrim] trimethoprim [From Bactrim] Allergy DIAPHORESIS Verified 03/09/17 09:21 Physical Exam Vitals: Vital Signs Temp Pulse Resp BP Pulse Ox 03/09/17 11:40 98.2 F 100 20 169/77 97 03/09/17 10:56 92 03/09/17 10:44 101 H 03/09/17 10:25 90 20 191/80 96 03/09/17 10:09 20 03/09/17 09:15 96.9 F L 113 H 20 162/101 97 Intake and Output 03/08/17 03/09/17 03/09/17 22:59 06:59 14:59 Other: Weight 68.039 kg Patient Weight 03/10/17 06:59 Weight 68.039 kg - Constitutional Physical exam reveals a frail-looking 81-year-old white male, resting in bed in no acute distress General appearance: no acute distress, thin - EENT Eyes: PERRLA ENT: NA/AT, normal oropharynx Ears: bilateral: normal - Neck Neck: no lymphadenopathy Carotids: bilateral: upstroke normal Thyroid: bilateral: normal size - Respiratory Respiratory: bilateral: rhonchi (anterior upper and lower lobes), wheezing ( faint exp wheezes over posterior upper lobes bilaterally), prolonged inspiration - Cardiovascular Rhythm: regular Heart sounds: normal: S1, S2 foot Peripheral Edema: bilateral: 1+ ankle Peripheral Edema: bilateral: Trace radial pulse Peripheral Pulses: bilateral: Normal dorsalis pedis Peripheral Pulses: bilateral: Normal - Gastrointestinal General gastrointestinal: no organomegaly, soft, no tenderness - Integumentary Integumentary: normal turgor, pale - Neurologic Neurologic: CNII-XII intact - Musculoskeletal Musculoskeletal: generalized weakness, strength equal bilaterally - Psychiatric Psychiatric: A&O x's 3, appropriate affect, intact judgment & insight Results - Laboratory Findings CBC and BMP: 03/09/17 09:30 03/09/17 09:30 PT/INR, D-dimer PT 9.9 sec (9.0-12.0) 03/09/17 09:30 INR 1.0 (<1.2) 03/09/17 09:30 Abnormal lab findings: Abnormal Labs 03/09/17 03/09/17 03/09/17 09:30 09:30 09:30 WBC 13.1 H RBC 4.01 L Hgb 12.1 L MCHC 30.2 L RDW 15.8 H Neutrophils # 10.0 H APTT VBG pH BUN 31 H Glucose 66 L Total Creatine Kinase 26 L Troponin I 0.042 H* Total Protein 5.7 L Albumin 2.9 L 03/09/17 03/09/17 09:30 09:30 WBC RBC Hgb MCHC RDW Neutrophils # APTT 20.7 L VBG pH 7.42 H BUN Glucose Total Creatine Kinase Troponin I Total Protein Albumin - Diagnostic Findings Chest x-ray: report reviewed Assessment and Plan Plan: Assessment: #1. Acute on chronic hypoxic respiratory failure secondary to a possible right upper lobe pneumonia, healthcare acquired. Patient's empirically covered with a combination of cefepime and vancomycin. #2. Recent hospitalization for acute COPD exacerbation, discharged to rehab yesterday and 03/08/2017, completing a course of Zithromax and Rocephin #3. Episode of atypical chest pain, there is evidence of a mild troponin leak, troponins 0.042, EKG shows sinus tachycardia with frequent PVCs and nonspecific ST and T-wave abnormality. ProBNP is also elevated #4. ProBNP elevation, 8310 on admission. Patient had an echocardiogram on 02/06, showed left ventricular systolic function with EF of 50-55% #5. Advanced oxygen-dependent COPD #6. Coronary artery disease, with previous history of coronary bypass surgery #7. History of bladder cancer, with history of post transurethral resection of the bladder tumor followed by intravesicular chemotherapy #8. Diverticular disease with history of complicated diverticulitis with bowel perforation requiring colostomy and colectomy #9. Large parastomal hernia/incisional hernia, not a surgical candidate for repair #10. Carotid artery stenosis #11. Hypertension, hyperlipidemia #12. History of nicotine dependence, quit in 1997 #13. General medical debility secondary to age and various medical problems and comorbidities #14. 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 Patient is covered with a combination of cefepime and vancomycin. Continue DuoNeb, will add Symbicort. Other recommendations to follow I performed a history & physical examination of the patient and discussed their management with my nurse practitioner, Adelaida Griggs. I reviewed the nurse practitioner's note and agree with the documented findings and plan of care. Lung sounds are positive for scattered rhonchi. The findings and the impression was discussed with the patient. I attest to the documentation by the nurse practitioner. Time with Patient: Greater than 30
--- NOTE | 2017-03-09 13:14 | CONS ---
CONSULTATION Mr. Ward is an 81-year-old male with known history of heart disease, status post coronary artery bypass grafting, severe chronic obstructive lung disease, congestive heart failure with preserved ventricular systolic function, who was just discharged from the hospital with exacerbation of COPD, presents again with worsening dyspnea. Patient is quite limited in physical activity, has significant dyspnea on exertion. Recently was in the hospital, but after being in the [facility], he became more dyspneic with cough. He had some abdominal, lower chest discomfort, and because of that, came into the emergency room and subsequently admitted. He has weakness in the legs and occasional peripheral edema, more on the left side. He has some palpitation, but no syncope. He has no clear orthopnea. His most recent echocardiogram revealed an ejection fraction of about 50%. He had multiple admission with mild elevation of the troponin that was always felt to be related to a type 2 event. His coronary risk factors are remarkable for remote history of smoking. He is hypertensive and hyperlipidemic, nondiabetic. MEDICATION: At home include Xanax, aspirin 81 mg daily, Lipitor 20 mg daily, Celexa, Proscar, Diflucan, Advair, Lasix 20 mg daily, DuoNeb, Xopenex, Lopressor 12.5 mg twice a day, Mysoline, Flomax and tapering dose of prednisone. REVIEW OF SYSTEMS: RESPIRATORY SYSTEM: He has severe chronic obstructive lung disease with multiple admissions and exacerbation of COPD. GI SYSTEM: No recent nausea or vomiting. No recent GI bleeding. SYSTEM: No dysuria or hematuria. NERVOUS SYSTEM: No history of seizure. PHYSICAL EXAMINATION: He is a an 81-year-old male, alert, oriented, in no apparent distress. Blood pressure running in the 160 to 190 with a heart rate in the 90s. HEAD: Normocephalic, eyes sclerae nonicteric. NECK: No bruit. Lungs with decreased air exchange bilaterally and scarred rales and wheezes. HEART: Regular rate and rhythm, S1, S2 with extra systole and systolic murmur at the base. No diastolic murmur. ABDOMEN: Soft, nontender. Positive bowel sounds. No organomegaly. EXTREMITIES: Trace 1+ edema on the left ankle. LAB DATA: Revealed a white blood cell of 13.1, hemoglobin of 12.1, BUN and creatinine 31 and 0.9. NT proBNP of 8310 and troponin of 0.042. Patient had similar elevation of the troponin on prior admission and his most recent NT proBNP on the fourth of this month was 2800 but he had elevation up to the 5000 in prior admission. His chest x-ray is consistent with pneumonia on the right apex. His EKG reveals sinus mechanism with PACs and PVCs and nonspecific ST changes. IMPRESSION: 1. Progressive dyspnea with a combination of exacerbation of COPD, pneumonia, and probable CHF with preserved systolic function. 2. Minimal elevation of troponin, most likely presenting a type 2 event. 3. History of coronary disease status post coronary artery bypass grafting. 4. History of peripheral vascular disease. 5. Hypertension. 6. Hyperlipidemia. RECOMMENDATION: From the cardiac standpoint, I will give him intravenous diuretics. Continue his cardiac medication. Follow his renal function closely. The patient will be seen by the Pulmonary Service. He will be started on antibiotics. Unfortunately, the prognosis is quite guarded. Thank you for this consult. Will follow with you. VELASQUEZ / JOEYN: [id number] /
[2017-03-09] MEDS: methylPREDNISolone SOD SUCCI 125 MG/2 ML VIAL IV SCH ×3 (15:09→23:57)
[2017-03-09] MEDS: ISOSORBIDE MONONITRATE ER 30 MG TAB.ER.24H PO SCH (15:09)
[2017-03-09] MEDS ORDERED: IPRATROPIUM-ALBUTEROL 3 ML NEB INHALATION SCH (16:00)
[2017-03-09 16:45] LABS: Glucose,Whole Blood 172 mg/dL (75-99)
[2017-03-09] MEDS: INSULIN ASPART 100 UNIT/ML 1 ML 10 ML VIAL SQ SCH ×2 (18:02→22:00)
[2017-03-09] MEDS: METOPROLOL TARTRATE 12.5 MG TAB PO SCH (19:44)
[2017-03-09] MEDS ORDERED: LEVALBUTEROL 1.25 MG INHALATION SCH (20:00)
[2017-03-09] MEDS: ATORVASTATIN 20 MG TAB PO SCH (20:20)
[2017-03-09] MEDS: FUROSEMIDE 10 MG/ML 2 ML VIAL IV SCH (20:20)
[2017-03-09] MEDS: CEFEPIME 2 GM in SODIUM CHLORIDE 0.9% 50 ML IVPB SCH (20:20)
[2017-03-09] MEDS: ALPRAZolam 0.5 MG TAB PO SCH (20:28)
[2017-03-09] MEDS: SYMBICORT 160-4.5 MCG INHALER INHALATION SCH (20:34)
[2017-03-09] MEDS: IPRATROPIUM 0.5 MG/2.5 ML NEBU INHALATION SCH (20:34)
[2017-03-09] MEDS: LEVALBUTEROL 1.25 MG INHALATION SCH (20:34)
[2017-03-09 21:03] LABS: Glucose,Whole Blood 163 mg/dL (75-99)
[2017-03-09] MEDS: VANCOMYCIN 1,250 MG in SODIUM CHLORIDE 0.9% 250 ML IVPB SCH (22:05)
--- NOTE | 2017-03-09 22:41 | HP ---
HISTORY AND PHYSICAL DATE OF ADMISSION: 03/09/2017 ATTENDING NOTE: This patient was seen and examined by me. I discussed the case with the nurse practitioner Ms. Patel. This is a patient who was just discharged from the hospital here; overnight at the rehab became more short of breath, having some green sputum. Pulse ox was down to 80%. On examination, vital signs on presentation were temperature 96.9, pulse 113, respiration 20, blood pressure 162/101, pulse ox 97% on 4 L. GENERAL APPEARANCE: Sitting in bed, slightly short of breath. NECK: JVD unable to assess. EYES: Pupils equal. Conjunctivae normal. HEENT: oral cavity normal. RESPIRATORY: Effort increased. LUNGS: Decreased breath sounds. Some scattered crackles. CARDIOVASCULAR: First and second sounds normal. No edema. ABDOMEN: Soft, non-tender. Liver and spleen not palpable. LYMPHATIC: No lymph node palpable in neck or axillae. PSYCHIATRY: Alert and oriented x3. Mood and affect normal. NEUROLOGICAL: Minimal tremors. INVESTIGATIONS: White count 13.1, hemoglobin 12.1, potassium 4.2. Chest x-ray shows right upper lobe pneumonia, infiltrate. ASSESSMENT: 1. Acute right upper lobe pneumonia; suspect Gram-negative organism causing acute hypoxic respiratory failure. 2. Chronic obstructive pulmonary disease. 3. Smoker. 4. Acute on chronic congestive heart failure exacerbation from diastolic dysfunction, ejection fraction 55% to 60%. 5. Hypertensive heart disease. 6. Essential hypertension. 7. Chronic carotid artery stenosis. 8. Benign prostatic hypertrophy. 9. Anxiety, depression not otherwise specified. 10.Chronic colostomy. 11.Coronary artery disease with prior history of stent. 12.Chronic cognitive impairment. 13.Generalized tremor, well controlled with primidone. PLAN: Patient has been put on nebulized bronchodilators, including Atrovent and Xopenex. The patient was also put on cefepime and vancomycin, IV Solu-Medrol. Care was discussed with the patient and his at the bedside. Prognosis guarded. MMODL / IJN: [id number] /
[2017-03-10] MEDS: CEFEPIME 2 GM in SODIUM CHLORIDE 0.9% 50 ML IVPB SCH ×3 (03:51→20:11)
[2017-03-10] MEDS: methylPREDNISolone SOD SUCCI 125 MG/2 ML VIAL IV SCH ×4 (06:26→23:18)
[2017-03-10 06:27] LABS: Anion Gap 5 mmol/L; Blood Urea Nitrogen 37 mg/dL (9-20); Calcium 8.4 mg/dL (8.4-10.2); Carbon Dioxide 31 mmol/L (22-30); Chloride 103 mmol/L (98-107); Glucose 99 mg/dL (74-99); Potassium 4.2 mmol/L (3.5-5.1); Sodium 139 mmol/L (137-145)
[2017-03-10] MEDS: INSULIN ASPART 100 UNIT/ML 1 ML 10 ML VIAL SQ SCH ×4 (06:30→21:34)
[2017-03-10 06:31] LABS: Glucose,Whole Blood 103 mg/dL (75-99)
[2017-03-10] MEDS: ISOSORBIDE MONONITRATE ER 30 MG TAB.ER.24H PO SCH (08:15)
[2017-03-10] MEDS: FUROSEMIDE 10 MG/ML 2 ML VIAL IV SCH ×2 (08:15→20:22)
[2017-03-10] MEDS: TAMSULOSIN 0.4 MG CAP.ER.24H PO SCH (08:16)
[2017-03-10] MEDS: METOPROLOL TARTRATE 12.5 MG TAB PO SCH ×2 (08:16→20:23)
[2017-03-10] MEDS: ALPRAZolam 0.5 MG TAB PO SCH ×2 (08:20→20:27)
--- NOTE | 2017-03-10 08:25 | XR ---
EXAMINATION TYPE: XR chest 1V portable DATE OF EXAM: 03/10/2017 HISTORY: Right upper lobe pneumonia. REFERENCE: Previous study dated 03/09/2017. FINDINGS: There has been a midline sternotomy. The lungs are overinflated. There is increased opacity in the right lung apex. This is unchanged from previous. There is an increased opacity within the left lung apex. This has become more irregular th an on the previous study. The heart is not enlarged. Pleural spaces appear clear. IMPRESSION: 1. COPD. 2. CONTINUING RIGHT UPPER LOBE PNEUMONIA. 3. WORSENING OPACITY, LEFT LUNG APEX.
[2017-03-10] MEDS: SYMBICORT 160-4.5 MCG INHALER INHALATION SCH ×2 (08:56→21:09)
[2017-03-10] MEDS: IPRATROPIUM 0.5 MG/2.5 ML NEBU INHALATION SCH ×4 (08:57→21:09)
[2017-03-10] MEDS: LEVALBUTEROL 1.25 MG INHALATION SCH ×4 (08:57→21:09)
--- NOTE | 2017-03-10 09:41 | P.HPIM ---
History of Present Illness H&P Date: 03/09/17 Chief Complaint: Increasing shortness of breath, hypoxia HISTORY OF PRESENT ILLNESS: 81-year-old male patient of Dr. Fiona Hayes, with chronic stable medical conditions that include coronary artery disease, cancer, hyperlipidemia, hypertension, benign prostatic hypertrophy, previous CVA, bladder cancer, diverticulitis with bowel perforation and diverting colostomy, parastomal hernia , right inguinal hernia, recently had an extensive hospital stay was discharged to snf and developed breathing difficulties with hypoxia and epigastric pain within 24 hours of discharge area has a significant history for COPD and coronary artery disease with multiple admissions to the hospital for respiratory issues. Patient is oxygen dependent wears 2 L of oxygen, while at the snf was taken off his oxygen evening and remained off throughout the night in the morning pulse ox was low in the 80s and complaining of epigastric with low chest pain. Has a very coarse cough which he has not been able to cough up any sputum, no fever no chills no abdominal pain. Has a colostomy which is working appropriately.Chest x-ray revealed right upper lobe pneumonia, admitted for the same. REVIEW OF SYSTEMS GEN.: [ Tired] EYES: [None] HEENT: [None] NECK: [None] RESPIRATORY: [Some shortness of breath] CARDIOVASCULAR: [Chest pain yesterday] GASTROINTESTINAL: [Epigastric pain ] GENITOURINARY: [None] MUSCULOSKELETAL: [Back pain] LYMPHATICS: [None] HEMATOLOGICAL: [None] PSYCHIATRY: [None] NEUROLOGICAL: [None] PAST MEDICAL HISTORY Past medical history: Coronary artery disease, cancer, COPD, hyperlipidemia, hypertension, pneumonia, prostate disorder, coronary artery disease, previous CVA, bladder cancer, diverticulitis with bowel perforation requiring diverting colostomy, parastomal hernia, right inguinal hernia, benign prostatic hypertrophy, previous history of falls tremors, chronic hypoxic respiratory failure is oxygen dependent with 2 L nasal cannula. Past surgical history: Bowel resection, coronary artery bypass/CABG, hernia repair, colostomy due to perforated bowel from diverticulitis, inguinal hernia repair, cystoscopy Past psychological history: None none SOCIAL HISTORY: Additional psychological/social history: Smoking use history: Former smoker started at age 14 and smoked 2 packs per day quit 1997 Alcohol use history: Denies Drug use history: Denies Marital status: Living situation: Lives with Work history: FAMILY HISTORY: Reviewed, Family history of congestive heart failure ALLERGIES: DOBUTAMINE, HYDROMORPHONE, SULFAMETHIZOLE, TRIMETHOPRIM HOME MEDICATION: Prednisone 20 mg by mouth daily Prednisone 30 mg by mouth twice a day Guaifenesin 1200 mg by mouth every 12 hours Tamsulosin 0.4 mg by mouth every morning Primidone 12.5 mg by mouth 3 times a day Fleet enema as needed Metoprolol tartrate 12.5 mg by mouth twice a day Magnesium hydroxide 2400 mg by mouth twice a day when necessary Xopenex 1.25 mg inhalation 4 times a day DuoNeb 3 mL inhalation 4 times a day Furosemide 20 mg by mouth every morning Advair 1 puff twice a day Fluconazole 100 mg by mouth daily Finasteride 5 mg by mouth daily Celexa 40 mg by mouth every morning Ceftin 500 mg by mouth twice a day Physical 10 mg rectal daily when necessary Atorvastatin 20 mg by mouth at bedtime Aspirin 81 mg by mouth daily Alprazolam 0.5 mg by mouth twice a day VITAL SIGNS: [Temperature 96.2, pulse 66, respiratory rate 17, blood pressure 158/72, oxygen saturation 97% on 4 L. BMI noted] GENERAL: [Average built, sitting up, anxious appearing]. EYES: [Pupils equal. Conjunctiva robert]l. HEENT: [External appearance of nose and ears normal, oral cavity grossly normal] . NECK: [JVD not raised; masses not palpable]. HEART: [First and second heart sounds are normal; mild edema]. LUNGS:[ Respiratory rate increased; coarse cough with inspiratory and expiratory wheezing to auscultation]. ABDOMEN: [Soft, nontender, liver spleen not palpable, no masses palpable]. LYMPHATICS: [No lymph nodes palpable in the axilla and neck]. PSYCH: [Alert and oriented x3; mood and affect anxious appearing]l. NEUROLOGICAL: [Cranial nerves grossly intact; no facial asymmetry, power and sensation grossly intact]. INVESTIGATIONS: LABS: White blood cell count 13.1, hemoglobin 12.1, BUN 31, troponin 0.042 Accu- Cheks noted. ASSESSMENT: -Acute healthcare acquired right upper lobe pneumonia, in a patient who has had multiple admissions to health care facilities -Acute chronic obstructive pulmonary disease exacerbation, possibly acute tracheobronchitis in an ex-smoker Clinically improving . -Chronic congestive heart failure from hypertensive heart disease, ejection fraction 55-60%. -Elevated troponin in a patient with known coronary artery disease history of CABG surgery -Essential hypertension. -Chronic carotid artery stenosis. -Benign prostatic hypertrophy. -Anxiety, depression not otherwise specified. -Chronic colostomy. -Coronary artery disease with prior history of stent. -Chronic cognitive impairment -Uncontrolled tremors with some contribution from beta agonist, responded well with primidone -Oropharyngeal candidiasis from patient being on steroids. PLAN: Admit to 6 E. selective, home medications reordered, continue antibiotics, nebulized bronchodilators, steroids, consult cardiology and pulmonology, plan of care discussed at the bedside with patient and they are in agreement. We will follow closely. [employer] STATEMENT: Patient was seen and examined by nurse practitioner Aarti Patel and all elements of the case were discussed with attending Dr. Maddox. Past Medical History Past Medical History: Coronary Artery Disease (CAD), Cancer, Heart Failure, COPD , GERD/Reflux, GI Bleed, Hyperlipidemia, Hypertension, Pneumonia, Prostate Disorder, Renal Disease Additional Past Medical History / Comment(s): Pt recently admitted to [facility] on 03/01/17 with exacerbation COPD/pneumonia. Other hx: Severe COPD, bladder cancer with surgery/chemo-some residual cancer remains, previous complicated diverticulitis with bowel perforation requiring diverting colostomy, parastomal hernia, right inguinal hernia, BPH, previous history of fall and left hip fracture status post ORIF, tremors, chronic hypoxic respiratory failure the patient is on oxygen at 2 L/nasal cannula at HS, bronchitis, caratid artery disease bilaterally . STATES PT NORMALLY WEARS 2 HERNIA BELTS AND THAT SHE WILL BE BRINGING IN ONE FOR HIS TO WEAR-NEEDS TO BE REMOVED AT BEDTIME AND WORN DURING DAYTIME. History of Any Multi-Drug Resistant Organisms: None Reported Past Surgical History: Bowel Resection, Coronary Bypass/CABG, Heart Catheterization, Hernia Repair, Orthopedic Surgery Additional Past Surgical History / Comment(s): COLOSTOMY D/T PERFORATED BOWEL FROM DIVERTICULITIS, 3 vessel CABG (2005), ING HERNIA REPAIR, ORIF FX LEFT HIP (10/2013), CYSTOSCOPIES WITH TUMOR RESECTION/FULFURATION. Past Anesthesia/Blood Transfusion Reactions: No Reported Reaction, Motion Sickness Additional Past Anesthesia/Blood Transfusion Reaction / Comment(s): CLAUSTERPHOBIC. DO NOT GIVE HIS DILAUDID- PT BECAME VERY AGGRESSIVE Past Psychological History: No Psychological Hx Reported Smoking Status: Former smoker Past Alcohol Use History: None Reported Past Drug Use History: None Reported - Past Family History Father Family Medical History: Congestive Heart Failure (CHF) Mother Family Medical History: Congestive Heart Failure (CHF) Medications and Allergies Home Medications Medication Instructions Recorded Confirmed Type Citalopram Hydrobromide [CeleXA] 40 mg PO QAM 11/18/13 03/09/17 History Finasteride [Proscar] 5 mg PO QAM 11/18/13 03/09/17 History Tamsulosin [Flomax] 0.4 mg PO QAM 11/18/13 03/09/17 History Levalbuterol HCl [Xopenex 1.25 mg INHALATION RT-QID 06/19/16 03/09/17 History Nebulized] guaiFENesin [Mucinex] 1,200 mg PO Q12HR #10 tablet.er 03/07/17 03/09/17 Rx Atorvastatin [Lipitor] 20 mg PO HS tab 03/08/17 03/09/17 Rx Aspirin 81 mg PO DAILY@1700 03/09/17 03/09/17 History Bisacodyl [Dulcolax] 10 mg RECTAL DAILY PRN 03/09/17 03/09/17 History Fluticasone/Salmeterol [Advair 1 puff INHALATION RT-BID 03/09/17 03/09/17 History 250-50 Diskus] Magnesium Hydroxide [Milk of 2,400 mg PO DAILY PRN 03/09/17 03/09/17 History Magnesia] Metoprolol Tartrate [Lopressor] 12.5 mg PO BID 03/09/17 03/09/17 History Na Phos,M-B/Na Phos,Di-Ba [Fleet 133 ml RECTAL DAILY PRN 03/09/17 03/09/17 History Adult] Primidone [Mysoline] 12.5 mg PO TID 03/09/17 03/09/17 History ALPRAZolam [Xanax] 0.5 mg PO BID #10 tab 03/12/17 Rx Cefuroxime Axetil [Ceftin] 500 mg PO BID #10 tablet 03/12/17 Rx Fluconazole [Diflucan] 100 mg PO DAILY@1700 #7 tab 03/12/17 Rx Ipratropium Nebulized [Atrovent 0.5 mg INHALATION RT-QID nebu 03/12/17 Rx Nebulized] Isosorbide Mononitrate ER [Imdur] 30 mg PO DAILY tab.er.24h 03/12/17 Rx predniSONE See Taper PO DAILY #30 tab 03/12/17 Rx Allergies Allergy/AdvReac Type Severity Reaction Status Date / Time dobutamine Allergy Severe Swelling Verified 03/09/17 09:21 hydromorphone HCl Allergy Intermediate AGRESSIVE Verified 03/09/17 09:21 [From Dilaudid] sulfamethoxazole Allergy DIAPHORESIS Verified 03/09/17 09:21 [From Bactrim] trimethoprim [From Bactrim] Allergy DIAPHORESIS Verified 03/09/17 09:21 Physical Exam Vitals: Vital Signs Temp Pulse Pulse Resp BP BP Pulse Ox 03/09/17 20:50 107 H 03/09/17 20:37 106 H 03/09/17 16:39 100 03/09/17 16:33 100 03/09/17 16:00 76 18 103/58 93 L 03/09/17 13:38 98 F 77 19 133/62 92 L 03/09/17 11:40 98.2 F 100 20 169/77 97 03/09/17 10:56 92 03/09/17 10:44 101 H 03/09/17 10:25 90 20 191/80 96 03/09/17 10:09 20 03/09/17 09:15 96.9 F L 113 H 20 162/101 97 Intake and Output 03/09/17 03/09/17 03/09/17 06:59 14:59 22:59 Intake Total 200 220 Output Total 750 300 Balance -550 -80 Intake: Oral 200 220 Output: Urine 750 300 Other: # Voids 1 Weight 68.039 kg Patient Weight 03/10/17 06:59 Weight 68.039 kg Results CBC & Chem 7: 03/11/17 05:26 03/12/17 04:26 Labs: Abnormal Lab Results - Last 24 Hours (Table) 03/09/17 03/09/17 03/09/17 Range/Units 09:30 09:30 09:30 WBC 13.1 H (3.8-10.6) k/uL RBC 4.01 L (4.30-5.90) m/uL Hgb 12.1 L (13.0-17.5) gm/dL MCHC 30.2 L (31.0-37.0) g/dL RDW 15.8 H (11.5-15.5) % Neutrophils # 10.0 H (1.3-7.7) k/uL APTT (22.0-30.0) sec VBG pH (7.31-7.41) BUN 31 H (9-20) mg/dL Glucose 66 L (74-99) mg/dL POC Glucose (mg/dL) (75-99) mg/dL Total Creatine Kinase 26 L (55-170) U/L Troponin I 0.042 H* (0.000-0.034) ng/mL Total Protein 5.7 L (6.3-8.2) g/dL Albumin 2.9 L (3.5-5.0) g/dL 03/09/17 03/09/17 03/09/17 Range/Units 09:30 09:30 16:39 WBC (3.8-10.6) k/uL RBC (4.30-5.90) m/uL Hgb (13.0-17.5) gm/dL MCHC (31.0-37.0) g/dL RDW (11.5-15.5) % Neutrophils # (1.3-7.7) k/uL APTT 20.7 L (22.0-30.0) sec VBG pH 7.42 H (7.31-7.41) BUN (9-20) mg/dL Glucose (74-99) mg/dL POC Glucose (mg/dL) 172 H (75-99) mg/dL Total Creatine Kinase (55-170) U/L Troponin I (0.000-0.034) ng/mL Total Protein (6.3-8.2) g/dL Albumin (3.5-5.0) g/dL 03/09/17 Range/Units 20:59 WBC (3.8-10.6) k/uL RBC (4.30-5.90) m/uL Hgb (13.0-17.5) gm/dL MCHC (31.0-37.0) g/dL RDW (11.5-15.5) % Neutrophils # (1.3-7.7) k/uL APTT (22.0-30.0) sec VBG pH (7.31-7.41) BUN (9-20) mg/dL Glucose (74-99) mg/dL POC Glucose (mg/dL) 163 H (75-99) mg/dL Total Creatine Kinase (55-170) U/L Troponin I (0.000-0.034) ng/mL Total Protein (6.3-8.2) g/dL Albumin (3.5-5.0) g/dL Thrombosis Risk Factor Assmnt - Choose All That Apply Any of the Below Risk Factors Present?: Yes Each Factor Represents 1 point: Abnormal pulmonary function (COPD), Heart failure (<1month), Serious lung disease incl. pneumonia (< 1month) Other Risk Factors: Yes Each Risk Factor Represents 3 Points: Age 75 years or older Other congenital or acquired thrombophilia - If yes, enter type in comment: No Thrombosis Risk Factor Assessment Total Risk Factor Score: 6 Thrombosis Risk Factor Assessment Level: High Risk
--- NOTE | 2017-03-10 10:05 | P.PN ---
Subjective Progress Note Date: 03/10/17 Principal diagnosis: Acute on chronic hypoxic respiratory failure secondary to right upper lobe pneumonia and COPD. Exacerbation. Cliff is a 81-year-old white male patient that sees Dr. Hayes in our office for his history of advanced COPD, he was discharged to [facility] rehab yesterday on 03/08/2017 after eating treated for acute COPD exacerbation with tracheobronchitis. Chest x-rays during that admission showed no evidence of an acute pneumonia, does have chronic biapical scarring. He was treated with bronchodilators, steroids and antibiotics, was clinically improving, and hence was discharged to subacute rehab for short-term rehabilitation. Patient's spouse stated he arrived at the rehab around 5:00 last evening, he was taken off his oxygen because his O2 saturations were around 94%, however patient wears oxygen at bedtime and sometimes around the clock. He became quite dyspneic when she awoke, his pulse ox was found to be in the 80s, he was started having some epigastric discomfort, lasted a couple of hours, and resolved on its own. He does have loose congested cough, lung sounds are quite rhonchorous, was able to bring up some sputum, describes it as brown. He denied any fever or chills, denied any abdominal pain. Chest x-ray taken in the emergency room and Lenny 2017 showed increasing confluence of the right upper lobe opacity, highly suspicious for pneumonia. Patient was placed on nebulized treatments, cefepime and vancomycin, and admitted for further treatment. Reevaluated today on 03/10/2017, patient seems to be doing a bit better. Chest x -ray was reviewed again, continues to have increased opacity in the right apex, and opacity in the left lung apex. Clinically however, the patient is feeling better, I could only explain his feeling better is the fact that the patient may have had some component of mild congestive heart failure, and improved with diuretics. Objective - Vital Signs Vital signs: Vital Signs Temp 96.2 F L 03/10/17 08:00 Pulse 70 03/10/17 09:14 Resp 17 03/10/17 08:00 BP 158/72 03/10/17 08:00 Pulse Ox 97 03/10/17 08:00 Intake & Output 03/09/17 03/10/17 03/10/17 18:59 06:59 18:59 Intake Total 420 300 Output Total 1050 500 Balance -630 -200 Weight 68.039 kg 54.5 kg Intake: Intake, IV Titration 300 Amount Cefepime 2 gm In Sodium 50 Chloride 0.9% 50 ml @ 100 mls/hr IVPB Q8H ALEX Rx#: [id number] Vancomycin 1,250 mg In 250 Sodium Chloride 0.9% 250 ml @ 125 mls/hr IVPB Q16H ALEX Rx#:[id number] Oral 420 Output: Urine 1050 500 Other: Voiding Method Urinal # Voids 1 - Exam Physical exam reveals a frail-looking 81-year-old white male, resting in bed in no acute distress General appearance: no acute distress, thin - EENT Eyes: PERRLA ENT: NA/AT, normal oropharynx Ears: bilateral: normal - Neck Neck: no lymphadenopathy Carotids: bilateral: upstroke normal Thyroid: bilateral: normal size - Respiratory Respiratory: bilateral: rhonchi (anterior upper and lower lobes), wheezing ( faint exp wheezes over posterior upper lobes bilaterally), prolonged inspiration - Cardiovascular Rhythm: regular Heart sounds: normal: S1, S2 foot Peripheral Edema: bilateral: 1+ ankle Peripheral Edema: bilateral: Trace radial pulse Peripheral Pulses: bilateral: Normal dorsalis pedis Peripheral Pulses: bilateral: Normal - Gastrointestinal General gastrointestinal: no organomegaly, soft, no tenderness - Integumentary Integumentary: normal turgor, pale - Neurologic Neurologic: CNII-XII intact - Musculoskeletal Musculoskeletal: generalized weakness, strength equal bilaterally - Psychiatric Psychiatric: A&O x's 3, appropriate affect, intact judgment & insight - Labs CBC & Chem 7: 03/09/17 09:30 03/10/17 05:25 Labs: Abnormal Lab Results - Last 24 Hours (Table) 03/09/17 03/09/17 03/09/17 Range/Units 09:30 09:30 09:30 WBC 13.1 H (3.8-10.6) k/uL RBC 4.01 L (4.30-5.90) m/uL Hgb 12.1 L (13.0-17.5) gm/dL MCHC 30.2 L (31.0-37.0) g/dL RDW 15.8 H (11.5-15.5) % Neutrophils # 10.0 H (1.3-7.7) k/uL APTT (22.0-30.0) sec VBG pH (7.31-7.41) Carbon Dioxide (22-30) mmol/L BUN 31 H (9-20) mg/dL Glucose 66 L (74-99) mg/dL POC Glucose (mg/dL) (75-99) mg/dL Total Creatine Kinase 26 L (55-170) U/L Troponin I 0.042 H* (0.000-0.034) ng/mL Total Protein 5.7 L (6.3-8.2) g/dL Albumin 2.9 L (3.5-5.0) g/dL 03/09/17 03/09/17 03/09/17 Range/Units 09:30 09:30 16:39 WBC (3.8-10.6) k/uL RBC (4.30-5.90) m/uL Hgb (13.0-17.5) gm/dL MCHC (31.0-37.0) g/dL RDW (11.5-15.5) % Neutrophils # (1.3-7.7) k/uL APTT 20.7 L (22.0-30.0) sec VBG pH 7.42 H (7.31-7.41) Carbon Dioxide (22-30) mmol/L BUN (9-20) mg/dL Glucose (74-99) mg/dL POC Glucose (mg/dL) 172 H (75-99) mg/dL Total Creatine Kinase (55-170) U/L Troponin I (0.000-0.034) ng/mL Total Protein (6.3-8.2) g/dL Albumin (3.5-5.0) g/dL 03/09/17 03/10/17 03/10/17 Range/Units 20:59 05:25 06:21 WBC (3.8-10.6) k/uL RBC (4.30-5.90) m/uL Hgb (13.0-17.5) gm/dL MCHC (31.0-37.0) g/dL RDW (11.5-15.5) % Neutrophils # (1.3-7.7) k/uL APTT (22.0-30.0) sec VBG pH (7.31-7.41) Carbon Dioxide 31 H (22-30) mmol/L BUN 37 H (9-20) mg/dL Glucose (74-99) mg/dL POC Glucose (mg/dL) 163 H 103 H (75-99) mg/dL Total Creatine Kinase (55-170) U/L Troponin I (0.000-0.034) ng/mL Total Protein (6.3-8.2) g/dL Albumin (3.5-5.0) g/dL Assessment and Plan Assessment: 1. Acute on chronic hypoxic respiratory failure secondary to a possible right upper lobe pneumonia, healthcare acquired. Patient's empirically covered with a combination of cefepime and vancomycin. #2. Recent hospitalization for acute COPD exacerbation, discharged to rehab yesterday and 03/08/2017, completing a course of Zithromax and Rocephin #3. Episode of atypical chest pain, there is evidence of a mild troponin leak, troponins 0.042, EKG shows sinus tachycardia with frequent PVCs and nonspecific ST and T-wave abnormality. ProBNP is also elevated #4. ProBNP elevation, 8310 on admission. Patient had an echocardiogram on 02/06, showed left ventricular systolic function with EF of 50-55%, hence the patient may have some component of diastolic dysfunction with mild fluid overload and congestive heart failure. #5. Advanced oxygen-dependent COPD #6. Coronary artery disease, with previous history of coronary bypass surgery #7. History of bladder cancer, with history of post transurethral resection of the bladder tumor followed by intravesicular chemotherapy #8. Diverticular disease with history of complicated diverticulitis with bowel perforation requiring colostomy and colectomy #9. Large parastomal hernia/incisional hernia, not a surgical candidate for repair #10. Carotid artery stenosis #11. Hypertension, hyperlipidemia #12. History of nicotine dependence, quit in 1997 #13. General medical debility secondary to age and various medical problems and comorbidities #14. 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 Time with Patient: Less than 30
[2017-03-10 12:36] LABS: Glucose,Whole Blood 155 mg/dL (75-99)
[2017-03-10 12:52] VITALS: BMI 17.7
[2017-03-10] MEDS: VANCOMYCIN 1,250 MG in SODIUM CHLORIDE 0.9% 250 ML IVPB SCH (15:16)
--- NOTE | 2017-03-10 15:37 | P.PN ---
Subjective Progress Note Date: 03/10/17 This is a pleasant 81-year-old gentleman with history of heart disease, status post coronary artery bypass grafting, severe chronic obstructive lung disease, congestive heart failure with preserved ventricular systolic function who was recently discharged from the hospital with exacerbation of COPD. He presented again this admission with worsening dyspnea. Most recent echocardiogram showed an ejection fraction of about 50%. Shortness of breath with exertion no clear orthopnea or PND. He does have some complaints of peripheral edema. He is currently on Lasix 20 mg IV push every 12 hours as well as IV antibiotics for treatment of possible pneumonia. Upon examination, patient remains short of breath however feels his breathing is improved compared to yesterday. Objective - Vital Signs Vital signs: Vital Signs Temp 96.5 F L 03/10/17 12:00 Pulse 68 03/10/17 12:21 Resp 16 03/10/17 12:00 BP 115/47 03/10/17 12:00 Pulse Ox 96 03/10/17 12:00 Intake & Output 03/09/17 03/10/17 03/10/17 18:59 06:59 18:59 Intake Total 420 300 Output Total 1050 500 Balance -630 -200 Weight 68.039 kg 54.5 kg 54.5 kg Intake: Intake, IV Titration 300 Amount Cefepime 2 gm In Sodium 50 Chloride 0.9% 50 ml @ 100 mls/hr IVPB Q8H ALEX Rx#: [id number] Vancomycin 1,250 mg In 250 Sodium Chloride 0.9% 250 ml @ 125 mls/hr IVPB Q16H ALEX Rx#:[id number] Oral 420 Output: Urine 1050 500 Other: Voiding Method Urinal # Voids 1 - Exam PHYSICAL EXAMINATION: HEENT: Head is atraumatic, normocephalic. Pupils equal, round. Neck is supple. There is no elevated jugular venous pressure. HEART EXAMINATION: Heart sounds regular, S1 and S2 with a systolic murmur. CHEST EXAMINATION: Lungs reveal diminished air entry bilaterally with scattered rhonchi. No chest wall tenderness is noted on palpation or with deep breathing. ABDOMEN: Soft, nontender. Bowel sounds are heard. No organomegaly noted. EXTREMITIES: 2+ peripheral pulses with evidence of trace peripheral edema and no calf tenderness noted. NEUROLOGIC patient is awake, alert, oriented to person and place. . - Labs CBC & Chem 7: 03/09/17 09:30 03/10/17 05:25 Labs: Abnormal Lab Results - Last 24 Hours (Table) 03/09/17 03/09/17 03/10/17 Range/Units 16:39 20:59 05:25 Carbon Dioxide 31 H (22-30) mmol/L BUN 37 H (9-20) mg/dL POC Glucose (mg/dL) 172 H 163 H (75-99) mg/dL 03/10/17 03/10/17 Range/Units 06:21 12:17 Carbon Dioxide (22-30) mmol/L BUN (9-20) mg/dL POC Glucose (mg/dL) 103 H 155 H (75-99) mg/dL Microbiology - Last 24 Hours (Table) 03/09/17 09:30 Blood Culture - Preliminary Blood No Growth after 24 hours Assessment and Plan Assessment: #1 symptoms of dyspnea secondary to combination of exacerbation of COPD, pneumonia and diastolic congestive heart failure #2 minimal elevation of troponin, most likely secondary to type II event #3 Known history of coronary artery disease with prior coronary artery bypass grafting #4 peripheral vascular disease #5 hypertension Plan: Cardiology's perspective, we will continue current medications including IV Lasix. Continue to monitor renal function. We'll continue to follow the patient provide further recommendations accordingly. PUBLISHING DIRECTOR note has been reviewed, I agree with a documented findings and plan of care. Patient was seen and examined.
[2017-03-10] MEDS: ASPIRIN 81 MG PO SCH (17:24)
[2017-03-10] MEDS ORDERED: BISACODYL 10 MG SUPP RECTAL PRN (17:53)
[2017-03-10] MEDS ORDERED: MAGNESIUM HYDROXIDE 2,400 MG/10 ML CUP PO PRN (17:53)
--- NOTE | 2017-03-10 18:00 | P.PN ---
Progress Note - Text Progress Note Date: 03/10/17 DATE OF SERVICE: 03/10/2017 PRESENTING COMPLAINT: Increasing shortness of breath HISTORY OF PRESENT ILLNESS: 81-year-old male who had an extensive hospital stay recently discharged to care home and developed breathing difficulties with hypoxia and epigastric pain within 24 hours of discharge had a significant history for COPD and coronary artery disease with multiple admissions to the hospital for respiratory problems. Patient's oxygen dependent wears 2 L of oxygen while the care home his oxygen was taken off and remained off throughout the night in the morning pulse ox was low into the 80s patient was complaining of epigastric with low chest pain, return to [facility] for further evaluation and treatment. Chest x-ray revealed right upper lobe pneumonia and was admitted for the same. INTERVAL HISTORY: 03/10/2017: Sitting up in the bed at the bedside as well as additional family members. Tired appearing, breathing easily, nasal cannula in place, has a coarse cough unable to cough up any sputum. No further complaints of any epigastric or chest pain. Appetite is good ate about 50% of his breakfast. Colostomy bag in place of the left lower quadrant, producing semi-formed brown stool. Ambulatory with a walker and assistance. REVIEW OF SYSTEMS: Done for constitutional ,cardiovascular, GI, pulmonary with relevant findings as above. CURRENT MEDICATIONS Tylenol, DuoNeb, Xanax, aspirin, Lipitor, Symbicort, cefepime, Lasix, insulin, Atrovent, Imdur, Solu-Medrol, Lopressor, vancomycin, Xopenex, Flomax. PHYSICAL EXAM VITAL SIGNS: Temp temperature 96.4, pulse 74, respiratory rate 17, blood pressure 129/64, oxygen saturation 97% on 4 L. GENERAL APPEARANCE: Thin build Lying in bed, anxious appearing. HEENT: Normocephalic, Pupils equal. Conjunctiva normal. JVD not raised. Mass not palpable.: RESPIRATORY: Respiratory effort increased. Lungs diminished, inspiratory and expiratory wheezing, cough . CARDIOVASCULAR: First and second sounds normal. Mild edema. ABDOMEN: Soft. Liver and spleen not palpable. No tenderness. Inguinal hernia, peristomal hernia, left lower quadrant colostomy with brown liquid/semi-formed stool PSYCHIATRY: Alert and oriented x3. Mood and affect anxious appearing MUSCULOSKELETAL: Diffuse wasting of the muscles INVESTIGATIONS: LABS: Carbon dioxide 31, BUN 37, creatinine 1.00, Accu-Cheks noted. ASSESSMENT: -Acute acquired right upper lobe pnumonia in a patient who has had multiple admissions to health care facilities -Acute chronic obstructive pulmonary disease exacerbation, in an ex-smoker Clinically improving . -Chronic congestive heart failure from hypertensive heart disease, ejection fraction 55-60%. -Elevated troponin in a patient with known coronary artery disease history of CABG surgery -Essential hypertension. -Chronic carotid artery stenosis. -Benign prostatic hypertrophy. -Anxiety, depression not otherwise specified. -Chronic colostomy. -Coronary artery disease with prior history of stent. -Chronic cognitive impairment -Uncontrolled tremors with some contribution from beta agonist, responded well with primidone PLAN: Continue bronchodilators antibiotics, steroids, diuretics, IV Lasix. The patient continues to improve may be able to return him to rehab on Sunday. Plan of care discussed at the bedside with and patient they are in agreement. We will follow closely. ASSET MANAGER statement: Patient was seen and examined by nurse practitioner Aarti Patel and all elements of the case discussed with attending Dr. Maddox
[2017-03-10 18:01] LABS: Glucose,Whole Blood 179 mg/dL (75-99)
[2017-03-10] MEDS: FLUCONAZOLE 100 MG TAB PO SCH (20:05)
--- NOTE | 2017-03-10 20:09 | PN ---
PROGRESS NOTE DATE OF SERVICE: 03/10/17. ATTENDING NOTE: The patient was seen and examined by me. Discussed with my nurse practitioner Ms. Patel. Feeling better. Did tolerate his diet. Decreased sputum production. Lying in bed. Family at the bedside. EXAMINATION: Temp 96.4, pulse 74, respiration 17, blood pressure 129/64, pulse ox 97% on 2 L. Lungs decreased breath sounds. Mild wheezing. Minimal crackles. control. Psych: Awake, answering questions. INVESTIGATIONS: Potassium 4.2, BUN 37, creatinine 1.0. ASSESSMENT: 1. Acute chronic obstructive pulmonary disease exacerbation, possibly from acute tracheobronchitis. 2. Acute congestive heart failure exacerbation on IV Lasix. Continue current medication and treatment plan. MMCRISTNIEL / JOEYN: [id number] /
[2017-03-10] MEDS: ATORVASTATIN 20 MG TAB PO SCH (20:22)
[2017-03-10] MEDS: guaiFENesin 600 MG TABLET.ER PO SCH (20:22)
[2017-03-10 20:48] LABS: Glucose,Whole Blood 196 mg/dL (75-99)
[2017-03-10] MEDS: PRIMIDONE 25 MG TAB PO SCH (21:29)
[2017-03-11] MEDS: CEFEPIME 2 GM in SODIUM CHLORIDE 0.9% 50 ML IVPB SCH ×3 (04:12→20:08)
[2017-03-11] MEDS: VANCOMYCIN 1,250 MG in SODIUM CHLORIDE 0.9% 250 ML IVPB SCH (05:52)
[2017-03-11] MEDS: methylPREDNISolone SOD SUCCI 125 MG/2 ML VIAL IV SCH ×3 (05:53→17:29)
[2017-03-11 05:56] LABS: Glucose,Whole Blood 122 mg/dL (75-99)
[2017-03-11 06:15] LABS: Basophils % (A) 0 %; Eosinophils % (A) 0 %; HCT 34.3 % (39.0-53.0); HGB 10.3 gm/dL (13.0-17.5); Hypochromasia Moderate; Lymphocytes # (A) 0.4 k/uL (1.0-4.8); Lymphocytes % (A) 3 %; MCH 29.7 pg (25.0-35.0); MCHC 29.9 g/dL (31.0-37.0); MCV 99.3 fL (80.0-100.0); Macrocytosis Slight; Mean Platelet Volume 10.3; Monocytes # (A) 0.4 k/uL (0-1.0); Monocytes % (A) 3 %; Neutrophils # (A) 13.2 k/uL (1.3-7.7); Neutrophils % (A) 94 %; Platelet Count 203 k/uL (150-450); RBC 3.45 m/uL (4.30-5.90); RDW 15.6 % (11.5-15.5)
[2017-03-11 06:35] LABS: Anion Gap 6 mmol/L; Blood Urea Nitrogen 49 mg/dL (9-20); Calcium 8.5 mg/dL (8.4-10.2); Carbon Dioxide 32 mmol/L (22-30); Chloride 102 mmol/L (98-107); Glucose 117 mg/dL (74-99); Magnesium 1.9 mg/dL (1.6-2.3); Potassium 3.9 mmol/L (3.5-5.1); Sodium 140 mmol/L (137-145)
[2017-03-11] MEDS: INSULIN ASPART 100 UNIT/ML 1 ML 10 ML VIAL SQ SCH ×4 (06:57→21:17)
[2017-03-11] MEDS: CITALOPRAM HYDROBROMIDE 20 MG TAB PO SCH (08:14)
[2017-03-11] MEDS: METOPROLOL TARTRATE 12.5 MG TAB PO SCH ×2 (08:14→20:09)
[2017-03-11] MEDS: PRIMIDONE 25 MG TAB PO SCH ×3 (08:15→20:09)
[2017-03-11] MEDS: TAMSULOSIN 0.4 MG CAP.ER.24H PO SCH (08:15)
[2017-03-11] MEDS: FINASTERIDE 5 MG TAB PO SCH (08:16)
[2017-03-11] MEDS: FUROSEMIDE 10 MG/ML 2 ML VIAL IV SCH (08:16)
[2017-03-11] MEDS: guaiFENesin 600 MG TABLET.ER PO SCH ×2 (08:16→20:09)
[2017-03-11] MEDS: ISOSORBIDE MONONITRATE ER 30 MG TAB.ER.24H PO SCH (08:16)
[2017-03-11] MEDS: ALPRAZolam 0.5 MG TAB PO SCH ×2 (08:19→20:09)
[2017-03-11] MEDS: IPRATROPIUM 0.5 MG/2.5 ML NEBU INHALATION SCH ×4 (08:29→19:47)
[2017-03-11] MEDS: SYMBICORT 160-4.5 MCG INHALER INHALATION SCH ×2 (08:29→19:50)
[2017-03-11] MEDS: LEVALBUTEROL 1.25 MG INHALATION SCH ×4 (08:29→19:47)
[2017-03-11] MEDS ORDERED: FUROSEMIDE 20 MG TAB PO SCH ×2 (09:00→21:00)
--- NOTE | 2017-03-11 09:31 | PN ---
PROGRESS NOTE Mr. Ward is an 81-year-old male who presented with symptoms of progressive dyspnea. He has a known history of severe chronic obstructive lung disease. He still has some dyspnea, although a little bit better. He denies any chest pain. No dizziness or palpitation. He denies any nausea. Preserved systolic function, history of chronic obstructive lung disease. He continues on Lasix 20 mg IV q.12 hours, aspirin once a day, Lipitor 20 mg daily, finasteride, ipratropium, isosorbide mononitrate 30 mg daily, metoprolol tartrate 12.5 mg twice a day. PHYSICAL EXAMINATION: Blood pressure 140/60 with a heart rate in the 60s. LUNGS: With decreased air exchange. A few crackles. Heart regular rate and rhythm S1, S2. No S3. No rub. ABDOMEN: Soft, nontender. Extremities no significant edema. LAB DATA: BUN and creatinine 49 and 1.3, potassium 3.9, hemoglobin of 10.3. IMPRESSION: 1. Symptoms of progressive dyspnea with a combination of chronic obstructive pulmonary disease and congestive heart failure on the basis of diastolic dysfunction. 2. Severe chronic obstructive lung disease. 3. History of coronary artery disease. 4. Worsening renal function. 5. History of peripheral vascular disease. RECOMMENDATION: I will switch him to oral diuretics. Continue his present medical regimen. Follow his renal function. Increase his level of activity and depending on his progress, further recommendations will be made. MMALEX / PEDRO LUIS: [id number] /
--- NOTE | 2017-03-11 11:02 | P.PN ---
Subjective Progress Note Date: 03/11/17 Principal diagnosis: Acute on chronic hypoxic respiratory failure secondary to right upper lobe pneumonia and COPD. Exacerbation. Cliff is a 81-year-old white male patient that sees Dr. Hayes in our office for his history of advanced COPD, he was discharged to [facility] rehab yesterday on 03/08/2017 after eating treated for acute COPD exacerbation with tracheobronchitis. Chest x-rays during that admission showed no evidence of an acute pneumonia, does have chronic biapical scarring. He was treated with bronchodilators, steroids and antibiotics, was clinically improving, and hence was discharged to subacute rehab for short-term rehabilitation. Patient's spouse stated he arrived at the rehab around 5:00 last evening, he was taken off his oxygen because his O2 saturations were around 94%, however patient wears oxygen at bedtime and sometimes around the clock. He became quite dyspneic when she awoke, his pulse ox was found to be in the 80s, he was started having some epigastric discomfort, lasted a couple of hours, and resolved on its own. He does have loose congested cough, lung sounds are quite rhonchorous, was able to bring up some sputum, describes it as brown. He denied any fever or chills, denied any abdominal pain. Chest x-ray taken in the emergency room and Lenny 2017 showed increasing confluence of the right upper lobe opacity, highly suspicious for pneumonia. Patient was placed on nebulized treatments, cefepime and vancomycin, and admitted for further treatment. Reevaluated today on 03/10/2017, patient seems to be doing a bit better. Chest x -ray was reviewed again, continues to have increased opacity in the right apex, and opacity in the left lung apex. Clinically however, the patient is feeling better, I could only explain his feeling better is the fact that the patient may have had some component of mild congestive heart failure, and improved with diuretics. Reevaluated today on 03/11/2017, patient is about the same, continues to have intermittent cough wheezing shortness of breath,continues to have leukocytosis with WBC count of 14.0, hemoglobin is 10.3,slight worsening in renal profile noted because of diuretics. Hence I will cut down the dose on diuretics. Objective - Vital Signs Vital signs: Vital Signs Temp 97.2 F L 03/11/17 08:00 Pulse 66 03/11/17 08:45 Resp 18 03/11/17 08:00 BP 141/60 03/11/17 08:00 Pulse Ox 97 03/11/17 08:00 Intake & Output 03/10/17 03/11/17 03/11/17 18:59 06:59 18:59 Intake Total 740 250 Output Total 300 750 Balance 440 -500 Weight 54.5 kg 57.5 kg Intake: Intake, IV Titration 50 Amount Cefepime 2 gm In Sodium 50 Chloride 0.9% 50 ml @ 100 mls/hr IVPB Q8H [facility] Rx#: [id number] Oral 740 200 Output: Urine 300 750 Other: Voiding Method Urinal # Voids 1 - Exam Physical exam reveals a frail-looking 81-year-old white male, resting in bed in no acute distress General appearance: no acute distress, thin - EENT Eyes: PERRLA ENT: NA/AT, normal oropharynx Ears: bilateral: normal - Neck Neck: no lymphadenopathy Carotids: bilateral: upstroke normal Thyroid: bilateral: normal size - Respiratory Respiratory: bilateral: rhonchi (anterior upper and lower lobes), wheezing ( faint exp wheezes over posterior upper lobes bilaterally), prolonged inspiration - Cardiovascular Rhythm: regular Heart sounds: normal: S1, S2 foot Peripheral Edema: bilateral: 1+ ankle Peripheral Edema: bilateral: Trace radial pulse Peripheral Pulses: bilateral: Normal dorsalis pedis Peripheral Pulses: bilateral: Normal - Gastrointestinal General gastrointestinal: no organomegaly, soft, no tenderness - Integumentary Integumentary: normal turgor, pale - Neurologic Neurologic: CNII-XII intact - Musculoskeletal Musculoskeletal: generalized weakness, strength equal bilaterally - Psychiatric Psychiatric: A&O x's 3, appropriate affect, intact judgment & insight - Labs CBC & Chem 7: 03/11/17 05:26 03/11/17 05:26 Labs: Abnormal Lab Results - Last 24 Hours (Table) 03/10/17 03/10/17 03/10/17 Range/Units 12:17 17:15 20:45 WBC (3.8-10.6) k/uL RBC (4.30-5.90) m/uL Hgb (13.0-17.5) gm/dL Hct (39.0-53.0) % MCHC (31.0-37.0) g/dL RDW (11.5-15.5) % Neutrophils # (1.3-7.7) k/uL Lymphocytes # (1.0-4.8) k/uL Carbon Dioxide (22-30) mmol/L BUN (9-20) mg/dL Creatinine (0.66-1.25) mg/dL Glucose (74-99) mg/dL POC Glucose (mg/dL) 155 H 179 H 196 H (75-99) mg/dL 03/11/17 03/11/17 03/11/17 Range/Units 05:26 05:26 05:54 WBC 14.0 H (3.8-10.6) k/uL RBC 3.45 L (4.30-5.90) m/uL Hgb 10.3 L (13.0-17.5) gm/dL Hct 34.3 L (39.0-53.0) % MCHC 29.9 L (31.0-37.0) g/dL RDW 15.6 H (11.5-15.5) % Neutrophils # 13.2 H (1.3-7.7) k/uL Lymphocytes # 0.4 L (1.0-4.8) k/uL Carbon Dioxide 32 H (22-30) mmol/L BUN 49 H (9-20) mg/dL Creatinine 1.30 H (0.66-1.25) mg/dL Glucose 117 H (74-99) mg/dL POC Glucose (mg/dL) 122 H (75-99) mg/dL Microbiology - Last 24 Hours (Table) 03/09/17 09:30 Blood Culture - Preliminary Blood No Growth after 24 hours Assessment and Plan Assessment: 1. Acute on chronic hypoxic respiratory failure secondary to a possible right upper lobe pneumonia, healthcare acquired. Patient's empirically covered with a combination of cefepime and vancomycin. #2. Recent hospitalization for acute COPD exacerbation, discharged to rehab yesterday and 03/08/2017, completing a course of Zithromax and Rocephin #3. Episode of atypical chest pain, there is evidence of a mild troponin leak, troponins 0.042, EKG shows sinus tachycardia with frequent PVCs and nonspecific ST and T-wave abnormality. ProBNP is also elevated #4. ProBNP elevation, 8310 on admission. Patient had an echocardiogram on 02/06, showed left ventricular systolic function with EF of 50-55%, hence the patient may have some component of diastolic dysfunction with mild fluid overload and congestive heart failure. #5. Advanced oxygen-dependent COPD #6. Coronary artery disease, with previous history of coronary bypass surgery #7. History of bladder cancer, with history of post transurethral resection of the bladder tumor followed by intravesicular chemotherapy #8. Diverticular disease with history of complicated diverticulitis with bowel perforation requiring colostomy and colectomy #9. Large parastomal hernia/incisional hernia, not a surgical candidate for repair #10. Carotid artery stenosis #11. Hypertension, hyperlipidemia #12. History of nicotine dependence, quit in 1997 #13. General medical debility secondary to age and various medical problems and comorbidities #14. 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 Time with Patient: Less than 30
[2017-03-11 12:14] LABS: Glucose,Whole Blood 203 mg/dL (75-99)
[2017-03-11] MEDS: ASPIRIN 81 MG PO SCH ×2 (15:19→15:20)
[2017-03-11] MEDS: FLUCONAZOLE 100 MG TAB PO SCH (15:20)
[2017-03-11 17:13] LABS: Glucose,Whole Blood 155 mg/dL (75-99)
--- NOTE | 2017-03-11 18:23 | P.PN ---
Progress Note - Text Progress Note Date: 03/11/17 DATE OF SERVICE: 03/11/2017 PRESENTING COMPLAINT: Increasing shortness of breath HISTORY OF PRESENT ILLNESS: 81-year-old male who had an extensive hospital stay recently discharged to care home and developed breathing difficulties with hypoxia and epigastric pain within 24 hours of discharge had a significant history for COPD and coronary artery disease with multiple admissions to the hospital for respiratory problems. Patient's oxygen dependent wears 2 L of oxygen while the care home his oxygen was taken off and remained off throughout the night in the morning pulse ox was low into the 80s patient was complaining of epigastric with low chest pain, return to [facility] for further evaluation and treatment. Chest x-ray revealed right upper lobe pneumonia and was admitted for the same. INTERVAL HISTORY: 03/11/2017: Sitting up in the bed at the bedside, tired appearing, some dyspnea but breathing better. Nasal cannula in place, has coarse cough unable to cough up any sputum. Complains of right upper chest wall chest pain from time to time, nonradiating. Up out of bed with assistance. Encouraged to be up in the chair for meals. Appetite improving eating about 50% of each meal. Colostomy bag functioning well. 03/10/2017: Sitting up in the bed at the bedside as well as additional family members. Tired appearing, breathing easily, nasal cannula in place, has a coarse cough unable to cough up any sputum. No further complaints of any epigastric or chest pain. Appetite is good ate about 50% of his breakfast. Colostomy bag in place of the left lower quadrant, producing semi-formed brown stool. Ambulatory with a walker and assistance. REVIEW OF SYSTEMS: Done for constitutional ,cardiovascular, GI, pulmonary with relevant findings as above. CURRENT MEDICATIONS Tylenol, DuoNeb, Xanax, aspirin, Lipitor, Symbicort, cefepime, Celexa, Proscar, Lasix, insulin, Atrovent, Imdur, Solu-Medrol, Lopressor, vancomycin, Xopenex, Flomax. PHYSICAL EXAM VITAL SIGNS: Temperature 97.2, pulse 66, respiratory rate 18, blood pressure 141/60, oxygen saturation 97% on 3 L. GENERAL APPEARANCE: Thin build Lying in bed, anxious appearing. HEENT: Normocephalic, Pupils equal. Conjunctiva normal. JVD not raised. Mass not palpable.: RESPIRATORY: Respiratory effort increased. Lungs diminished, inspiratory and expiratory wheezing, cough . CARDIOVASCULAR: First and second sounds normal. Mild edema. ABDOMEN: Soft. Liver and spleen not palpable. No tenderness. Inguinal hernia, peristomal hernia, left lower quadrant colostomy with brown liquid/semi-formed stool PSYCHIATRY: Alert and oriented x3. Mood and affect anxious appearing MUSCULOSKELETAL: Diffuse wasting of the muscles INVESTIGATIONS: LABS: White blood cell count 14.0, hemoglobin 10.3, carbon dioxide 32, BUN 49, creatinine 1.30, Accu-Cheks noted. ASSESSMENT: -Acute acquired right upper lobe pneumonia in a patient who has had multiple admissions to health care facilities -Acute chronic obstructive pulmonary disease exacerbation, in an ex-smoker Clinically improving . -Leukocytosis likely due to current right upper lobe pneumonia and steroid use -Acute on Chronic congestive heart failure from hypertensive heart disease, ejection fraction 55-60%. -Elevated troponin in a patient with known coronary artery disease history of CABG surgery -Essential hypertension. -Chronic carotid artery stenosis. -Benign prostatic hypertrophy. -Anxiety, depression not otherwise specified. -Chronic colostomy. -Coronary artery disease with prior history of stent. -Chronic cognitive impairment -Tremors with some contribution from beta agonist, responded well with primidone PLAN: Continue bronchodilators antibiotics, steroids, diuretics, IV Lasix. The patient continues to improve may be able to return him to rehab on Sunday. Plan of care discussed at the bedside with and patient they are in agreement. We will follow closely. QUALITATIVE FIELD COORDINATOR statement: Patient was seen and examined by nurse practitioner Aarti Patel and all elements of the case discussed with attending Dr. Maddox
[2017-03-11] MEDS: ATORVASTATIN 20 MG TAB PO SCH (20:09)
--- NOTE | 2017-03-11 20:25 | PN ---
PROGRESS NOTE DATE OF SERVICE: 03/11/17 ATTENDING NOTE: Patient seen and examined by me. I discussed with nurse practitioner Ms. Patel. Sitting on bed. Ate rather well. Breathing is greatly improved. Minimal sputum production. at the bedside. EXAMINATION: Temperature 96.9, pulse 69, respiratory 18, blood pressure 151/55, pulse ox 99% on 3 L. General appearance: Sitting up. Propped up in bed. More comfortable. Lungs decreased breath sounds. Occasional crackles. No edema. INVESTIGATIONS: White count 14, hemoglobin 10.3, BUN 49, creatinine 1.30. ASSESSMENT: 1. Right upper lobe pneumonia with clinical improvement. 2. Acute chronic obstructive pulmonary disease exacerbation. 3. Acute on chronic congestive heart failure from diastolic dysfunction. Ejection fraction 55-60% much improved. PLAN: Patient is overall doing much better. Vancomycin will be discontinued. The patient is on p.o. Lasix. Care was discussed the patient and at the bedside. Vancomycin will be discontinued. MMODL / IJN: [id number] /
[2017-03-11 20:43] LABS: Glucose,Whole Blood 197 mg/dL (75-99)
[2017-03-11] MEDS ORDERED: VANCOMYCIN TROUGH DUE 1 EACH MISC MISCELLANE ONE (21:00)
[2017-03-12] MEDS: CEFEPIME 2 GM in SODIUM CHLORIDE 0.9% 50 ML IVPB SCH ×2 (03:01→11:56)
[2017-03-12 05:00] LABS: Anion Gap 6 mmol/L; Blood Urea Nitrogen 66 mg/dL (9-20); Calcium 8.7 mg/dL (8.4-10.2); Carbon Dioxide 31 mmol/L (22-30); Chloride 104 mmol/L (98-107); Glucose 125 mg/dL (74-99); Sodium 141 mmol/L (137-145)
[2017-03-12 05:53] LABS: Glucose,Whole Blood 132 mg/dL (75-99)
[2017-03-12] MEDS: INSULIN ASPART 100 UNIT/ML 1 ML 10 ML VIAL SQ SCH ×2 (06:10→12:33)
[2017-03-12] MEDS: LEVALBUTEROL 1.25 MG INHALATION SCH ×3 (07:50→16:04)
[2017-03-12] MEDS: IPRATROPIUM 0.5 MG/2.5 ML NEBU INHALATION SCH ×4 (07:50→16:04)
[2017-03-12] MEDS: SYMBICORT 160-4.5 MCG INHALER INHALATION SCH (07:50)
--- NOTE | 2017-03-12 08:36 | XR ---
EXAMINATION TYPE: XR chest 1V portable DATE OF EXAM: 03/12/2017 COMPARISON: 03/10/2017 HISTORY: Pneumonia TECHNIQUE: Single frontal view of the chest is obtained. FINDINGS: Pleural thickening or mass with area of subsegmental consolidation involving both upper lo bes are stable. Postoperative change, epicardial lead and hyperinflation suggestive of COPD noted. Fi ndings are stable. IMPRESSION: 1. COPD 2. Subsegmental consolidation in both upper lobes are stable with pleural-based thickening or mass in the right upper lobe unchanged in appearance.
[2017-03-12] MEDS ORDERED: FUROSEMIDE 20 MG TAB PO SCH (09:00)
[2017-03-12] MEDS ORDERED: methylPREDNISolone SOD SUCCI 40 MG/ML 1 ML VIAL IV SCH (09:00)
[2017-03-12 09:05] VITALS: RESP 16
[2017-03-12] MEDS: FINASTERIDE 5 MG TAB PO SCH (09:07)
[2017-03-12] MEDS: ALPRAZolam 0.5 MG TAB PO SCH (09:07)
[2017-03-12] MEDS: CITALOPRAM HYDROBROMIDE 20 MG TAB PO SCH (09:07)
[2017-03-12] MEDS: METOPROLOL TARTRATE 12.5 MG TAB PO SCH (09:08)
[2017-03-12] MEDS: guaiFENesin 600 MG TABLET.ER PO SCH (09:08)
[2017-03-12] MEDS: ISOSORBIDE MONONITRATE ER 30 MG TAB.ER.24H PO SCH (09:08)
[2017-03-12] MEDS: PRIMIDONE 25 MG TAB PO SCH ×2 (09:08→15:51)
[2017-03-12] MEDS: TAMSULOSIN 0.4 MG CAP.ER.24H PO SCH (09:09)
[2017-03-12 11:43] LABS: Glucose,Whole Blood 154 mg/dL (75-99)
[2017-03-12 11:56] VITALS: PULSE 73
--- NOTE | 2017-03-12 12:52 | P.PN ---
Subjective Progress Note Date: 03/12/17 Principal diagnosis: CHF This is an 81-year-old gentleman who initially presented to the hospital with symptoms of progressive dyspnea. He has known history of severe COPD, was also being treated for mild congestive heart failure. Patient was seen and examined this morning, daughter at the bedside. Mildly confused this morning. Overall stable. Arrangements are being made for him to be transferred to [facility] today. He on by mouth diuretics. The pressure and heart rate stable, 136/68, heart rate in the 70s. Sodium 141, potassium 4.0, BUN 66, creatinine 1.3. Magnesium 2.1. Objective - Vital Signs Vital signs: Vital Signs Temp 96.4 F L 03/12/17 09:00 Pulse 73 03/12/17 11:55 Resp 16 03/12/17 11:55 BP 137/68 03/12/17 11:55 Pulse Ox 98 03/12/17 11:55 Intake & Output 03/11/17 03/12/17 03/12/17 18:59 06:59 18:59 Intake Total 360 50 287 Output Total 950 Balance -590 50 287 Weight 67.2 kg Intake: Intake, IV Titration 50 50 Amount Cefepime 2 gm In Sodium 50 50 Chloride 0.9% 50 ml @ 100 mls/hr IVPB [facility] Rx#: [id number] Oral 360 237 Output: Urine 950 Other: Voiding Method Urinal Urinal - Exam PHYSICAL EXAMINATION: HEENT: Head is atraumatic, normocephalic. Pupils equal, round. Neck is supple. There is no elevated jugular venous pressure. HEART EXAMINATION: Heart S1, S2 normal. No murmur or gallop heard. CHEST EXAMINATION: Lungs reveal fine expiratory wheezes. ABDOMEN: Soft, nontender. Bowel sounds are heard. No organomegaly noted. EXTREMITIES: 1+ peripheral pulses with no evidence of peripheral edema and no calf tenderness noted. NEUROLOGIC patient is awake, alert and oriented -3. . - Labs CBC & Chem 7: 03/11/17 05:26 03/12/17 04:26 Labs: Abnormal Lab Results - Last 24 Hours (Table) 03/11/17 03/11/17 03/12/17 Range/Units 17:08 20:41 04:26 Carbon Dioxide 31 H (22-30) mmol/L BUN 66 H (9-20) mg/dL Creatinine 1.30 H (0.66-1.25) mg/dL Glucose 125 H (74-99) mg/dL POC Glucose (mg/dL) 155 H 197 H (75-99) mg/dL 03/12/17 03/12/17 Range/Units 05:51 11:39 Carbon Dioxide (22-30) mmol/L BUN (9-20) mg/dL Creatinine (0.66-1.25) mg/dL Glucose (74-99) mg/dL POC Glucose (mg/dL) 132 H 154 H (75-99) mg/dL Microbiology - Last 24 Hours (Table) 03/09/17 09:30 Blood Culture - Preliminary Blood No Growth after 72 hours Assessment and Plan Plan: Assessment and Plan #1 symptoms of progressive dyspnea with combination of COPD exacerbation and congestive heart failure based on diastolic dysfunction. #2 severe COPD #3 history of coronary artery disease #4 worsening renal function # 5 history of peripheral vascular disease Plan From cardiology's perspective, we'll continue the patient on his current medications. We'll follow this patient with you now on an as-needed basis only , please don't hesitate to call with any questions. DNP note has been reviewed, I agree with a documented findings and plan of care. Patient was seen and examined.
--- NOTE | 2017-03-12 15:45 | P.DS ---
Providers Date of admission: 03/09/17 11:03 Expected date of discharge: 03/12/17 Attending physician: Samir Maddox Consults: 03/09/17 11:03 Consult Physician Urgent Consulting Provider: Kimberley Huddleston Consult Reason/Comments: Troponin elevation, EKG changes Do you want consulting provider notified?: Already Contacted 03/09/17 12:28 Consult Physician Routine Consulting Provider: Gracia Rivera Consult Reason/Comments: pneumonia Do you want consulting provider notified?: Already Contacted Primary care physician: [facility] Course: FINAL DIAGNOSES: -Acute acquired right upper lobe pneumonia in a patient who has had multiple admissions to health care facilities -Acute chronic obstructive pulmonary disease exacerbation, in an ex-smoker Clinically improving . -Leukocytosis likely due to current right upper lobe pneumonia and steroid use -Acute on Chronic congestive heart failure from hypertensive heart disease, ejection fraction 55-60%. -Elevated troponin in a patient with known coronary artery disease history of CABG surgery -Essential hypertension. -Chronic carotid artery stenosis. -Benign prostatic hypertrophy. -Anxiety, depression not otherwise specified. -Chronic colostomy. -Coronary artery disease with prior history of stent. -Chronic cognitive impairment -Tremors with some contribution from beta agonist, responded well with primidone HOSPTIAL COURSE: 81-year-old male with extensive hospital stay and was readmitted from the halfway after he developed breathing difficulties with hypoxia and epigastric pain within 24 hours of discharge. Was readmitted for acute COPD exacerbation and right upper lobe pneumonia. I'll medications reordered, pulmonology and cardiology consulted. Pulmonology placed patient on nebulized treatments, cefepime and vancomycin and steroids. Received some diuretics as it appeared to be a component of mild congestive heart failure and breathing improved. Cardiology continue current medication plan to include diuretics. Overall condition improved breathing easier, on nasal cannula, continues have a mild cough no sputum production, tolerating his diet, moves about with a walker and lots of assistance, colostomy bag producing brown stool. Consultants agree patient is stable for discharge back to the nursing care facility, patient should wear his oxygen of 2 L at all times. PHYSICAL EXAM: CARDIOVASCULAR: First and second sound noted mild edema RESPIRATORY: Oxygen-dependent with 2 L is a cannula, respiratory effort mildly increased, inspiratory and expiratory wheezing with diminished breath sounds bilaterally coarse cough no sputum GI: Abdomen soft nontender left lower quadrant with colostomy bag working well. Brown stool noted in the bag MUSKULOSKELETAL: Diffuse wasting of the muscles, weak and debilitated PSYCHIATRY: Alert and oriented 3 able to answer simple straightforward questions mood and affect normal. Patient was seen and examined by nurse practitioner Aarti Patel in all elements of the case discussed with attending Dr. Maddox DISPOSITION: Discharged tomorrow with nursing care facility Patient Condition at Discharge: Stable Plan - Discharge Summary Discharge Rx Participant: No New Discharge Prescriptions: New Ipratropium Nebulized [Atrovent Nebulized] 0.5 mg INHALATION RT-QID nebu Isosorbide Mononitrate ER [Imdur] 30 mg PO DAILY tab.er.24h predniSONE See Taper PO DAILY #30 tab Continue Tamsulosin [Flomax] 0.4 mg PO QAM Finasteride [Proscar] 5 mg PO QAM Citalopram Hydrobromide [CeleXA] 40 mg PO QAM Levalbuterol HCl [Xopenex Nebulized] 1.25 mg INHALATION RT-QID guaiFENesin [Mucinex] 1,200 mg PO Q12HR #10 tablet.er Atorvastatin [Lipitor] 20 mg PO HS tab Na Phos,M-B/Na Phos,Di-Ba [Fleet Adult] 133 ml RECTAL DAILY PRN PRN Reason: Constipation Bisacodyl [Dulcolax] 10 mg RECTAL DAILY PRN PRN Reason: CONSTIPATION Primidone [Mysoline] 12.5 mg PO TID Metoprolol Tartrate [Lopressor] 12.5 mg PO BID Fluticasone/Salmeterol [Advair 250-50 Diskus] 1 puff INHALATION RT-BID Aspirin 81 mg PO DAILY@1700 Magnesium Hydroxide [Milk of Magnesia] 2,400 mg PO DAILY PRN PRN Reason: Constipation Cefuroxime Axetil [Ceftin] 500 mg PO BID #10 tablet Fluconazole [Diflucan] 100 mg PO DAILY@1700 #7 tab ALPRAZolam [Xanax] 0.5 mg PO BID #10 tab Discontinued Furosemide [Lasix] 20 mg PO QAM Ipratropium-Albuterol Nebulize [Duoneb 0.5 mg-3 mg/3 ml Soln] 3 ml INHALATION RT-QID predniSONE 30 mg PO BID predniSONE 20 mg PO DAILY Discharge Medication List Citalopram Hydrobromide [CeleXA] 40 mg PO QAM 11/18/13 [History] Finasteride [Proscar] 5 mg PO QAM 11/18/13 [History] Tamsulosin [Flomax] 0.4 mg PO QAM 11/18/13 [History] Levalbuterol HCl [Xopenex Nebulized] 1.25 mg INHALATION RT-QID 06/19/16 [History ] guaiFENesin [Mucinex] 1,200 mg PO Q12HR #10 tablet.er 03/07/17 [Rx] Atorvastatin [Lipitor] 20 mg PO HS tab 03/08/17 [Rx] Aspirin 81 mg PO DAILY@1700 03/09/17 [History] Bisacodyl [Dulcolax] 10 mg RECTAL DAILY PRN 03/09/17 [History] Fluticasone/Salmeterol [Advair 250-50 Diskus] 1 puff INHALATION RT-BID 03/09/17 [History] Magnesium Hydroxide [Milk of Magnesia] 2,400 mg PO DAILY PRN 03/09/17 [History] Metoprolol Tartrate [Lopressor] 12.5 mg PO BID 03/09/17 [History] Na Phos,M-B/Na Phos,Di-Ba [Fleet Adult] 133 ml RECTAL DAILY PRN 03/09/17 [ History] Primidone [Mysoline] 12.5 mg PO TID 03/09/17 [History] ALPRAZolam [Xanax] 0.5 mg PO BID #10 tab 03/12/17 [Rx] Cefuroxime Axetil [Ceftin] 500 mg PO BID #10 tablet 03/12/17 [Rx] Fluconazole [Diflucan] 100 mg PO DAILY@1700 #7 tab 03/12/17 [Rx] Ipratropium Nebulized [Atrovent Nebulized] 0.5 mg INHALATION RT-QID nebu [Rx] Isosorbide Mononitrate ER [Imdur] 30 mg PO DAILY tab.er.24h 03/12/17 [Rx] predniSONE See Taper PO DAILY #30 tab 03/12/17 [Rx] Follow up Appointment(s)/Referral(s): Brad Randall MD [STAFF PHYSICIAN] - 1-2 days Fiona Hayes MD [Primary Care Provider] - 1 Week Ambulatory/Diagnostic Orders: Basic Metabolic Panel [LAB.AMB] Location: Determined By Patient Complete Blood Count w/diff [LAB.AMB] Location: Determined By Patient Activity/Diet/Wound Care/Special Instructions: Heart healthy diet Oxygen dependent 2L colostomy to left lower quadrant. has replacement bags continue ensure supplements Discharge Disposition: TRANSFER TO SNF/ECF
[2017-03-12 15:51] VITALS: BP 126/74; TEMP 96.8
[2017-03-12] MEDS: FLUCONAZOLE 100 MG TAB PO SCH (15:51)
--- NOTE | 2017-03-12 16:48 | P.PN ---
Subjective Progress Note Date: 03/12/17 Principal diagnosis: Acute on chronic hypoxic rest or a failure secondary to right upper lobe pneumonia and COPD, as well as diastolic congestive heart failure Cliff is a 81-year-old white male patient that sees Dr. Hayes in our office for his history of advanced COPD, he was discharged to [facility] rehab yesterday on 03/08/2017 after eating treated for acute COPD exacerbation with tracheobronchitis. Chest x-rays during that admission showed no evidence of an acute pneumonia, does have chronic biapical scarring. He was treated with bronchodilators, steroids and antibiotics, was clinically improving, and hence was discharged to subacute rehab for short-term rehabilitation. Patient's spouse stated he arrived at the rehab around 5:00 last evening, he was taken off his oxygen because his O2 saturations were around 94%, however patient wears oxygen at bedtime and sometimes around the clock. He became quite dyspneic when she awoke, his pulse ox was found to be in the 80s, he was started having some epigastric discomfort, lasted a couple of hours, and resolved on its own. He does have loose congested cough, lung sounds are quite rhonchorous, was able to bring up some sputum, describes it as brown. He denied any fever or chills, denied any abdominal pain. Chest x-ray taken in the emergency room and Lenny 2017 showed increasing confluence of the right upper lobe opacity, highly suspicious for pneumonia. Patient was placed on nebulized treatments, cefepime and vancomycin, and admitted for further treatment. Reevaluated today on 03/10/2017, patient seems to be doing a bit better. Chest x -ray was reviewed again, continues to have increased opacity in the right apex, and opacity in the left lung apex. Clinically however, the patient is feeling better, I could only explain his feeling better is the fact that the patient may have had some component of mild congestive heart failure, and improved with diuretics. Reevaluated today on 03/11/2017, patient is about the same, continues to have intermittent cough wheezing shortness of breath,continues to have leukocytosis with WBC count of 14.0, hemoglobin is 10.3,slight worsening in renal profile noted because of diuretics. Hence I will cut down the dose on diuretics. On 03/12/2017 patient seen in follow-up on selective care unit. Denies any acute distress, he is afebrile, hemodynamically stable, continues on 2 L per nasal cannula with O2 sat 99%. Lung sounds are positive for some scattered rhonchi, but this has Improved from admission. Not able to expectorate any sputum. Blood culture shows no growth at the 72 hour aly. Chest x-ray today shows COPD, subsegmental consolidation in both upper lobes that are stable with pleural-based thickening in the right upper lobe unchanged in appearance. Lab work has been reviewed, no CBC was done today, BMP shows serum sodium of 141, potassium is 4.0, chloride is 104, carbon dioxide is 31, BUN is 66, creatinine is 1.30 From pulmonary standpoint. Patient has been switched to oral Lasix, continues on vancomycin and cefepime as well as Diflucan. Remains stable from pulmonary standpoint, discharge planning is in progress for discharge back to the [facility] rehab facility today. Objective - Vital Signs Vital signs: Vital Signs Temp 96.8 F L 03/12/17 15:50 Pulse 73 03/12/17 15:50 Resp 16 03/12/17 16:21 BP 126/74 03/12/17 15:50 Pulse Ox 99 03/12/17 15:50 Intake & Output 03/11/17 03/12/17 03/12/17 18:59 06:59 18:59 Intake Total 360 50 287 Output Total 950 Balance -590 50 287 Weight 67.2 kg Intake: Intake, IV Titration 50 50 Amount Cefepime 2 gm In Sodium 50 50 Chloride 0.9% 50 ml @ 100 mls/hr IVPB Q8H [facility] Rx#: [id number] Oral 360 237 Output: Urine 950 Other: Voiding Method Urinal Urinal - Exam Exam Physical exam reveals a frail-looking 81-year-old white male, resting in bed in no acute distress General appearance: no acute distress, thin - EENT Eyes: PERRLA ENT: NA/AT, normal oropharynx Ears: bilateral: normal - Neck Neck: no lymphadenopathy Carotids: bilateral: upstroke normal Thyroid: bilateral: normal size - Respiratory Respiratory: bilateral: rhonchi (anterior upper and lower lobes) - Cardiovascular Rhythm: regular Heart sounds: normal: S1, S2 foot Peripheral Edema: bilateral: 1+ ankle Peripheral Edema: bilateral: Trace radial pulse Peripheral Pulses: bilateral: Normal dorsalis pedis Peripheral Pulses: bilateral: Normal - Gastrointestinal General gastrointestinal: no organomegaly, soft, no tenderness - Integumentary Integumentary: normal turgor, pale - Neurologic Neurologic: CNII-XII intact - Musculoskeletal Musculoskeletal: generalized weakness, strength equal bilaterally - Psychiatric Psychiatric: A&O x's 3, appropriate affect, intact judgment & insight - Labs CBC & Chem 7: 03/11/17 05:26 03/12/17 04:26 Labs: Abnormal Lab Results - Last 24 Hours (Table) 03/11/17 03/11/17 03/12/17 Range/Units 17:08 20:41 04:26 Carbon Dioxide 31 H (22-30) mmol/L BUN 66 H (9-20) mg/dL Creatinine 1.30 H (0.66-1.25) mg/dL Glucose 125 H (74-99) mg/dL POC Glucose (mg/dL) 155 H 197 H (75-99) mg/dL 03/12/17 03/12/17 Range/Units 05:51 11:39 Carbon Dioxide (22-30) mmol/L BUN (9-20) mg/dL Creatinine (0.66-1.25) mg/dL Glucose (74-99) mg/dL POC Glucose (mg/dL) 132 H 154 H (75-99) mg/dL Microbiology - Last 24 Hours (Table) 03/09/17 09:30 Blood Culture - Preliminary Blood No Growth after 72 hours Assessment and Plan Plan: Assessment: #1. Acute on chronic hypoxic respiratory failure secondary to a possible right upper lobe pneumonia, healthcare acquired. Patient's empirically covered with a combination of cefepime and vancomycin. #2. Recent hospitalization for acute COPD exacerbation, discharged to rehab yesterday and 03/08/2017, completing a course of Zithromax and Rocephin #3. Episode of atypical chest pain, there is evidence of a mild troponin leak, troponins 0.042, EKG shows sinus tachycardia with frequent PVCs and nonspecific ST and T-wave abnormality. ProBNP is also elevated #4. ProBNP elevation, 8310 on admission. Patient had an echocardiogram on 02/06, showed left ventricular systolic function with EF of 50-55% #5. Advanced oxygen-dependent COPD #6. Coronary artery disease, with previous history of coronary bypass surgery #7. History of bladder cancer, with history of post transurethral resection of the bladder tumor followed by intravesicular chemotherapy #8. Diverticular disease with history of complicated diverticulitis with bowel perforation requiring colostomy and colectomy #9. Large parastomal hernia/incisional hernia, not a surgical candidate for repair #10. Carotid artery stenosis #11. Hypertension, hyperlipidemia #12. History of nicotine dependence, quit in 1997 #13. General medical debility secondary to age and various medical problems and comorbidities #14. 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 He is afebrile, blood culture show no growth. O2 at 2 L, he is his home dose right now. Yesterday we decreased the Lasix to 20 mg by mouth once daily in view of patient's rising creatinine. Today his renal profile is relatively stable, BUN is 66, creatinine is 1.30. From pulmonary standpoint he is clear for discharge back to the rehabilitation center today. Follow up with Dr. Hayes in the office in one week I performed a history & physical examination of the patient and discussed their management with my nurse practitioner, Adelaida Griggs. I reviewed the nurse practitioner's note and agree with the documented findings and plan of care. Lung sounds are positive for scattered rhonchi. The findings and the impression was discussed with the patient. I attest to the documentation by the nurse practitioner. Time with Patient: Less than 30
--- NOTE | 2017-03-13 08:15 | DS ---
DISCHARGE SUMMARY DATE OF SERVICE: 03/11/2017 Patient seen and examined by me. Discussed with my nurse practitioner, Jorge. Patient is relatively stable, tolerating his diet. I spoke to the at length. PHYSICAL EXAMINATION: LUNGS: Some decreased breath sounds. Did explain that patient's overall prognosis is guarded given his multiple comorbidities, but given everything he has led to be stable. The patient is going on a tapering dose of steroids to the ECF. Care was discussed in detail. Questions were answered. 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 MMODL / IJN: [id number] /
[2017-03-13] MEDS ORDERED: CEFEPIME 2 GM in SODIUM CHLORIDE 0.9% 50 ML IVPB SCH (09:00)
== END 2017-03-12 17:02 | DRG 291 ==
LOC: EC 09:15 → 6SEL 11:03
PROVIDERS: ADMIT Hospitalist; ATTEND Hospitalist
DX: I11.0 Hypertensive heart disease with heart failure (principal); J18.9 Pneumonia, unspecified organism; J96.21 Acute and chronic respiratory failure with hypoxia; B37.89 Other sites of candidiasis; J44.0 Chronic obstructive pulmonary disease with (acute) lower respiratory infection; B37.0 Candidal stomatitis; J44.1 Chronic obstructive pulmonary disease with (acute) exacerbation; I50.33 Acute on chronic diastolic (congestive) heart failure; Z99.81 Dependence on supplemental oxygen; I73.9 Peripheral vascular disease, unspecified; I65.29 Occlusion and stenosis of unspecified carotid artery; E78.5 Hyperlipidemia, unspecified; F32.9 Major depressive disorder, single episode, unspecified; F41.9 Anxiety disorder, unspecified; I25.10 Atherosclerotic heart disease of native coronary artery without angina pectoris; I49.3 Ventricular premature depolarization; K21.9 Gastro-esophageal reflux disease without esophagitis; K43.2 Incisional hernia without obstruction or gangrene; K43.5 Parastomal hernia without obstruction or gangrene; K57.90 Diverticulosis of intestine, part unspecified, without perforation or abscess without bleeding; N40.0 Benign prostatic hyperplasia without lower urinary tract symptoms; R25.1 Tremor, unspecified; R74.8 Abnormal levels of other serum enzymes; T38.0X5A Adverse effect of glucocorticoids and synthetic analogues, initial encounter; T50.995A Adverse effect of other drugs, medicaments and biological substances, initial encounter; Z79.82 Long term (current) use of aspirin; Z79.899 Other long term (current) drug therapy; Z79.52 Long term (current) use of systemic steroids; Z95.1 Presence of aortocoronary bypass graft; Z93.3 Colostomy status; Z91.81 History of falling; Z86.73 Personal history of transient ischemic attack (TIA), and cerebral infarction without residual deficits; Z85.51 Personal history of malignant neoplasm of bladder; Z87.891 Personal history of nicotine dependence; Z88.1 Allergy status to other antibiotic agents; Z88.5 Allergy status to narcotic agent; Z88.2 Allergy status to sulfonamides; Z88.8 Allergy status to other drugs, medicaments and biological substances; Z82.49 Family history of ischemic heart disease and other diseases of the circulatory system; Y95 Nosocomial condition; Y92.009 Unspecified place in unspecified non-institutional (private) residence as the place of occurrence of the external cause; Y92.239 Unspecified place in hospital as the place of occurrence of the external cause
CPT/HCPCS: 36415; 71045; 71046; 80048; 80053; 80202; 82550; 82553; 82803; 83605; 83735; 83880; 84484; 85025; 85610; 85730; 87040; 87502; 93005; 94640; 99291

== ENCOUNTER 2017-03-20 21:06 | Inpatient (IN) | payer MEDICARE ==
[2017-03-20] MEDS ORDERED: IPRATROPIUM 0.5 MG/2.5 ML NEBU INHALATION STA (21:40)
--- NOTE | 2017-03-20 21:54 | ED ---
SOB HPI - General Chief Complaint: Shortness of Breath Stated Complaint: NANI Time Seen by Provider: 03/20/17 21:27 Source: patient, EMS Mode of arrival: EMS Limitations: no limitations - History of Present Illness Initial Comments: This patient is an 81-year-old man who presents by ambulance from the [facility] where he is having a rehabilitation placement. The patient does have history of COPD as well as some underlying CHF. Patient started experiencing increasing shortness of breath a bit afternoon. He also felt like he was having an increase in cough but not able to produce any sputum. Patient denies chest pain. Denies change in urination. Has not noted any change in the output from his colostomy. When questioned about leg pain or edema he has no leg pain and the patient's notes that he was having marked edema of the bilateral legs yesterday but it has gone down today, which she attributes to him having his feet up all day. MD Complaint: shortness of breath Onset/Timin -: hour(s) Consistency: constant Improves With: oxygen Worsens With: lying flat Known History Of: COPD, congestive heart failure, recurrent pneumonia Associated Symptoms: cough Treatments Prior to Arrival: oxygen, bronchodilator - Related Data Home Medications Medication Instructions Recorded Confirmed Citalopram Hydrobromide [CeleXA] 40 mg PO QAM 11/18/13 03/27/17 Finasteride [Proscar] 5 mg PO QAM 11/18/13 03/27/17 Tamsulosin [Flomax] 0.4 mg PO QAM 11/18/13 03/27/17 Levalbuterol HCl [Xopenex 1.25 mg INHALATION RT-QID 06/19/16 03/27/17 Nebulized] Aspirin 81 mg PO DAILY@1700 03/09/17 03/27/17 Bisacodyl [Dulcolax] 10 mg RECTAL DAILY PRN 03/09/17 03/27/17 Magnesium Hydroxide [Milk of 2,400 mg PO DAILY PRN 03/09/17 03/27/17 Magnesia] Na Phos,M-B/Na Phos,Di-Ba [Fleet 133 ml RECTAL DAILY PRN 03/09/17 03/27/17 Adult] Fluticasone/Salmeterol [Advair 1 puff INHALATION RT-BID 03/20/17 03/27/17 500-50 Diskus] Furosemide [Lasix] 20 mg PO DAILY 03/20/17 03/27/17 Lactose-Reduced Food [Ensure Plus] 1 can PO TID 03/20/17 03/27/17 Metoprolol Tartrate [Lopressor] 12.5 mg PO BID 03/20/17 03/27/17 Primidone [Mysoline] 12.5 mg PO DAILY@1400 03/20/17 03/27/17 Primidone [Mysoline] 25 mg PO BID 03/20/17 03/27/17 Previous Rx's Medication Instructions Recorded Atorvastatin [Lipitor] 20 mg PO HS tab 03/08/17 ALPRAZolam [Xanax] 0.5 mg PO BID #10 tab 03/12/17 Fluconazole [Diflucan] 100 mg PO DAILY@1700 #7 tab 03/12/17 Isosorbide Mononitrate ER [Imdur] 30 mg PO DAILY tab.er.24h 03/12/17 predniSONE See Taper PO DAILY #30 tab 03/12/17 Allergies Allergy/AdvReac Type Severity Reaction Status Date / Time dobutamine Allergy Severe Swelling Verified 03/27/17 20:42 hydromorphone HCl Allergy Intermediate AGRESSIVE Verified 03/27/17 20:42 [From Dilaudid] sulfamethoxazole Allergy DIAPHORESIS Verified 03/27/17 20:42 [From Bactrim] trimethoprim [From Bactrim] Allergy DIAPHORESIS Verified 03/27/17 20:42 Review of Systems ROS Statement: Those systems with pertinent positive or pertinent negative responses have been documented in the HPI. ROS Other: All systems not noted in ROS Statement are negative. Constitutional: Denies: fever, chills Respiratory: Reports: cough, dyspnea, wheezes. Denies: hemoptysis Cardiovascular: Reports: orthopnea. Denies: chest pain, palpitations, edema, syncope Gastrointestinal: Denies: abdominal pain, vomiting, diarrhea, constipation, melena, hematochezia Genitourinary: Denies: dysuria, hematuria Musculoskeletal: Denies: back pain Skin: Denies: rash Neurological: Denies: headache, weakness Past Medical History Past Medical History: Coronary Artery Disease (CAD), Cancer, COPD, Hyperlipidemia, Hypertension, Pneumonia, Prostate Disorder Additional Past Medical History / Comment(s): Severe COPD, multiple hospitalization for COPD exacerbation, coronary artery disease, Dr. disease, previous CVA, bladder cancer, hyperlipidemia, hypertension, previous complicated diverticulitis with bowel perforation requiring diverting colostomy , parastomal hernia, right inguinal hernia, BPH, previous history of fall and left hip fracture status post ORIF, tremors, chronic hypoxic respiratory failure the patient is on oxygen at 2 L/m nasal cannula History of Any Multi-Drug Resistant Organisms: None Reported Past Surgical History: Bowel Resection, Coronary Bypass/CABG, Hernia Repair Additional Past Surgical History / Comment(s): COLOSTOMY D/T PERFORATED BOWEL FROM DIVERTICULITIS, CABG (2005), ING HERNIA REPAIR, ORIF FX LEFT HIP (10/2013) , CYSOSCOPY. Past Anesthesia/Blood Transfusion Reactions: No Reported Reaction, Motion Sickness Additional Past Anesthesia/Blood Transfusion Reaction / Comment(s): CLAUSTERPHOBIC. DO NOT GIVE HIS DILAUDID- PT BECAME VERY AGGRESSIVE Past Psychological History: Anxiety, Depression Smoking Status: Former smoker Past Alcohol Use History: None Reported Past Drug Use History: None Reported - Past Family History Father Family Medical History: Congestive Heart Failure (CHF) Mother Family Medical History: Congestive Heart Failure (CHF) General Exam Limitations: no limitations General appearance: alert, in distress (Mild tachypnea), other (Mildly tremulous ) Head exam: Present: atraumatic, normocephalic Eye exam: Present: normal appearance Neck exam: Present: normal inspection Respiratory exam: Present: respiratory distress (Mild tachypnea), wheezes, rales (Bilateral bases), rhonchi. Absent: chest wall tenderness, accessory muscle use, decreased breath sounds, prolonged expiratory Cardiovascular Exam: Present: irregular rhythm, systolic murmur. Absent: diastolic murmur, rubs, gallop GI/Abdominal exam: Present: soft, hernia, other (There is a colostomy in the left lower quadrants with peristomal hernia. No abdominal tenderness). Absent : distended, tenderness, guarding, rebound Extremities exam: Present: normal capillary refill, pedal edema (There is trace edema at the ankles bilaterally). Absent: tenderness, calf tenderness Back exam: Present: normal inspection. Absent: CVA tenderness (R), CVA tenderness (L) Neurological exam: Present: alert Skin exam: Present: warm, dry, intact, normal color. Absent: rash Course Vital Signs 03/20/17 03/20/17 03/20/17 21:08 21:45 21:54 Temperature 98.8 F Pulse Rate 83 89 Respiratory 24 24 18 Rate Blood Pressure 173/71 O2 Sat by Pulse 95 Oximetry 03/20/17 03/21/17 03/21/17 22:03 07:32 07:43 Temperature Pulse Rate 79 102 H 100 Respiratory 18 Rate Blood Pressure O2 Sat by Pulse Oximetry 03/21/17 03/21/17 03/21/17 08:26 08:32 08:42 Temperature 97.8 F 97.8 F 98 F Pulse Rate 106 H 103 H 108 H Respiratory 26 H 26 H 24 Rate Blood Pressure 139/61 147/85 138/66 O2 Sat by Pulse 97 97 Oximetry 03/21/17 03/21/17 03/21/17 08:57 09:40 10:25 Temperature 100.9 F H Pulse Rate 119 H 108 H 118 H Respiratory 26 H 28 H 28 H Rate Blood Pressure 131/61 118/58 120/52 O2 Sat by Pulse 97 97 Oximetry 03/21/17 03/21/17 03/21/17 12:00 12:09 12:27 Temperature 98.9 F Pulse Rate 98 117 H 107 H Respiratory 17 Rate Blood Pressure 103/55 O2 Sat by Pulse Oximetry 03/21/17 03/21/17 03/21/17 12:37 12:47 12:57 Temperature 99.2 F 99.2 F 99 F Pulse Rate 106 H 112 H 108 H Respiratory 20 22 24 Rate Blood Pressure 112/56 112/56 97/55 O2 Sat by Pulse 98 98 Oximetry 03/21/17 03/21/17 03/21/17 13:15 13:30 14:00 Temperature 99.2 F 99.2 F 99 F Pulse Rate 106 H 102 H 106 H Respiratory 24 20 20 Rate Blood Pressure 137/63 136/63 128/58 O2 Sat by Pulse 96 Oximetry 03/21/17 03/21/17 03/21/17 14:25 14:50 14:54 Temperature 99 F 98.2 F 98.6 F Pulse Rate 98 98 87 Respiratory 20 18 18 Rate Blood Pressure 111/59 146/65 119/57 O2 Sat by Pulse Oximetry 03/21/17 15:04 Temperature 97.9 F Pulse Rate 91 Respiratory 14 Rate Blood Pressure 111/49 O2 Sat by Pulse Oximetry - Reevaluation(s) Reevaluation #1: 03/21/17 05:07 Just prior to 5:00, I was called to the bedside as the patient had an episode of vomiting of bright red clotted blood, probably around 150-200 mL. Inspection at that time also reveals that the contents of the ostomy appear melanotic now, 1 prior to this they were normal brown appearance. Sample sent to blood bank for type and crossmatch, as well as recheck H&H. Patient admission will be changed ICU, paged the patient's surgeon though after discussion with the patient's family is clear that they feel that due to his pulmonary status he is not a surgical candidate. Reevaluation #2: 03/21/17 06:19 I discussed the case with Dr. Luis, who is covering for Dr. Hung, and also with Dr. Hayes, and the patient's admission is changed ICU. Medical Decision Making - Lab Data Result diagrams: 03/27/17 04:53 03/27/17 04:53 Lab Results 03/20/17 03/20/17 03/20/17 Range/Units 21:20 21:20 21:20 WBC 14.9 H (3.8-10.6) k/uL RBC 3.31 L (4.30-5.90) m/uL Hgb 10.3 L (13.0-17.5) gm/dL Hct 33.1 L (39.0-53.0) % MCV 100.0 (80.0-100.0) fL MCH 31.1 (25.0-35.0) pg MCHC 31.1 (31.0-37.0) g/dL RDW 16.5 H (11.5-15.5) % Plt Count 122 L (150-450) k/uL Neutrophils % 88 % Lymphocytes % 5 % Monocytes % 6 % Eosinophils % 1 % Basophils % 0 % Neutrophils # 13.1 H (1.3-7.7) k/uL Lymphocytes # 0.7 L (1.0-4.8) k/uL Monocytes # 0.9 (0-1.0) k/uL Eosinophils # 0.1 (0-0.7) k/uL Basophils # 0.0 (0-0.2) k/uL Hypochromasia Marked Anisocytosis Slight Macrocytosis Slight PT (9.0-12.0) sec INR (<1.2) APTT (22.0-30.0) sec Sodium 143 (137-145) mmol/L Potassium 4.4 (3.5-5.1) mmol/L Chloride 104 (98-107) mmol/L Carbon Dioxide 34 H (22-30) mmol/L Anion Gap 5 mmol/L BUN 43 H (9-20) mg/dL Creatinine 1.20 (0.66-1.25) mg/dL Est GFR (MDRD) Af Amer >60 (>60 ml/min/1.73 sqM) Est GFR (MDRD) Non-Af 58 (>60 ml/min/1.73 sqM) Glucose 106 H (74-99) mg/dL Calcium 8.1 L (8.4-10.2) mg/dL Magnesium 2.1 (1.6-2.3) mg/dL Total Bilirubin 0.4 (0.2-1.3) mg/dL AST 21 (17-59) U/L ALT 50 (21-72) U/L Alkaline Phosphatase 58 (38-126) U/L Total Creatine Kinase <20 L (55-170) U/L CK-MB (CK-2) 0.8 (0.0-2.4) ng/mL CK-MB (CK-2) Rel Index Troponin I 0.091 H* (0.000-0.034) ng/mL NT-Pro-B Natriuret Pep pg/mL Total Protein 4.9 L (6.3-8.2) g/dL Albumin 2.7 L (3.5-5.0) g/dL Urine Color Urine Appearance (Clear) Urine pH (5.0-8.0) Ur Specific Bailey (1.001-1.035) Urine Protein (Negative) Urine Glucose (UA) (Negative) Urine Ketones (Negative) Urine Blood (Negative) Urine Nitrite (Negative) Urine Bilirubin (Negative) Urine Urobilinogen (<2.0) mg/dL Ur Leukocyte Esterase (Negative) Urine RBC (0-5) /hpf Urine WBC (0-5) /hpf Urine WBC Clumps (None) /hpf Hyaline Casts (0-2) /lpf Urine Mucus (None) /hpf Stool Occult Blood (Negative) Influenza Type A RNA (Not Detectd) Influenza Type B (PCR) (Not Detectd) Blood Type Blood Type Recheck Antibody Screen Crossmatch Spec Expiration Date 03/20/17 03/20/17 03/20/17 Range/Units 21:20 21:20 22:13 WBC (3.8-10.6) k/uL RBC (4.30-5.90) m/uL Hgb (13.0-17.5) gm/dL Hct (39.0-53.0) % MCV (80.0-100.0) fL MCH (25.0-35.0) pg MCHC (31.0-37.0) g/dL RDW (11.5-15.5) % Plt Count (150-450) k/uL Neutrophils % % Lymphocytes % % Monocytes % % Eosinophils % % Basophils % % Neutrophils # (1.3-7.7) k/uL Lymphocytes # (1.0-4.8) k/uL Monocytes # (0-1.0) k/uL Eosinophils # (0-0.7) k/uL Basophils # (0-0.2) k/uL Hypochromasia Anisocytosis Macrocytosis PT 9.7 (9.0-12.0) sec INR 1.0 (<1.2) APTT 21.4 L (22.0-30.0) sec Sodium (137-145) mmol/L Potassium (3.5-5.1) mmol/L Chloride (98-107) mmol/L Carbon Dioxide (22-30) mmol/L Anion Gap mmol/L BUN (9-20) mg/dL Creatinine (0.66-1.25) mg/dL Est GFR (MDRD) Af Amer (>60 ml/min/1.73 sqM) Est GFR (MDRD) Non-Af (>60 ml/min/1.73 sqM) Glucose (74-99) mg/dL Calcium (8.4-10.2) mg/dL Magnesium (1.6-2.3) mg/dL Total Bilirubin (0.2-1.3) mg/dL AST (17-59) U/L ALT (21-72) U/L Alkaline Phosphatase (38-126) U/L Total Creatine Kinase (55-170) U/L CK-MB (CK-2) (0.0-2.4) ng/mL CK-MB (CK-2) Rel Index Troponin I (0.000-0.034) ng/mL NT-Pro-B Natriuret Pep 5540 pg/mL Total Protein (6.3-8.2) g/dL Albumin (3.5-5.0) g/dL Urine Color Urine Appearance (Clear) Urine pH (5.0-8.0) Ur Specific Bailey (1.001-1.035) Urine Protein (Negative) Urine Glucose (UA) (Negative) Urine Ketones (Negative) Urine Blood (Negative) Urine Nitrite (Negative) Urine Bilirubin (Negative) Urine Urobilinogen (<2.0) mg/dL Ur Leukocyte Esterase (Negative) Urine RBC (0-5) /hpf Urine WBC (0-5) /hpf Urine WBC Clumps (None) /hpf Hyaline Casts (0-2) /lpf Urine Mucus (None) /hpf Stool Occult Blood (Negative) Influenza Type A RNA Not Detected (Not Detectd) Influenza Type B (PCR) Not Detected (Not Detectd) Blood Type Blood Type Recheck Antibody Screen Crossmatch Spec Expiration Date 03/21/17 03/21/17 03/21/17 Range/Units 01:09 04:30 04:54 WBC (3.8-10.6) k/uL RBC (4.30-5.90) m/uL Hgb (13.0-17.5) gm/dL Hct (39.0-53.0) % MCV (80.0-100.0) fL MCH (25.0-35.0) pg MCHC (31.0-37.0) g/dL RDW (11.5-15.5) % Plt Count (150-450) k/uL Neutrophils % % Lymphocytes % % Monocytes % % Eosinophils % % Basophils % % Neutrophils # (1.3-7.7) k/uL Lymphocytes # (1.0-4.8) k/uL Monocytes # (0-1.0) k/uL Eosinophils # (0-0.7) k/uL Basophils # (0-0.2) k/uL Hypochromasia Anisocytosis Macrocytosis PT (9.0-12.0) sec INR (<1.2) APTT (22.0-30.0) sec Sodium (137-145) mmol/L Potassium (3.5-5.1) mmol/L Chloride (98-107) mmol/L Carbon Dioxide (22-30) mmol/L Anion Gap mmol/L BUN (9-20) mg/dL Creatinine (0.66-1.25) mg/dL Est GFR (MDRD) Af Amer (>60 ml/min/1.73 sqM) Est GFR (MDRD) Non-Af (>60 ml/min/1.73 sqM) Glucose (74-99) mg/dL Calcium (8.4-10.2) mg/dL Magnesium (1.6-2.3) mg/dL Total Bilirubin (0.2-1.3) mg/dL AST (17-59) U/L ALT (21-72) U/L Alkaline Phosphatase (38-126) U/L Total Creatine Kinase (55-170) U/L CK-MB (CK-2) (0.0-2.4) ng/mL CK-MB (CK-2) Rel Index Troponin I (0.000-0.034) ng/mL NT-Pro-B Natriuret Pep pg/mL Total Protein (6.3-8.2) g/dL Albumin (3.5-5.0) g/dL Urine Color Yellow Urine Appearance Clear (Clear) Urine pH 5.5 (5.0-8.0) Ur Specific Bailey 1.015 (1.001-1.035) Urine Protein Trace H (Negative) Urine Glucose (UA) Negative (Negative) Urine Ketones Negative (Negative) Urine Blood Negative (Negative) Urine Nitrite Negative (Negative) Urine Bilirubin Negative (Negative) Urine Urobilinogen <2.0 (<2.0) mg/dL Ur Leukocyte Esterase Negative (Negative) Urine RBC 1 (0-5) /hpf Urine WBC 3 (0-5) /hpf Urine WBC Clumps Rare H (None) /hpf Hyaline Casts 3 H (0-2) /lpf Urine Mucus Rare H (None) /hpf Stool Occult Blood Positive (Negative) Influenza Type A RNA (Not Detectd) Influenza Type B (PCR) (Not Detectd) Blood Type A Positive Blood Type Recheck No Antibody Screen NEGATIVE Crossmatch See Detail Spec Expiration Date 03/24/2017 - 232903/21/17 Range/Units 04:55 WBC 16.0 H (3.8-10.6) k/uL RBC 2.53 L (4.30-5.90) m/uL Hgb 7.7 L D (13.0-17.5) gm/dL Hct 25.3 L (39.0-53.0) % MCV 100.1 H (80.0-100.0) fL MCH 30.5 (25.0-35.0) pg MCHC 30.4 L (31.0-37.0) g/dL RDW 15.4 (11.5-15.5) % Plt Count 138 L (150-450) k/uL Neutrophils % 85 % Lymphocytes % 8 % Monocytes % 5 % Eosinophils % 0 % Basophils % 0 % Neutrophils # 13.6 H (1.3-7.7) k/uL Lymphocytes # 1.3 (1.0-4.8) k/uL Monocytes # 0.9 (0-1.0) k/uL Eosinophils # 0.1 (0-0.7) k/uL Basophils # 0.1 (0-0.2) k/uL Hypochromasia Slight Anisocytosis Macrocytosis Slight PT (9.0-12.0) sec INR (<1.2) APTT (22.0-30.0) sec Sodium (137-145) mmol/L Potassium (3.5-5.1) mmol/L Chloride (98-107) mmol/L Carbon Dioxide (22-30) mmol/L Anion Gap mmol/L BUN (9-20) mg/dL Creatinine (0.66-1.25) mg/dL Est GFR (MDRD) Af Amer (>60 ml/min/1.73 sqM) Est GFR (MDRD) Non-Af (>60 ml/min/1.73 sqM) Glucose (74-99) mg/dL Calcium (8.4-10.2) mg/dL Magnesium (1.6-2.3) mg/dL Total Bilirubin (0.2-1.3) mg/dL AST (17-59) U/L ALT (21-72) U/L Alkaline Phosphatase (38-126) U/L Total Creatine Kinase (55-170) U/L CK-MB (CK-2) (0.0-2.4) ng/mL CK-MB (CK-2) Rel Index Troponin I (0.000-0.034) ng/mL NT-Pro-B Natriuret Pep pg/mL Total Protein (6.3-8.2) g/dL Albumin (3.5-5.0) g/dL Urine Color Urine Appearance (Clear) Urine pH (5.0-8.0) Ur Specific Bailey (1.001-1.035) Urine Protein (Negative) Urine Glucose (UA) (Negative) Urine Ketones (Negative) Urine Blood (Negative) Urine Nitrite (Negative) Urine Bilirubin (Negative) Urine Urobilinogen (<2.0) mg/dL Ur Leukocyte Esterase (Negative) Urine RBC (0-5) /hpf Urine WBC (0-5) /hpf Urine WBC Clumps (None) /hpf Hyaline Casts (0-2) /lpf Urine Mucus (None) /hpf Stool Occult Blood (Negative) Influenza Type A RNA (Not Detectd) Influenza Type B (PCR) (Not Detectd) Blood Type Blood Type Recheck Antibody Screen Crossmatch Spec Expiration Date - EKG Data -: EKG Interpreted by Ma EKG shows normal: axis (Normal), intervals (Normal) Rate: normal (Approximate 93 bpm) Interpretation: nonspecific ST-T wave changes, other (The patient's underlying rhythm appears to be atrial fibrillation there also some PVCs) Critical Care Time Critical Care Time: Yes (35 minutes) Disposition Clinical Impression: Congestive heart failure, COPD exacerbation, GI bleed Disposition: ADMITTED IP TO THIS [facility] Condition: Fair
[2017-03-20 22:10] LABS: Anisocytosis Slight; Basophils % (A) 0 %; Eosinophils # (A) 0.1 k/uL (0-0.7); Eosinophils % (A) 1 %; HCT 33.1 % (39.0-53.0); HGB 10.3 gm/dL (13.0-17.5); Hypochromasia Marked; Lymphocytes # (A) 0.7 k/uL (1.0-4.8); Lymphocytes % (A) 5 %; MCH 31.1 pg (25.0-35.0); MCHC 31.1 g/dL (31.0-37.0); Macrocytosis Slight; Mean Platelet Volume 10.5; Monocytes # (A) 0.9 k/uL (0-1.0); Monocytes % (A) 6 %; Neutrophils # (A) 13.1 k/uL (1.3-7.7); Neutrophils % (A) 88 %; Platelet Count 122 k/uL (150-450); RBC 3.31 m/uL (4.30-5.90); RDW 16.5 % (11.5-15.5); WBC 14.9 k/uL (3.8-10.6)
[2017-03-20 22:16] LABS: ALT 50 U/L (21-72); AST 21 U/L (17-59); Albumin 2.7 g/dL (3.5-5.0); Alkaline Phosphatase 58 U/L (38-126); Anion Gap 5 mmol/L; Blood Urea Nitrogen 43 mg/dL (9-20); Calcium 8.1 mg/dL (8.4-10.2); Carbon Dioxide 34 mmol/L (22-30); Chloride 104 mmol/L (98-107); Glucose 106 mg/dL (74-99); Magnesium 2.1 mg/dL (1.6-2.3); Potassium 4.4 mmol/L (3.5-5.1); Sodium 143 mmol/L (137-145); Total Bilirubin 0.4 mg/dL (0.2-1.3); Total Protein 4.9 g/dL (6.3-8.2)
[2017-03-20 22:24] LABS: Prothrombin Time 9.7 sec (9.0-12.0)
[2017-03-20 22:25] LABS: Creatine Kinase <20 U/L (55-170)
[2017-03-20 22:30] LABS: Partial Thromboplastin Time 21.4 sec (22.0-30.0)
[2017-03-20 22:38] LABS: Creatine Kinase MB 0.8 ng/mL (0.0-2.4)
--- NOTE | 2017-03-20 22:43 | XR ---
EXAMINATION TYPE: XR chest 1V portable DATE OF EXAM: 03/20/2017 COMPARISON: 03/12/2017 HISTORY: Short of breath TECHNIQUE: Single frontal view of the chest is obtained. FINDINGS: Heart size is normal. There is no heart failure. There is infiltrate at the lung apices an d more on the right side with extensive right apical pleural thickening. There are sternal wires. The re are chest leads. IMPRESSION: Bilateral upper lobe pleural and pulmonary scarring. There is some progression at the le ft lung apex compared to 06/19/2016. No heart failure. Density in right upper lobe is also increased. Follow-up is recommended. The possibility of pleural neoplasm in the right upper lobe cannot be exclu ded. There is no significant change compared to recent exam of 03/12/2017.
[2017-03-20 22:45] LABS: Troponin I 0.091 ng/mL (0.000-0.034)
[2017-03-21] MEDS ORDERED: PANTOPRAZOLE 40 MG/10 ML VIAL IVP STA (04:40)
[2017-03-21] MEDS ORDERED: RX INFO: IV CONTRAST WAS GIVEN 1 EACH MISC MISCELLANE PRN (04:47)
[2017-03-21 05:50] LABS: Basophils # (A) 0.1 k/uL (0-0.2); Basophils % (A) 0 %; Eosinophils # (A) 0.1 k/uL (0-0.7); Eosinophils % (A) 0 %; HCT 25.3 % (39.0-53.0); Hypochromasia Slight; Lymphocytes # (A) 1.3 k/uL (1.0-4.8); Lymphocytes % (A) 8 %; MCH 30.5 pg (25.0-35.0); MCHC 30.4 g/dL (31.0-37.0); MCV 100.1 fL (80.0-100.0); Macrocytosis Slight; Mean Platelet Volume 9.7; Monocytes # (A) 0.9 k/uL (0-1.0); Monocytes % (A) 5 %; Neutrophils # (A) 13.6 k/uL (1.3-7.7); Neutrophils % (A) 85 %; Platelet Count 138 k/uL (150-450); RBC 2.53 m/uL (4.30-5.90); RDW 15.4 % (11.5-15.5)
--- NOTE | 2017-03-21 05:55 | CT ---
EXAM: CT Abdomen and Pelvis With Intravenous Contrast CLINICAL HISTORY: Reason: gi bleed TECHNIQUE: Axial computed tomography images of the abdomen and pelvis with intravenous contrast. DLP is 825.90 mGy-cm. CTDI is 20.[address] exam was performed using one or more of the following dose reduction techniques: automated exposure control, adjustment of the mA and/or kV according to patient size, and/or use of iterative reconstruction technique. COMPARISON: 11/28/16 FINDINGS: Lower thorax: Small right pleural effusion. ABDOMEN: Liver: Unremarkable. No mass. Gallbladder and bile ducts: Unremarkable. No calcified stones. No ductal dilation. Pancreas: Unremarkable. No mass. No ductal dilation. Spleen: Unremarkable. No splenomegaly. Adrenals: Unremarkable. No mass. Kidneys and ureters: Stable appearance of multiple cysts in both kidneys. No hydronephrosis. Stomach and bowel: Colectomy changes noted. 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 Stable left lower quadrant parastomal hernia with multiple nondilated small bowel loops. Appendix: See above. PELVIS: Bladder: Unremarkable. No mass. Reproductive: Unremarkable as visualized. ABDOMEN and PELVIS: Intraperitoneal space: Unremarkable. No free air. No significant fluid collection. Bones/joints: Stable fixation hardware in the left hip. Interval further diminishing height of the L1 vertebral body with superior endplate sclerotic changes. No acute fracture. No dislocation. Soft tissues: Stable fat-containing right inguinal hernia. Vasculature: Unremarkable. No abdominal aortic aneurysm. Lymph nodes: Unremarkable. No enlarged lymph nodes. IMPRESSION: 1. Stable parastomal hernia containing multiple small bowel loops. No evidence of strangulation or bowel obstruction. 2. 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 3. Small right pleural effusion. 4. Interval progression of compression deformity of the L1 vertebral body. Likely chronic changes; however, acute on chronic compression fracture deformity is not excluded. Correlate clinically.
[2017-03-21 06:08] LABS: HGB 7.7 gm/dL (13.0-17.5)
[2017-03-21 06:16] LABS: Appearance,Urine Clear (Clear); Bilirubin,Urine Negative (Negative); Blood,Urine Negative (Negative); Color,Urine Yellow; Glucose,Urine (UA) Negative (Negative); Hyaline Casts,Urine 3 /lpf (0-2); Ketones,Urine Negative (Negative); Leukocyte Esterase,Urine Negative (Negative); Mucus,Urine Rare /hpf; Nitrite,Urine Negative (Negative); PH, Urine 5.5 (5.0-8.0); Protein,Urine Trace (Negative); RBC,Urine 1 /hpf (0-5); Specific Gravity,Urine 1.015 (1.001-1.035); Urobilinogen,Urine <2.0 mg/dL (<2.0); WBC,Urine 3 /hpf (0-5)
[2017-03-21] MEDS: IPRATROPIUM-ALBUTEROL 3 ML NEB INHALATION PRN ×4 (07:32→22:07)
[2017-03-21] MEDS ORDERED: diphenhydrAMINE 50 MG/ML 1 ML VIAL IVP STA (09:19)
[2017-03-21] MEDS: SODIUM CHLORIDE 0.9% 1,000 ML IV SCH (09:30)
[2017-03-21] MEDS ORDERED: ACETAMINOPHEN IV (For NPO) 1,000 MG in EMPTY BAG 1 BAG IVPB STA (09:43)
[2017-03-21 10:06] LABS: Anisocytosis Slight; HCT 24.3 % (39.0-53.0); HGB 7.3 gm/dL (13.0-17.5); Hypochromasia Marked; MCHC 30.1 g/dL (31.0-37.0); Macrocytosis Moderate; Mean Platelet Volume 10.1; Platelet Count 141 k/uL (150-450); RBC 2.36 m/uL (4.30-5.90); RDW 16.5 % (11.5-15.5); WBC 16.6 k/uL (3.8-10.6)
--- NOTE | 2017-03-21 12:54 | P.CONS ---
History of Present Illness - Reason for Consult Consult date: 03/21/17 GI bleed Requesting physician: Jovanny Hung - History of Present Illness 81-year-old gentleman [facility] at [facility] with a history of advanced COPD O2 dependent, chronic steroid usage admitted with acute GI bleed. stated around 4 AM this morning had 3 large gross red bloody emesis followed by large amount of black-colored stool in his colostomy bag without abdominal pain. He has additional medical surgical history of diverting ostomy secondary to perforated diverticulitis with known parastomal hernia, CAD/CABG, bladder carcinoma with resection chemotherapy, hypertension, hyperlipidemia, diverticulosis. Home medications include but not limited to baby aspirin and prednisone 10 mg daily. No other NSAIDs or aspirin or anticoagulants. Since admission he has changed his ostomy bag 3 times on with black colored stool. 1 bloody emesis in the emergency room none since. Admission hemoglobin 10.3 decreased to 7.3. Patient was provided a unit of blood this morning but within 15 minutes of infusion he developed a febrile response; transfusion was stopped. Hemoglobin 2 weeks ago was 10.3. Influenza screen not detected. Family states he had increased shortness of breath yesterday at rehab and was choking on some spaghetti. Current hemoglobin 7.3. Platelet 141. Heart rate is been labile sinus low 100s as high as 150s. Systolic blood pressures greater than 100. No history of GI bleed. No history of EGD. Last colonoscopy to family his memory might have been around 7 years ago there unsure. Review of Systems Constitutional: Denies fever, chills, sweats, weight gain, or loss. HEENT: Negative for migraines, blurred vision or loss, earaches, drainage, tinnitus, oral mucosal lesions, dysphagia, or odynophagia. Cardiac: CAD CABG hypertension hyperlipidemia. Negative for chest pain, arrhythmias, or palpitation. Respiratory: Advanced COPD O2 dependent steroid dependent. Negative for shortness of breath, hemoptysis, cough, or sputum production. Gastrointestinal: See HPI for pertinent findings. Genitourinary: Bladder carcinoma. Negative for hematuria, urgency, frequency, polyuria, dysuria, or penile discharge. Musculoskeletal: Negative for muscle aches, swelling, arthritis, and arthralgias. Neurologic: Negative for stroke or TIA. Endocrine: Negative for thyroid problems. Skin: Negative for rash or itching. Psychiatric: Negative history for depression and anxiety Past Medical History Past Medical History: Coronary Artery Disease (CAD), Cancer, COPD, Hyperlipidemia, Hypertension, Pneumonia, Prostate Disorder, Respiratory Disorder Additional Past Medical History / Comment(s): Pt recently admitted to [facility] on 02/12 with R upper lobe pneumonia, acute on chronic COPD, acute on chronic CHF. Other HX: Severe COPD, multiple hospitalization for COPD exacerbation, chronic hypoxic respiratory failure with O2 2L/NC ATC, bladder cancer with surgery/chemo-some possible residual, previous complicated diverticulitis with bowel perforation requiring diverting colostomy, parastomal hernia, right inguinal hernia, caratid artery stenosis bilaterally, some cognitive impairment , BPH, previous history of fall and left hip fracture status post ORIF, tremors. History of Any Multi-Drug Resistant Organisms: None Reported Past Surgical History: Bowel Resection, Coronary Bypass/CABG, Hernia Repair Additional Past Surgical History / Comment(s): COLOSTOMY D/T PERFORATED BOWEL FROM DIVERTICULITIS, COLONOSCOPIES, CABG (2005), R ING HERNIA REPAIR, ORIF FX LEFT HIP (10/2013), CYSTOSCOPIES, CYSTOSCOPY WITH TUMER EXCISION/FULGURATION, BRONCHOSCOPY. Past Anesthesia/Blood Transfusion Reactions: No Reported Reaction, Motion Sickness Additional Past Anesthesia/Blood Transfusion Reaction / Comm: CLAUSTERPHOBIC. DO NOT GIVE HIS DILAUDID- PT BECAME VERY AGGRESSIVE Smoking Status: Former smoker - Past Family History Father Family Medical History: Congestive Heart Failure (CHF) Mother Family Medical History: Congestive Heart Failure (CHF) Medications and Allergies Home Medications Medication Instructions Recorded Confirmed Type Citalopram Hydrobromide [CeleXA] 40 mg PO QAM 11/18/13 03/20/17 History Finasteride [Proscar] 5 mg PO QAM 11/18/13 03/20/17 History Tamsulosin [Flomax] 0.4 mg PO QAM 11/18/13 03/20/17 History Levalbuterol HCl [Xopenex 1.25 mg INHALATION RT-QID 06/19/16 03/20/17 History Nebulized] Atorvastatin [Lipitor] 20 mg PO HS tab 03/08/17 03/20/17 Rx Aspirin 81 mg PO DAILY@1700 03/09/17 03/20/17 History Bisacodyl [Dulcolax] 10 mg RECTAL DAILY PRN 03/09/17 03/20/17 History Magnesium Hydroxide [Milk of 2,400 mg PO DAILY PRN 03/09/17 03/20/17 History Magnesia] Na Phos,M-B/Na Phos,Di-Ba [Fleet 133 ml RECTAL DAILY PRN 03/09/17 03/20/17 History Adult] ALPRAZolam [Xanax] 0.5 mg PO BID #10 tab 03/12/17 03/20/17 Rx Fluconazole [Diflucan] 100 mg PO DAILY@1700 #7 tab 03/12/17 03/20/17 Rx Isosorbide Mononitrate ER [Imdur] 30 mg PO DAILY tab.er.24h 03/12/17 03/20/17 Rx predniSONE See Taper PO DAILY #30 tab 03/12/17 03/20/17 Rx Fluticasone/Salmeterol [Advair 1 puff INHALATION RT-BID 03/20/17 03/20/17 History 500-50 Diskus] Furosemide [Lasix] 20 mg PO DAILY 03/20/17 03/20/17 History Lactose-Reduced Food [Ensure Plus] 1 can PO TID 03/20/17 03/20/17 History Metoprolol Tartrate [Lopressor] 12.5 mg PO BID 03/20/17 03/20/17 History Primidone [Mysoline] 12.5 mg PO DAILY@1400 03/20/17 03/20/17 History Primidone [Mysoline] 25 mg PO BID 03/20/17 03/20/17 History Allergies Allergy/AdvReac Type Severity Reaction Status Date / Time dobutamine Allergy Severe Swelling Verified 03/20/17 21:36 hydromorphone HCl Allergy Intermediate AGRESSIVE Verified 03/20/17 21:36 [From Dilaudid] sulfamethoxazole Allergy DIAPHORESIS Verified 03/20/17 21:36 [From Bactrim] trimethoprim [From Bactrim] Allergy DIAPHORESIS Verified 03/20/17 21:36 Physical Exam Vitals: Vital Signs Temp Pulse Resp BP Pulse Ox 03/21/17 12:09 117 H 03/21/17 12:00 98 03/21/17 10:25 118 H 28 H 120/52 97 03/21/17 09:40 108 H 28 H 118/58 97 03/21/17 09:08 98.9 F 107 H 17 103/55 03/21/17 08:57 100.9 F H 119 H 26 H 131/61 03/21/17 08:42 98 F 108 H 24 138/66 03/21/17 08:32 97.8 F 103 H 26 H 147/85 97 03/21/17 08:26 97.8 F 106 H 26 H 139/61 97 03/21/17 07:43 100 03/21/17 07:32 102 H 03/20/17 22:03 79 18 03/20/17 21:54 89 18 03/20/17 21:45 24 03/20/17 21:08 98.8 F 83 24 173/71 95 Intake and Output 03/20/17 03/21/17 03/21/17 22:59 06:59 14:59 Intake Total 260 Output Total 300 Balance -40 Intake: Blood Product 260 Rc As-3 Unit 260 [id number] Rc As-3 Unit 0 [id number] Output: Urine 300 Uretheral (Cardenas) 300 Other: Weight 65.771 kg General appearance: The patient is alert, oriented, frail appearance weak pale. HET: Head is normocephalic and atraumatic. Pupils are equal and reactive. Oropharynx is clear without lesions. Neck: Supple without lymphadenopathy. Trachea midline. Heart: S1 S2. Regular rate and rhythm. Lungs: Diminished bilaterally coarse sounds in the upper airways. Abdomen: Soft, nontender, nondistended with bowel sounds. Ostomy with black colored stool parastomal hernia evident. No peritoneal signs. No palpable organomegaly or masses. Extremities: Normal skin color and turgor. No cyanosis, rash, ulceration, clubbing, or edema. Radial and pedal pulses are 2/4 bilaterally. Neurological: No focal deficits. Strength and sensation are grossly intact. Results CBC & Chem 7: 03/21/17 09:54 03/20/17 21:20 Labs: Abnormal Lab Results - Last 24 Hours (Table) 03/20/17 03/20/17 03/20/17 Range/Units 21:20 21:20 21:20 WBC 14.9 H (3.8-10.6) k/uL RBC 3.31 L (4.30-5.90) m/uL Hgb 10.3 L (13.0-17.5) gm/dL Hct 33.1 L (39.0-53.0) % MCV (80.0-100.0) fL MCHC (31.0-37.0) g/dL RDW 16.5 H (11.5-15.5) % Plt Count 122 L (150-450) k/uL Neutrophils # 13.1 H (1.3-7.7) k/uL Lymphocytes # 0.7 L (1.0-4.8) k/uL APTT (22.0-30.0) sec Carbon Dioxide 34 H (22-30) mmol/L BUN 43 H (9-20) mg/dL Glucose 106 H (74-99) mg/dL Calcium 8.1 L (8.4-10.2) mg/dL Total Creatine Kinase <20 L (55-170) U/L Troponin I 0.091 H* (0.000-0.034) ng/mL Total Protein 4.9 L (6.3-8.2) g/dL Albumin 2.7 L (3.5-5.0) g/dL Urine Protein (Negative) Urine WBC Clumps (None) /hpf Hyaline Casts (0-2) /lpf Urine Mucus (None) /hpf Crossmatch 03/20/17 03/21/17 03/21/17 Range/Units 21:20 01:09 04:30 WBC (3.8-10.6) k/uL RBC (4.30-5.90) m/uL Hgb (13.0-17.5) gm/dL Hct (39.0-53.0) % MCV (80.0-100.0) fL MCHC (31.0-37.0) g/dL RDW (11.5-15.5) % Plt Count (150-450) k/uL Neutrophils # (1.3-7.7) k/uL Lymphocytes # (1.0-4.8) k/uL APTT 21.4 L (22.0-30.0) sec Carbon Dioxide (22-30) mmol/L BUN (9-20) mg/dL Glucose (74-99) mg/dL Calcium (8.4-10.2) mg/dL Total Creatine Kinase (55-170) U/L Troponin I (0.000-0.034) ng/mL Total Protein (6.3-8.2) g/dL Albumin (3.5-5.0) g/dL Urine Protein Trace H (Negative) Urine WBC Clumps Rare H (None) /hpf Hyaline Casts 3 H (0-2) /lpf Urine Mucus Rare H (None) /hpf Crossmatch See Detail 03/21/17 03/21/17 03/21/17 Range/Units 04:55 09:45 09:54 WBC 16.0 H 16.6 H (3.8-10.6) k/uL RBC 2.53 L 2.36 L (4.30-5.90) m/uL Hgb 7.7 L D 7.3 L (13.0-17.5) gm/dL Hct 25.3 L 24.3 L (39.0-53.0) % MCV 100.1 H 103.0 H (80.0-100.0) fL MCHC 30.4 L 30.1 L (31.0-37.0) g/dL RDW 16.5 H (11.5-15.5) % Plt Count 138 L 141 L (150-450) k/uL Neutrophils # 13.6 H (1.3-7.7) k/uL Lymphocytes # (1.0-4.8) k/uL APTT (22.0-30.0) sec Carbon Dioxide (22-30) mmol/L BUN (9-20) mg/dL Glucose (74-99) mg/dL Calcium (8.4-10.2) mg/dL Total Creatine Kinase (55-170) U/L Troponin I 0.102 H* (0.000-0.034) ng/mL Total Protein (6.3-8.2) g/dL Albumin (3.5-5.0) g/dL Urine Protein (Negative) Urine WBC Clumps (None) /hpf Hyaline Casts (0-2) /lpf Urine Mucus (None) /hpf Crossmatch Assessment and Plan (1) GI bleed Narrative/Plan: Acute upper GI bleed with hematemesis and melena possible peptic ulcer duodenal disease possible bleeding angiectasia AVM. Current Visit: Yes Status: Acute Code(s): K92.2 - GASTROINTESTINAL HEMORRHAGE, UNSPECIFIED SNOMED Code(s): 80635758 (2) Hematemesis Current Visit: Yes Status: Acute Code(s): K92.0 - HEMATEMESIS SNOMED Code( s): 2473667 (3) Acute blood loss anemia Current Visit: Yes Status: Acute Code(s): D62 - ACUTE POSTHEMORRHAGIC ANEMIA SNOMED Code(s): 154071307 (4) Melena Current Visit: Yes Status: Acute Code(s): K92.1 - MELENA SNOMED Code(s): 8987627 (5) Advanced COPD Current Visit: Yes Status: Acute Code(s): J44.9 - CHRONIC OBSTRUCTIVE PULMONARY DISEASE, UNSPECIFIED SNOMED Code(s): 85647679 (6) History of colostomy Current Visit: Yes Status: Acute Code(s): Z98.890 - OTHER SPECIFIED POSTPROCEDURAL STATES SNOMED Code(s): 373054589 Plan: 1. Patient is high risk for endoscopic procedures/ anesthesia secondary to his underlying advanced COPD disease with minimal reserve. Bedside conversation was held with Dr. Freddy wood. Risk and benefits of endoscopy were proposed. Plan of care is to insert a nasogastric tube to observe for active bleeding. Transfuse blood as necessary. Protonix 40 mg IV twice a day. CBC every 6 hours. ICU monitoring. Will continue to evaluate patient and decide if and when endoscopy will be indicated. 2. Nothing by mouth. The salon/spa manager has discussed the risks, benefits and alternative therapies for the above-mentioned procedure and for both sedation/analgesia as well as necessary blood product administration, if indicated, as they pertain to this patient. The patient has indicated understanding and acceptance of the risks and procedures discussed. Thank you for this kind referral and the opportunity to participate in the care of your patient. This consultation was discussed with Dr. Vogel. The impression and plan of care have been directed as dictated.
[2017-03-21 15:32] LABS: Glucose,Whole Blood 102 mg/dL (75-99)
[2017-03-21] MEDS: ACETAMINOPHEN IV (For NPO) 1,000 MG in EMPTY BAG 1 BAG IVPB SCH (16:27)
--- NOTE | 2017-03-21 17:19 | P.CNPUL ---
History of Present Illness Consult date: 03/21/17 Reason for consult: dyspnea Chief complaint: Acute GI bleeding, shortness of breath History of present illness: A 81-year-old male patient with known history of advanced oxygen-dependent COPD , bladder cancer, coronary artery disease with previous bypass surgery, hypertension, hyperlipidemia and diverticulosis and large anterior abdominal wall parastomal and inguinal hernia was becoming progressively more debilitated especially over the past 6 months. The patient is very well-known to me. Of taking care of him for many years. During his last hospitalization the patient came in for an acute COPD exacerbation and [facility]. Yesterday evening, this patient got transferred back to the hospital because of an acute GI bleeding. Apparently at around 4 AM this morning the patient had 3 large gross red bloody emesis and following that there was large amount of black tarry stools in the colostomy bag without having any significant abdominal pain. He is known to have a diverticular colostomy following a complicated perforated diverticulitis treatment for which she underwent colectomy and diverting colostomy. Subsequently had developed a large parastomal hernia. In the emergency department, the patient had another emesis. His hemoglobin dropped from 10.3 down to 7.3. The patient was being given a unit of packed RBC and 15 minutes into the transfusion the patient had an acute febrile reaction and the transfusion was stopped based on the protocol. The patient was given IV Tylenol and the protocol for transient reaction is being conducted at this point. The patient is somewhat weak and lethargic. He was having some increased shortness of breath even at rest. No chest pain. No eye [place] 3. Platelet count is at 141. No significant hypotension although his blood pressure systolic dropped as low as the low 100s. He was somewhat tachycardic and his heart rate is around 101. I discussed the case with gastroenterology and general surgery. Ideally would need an EGD as soon as possible to further investigate his upper GI bleed. However he carries a DNR/DNI CODE STATUS and putting him for an EGD at this point with compromises respiratory status and more than likely put him into respiratory failure. Based on that we decided to transfer him to the intensive care unit, resuscitated patient with fluids and blood, insert an NG tube and stabilize the condition following that proceed with an EGD. The family including the left. Understands the risk of the procedure at this point especially with his very borderline pulmonary status. The computed tomography scan of the abdomen was done and emerged department that showed a stable parastomal hernia containing multiple small bowel loops without evidence of any strangulation of bowel obstruction. The patient also has a stable-appearing Márquez's pouch with multiple diverticuli and small right-sided pleural effusion. There is interval progression of the compression deformity of the L1 vertebral body. He does have still chronic compression fracture. The chest x- ray shows upper lobe pleural based scarring. There is also some progression of the left apical scarring at this point. Density in the right apex is also increased. Review of Systems Constitutional: Denies fever, chills, sweats, weight gain, or loss. The patient has been progressively becoming more debilitated and he has gotten to the point where he cannot perform activities of daily life without help. He has required assistive devices such as a walker to move around and his mobility is becoming very limited at this point. HEENT: Negative for migraines, blurred vision or loss, earaches, drainage, tinnitus, oral mucosal lesions, dysphagia, or odynophagia. Cardiac: CAD CABG hypertension hyperlipidemia. Negative for chest pain, arrhythmias, or palpitation. Respiratory: Advanced COPD O2 dependent steroid dependent. Negative for shortness of breath, hemoptysis, cough, or sputum production. Note that the patient has had multiple hospitalization for COPD exacerbation. He has chronic apical scarring bilaterally Gastrointestinal: See HPI for pertinent findings. Genitourinary: Bladder carcinoma. Negative for hematuria, urgency, frequency, polyuria, dysuria, or penile discharge. Musculoskeletal: Negative for muscle aches, swelling, arthritis, and arthralgias. Neurologic: Negative for stroke or TIA. Endocrine: Negative for thyroid problems. Skin: Negative for rash or itching. Psychiatric: Negative history for depression and anxiety Past Medical History Past Medical History: Coronary Artery Disease (CAD), Cancer, COPD, Hyperlipidemia, Hypertension, Pneumonia, Prostate Disorder, Respiratory Disorder Additional Past Medical History / Comment(s): Pt recently admitted to [facility] on 02/12 with R upper lobe pneumonia, acute on chronic COPD, acute on chronic CHF. Other HX: Severe COPD, multiple hospitalization for COPD exacerbation, chronic hypoxic respiratory failure with O2 2L/NC ATC, bladder cancer with surgery/chemo-some possible residual, previous complicated diverticulitis with bowel perforation requiring diverting colostomy, parastomal hernia, right inguinal hernia, caratid artery stenosis bilaterally, some cognitive impairment , BPH, previous history of fall and left hip fracture status post ORIF, tremors. History of Any Multi-Drug Resistant Organisms: None Reported Past Surgical History: Bowel Resection, Coronary Bypass/CABG, Hernia Repair Additional Past Surgical History / Comment(s): Colostomy and colectomy for a bowel perforation/complicated diverticulitis, coronary artery bypass surgery in 2005, right inguinal hernia repair, ORIF of the left hip in 2013, multiple cystoscopies intense urethral resection of bladder tumor, previous bronchoscopy, Past Anesthesia/Blood Transfusion Reactions: No Reported Reaction, Motion Sickness Additional Past Anesthesia/Blood Transfusion Reaction / Comment(s): CLAUSTERPHOBIC. DO NOT GIVE HIS DILAUDID- PT BECAME VERY AGGRESSIVE Smoking Status: Former smoker - Past Family History Father Family Medical History: Congestive Heart Failure (CHF) Mother Family Medical History: Congestive Heart Failure (CHF) Medications and Allergies Home Medications Medication Instructions Recorded Confirmed Type Citalopram Hydrobromide [CeleXA] 40 mg PO QAM 11/18/13 03/20/17 History Finasteride [Proscar] 5 mg PO QAM 11/18/13 03/20/17 History Tamsulosin [Flomax] 0.4 mg PO QAM 11/18/13 03/20/17 History Levalbuterol HCl [Xopenex 1.25 mg INHALATION RT-QID 06/19/16 03/20/17 History Nebulized] Atorvastatin [Lipitor] 20 mg PO HS tab 03/08/17 03/20/17 Rx Aspirin 81 mg PO DAILY@1700 03/09/17 03/20/17 History Bisacodyl [Dulcolax] 10 mg RECTAL DAILY PRN 03/09/17 03/20/17 History Magnesium Hydroxide [Milk of 2,400 mg PO DAILY PRN 03/09/17 03/20/17 History Magnesia] Na Phos,M-B/Na Phos,Di-Ba [Fleet 133 ml RECTAL DAILY PRN 03/09/17 03/20/17 History Adult] ALPRAZolam [Xanax] 0.5 mg PO BID #10 tab 03/12/17 03/20/17 Rx Fluconazole [Diflucan] 100 mg PO DAILY@1700 #7 tab 03/12/17 03/20/17 Rx Isosorbide Mononitrate ER [Imdur] 30 mg PO DAILY tab.er.24h 03/12/17 03/20/17 Rx predniSONE See Taper PO DAILY #30 tab 03/12/17 03/20/17 Rx Fluticasone/Salmeterol [Advair 1 puff INHALATION RT-BID 03/20/17 03/20/17 History 500-50 Diskus] Furosemide [Lasix] 20 mg PO DAILY 03/20/17 03/20/17 History Lactose-Reduced Food [Ensure Plus] 1 can PO TID 03/20/17 03/20/17 History Metoprolol Tartrate [Lopressor] 12.5 mg PO BID 03/20/17 03/20/17 History Primidone [Mysoline] 12.5 mg PO DAILY@1400 03/20/17 03/20/17 History Primidone [Mysoline] 25 mg PO BID 03/20/17 03/20/17 History Allergies Allergy/AdvReac Type Severity Reaction Status Date / Time dobutamine Allergy Severe Swelling Verified 03/20/17 21:36 hydromorphone HCl Allergy Intermediate AGRESSIVE Verified 03/20/17 21:36 [From Dilaudid] sulfamethoxazole Allergy DIAPHORESIS Verified 03/20/17 21:36 [From Bactrim] trimethoprim [From Bactrim] Allergy DIAPHORESIS Verified 03/20/17 21:36 Physical Exam Vitals: Vital Signs Temp Pulse Resp BP Pulse Ox 03/21/17 16:20 101 H 23 114/49 99 03/21/17 16:10 93 16 115/53 98 03/21/17 16:00 97.9 F 95 20 106/49 98 03/21/17 15:50 92 17 120/52 98 03/21/17 15:40 97 22 98 03/21/17 15:34 97.4 F L 90 12 120/52 98 03/21/17 15:30 90 14 95 03/21/17 15:25 98 14 91 L 03/21/17 15:10 98.5 F 95 18 126/62 98 03/21/17 15:04 97.9 F 91 14 111/49 03/21/17 14:54 98.6 F 87 18 119/57 03/21/17 14:50 98.2 F 98 18 146/65 01/24/18 14:25 99 F 98 20 111/59 03/21/17 14:00 99 F 106 H 20 128/58 03/21/17 13:30 99.2 F 102 H 20 136/63 03/21/17 13:15 99.2 F 106 H 24 137/63 96 03/21/17 12:57 99 F 108 H 24 97/55 03/21/17 12:47 99.2 F 112 H 22 112/56 98 03/21/17 12:37 99.2 F 106 H 20 112/56 98 03/21/17 12:27 98.9 F 107 H 17 103/55 03/21/17 12:09 117 H 03/21/17 12:00 98 03/21/17 10:25 118 H 28 H 120/52 97 03/21/17 09:40 108 H 28 H 118/58 97 03/21/17 08:57 100.9 F H 119 H 26 H 131/61 03/21/17 08:42 98 F 108 H 24 138/66 03/21/17 08:32 97.8 F 103 H 26 H 147/85 97 03/21/17 08:26 97.8 F 106 H 26 H 139/61 97 03/21/17 07:43 100 03/21/17 07:32 102 H 03/20/17 22:03 79 18 03/20/17 21:54 89 18 03/20/17 21:45 24 03/20/17 21:08 98.8 F 83 24 173/71 95 Intake and Output 03/21/17 03/21/17 03/21/17 06:59 14:59 22:59 Intake Total 260 150 Output Total 300 125 Balance -40 25 Intake: IV 150 Sodium Chloride 0.9% 1, 150 000 ml @ 75 mls/hr IV . [id number] [facility] Rx#:[id number] Blood Product 260 Rc As-3 Unit 0 [id number] Rc As-3 Unit 260 [id number] Rc As-3 Unit 0 [id number] Output: Urine 300 125 Uretheral (Cardenas) 300 Other: Voiding Method Indwelling Catheter Weight 67.6 kg Patient Weight 03/22/17 06:59 Weight 67.6 kg General appearance: alert, in distress (Mild tachypnea), other (Mildly tremulous ), the patient also lethargic and he would open up his eyes and respond to commands and subsequently go back to sleep. He may be under the affect of Benadryl that was given at the time of his acute drug reaction. Head exam: Present: atraumatic, normocephalic Eye exam: Present: normal appearance Neck exam: Present: normal inspection Respiratory exam: Present: respiratory distress (Mild tachypnea), wheezes, rales (Bilateral bases), rhonchi. Absent: chest wall tenderness, accessory muscle use, decreased breath sounds, prolonged expiratory Cardiovascular Exam: Present: irregular rhythm, systolic murmur. Absent: diastolic murmur, rubs, gallop GI/Abdominal exam: Present: soft, hernia, other (There is a colostomy in the left lower quadrants with peristomal hernia. No abdominal tenderness). Absent : distended, tenderness, guarding, rebound. As for the right inguinal hernia, the patient has a hernia that is very much reducible and there is no evidence of incarceration or strangulation. Extremities exam: Present: normal capillary refill, pedal edema (There is trace edema at the ankles bilaterally). Absent: tenderness, calf tenderness Back exam: Present: normal inspection. Absent: CVA tenderness (R), CVA tenderness (L) Neurological exam: Present: alert Skin exam: Present: warm, dry, intact, normal color. Absent: rash Results - Laboratory Findings CBC and BMP: 03/21/17 09:54 03/20/17 21:20 PT/INR, D-dimer PT 9.7 sec (9.0-12.0) 03/20/17 21:20 INR 1.0 (<1.2) 03/20/17 21:20 Abnormal lab findings: Abnormal Labs 03/20/17 03/20/17 03/20/17 21:20 21:20 21:20 WBC 14.9 H RBC 3.31 L Hgb 10.3 L Hct 33.1 L MCV MCHC RDW 16.5 H Plt Count 122 L Neutrophils # 13.1 H Lymphocytes # 0.7 L APTT Carbon Dioxide 34 H BUN 43 H Glucose 106 H POC Glucose (mg/dL) Calcium 8.1 L Total Creatine Kinase <20 L Troponin I 0.091 H* Total Protein 4.9 L Albumin 2.7 L Urine Protein Urine WBC Clumps Hyaline Casts Urine Mucus Crossmatch 03/20/17 03/21/17 03/21/17 21:20 01:09 04:30 WBC RBC Hgb Hct MCV MCHC RDW Plt Count Neutrophils # Lymphocytes # APTT 21.4 L Carbon Dioxide BUN Glucose POC Glucose (mg/dL) Calcium Total Creatine Kinase Troponin I Total Protein Albumin Urine Protein Trace H Urine WBC Clumps Rare H Hyaline Casts 3 H Urine Mucus Rare H Crossmatch See Detail 03/21/17 03/21/17 03/21/17 04:55 09:45 09:54 WBC 16.0 H 16.6 H RBC 2.53 L 2.36 L Hgb 7.7 L D 7.3 L Hct 25.3 L 24.3 L MCV 100.1 H 103.0 H MCHC 30.4 L 30.1 L RDW 16.5 H Plt Count 138 L 141 L Neutrophils # 13.6 H Lymphocytes # APTT Carbon Dioxide BUN Glucose POC Glucose (mg/dL) Calcium Total Creatine Kinase Troponin I 0.102 H* Total Protein Albumin Urine Protein Urine WBC Clumps Hyaline Casts Urine Mucus Crossmatch 03/21/17 15:30 WBC RBC Hgb Hct MCV MCHC RDW Plt Count Neutrophils # Lymphocytes # APTT Carbon Dioxide BUN Glucose POC Glucose (mg/dL) 102 H Calcium Total Creatine Kinase Troponin I Total Protein Albumin Urine Protein Urine WBC Clumps Hyaline Casts Urine Mucus Crossmatch - Diagnostic Findings Chest x-ray: image reviewed Assessment and Plan Plan: Assessment 1 acute upper GI bleeding with hematemesis and melanotic stool. Rule out peptic ulcer disease, rule out AV malformation as the source of the bleeding. 2 acute blood loss anemia with a hemoglobin of 7.3. 3 acute transfusion reaction's, likely nonimmunologic febrile reaction 4 hypotension secondary to above. The patient is being resuscitated IV fluids and the patient is on no pressors at this point 5 shortness of breath secondary to above 6 atherosclerotic heart disease with previous coronary bypass surgery, echocardiogram showing a preserved LV function with an ejection fraction of 45- 50%. The patient has had previous non-ST segment elevation myocardial infarction. 7 bladder cancer status post transurethral resection of the bladder tumor following that the patient received intravesicular chemotherapy 8 diverticular disease with history of complicated diverticulitis with bowel perforation requiring colostomy and colectomy. 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 Patient also has cerebral atrophy. Plan Insert an NG tube. Monitor bleeding. Monitor hemoglobin and transfuse accordingly to maintain a hemoglobin above 7. High risk for endoscopy at this point due to his very borderline performance status and poor historian status. We'll resuscitate this patient and if stabilized would proceed with endoscopy at a later stage. IV Protonix. CBC every 6 hours. Resume bronchodilators. Keep the patient nothing by mouth for now. Restart the packed RBC transfusion and the patient will be given 2 units and closely monitor this patient for a transfusion reaction. We'll continue to follow. Prognosis poor. He has a DNR/ DNI CODE STATUS and this has been discussed with her on multiple occasions and furthermore confirmed with the family members and . Prognosis poor based on his very poor baseline performance and functional status and his ongoing debilitation/medical debility especially over the past 6 months. He brought to the intensive care unit. We'll continue to follow.
[2017-03-21 19:34] LABS: Anisocytosis Slight; HCT 30.4 % (39.0-53.0); Hypochromasia Moderate; INR 1.1 (<1.2); MCH 29.5 pg (25.0-35.0); MCHC 31.9 g/dL (31.0-37.0); Mean Platelet Volume 10.1; Poikilocytosis Slight; Prothrombin Time 10.5 sec (9.0-12.0); RBC 3.29 m/uL (4.30-5.90); RDW 19.3 % (11.5-15.5); WBC 12.7 k/uL (3.8-10.6)
[2017-03-21 19:35] LABS: HGB 9.7 gm/dL (13.0-17.5); MCV 92.5 fL (80.0-100.0)
[2017-03-21 19:40] LABS: Anion Gap 7 mmol/L; Blood Urea Nitrogen 69 mg/dL (9-20); Calcium 7.7 mg/dL (8.4-10.2); Carbon Dioxide 31 mmol/L (22-30); Chloride 107 mmol/L (98-107); Glucose 87 mg/dL (74-99); Magnesium 2.2 mg/dL (1.6-2.3); Potassium 4.7 mmol/L (3.5-5.1); Sodium 145 mmol/L (137-145)
[2017-03-21 19:48] LABS: Platelet Count 90 k/uL (150-450)
[2017-03-21] MEDS: PANTOPRAZOLE 40 MG/10 ML VIAL IVP SCH (20:14)
--- NOTE | 2017-03-21 21:02 | P.GSCN ---
History of Present Illness Consult date: 03/21/17 Reason for Consult: GI bleed History of present illness: Patient is well-known to our service. The patient has a history of previous colostomy for perforated diverticulitis. He has frequent hospitalizations for exacerbation of COPD. His health is been declining recently. He was brought to the hospital last night with confusion and shortness of breath. While in the emergency department he had 2 episodes of hematemesis and 3 episodes of melanotic stools through his ostomy. Denies abdominal pain. Hemoglobin was noted to drop into the 7 range. He was given 2 units of blood and hemoglobin now is 9.7. Last upper endoscopy the patient's believes was a proximally 6 -7 years ago. No history of known ulcer disease. Some heartburn recently. Review of Systems The patient denies any acute changes in vision or hearing, no dysphagia or odynophagia, no chest pain, no dysuria or hematuria, no headache, no runny nose , no rectal bleeding, no unexplained weight loss Past Medical History Past Medical History: Coronary Artery Disease (CAD), Cancer, COPD, Hyperlipidemia, Hypertension, Pneumonia, Prostate Disorder, Respiratory Disorder Additional Past Medical History / Comment(s): Pt recently admitted to [facility] on 02/12 with R upper lobe pneumonia, acute on chronic COPD, acute on chronic CHF. Other HX: Severe COPD, multiple hospitalization for COPD exacerbation, chronic hypoxic respiratory failure with O2 2L/NC ATC, bladder cancer with surgery/chemo-some possible residual, previous complicated diverticulitis with bowel perforation requiring diverting colostomy, parastomal hernia, right inguinal hernia, caratid artery stenosis bilaterally, some cognitive impairment , BPH, previous history of fall and left hip fracture status post ORIF, tremors. History of Any Multi-Drug Resistant Organisms: None Reported Past Surgical History: Bowel Resection, Coronary Bypass/CABG, Hernia Repair Additional Past Surgical History / Comment(s): COLOSTOMY D/T PERFORATED BOWEL FROM DIVERTICULITIS, COLONOSCOPIES, CABG (2005), R ING HERNIA REPAIR, ORIF FX LEFT HIP (10/2013), CYSTOSCOPIES, CYSTOSCOPY WITH TUMER EXCISION/FULGURATION, BRONCHOSCOPY. Past Anesthesia/Blood Transfusion Reactions: No Reported Reaction, Motion Sickness Additional Past Anesthesia/Blood Transfusion Reaction / Comm: CLAUSTERPHOBIC. DO NOT GIVE HIS DILAUDID- PT BECAME VERY AGGRESSIVE Smoking Status: Former smoker - Past Family History Father Family Medical History: Congestive Heart Failure (CHF) Mother Family Medical History: Congestive Heart Failure (CHF) Medications and Allergies Home Medications Medication Instructions Recorded Confirmed Type Citalopram Hydrobromide [CeleXA] 40 mg PO QAM 11/18/13 03/20/17 History Finasteride [Proscar] 5 mg PO QAM 11/18/13 03/20/17 History Tamsulosin [Flomax] 0.4 mg PO QAM 11/18/13 03/20/17 History Levalbuterol HCl [Xopenex 1.25 mg INHALATION RT-QID 06/19/16 03/20/17 History Nebulized] Atorvastatin [Lipitor] 20 mg PO HS tab 03/08/17 03/20/17 Rx Aspirin 81 mg PO DAILY@1700 03/09/17 03/20/17 History Bisacodyl [Dulcolax] 10 mg RECTAL DAILY PRN 03/09/17 03/20/17 History Magnesium Hydroxide [Milk of 2,400 mg PO DAILY PRN 03/09/17 03/20/17 History Magnesia] Na Phos,M-B/Na Phos,Di-Ba [Fleet 133 ml RECTAL DAILY PRN 03/09/17 03/20/17 History Adult] ALPRAZolam [Xanax] 0.5 mg PO BID #10 tab 03/12/17 03/20/17 Rx Fluconazole [Diflucan] 100 mg PO DAILY@1700 #7 tab 03/12/17 03/20/17 Rx Isosorbide Mononitrate ER [Imdur] 30 mg PO DAILY tab.er.24h 03/12/17 03/20/17 Rx predniSONE See Taper PO DAILY #30 tab 03/12/17 03/20/17 Rx Fluticasone/Salmeterol [Advair 1 puff INHALATION RT-BID 03/20/17 03/20/17 History 500-50 Diskus] Furosemide [Lasix] 20 mg PO DAILY 03/20/17 03/20/17 History Lactose-Reduced Food [Ensure Plus] 1 can PO TID 03/20/17 03/20/17 History Metoprolol Tartrate [Lopressor] 12.5 mg PO BID 03/20/17 03/20/17 History Primidone [Mysoline] 12.5 mg PO DAILY@1400 03/20/17 03/20/17 History Primidone [Mysoline] 25 mg PO BID 03/20/17 03/20/17 History Allergies Allergy/AdvReac Type Severity Reaction Status Date / Time dobutamine Allergy Severe Swelling Verified 03/20/17 21:36 hydromorphone HCl Allergy Intermediate AGRESSIVE Verified 03/20/17 21:36 [From Dilaudid] sulfamethoxazole Allergy DIAPHORESIS Verified 03/20/17 21:36 [From Bactrim] trimethoprim [From Bactrim] Allergy DIAPHORESIS Verified 03/20/17 21:36 Surgical - Exam Vital Signs Temp Pulse Resp BP Pulse Ox 98.8 F 83 24 173/71 95 03/20/17 21:08 03/20/17 21:08 03/20/17 21:08 03/20/17 21:08 03/20/17 21:08 Physical exam: General: Well-developed, somewhat malnourished HEENT: Normocephalic, sclerae nonicteric Abdomen: Nontender, nondistended, large parastomal hernia, colostomy bag with dark green to black color Extremities: edema present Neuro: Alert Results - Labs 03/21/17 19:06 03/21/17 19:06 Abnormal Lab Results - Last 24 Hours (Table) 03/20/17 03/20/17 03/20/17 Range/Units 21:20 21:20 21:20 WBC 14.9 H (3.8-10.6) k/uL RBC 3.31 L (4.30-5.90) m/uL Hgb 10.3 L (13.0-17.5) gm/dL Hct 33.1 L (39.0-53.0) % MCV (80.0-100.0) fL MCHC (31.0-37.0) g/dL RDW 16.5 H (11.5-15.5) % Plt Count 122 L (150-450) k/uL Neutrophils # 13.1 H (1.3-7.7) k/uL Lymphocytes # 0.7 L (1.0-4.8) k/uL APTT (22.0-30.0) sec Carbon Dioxide 34 H (22-30) mmol/L BUN 43 H (9-20) mg/dL Creatinine (0.66-1.25) mg/dL Glucose 106 H (74-99) mg/dL POC Glucose (mg/dL) (75-99) mg/dL Calcium 8.1 L (8.4-10.2) mg/dL Total Creatine Kinase <20 L (55-170) U/L Troponin I 0.091 H* (0.000-0.034) ng/mL Total Protein 4.9 L (6.3-8.2) g/dL Albumin 2.7 L (3.5-5.0) g/dL Urine Protein (Negative) Urine WBC Clumps (None) /hpf Hyaline Casts (0-2) /lpf Urine Mucus (None) /hpf Crossmatch 03/20/17 03/21/17 03/21/17 Range/Units 21:20 01:09 04:30 WBC (3.8-10.6) k/uL RBC (4.30-5.90) m/uL Hgb (13.0-17.5) gm/dL Hct (39.0-53.0) % MCV (80.0-100.0) fL MCHC (31.0-37.0) g/dL RDW (11.5-15.5) % Plt Count (150-450) k/uL Neutrophils # (1.3-7.7) k/uL Lymphocytes # (1.0-4.8) k/uL APTT 21.4 L (22.0-30.0) sec Carbon Dioxide (22-30) mmol/L BUN (9-20) mg/dL Creatinine (0.66-1.25) mg/dL Glucose (74-99) mg/dL POC Glucose (mg/dL) (75-99) mg/dL Calcium (8.4-10.2) mg/dL Total Creatine Kinase (55-170) U/L Troponin I (0.000-0.034) ng/mL Total Protein (6.3-8.2) g/dL Albumin (3.5-5.0) g/dL Urine Protein Trace H (Negative) Urine WBC Clumps Rare H (None) /hpf Hyaline Casts 3 H (0-2) /lpf Urine Mucus Rare H (None) /hpf Crossmatch See Detail 03/21/17 03/21/17 03/21/17 Range/Units 04:55 09:45 09:54 WBC 16.0 H 16.6 H (3.8-10.6) k/uL RBC 2.53 L 2.36 L (4.30-5.90) m/uL Hgb 7.7 L D 7.3 L (13.0-17.5) gm/dL Hct 25.3 L 24.3 L (39.0-53.0) % MCV 100.1 H 103.0 H (80.0-100.0) fL MCHC 30.4 L 30.1 L (31.0-37.0) g/dL RDW 16.5 H (11.5-15.5) % Plt Count 138 L 141 L (150-450) k/uL Neutrophils # 13.6 H (1.3-7.7) k/uL Lymphocytes # (1.0-4.8) k/uL APTT (22.0-30.0) sec Carbon Dioxide (22-30) mmol/L BUN (9-20) mg/dL Creatinine (0.66-1.25) mg/dL Glucose (74-99) mg/dL POC Glucose (mg/dL) (75-99) mg/dL Calcium (8.4-10.2) mg/dL Total Creatine Kinase (55-170) U/L Troponin I 0.102 H* (0.000-0.034) ng/mL Total Protein (6.3-8.2) g/dL Albumin (3.5-5.0) g/dL Urine Protein (Negative) Urine WBC Clumps (None) /hpf Hyaline Casts (0-2) /lpf Urine Mucus (None) /hpf Crossmatch 03/21/17 03/21/17 03/21/17 Range/Units 15:30 19:06 19:06 WBC 12.7 H (3.8-10.6) k/uL RBC 3.29 L (4.30-5.90) m/uL Hgb 9.7 L D (13.0-17.5) gm/dL Hct 30.4 L (39.0-53.0) % MCV (80.0-100.0) fL MCHC (31.0-37.0) g/dL RDW 19.3 H (11.5-15.5) % Plt Count 90 L (150-450) k/uL Neutrophils # (1.3-7.7) k/uL Lymphocytes # (1.0-4.8) k/uL APTT (22.0-30.0) sec Carbon Dioxide 31 H (22-30) mmol/L BUN 69 H (9-20) mg/dL Creatinine 1.30 H (0.66-1.25) mg/dL Glucose (74-99) mg/dL POC Glucose (mg/dL) 102 H (75-99) mg/dL Calcium 7.7 L (8.4-10.2) mg/dL Total Creatine Kinase (55-170) U/L Troponin I (0.000-0.034) ng/mL Total Protein (6.3-8.2) g/dL Albumin (3.5-5.0) g/dL Urine Protein (Negative) Urine WBC Clumps (None) /hpf Hyaline Casts (0-2) /lpf Urine Mucus (None) /hpf Crossmatch Microbiology - Last 24 Hours (Table) 03/21/17 01:09 Urine Culture - Preliminary Urine,Catheterized Diabetes panel 03/20/17 03/21/17 Range/Units 21:20 19:06 Sodium 143 145 (137-145) mmol/L Potassium 4.4 4.7 (3.5-5.1) mmol/L Chloride 104 107 (98-107) mmol/L Carbon Dioxide 34 H 31 H (22-30) mmol/L BUN 43 H 69 H (9-20) mg/dL Creatinine 1.20 1.30 H (0.66-1.25) mg/dL Glucose 106 H 87 (74-99) mg/dL Calcium 8.1 L 7.7 L (8.4-10.2) mg/dL AST 21 (17-59) U/L ALT 50 (21-72) U/L Alkaline Phosphatase 58 (38-126) U/L Total Protein 4.9 L (6.3-8.2) g/dL Albumin 2.7 L (3.5-5.0) g/dL Calcium panel 03/20/17 03/21/17 Range/Units 21:20 19:06 Calcium 8.1 L 7.7 L (8.4-10.2) mg/dL Albumin 2.7 L (3.5-5.0) g/dL Pituitary panel 03/20/17 03/21/17 Range/Units 21:20 19:06 Sodium 143 145 (137-145) mmol/L Potassium 4.4 4.7 (3.5-5.1) mmol/L Chloride 104 107 (98-107) mmol/L Carbon Dioxide 34 H 31 H (22-30) mmol/L BUN 43 H 69 H (9-20) mg/dL Creatinine 1.20 1.30 H (0.66-1.25) mg/dL Glucose 106 H 87 (74-99) mg/dL Calcium 8.1 L 7.7 L (8.4-10.2) mg/dL Adrenal panel 03/20/17 03/21/17 Range/Units 21:20 19:06 Sodium 143 145 (137-145) mmol/L Potassium 4.4 4.7 (3.5-5.1) mmol/L Chloride 104 107 (98-107) mmol/L Carbon Dioxide 34 H 31 H (22-30) mmol/L BUN 43 H 69 H (9-20) mg/dL Creatinine 1.20 1.30 H (0.66-1.25) mg/dL Glucose 106 H 87 (74-99) mg/dL Calcium 8.1 L 7.7 L (8.4-10.2) mg/dL Total Bilirubin 0.4 (0.2-1.3) mg/dL AST 21 (17-59) U/L ALT 50 (21-72) U/L Alkaline Phosphatase 58 (38-126) U/L Total Protein 4.9 L (6.3-8.2) g/dL Albumin 2.7 L (3.5-5.0) g/dL Assessment and Plan (1) GI bleed Narrative/Plan: Patient with evidence of upper GI bleeding. This is a new problem for Cliff. The patient is certainly a relatively high risk for any invasive procedures. Dr. Hayes is very familiar with this patient and plans to reevaluate him tomorrow to make decisions regarding the appropriateness of proceeding with upper endoscopy. I will be leaving town this evening. GI and Dr. Luis will be covering me in my absence. This case was discussed with the patient's in detail. Current Visit: Yes Status: Acute Code(s): K92.2 - GASTROINTESTINAL HEMORRHAGE, UNSPECIFIED SNOMED Code(s): 22701367
[2017-03-21 21:33] LABS: Partial Thromboplastin Time 21.8 sec (22.0-30.0)
--- NOTE | 2017-03-21 21:38 | HP ---
HISTORY AND PHYSICAL DATE OF SERVICE: 03/21/2017 CHIEF COMPLAINT: Cough with sputum production. BRIEF HISTORY ON THIS PATIENT: An 81-year-old male patient, resides at a retirement with past medical history of COPD, history of congestive heart failure, coronary artery disease with previous coronary artery bypass grafting, history of hypertension, hyperlipidemia, brought to the ED from retirement with increasing shortness of breath. This started a few hours prior to coming to the hospital. The patient also felt like he was having more coughing and was producing more sputum. No chest pain or palpitations. He did also note some change in the output from the urostomy. The patient and family were also concerned about marked edema of both lower extremities. The patient also had a 3 large gross bloody emesis with large amount of black tarry stool in the colostomy bag. He was transferred to ED for further evaluation. In the emergency room, patient is reported to have another emesis. Hemoglobin dropped from 10.3 down to 7.3. Patient was given a unit of packed RBCs and was admitted to ICU. PAST MEDICAL HISTORY: Coronary artery disease. Patient is status post coronary artery bypass grafting. History of hypertension, hyperlipidemia, advanced COPD that is oxygen-dependent, history of prostate disorder, CHF, chronic hypoxic respiratory failure, history of bladder cancer with surgery and chemotherapy, diverticulosis, diverticulitis with bowel perforation during diverting colostomy, carotid artery stenosis. PAST SURGICAL HISTORY: Left hip open reduction internal fixation, bowel resection, coronary artery bypass grafting, hernia repair. FAMILY HISTORY: Significant for congestive heart failure in father and mother. MEDICATIONS: Patient is on: 1. Celexa 40 mg p.o. daily. 2. Proscar 5 mg p.o. daily. 3. Flomax 0.4 mg p.o. daily. 4. Xopenex 12.5 mg inhalations q.i.d. 5. Lipitor 20 mg p.o. q.h.s. 6. Aspirin 81 mg p.o. daily. 7. Dulcolax suppository 10 mg daily p.r.n. 8. Xanax 0.5 mg p.o. b.i.d. 9. Diflucan 100 mg p.o. daily for 7 days. 10.Imdur 30 mg p.o. daily. 11.Advair 500/50 Diskus 1 inhalation b.i.d. 12.Ensure 1 can p.o. t.i.d. 13.Metoprolol 12.5 mg p.o. b.i.d. 14.Mysoline 12.5 mg q.a.m. and 25 mg p.o. b.i.d. ALLERGY; DOBUTAMINE, HYDROMORPHONE, BACTRIM. REVIEW OF SYSTEMS: CONSTITUTIONAL: Patient denies any fever, chills, weight gain or weight loss. HEENT: Denies any migraines, blurred vision. No earaches or drainage. No tinnitus. RESPIRATORY: As above, patient has history of COPD. CARDIAC: Advanced cardiac history as described above. GI/ABDOMEN: As per history of present illness. GENITOURINARY: History of bladder cancer. MUSCULOSKELETAL: No muscle aches or pains or swelling. NEUROLOGICAL: No dizziness, light-headedness. ENDOCRINE: No polyuria or polydipsia. SKIN: No rashes or itching. PSYCHIATRIC: History of depression and anxiety. PHYSICAL EXAMINATION: The patient is alert, in mild distress, somewhat tremulous and lethargic. Opens eyes to verbal stimulation. VITAL SIGNS: Temperature of 97.9, pulse 101, respirations 23, blood pressure 114/49, O2 saturation 99%. HEENT: Atraumatic, normocephalic. Pupils equal and reactive to light. Extraocular movements intact. Buccal mucosa is moist. NECK; is supple. No goiter or lymphadenopathy. JVD is negative. No carotid bruit heard. LUNGS/RESPIRATORY: Lungs are clear to auscultate. No rales, rhonchi or wheezes. CARDIOVASCULAR: Irregularly irregular with grade 3/6 systolic murmur. ABDOMEN/ GI: Abdomen is soft, nontender, nondistended. Bowel sounds positive. Colostomy in left upper quadrant with peristomal hernia. EXTREMITIES: No edema clubbing or cyanosis. Palpable pulses are palpable 2+. NEUROLOGICAL: Patient is awake, alert, oriented, in no acute distress. No gross motor or sensory deficit. SKIN; is warm and dry and intact without rashes or pigmentation. MUSCULOSKELETAL: Patient moves all 4 extremities. No gross muscle or joint deficit. LYMPHATIC SYSTEM: No enlarged lymph nodes in the cervical or axillary area. LABS: CBC: White blood count of 16.6, hemoglobin 7.3, hematocrit 24.3 and platelet count of 141. Chemical profile: Sodium 133, potassium 4.4, chloride 104, bicarb 34, BUN 43, creatinine 1.2, glucose 106. INR 1.0. ASSESSMENT: 1. Acute upper gastrointestinal bleed with hematemesis and melenic stools. 2. Acute blood loss anemia. 3. Acute transfusion reaction, non immunological febrile reaction. 4. Hypotension possibly secondary to gastrointestinal bleed. 5. Chronic obstructive pulmonary disease not in exacerbation. 6. Coronary artery disease which is stable. 7. Bladder cancer, status post transurethral resection with intravesicular chemotherapy. 8. Carotid artery stenosis. 9. Hypertension. 10.Hyperlipidemia. The patient has an NG tube, is admitted to ICU. Plan is to maintain hemoglobin above 9. The patient is high risk for endoscopy at this point. The plan is to do EGD once patient is stable. Start on IV Protonix, monitor CBC. Continue with bronchodilators and other home medications. The patient is DNR/DNI per discussion with the various family members. VELASQUEZ / JOEYN: [id number] / GIN
[2017-03-21 22:43] LABS: Anisocytosis Slight; HCT 31.1 % (39.0-53.0); HGB 9.9 gm/dL (13.0-17.5); Hypochromasia Slight; MCH 29.9 pg (25.0-35.0); MCHC 31.8 g/dL (31.0-37.0); Macrocytosis Slight; Mean Platelet Volume 9.8; Poikilocytosis Slight; RBC 3.31 m/uL (4.30-5.90); RDW 19.2 % (11.5-15.5); WBC 13.1 k/uL (3.8-10.6)
[2017-03-21 22:44] LABS: Platelet Count 93 k/uL (150-450)
[2017-03-21 23:47] LABS: Glucose,Whole Blood 99 mg/dL (75-99)
[2017-03-22 05:25] LABS: Anisocytosis Slight; Basophils % (A) 0 %; Eosinophils % (A) 0 %; HCT 29.1 % (39.0-53.0); HGB 9.2 gm/dL (13.0-17.5); Hypochromasia Moderate; Lymphocytes # (A) 0.6 k/uL (1.0-4.8); Lymphocytes % (A) 5 %; MCH 29.7 pg (25.0-35.0); MCHC 31.7 g/dL (31.0-37.0); MCV 93.7 fL (80.0-100.0); Macrocytosis Slight; Mean Platelet Volume 9.7; Monocytes # (A) 0.5 k/uL (0-1.0); Monocytes % (A) 4 %; Neutrophils # (A) 11.3 k/uL (1.3-7.7); Neutrophils % (A) 90 %; Poikilocytosis Slight; RBC 3.11 m/uL (4.30-5.90); WBC 12.5 k/uL (3.8-10.6)
[2017-03-22 05:27] LABS: Platelet Count 92 k/uL (150-450)
[2017-03-22 05:46] LABS: Anion Gap 6 mmol/L; Blood Urea Nitrogen 63 mg/dL (9-20); Calcium 7.9 mg/dL (8.4-10.2); Carbon Dioxide 31 mmol/L (22-30); Chloride 110 mmol/L (98-107); Glucose 74 mg/dL (74-99); Magnesium 2.2 mg/dL (1.6-2.3); Phosphorus 3.6 mg/dL (2.5-4.5); Potassium 4.3 mmol/L (3.5-5.1); Sodium 147 mmol/L (137-145)
[2017-03-22 05:51] LABS: Glucose,Whole Blood 86 mg/dL (75-99)
[2017-03-22] MEDS ORDERED: FUROSEMIDE 10 MG/ML 4 ML VIAL IV STA (07:49)
[2017-03-22] MEDS: ACETAMINOPHEN IV (For NPO) 1,000 MG in EMPTY BAG 1 BAG IVPB SCH ×3 (08:05→15:51)
[2017-03-22] MEDS: PANTOPRAZOLE 40 MG/10 ML VIAL IVP SCH ×2 (08:06→20:11)
[2017-03-22] MEDS: SODIUM CHLORIDE 0.9% 1,000 ML IV SCH (08:06)
--- NOTE | 2017-03-22 09:53 | P.PN ---
Subjective Progress Note Date: 03/22/17 Principal diagnosis: Acute suspected upper GI bleed with hematochezia melena No further episodes of hematemesis. Melanotic stool in colostomy bag has significantly improved. Patient received 2 full units of blood yesterday present hemoglobin is 9.2. Platelet 92,000. Troponin 0.3-0.4. Denies abdominal pain. Objective - Vital Signs Vital signs: Vital Signs Temp 98.1 F 03/22/17 04:00 Pulse 95 03/22/17 07:00 Resp 25 H 03/22/17 07:00 BP 137/69 03/22/17 07:00 Pulse Ox 97 03/22/17 07:00 Intake & Output 03/21/17 03/22/17 03/22/17 18:59 06:59 18:59 Intake Total 870 900 115 Output Total 505 630 580 Balance 365 270 -465 Weight 67.6 kg 68.8 kg Intake: IV 300 75 40 Sodium Chloride 0.9% 1, 300 75 40 000 ml @ 75 mls/hr IV . [id number] [facility] Rx#:[id number] Intake, IV Titration 825 75 Amount Sodium Chloride 0.9% 1, 825 75 000 ml @ 75 mls/hr IV . [id number] [facility] Rx#:[id number] Blood Product 570 Rc As-3 Unit 310 [id number] Rc As-3 Unit 260 [id number] Rc As-3 Unit 0 [id number] Output: Urine 505 630 580 Uretheral (Cardenas) 300 Other: Voiding Method Indwelling Catheter Indwelling Catheter - Exam General appearance: The patient is alert, oriented, in no acute distress. HET: Head is normocephalic and atraumatic. Pupils are equal and reactive. Oropharynx is clear without lesions. Neck: Supple without lymphadenopathy. Trachea midline. Heart: S1 S2. Lungs: Coarse sounds in the upper airways with diminishment in bases bilaterally. Abdomen: Soft, nontender, nondistended with bowel sounds. Colostomy with black colored stool about 100 mL. No peritoneal signs. No palpable organomegaly or masses. Extremities: Normal skin color and turgor. No cyanosis, rash, ulceration, clubbing, or edema. Radial and pedal pulses are 2/4 bilaterally. Neurological: No focal deficits. Strength and sensation are grossly intact. - Labs CBC & Chem 7: 03/22/17 05:06 03/22/17 05:06 Labs: Abnormal Lab Results - Last 24 Hours (Table) 03/21/17 03/21/17 03/21/17 Range/Units 04:30 09:45 09:54 WBC 16.6 H (3.8-10.6) k/uL RBC 2.36 L (4.30-5.90) m/uL Hgb 7.3 L (13.0-17.5) gm/dL Hct 24.3 L (39.0-53.0) % MCV 103.0 H (80.0-100.0) fL MCHC 30.1 L (31.0-37.0) g/dL RDW 16.5 H (11.5-15.5) % Plt Count 141 L (150-450) k/uL Neutrophils # (1.3-7.7) k/uL Lymphocytes # (1.0-4.8) k/uL APTT (22.0-30.0) sec Sodium (137-145) mmol/L Chloride (98-107) mmol/L Carbon Dioxide (22-30) mmol/L BUN (9-20) mg/dL Creatinine (0.66-1.25) mg/dL POC Glucose (mg/dL) (75-99) mg/dL Calcium (8.4-10.2) mg/dL Troponin I 0.102 H* (0.000-0.034) ng/mL Crossmatch See Detail 03/21/17 03/21/17 03/21/17 Range/Units 15:30 19:06 19:06 WBC 12.7 H (3.8-10.6) k/uL RBC 3.29 L (4.30-5.90) m/uL Hgb 9.7 L D (13.0-17.5) gm/dL Hct 30.4 L (39.0-53.0) % MCV (80.0-100.0) fL MCHC (31.0-37.0) g/dL RDW 19.3 H (11.5-15.5) % Plt Count 90 L (150-450) k/uL Neutrophils # (1.3-7.7) k/uL Lymphocytes # (1.0-4.8) k/uL APTT (22.0-30.0) sec Sodium (137-145) mmol/L Chloride (98-107) mmol/L Carbon Dioxide (22-30) mmol/L BUN (9-20) mg/dL Creatinine (0.66-1.25) mg/dL POC Glucose (mg/dL) 102 H (75-99) mg/dL Calcium (8.4-10.2) mg/dL Troponin I 0.382 H* (0.000-0.034) ng/mL Crossmatch 03/21/17 03/21/17 03/21/17 Range/Units 19:06 19:06 22:27 WBC 13.1 H (3.8-10.6) k/uL RBC 3.31 L (4.30-5.90) m/uL Hgb 9.9 L (13.0-17.5) gm/dL Hct 31.1 L (39.0-53.0) % MCV (80.0-100.0) fL MCHC (31.0-37.0) g/dL RDW 19.2 H (11.5-15.5) % Plt Count 93 L (150-450) k/uL Neutrophils # (1.3-7.7) k/uL Lymphocytes # (1.0-4.8) k/uL APTT 21.8 L (22.0-30.0) sec Sodium (137-145) mmol/L Chloride (98-107) mmol/L Carbon Dioxide 31 H (22-30) mmol/L BUN 69 H (9-20) mg/dL Creatinine 1.30 H (0.66-1.25) mg/dL POC Glucose (mg/dL) (75-99) mg/dL Calcium 7.7 L (8.4-10.2) mg/dL Troponin I (0.000-0.034) ng/mL Crossmatch 03/21/17 03/22/17 03/22/17 Range/Units 22:27 05:06 05:06 WBC 12.5 H (3.8-10.6) k/uL RBC 3.11 L (4.30-5.90) m/uL Hgb 9.2 L (13.0-17.5) gm/dL Hct 29.1 L (39.0-53.0) % MCV (80.0-100.0) fL MCHC (31.0-37.0) g/dL RDW 19.0 H (11.5-15.5) % Plt Count 92 L (150-450) k/uL Neutrophils # 11.3 H (1.3-7.7) k/uL Lymphocytes # 0.6 L (1.0-4.8) k/uL APTT (22.0-30.0) sec Sodium 147 H (137-145) mmol/L Chloride 110 H (98-107) mmol/L Carbon Dioxide 31 H (22-30) mmol/L BUN 63 H (9-20) mg/dL Creatinine (0.66-1.25) mg/dL POC Glucose (mg/dL) (75-99) mg/dL Calcium 7.9 L (8.4-10.2) mg/dL Troponin I 0.447 H* (0.000-0.034) ng/mL Crossmatch Microbiology - Last 24 Hours (Table) 03/21/17 01:09 Urine Culture - Preliminary Urine,Catheterized Assessment and Plan (1) GI bleed Narrative/Plan: Acute upper GI bleed with hematemesis and melena possible peptic ulcer duodenal disease possible bleeding angiectasia AVM. Current Visit: Yes Status: Acute Code(s): K92.2 - GASTROINTESTINAL HEMORRHAGE, UNSPECIFIED SNOMED Code(s): 11133663 (2) Hematemesis Current Visit: Yes Status: Acute Code(s): K92.0 - HEMATEMESIS SNOMED Code( s): 9000880 (3) Acute blood loss anemia Current Visit: Yes Status: Acute Code(s): D62 - ACUTE POSTHEMORRHAGIC ANEMIA SNOMED Code(s): 202195580 (4) Melena Current Visit: Yes Status: Acute Code(s): K92.1 - MELENA SNOMED Code(s): 0616131 (5) Advanced COPD Current Visit: Yes Status: Acute Code(s): J44.9 - CHRONIC OBSTRUCTIVE PULMONARY DISEASE, UNSPECIFIED SNOMED Code(s): 90787035 (6) History of colostomy Current Visit: Yes Status: Acute Code(s): Z98.890 - OTHER SPECIFIED POSTPROCEDURAL STATES SNOMED Code(s): 239707029 Plan: 1. Patient is high risk for endoscopic procedures/ anesthesia secondary to his underlying advanced COPD disease with minimal reserve. 2. Best course of management today would be to continue with observation and conservative measures. Upper endoscopy is not recommended at this time as it appears his bleeding is slowing down and improving. Hemoglobin relatively stable over the last 2 draws. Receiving intravenous Protonix twice daily. 3. Agreeable for clear liquid diet with ensure clear supplement.. CBC at noon if stable repeat in a.m. 4. EGD contingent only if necessary. Patient and spouse are agreeable with this plan of care. We'll continue to follow closely. Assessment and plan a care discussed with Dr. Vogel
[2017-03-22] MEDS: DILTIAZEM 125 MG in SODIUM CHLORIDE 0.9% 100 ML IV SCH ×2 (10:10→22:27)
[2017-03-22] MEDS ORDERED: ADENOSINE 3 MG/ML 2 ML VIAL IVP STA ×2 (10:11)
--- NOTE | 2017-03-22 10:50 | XR ---
EXAMINATION TYPE: XR chest 1V portable DATE OF EXAM: 03/22/2017 COMPARISON: Prior chest x-ray 03/20/2017 HISTORY: Shortness of breath TECHNIQUE: Single frontal view of the chest is obtained. FINDINGS: Similar findings are present. Patient is post median sternotomy. Abnormal increased attenu ation present in the right upper lobe greater than left is again noted. Cardiomediastinal silhouette, pulmonary vascularity and lesley not significantly changed. Patient is rotated. There are overlying ca rdiac leads. There may be underlying COPD. IMPRESSION: Similar findings to prior exam. Abnormal apical density on the right could be due to und erlying pneumonia, follow-up to resolution to exclude abnormal soft tissue mass
[2017-03-22] MEDS: SODIUM CHLORIDE 0.45% 1,000 ML IV SCH (11:15)
--- NOTE | 2017-03-22 11:39 | CONS ---
CONSULTATION Mr. Ward is an 81-year-old gentleman who is seen for cardiac evaluation and cardiac arrhythmia. Patient's medical records reviewed. History obtained from the patient as well as the nurse. This patient has a history of advanced oxygen-dependent COPD. Prior history of coronary artery bypass surgery, hypertension, hyperlipidemia. History of diverticulosis and colostomy. Patient was admitted with acute episodes of hematemesis and his hemoglobin was down to 7.3 g and patient has received some blood. Patient has a history of atrial fibrillation. 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 He received adenosine and subsequently patient received Cardizem and the rate is under better control. Patient did develop respiratory distress early in the morning and patient received 40 mg of IV Lasix and he has diuresed fairly well. PAST MEDICAL HISTORY: Includes history of colostomy, history of advanced COPD, coronary artery bypass surgery. History of bowel resection, hernia repair. HOME MEDICATIONS: Included Celexa, Proscar, Flomax, Xopenex, Lipitor, Xanax, Diflucan, prednisone, Advair, Lopressor and Mysoline. PHYSICAL EXAMINATION: At present reveals 81-year-old gentleman who is in mild respiratory distress. Patient's heart rate is running between now 120 to 130 per minute. Blood pressure is 111/82 mmHg. HEENT examination is negative. Neck is supple. There is no increase in jugular venous pressure. Both the carotid pulses are felt. There is no bruit. Chest is symmetrical. Heart, the PMI is not felt. First and second heart sounds are normal. No significant murmurs are noted. Lung examination reveals bilateral rales. Abdomen is soft. Liver and spleen are not enlarged. Extremities, peripheral pulses 1+. There is no evidence of any significant edema. Chest x-ray is suggestive of could be possible underlying pneumonia. LABORATORY TESTS: Shows initial hemoglobin was 7.3, the hemoglobin now is 9.9. patient has a borderline elevation in the troponin of 0.091 and 0.447. BNP level is 5540. FINAL IMPRESSION: 1. This patient is admitted with acute gastrointestinal bleed and hematemesis and history of upper gastrointestinal bleed with low hemoglobin. Patient has atrial fibrillation with a rapid ventricular response. 2. Possible underlying congestive cardiac failure. 3. Mild elevation in the troponin could be secondary to supply and demand mismatch. RECOMMENDATION: At present, I will recommend to continue the patient on IV Cardizem to control the ventricular rate. Echo and Doppler study will be obtained. We will give him Lasix 20 mg IV b.i.d. VELASQUEZ / JOEYN: [id number] /
[2017-03-22] MEDS: methylPREDNISolone SOD SUCCI 125 MG/2 ML VIAL IV SCH ×2 (12:12→19:11)
[2017-03-22 12:23] LABS: ABG Base Excess 6.6 mmol/L; ABG HCO3 30 mmol/L (21-25); ABG Oxygen Saturation 99.5 % (94-97); ABG PCO2 39 mmHg (35-45); ABG PH 7.49 (7.35-7.45); ABG PO2 181 mmHg (83-108); ABG TCO2 31 mmol/L (19-24); Anisocytosis Slight; Basophils % (A) 0 %; Eosinophils # (A) 0.1 k/uL (0-0.7); Eosinophils % (A) 1 %; HCT 30.3 % (39.0-53.0); HGB 9.6 gm/dL (13.0-17.5); Hypochromasia Slight; Lymphocytes # (A) 0.4 k/uL (1.0-4.8); Lymphocytes % (A) 3 %; MCH 29.7 pg (25.0-35.0); MCHC 31.8 g/dL (31.0-37.0); MCV 93.4 fL (80.0-100.0); Mean Platelet Volume 8.9; Monocytes # (A) 0.6 k/uL (0-1.0); Monocytes % (A) 4 %; Neutrophils # (A) 13.9 k/uL (1.3-7.7); Neutrophils % (A) 92 %; Poikilocytosis Slight; RBC 3.24 m/uL (4.30-5.90); WBC 15.1 k/uL (3.8-10.6)
[2017-03-22 12:29] LABS: Platelet Count 97 k/uL (150-450)
[2017-03-22] MEDS: IPRATROPIUM-ALBUTEROL 3 ML NEB INHALATION PRN ×3 (12:33→19:41)
[2017-03-22 12:38] LABS: Anion Gap 7 mmol/L; Blood Urea Nitrogen 56 mg/dL (9-20); Carbon Dioxide 29 mmol/L (22-30); Chloride 111 mmol/L (98-107); Glucose 91 mg/dL (74-99); Magnesium 2.1 mg/dL (1.6-2.3); Sodium 147 mmol/L (137-145)
--- NOTE | 2017-03-22 12:49 | CDI ---
Last Revision, January 2017 Documentation Clarification Form Date: 03/22/2017 12:43:00 PM From: Viky CeballosHAILEY, CCDS Admit Date: 03/21/2017 6:20:00 AM Patient Name: Cliff Ward Visit Number: [id number] Discharge Date: ATTENTION: The Clinical Documentation Specialists (CDI) and [facility] Coding Staff appreciate your assistance in clarifying documentation. Please respond to the clarification below the line at the bottom and electronically sign. The CDI & [facility] Coding staff will review the response and follow-up if needed. Please note: Queries are made part of the Legal Health Record. If you have any questions, please contact the author of this message via ITS. Dr. Curtis Hahn: Atrial fibrillation is documented in the cardiology consult as a history of and also currently with RVR. History/Risk Factors: CAD, possible CHF, Advanced COPD, CABG and bowel resection w/colostomy. Clinical Indicators: Presented with GI bleed. EKG/telemetry: #1: R [address]-T abn. #2: R 102 sinus tachycardia w/PVCs. Treatment: IV fluids, IV Adenosine, IV Cardizem (03/22), IV Lasix 40 mg (03/22). In your professional opinion, can you please clarify the type of atrial fibrillation, if known? Chronic/Permanent Paroxysmal Persistent Other, please specify Unable to determine Please continue to document in your progress notes and discharge summary in order to capture severity of illness and risk of mortality. Include clinical findings that support your diagnosis. MTDD
--- NOTE | 2017-03-22 14:39 | P.PN ---
Subjective Progress Note Date: 03/22/17 81-year-old male being seen in the ICU at bedside is awake and alert sitting up in bed. no further episodes of hematemesis. Patients being followed by the landscape architect and planner O2 is being titrated down. There is a significant improvement with less output from the ostomy. There is a scant amount of dark liquid stool noted in the ostomy bag. Currently patient is denying any abdominal discomfort is no nausea no vomiting Objective - Vital Signs Vital signs: Vital Signs Temp 97.9 F 03/22/17 12:00 Pulse 93 03/22/17 13:00 Resp 27 H 03/22/17 13:00 BP 136/66 03/22/17 13:00 Pulse Ox 98 03/22/17 13:00 Intake & Output 03/21/17 03/22/17 03/22/17 18:59 06:59 18:59 Intake Total 870 900 303.167 Output Total 751 068 1821 Balance 365 270 -1966.833 Weight 67.6 kg 68.8 kg Intake: IV 300 75 210 Sodium Chloride 0.45% 1, 150 000 ml @ 50 mls/hr IV . Q20H ALEX Rx#:[id number] Sodium Chloride 0.9% 1, 300 75 60 000 ml @ 75 mls/hr IV . [id number] ALEX Rx#:[id number] Intake, IV Titration 825 93.167 Amount Diltiazem 125 mg In 18.167 Sodium Chloride 0.9% 100 ml @ 10 MG/HR 10 mls/hr IV .[id number] ALEX Rx#: [id number] Sodium Chloride 0.9% 1, 825 75 000 ml @ 75 mls/hr IV . [id number] ALEX Rx#:[id number] Blood Product 570 Rc As-3 Unit 310 [id number] Rc As-3 Unit 260 [id number] Rc As-3 Unit 0 [id number] Output: Urine 067 475 0106 Uretheral (Cardenas) 300 Other: Voiding Method Indwelling Catheter Indwelling Catheter Indwelling Catheter - Exam Physical exam 81-year-old male sitting up in bed pleasant oriented 3 and appears in no acute distress Lungs diminished at the bases otherwise adequate air movement O2 being titrated down Heart S1-S2 audible no murmur noted Abdomen ostomy left lower quadrant dark black colored stool noted in ostomy bag nontender nondistended bowel tones present Extremities Venodyne's on to the bilateral lower extremities - Labs CBC & Chem 7: 03/22/17 12:09 03/22/17 12:09 Labs: Abnormal Lab Results - Last 24 Hours (Table) 03/21/17 03/21/17 03/21/17 Range/Units 04:30 15:30 19:06 WBC 12.7 H (3.8-10.6) k/uL RBC 3.29 L (4.30-5.90) m/uL Hgb 9.7 L D (13.0-17.5) gm/dL Hct 30.4 L (39.0-53.0) % RDW 19.3 H (11.5-15.5) % Plt Count 90 L (150-450) k/uL Neutrophils # (1.3-7.7) k/uL Lymphocytes # (1.0-4.8) k/uL APTT (22.0-30.0) sec ABG pH (7.35-7.45) ABG pO2 (83-108) mmHg ABG HCO3 (21-25) mmol/L ABG Total CO2 (19-24) mmol/L ABG O2 Saturation (94-97) % Sodium (137-145) mmol/L Chloride (98-107) mmol/L Carbon Dioxide (22-30) mmol/L BUN (9-20) mg/dL Creatinine (0.66-1.25) mg/dL POC Glucose (mg/dL) 102 H (75-99) mg/dL Calcium (8.4-10.2) mg/dL Troponin I (0.000-0.034) ng/mL Crossmatch See Detail 03/21/17 03/21/17 03/21/17 Range/Units 19:06 19:06 19:06 WBC (3.8-10.6) k/uL RBC (4.30-5.90) m/uL Hgb (13.0-17.5) gm/dL Hct (39.0-53.0) % RDW (11.5-15.5) % Plt Count (150-450) k/uL Neutrophils # (1.3-7.7) k/uL Lymphocytes # (1.0-4.8) k/uL APTT 21.8 L (22.0-30.0) sec ABG pH (7.35-7.45) ABG pO2 (83-108) mmHg ABG HCO3 (21-25) mmol/L ABG Total CO2 (19-24) mmol/L ABG O2 Saturation (94-97) % Sodium (137-145) mmol/L Chloride (98-107) mmol/L Carbon Dioxide 31 H (22-30) mmol/L BUN 69 H (9-20) mg/dL Creatinine 1.30 H (0.66-1.25) mg/dL POC Glucose (mg/dL) (75-99) mg/dL Calcium 7.7 L (8.4-10.2) mg/dL Troponin I 0.382 H* (0.000-0.034) ng/mL Crossmatch 03/21/17 03/21/17 03/22/17 Range/Units 22:27 22:27 05:06 WBC 13.1 H 12.5 H (3.8-10.6) k/uL RBC 3.31 L 3.11 L (4.30-5.90) m/uL Hgb 9.9 L 9.2 L (13.0-17.5) gm/dL Hct 31.1 L 29.1 L (39.0-53.0) % RDW 19.2 H 19.0 H (11.5-15.5) % Plt Count 93 L 92 L (150-450) k/uL Neutrophils # 11.3 H (1.3-7.7) k/uL Lymphocytes # 0.6 L (1.0-4.8) k/uL APTT (22.0-30.0) sec ABG pH (7.35-7.45) ABG pO2 (83-108) mmHg ABG HCO3 (21-25) mmol/L ABG Total CO2 (19-24) mmol/L ABG O2 Saturation (94-97) % Sodium (137-145) mmol/L Chloride (98-107) mmol/L Carbon Dioxide (22-30) mmol/L BUN (9-20) mg/dL Creatinine (0.66-1.25) mg/dL POC Glucose (mg/dL) (75-99) mg/dL Calcium (8.4-10.2) mg/dL Troponin I 0.447 H* (0.000-0.034) ng/mL Crossmatch 03/22/17 03/22/17 03/22/17 Range/Units 05:06 12:09 12:09 WBC 15.1 H (3.8-10.6) k/uL RBC 3.24 L (4.30-5.90) m/uL Hgb 9.6 L (13.0-17.5) gm/dL Hct 30.3 L (39.0-53.0) % RDW 18.0 H (11.5-15.5) % Plt Count 97 L (150-450) k/uL Neutrophils # 13.9 H (1.3-7.7) k/uL Lymphocytes # 0.4 L (1.0-4.8) k/uL APTT (22.0-30.0) sec ABG pH (7.35-7.45) ABG pO2 (83-108) mmHg ABG HCO3 (21-25) mmol/L ABG Total CO2 (19-24) mmol/L ABG O2 Saturation (94-97) % Sodium 147 H 147 H (137-145) mmol/L Chloride 110 H 111 H (98-107) mmol/L Carbon Dioxide 31 H (22-30) mmol/L BUN 63 H 56 H (9-20) mg/dL Creatinine (0.66-1.25) mg/dL POC Glucose (mg/dL) (75-99) mg/dL Calcium 7.9 L 8.0 L (8.4-10.2) mg/dL Troponin I (0.000-0.034) ng/mL Crossmatch 03/22/17 Range/Units 12:09 WBC (3.8-10.6) k/uL RBC (4.30-5.90) m/uL Hgb (13.0-17.5) gm/dL Hct (39.0-53.0) % RDW (11.5-15.5) % Plt Count (150-450) k/uL Neutrophils # (1.3-7.7) k/uL Lymphocytes # (1.0-4.8) k/uL APTT (22.0-30.0) sec ABG pH 7.49 H (7.35-7.45) ABG pO2 181 H (83-108) mmHg ABG HCO3 30 H (21-25) mmol/L ABG Total CO2 31 H (19-24) mmol/L ABG O2 Saturation 99.5 H (94-97) % Sodium (137-145) mmol/L Chloride (98-107) mmol/L Carbon Dioxide (22-30) mmol/L BUN (9-20) mg/dL Creatinine (0.66-1.25) mg/dL POC Glucose (mg/dL) (75-99) mg/dL Calcium (8.4-10.2) mg/dL Troponin I (0.000-0.034) ng/mL Crossmatch Microbiology - Last 24 Hours (Table) 03/21/17 09:36 Blood Culture - Preliminary Blood No Growth after 24 hours 03/21/17 09:14 Blood Culture - Preliminary Blood No Growth after 24 hours 03/21/17 01:09 Urine Culture - Preliminary Urine,Catheterized Assessment and Plan Assessment: Impression and plan Present on admission evidence of an acute upper GI bleed with hematemesis and melena likely peptic ulcer duodenal disease not ruled out Acute blood loss anemia suspect due to an upper GI bleed Advanced COPD Plan No plans for further surgical workup at this time patient is felt to be at a high risk for any invasive procedures Continue with recommendations from GI service Clear liquid diet as tolerated Continue with the care per the landscape architect and planner as ordered Advanced directives indicates patient is a no code We'll sign off and re-eval as needed Progress note being dictated for Dr. christopher covering for Dr. Hung The above impression and plan of care have been discussed and directed by signing physician. Joan Rodriges nurse practitioner acting as scribe for signing physician.
--- NOTE | 2017-03-22 14:43 | P.PN ---
Subjective Progress Note Date: 03/22/17 A 81-year-old male patient with known history of advanced oxygen-dependent COPD , bladder cancer, coronary artery disease with previous bypass surgery, hypertension, hyperlipidemia and diverticulosis and large anterior abdominal wall parastomal and inguinal hernia was becoming progressively more debilitated especially over the past 6 months. The patient is very well-known to me. Of taking care of him for many years. During his last hospitalization the patient came in for an acute COPD exacerbation and was sent to [facility] for further recuperation. Yesterday evening, this patient got transferred back to the hospital because of an acute GI bleeding. Apparently at around 4 AM this morning the patient had 3 large gross red bloody emesis and following that there was large amount of black tarry stools in the colostomy bag without having any significant abdominal pain. He is known to have a diverticular colostomy following a complicated perforated diverticulitis treatment for which she underwent colectomy and diverting colostomy. Subsequently had developed a large parastomal hernia. In the emergency department, the patient had another emesis. His hemoglobin dropped from 10.3 down to 7.3. The patient was being given a unit of packed RBC and 15 minutes into the transfusion the patient had an acute febrile reaction and the transfusion was stopped based on the protocol. The patient was given IV Tylenol and the protocol for transient reaction is being conducted at this point. The patient is somewhat weak and lethargic. He was having some increased shortness of breath even at rest. No chest pain. No eye [place] 3. Platelet count is at 141. No significant hypotension although his blood pressure systolic dropped as low as the low 100s. He was somewhat tachycardic and his heart rate is around 101. I discussed the case with gastroenterology and general surgery. Ideally would need an EGD as soon as possible to further investigate his upper GI bleed. However he carries a DNR/DNI CODE STATUS and putting him for an EGD at this point with compromises respiratory status and more than likely put him into respiratory failure. Based on that we decided to transfer him to the intensive care unit, resuscitated patient with fluids and blood, insert an NG tube and stabilize the condition following that proceed with an EGD. The family including the left. Understands the risk of the procedure at this point especially with his very borderline pulmonary status. The computed tomography scan of the abdomen was done and emerged department that showed a stable parastomal hernia containing multiple small bowel loops without evidence of any strangulation of bowel obstruction. The patient also has a stable-appearing Márquez's pouch with multiple diverticuli and small right-sided pleural effusion. There is interval progression of the compression deformity of the L1 vertebral body. He does have still chronic compression fracture. The chest x- ray shows upper lobe pleural based scarring. There is also some progression of the left apical scarring at this point. Density in the right apex is also increased. On 03/22/2017, the patient is being seen in follow-up in the intensive care unit. Noted the patient was initially hospitalized with a massive upper GI bleed. He was very unstable and he was unable to go through a EGD for further investigation of his upper GI bleed. He was brought to the intensive care unit and fortunately he did not have any further episodes of bleeding. He got transfused with 2 units of packed RBC and hemoglobin has remained stable and currently hemoglobin is up to 9.6. Meanwhile, the patient did not have any melanotic stools collecting in his colostomy bag. No reported hematemesis overnight. Around 7 to 8:00 this morning the patient became progressively more short of breath. He was given a dose of Lasix 40 mg IV push during which she diuresed more than liters. Nevertheless, he continued to be bronchospastic and wheezy and he went into SVT. Cardiology was on the case and the patient was given Adenocard and subsequently converted into A. fib with rapid ventricular response and currently is on a Cardizem drip for rate control. The patient is also on a BiPAP for respiratory support. Blood gases were obtained and the pH was 7.49 with a pCO2 of 39 and pO2 of 181. The patient is very anxious. He is short of breath. He does have some diminished level of consciousness however is still arousable and he is able to follow simple commands. Note that he is a DNR/DNI CODE STATUS. His sodium today is at 147. His BUN is at 56 with a creatinine of 1.2. He is having frequent PVCs on the radiation monitor. The urine output has been considerably high following the diuresis and the patient is in a negative fluid balance of 1.9 L. The chest x-ray from today is essentially unchanged and there is some increased interstitial markings bilaterally along with biapical scarring. The blood cultures of been negative thus far. The troponins are 0.3 and 0.4 respectively. He denies having any chest pain. Objective - Vital Signs Vital signs: Vital Signs Temp 97.9 F 03/22/17 12:00 Pulse 93 03/22/17 13:00 Resp 27 H 03/22/17 13:00 BP 136/66 03/22/17 13:00 Pulse Ox 98 03/22/17 13:00 Intake & Output 03/21/17 03/22/17 03/22/17 18:59 06:59 18:59 Intake Total 870 900 303.167 Output Total 346 876 5561 Balance 365 270 -1966.833 Weight 67.6 kg 68.8 kg Intake: IV 300 75 210 Sodium Chloride 0.45% 1, 150 000 ml @ 50 mls/hr IV . Q20H ALEX Rx#:[id number] Sodium Chloride 0.9% 1, 300 75 60 000 ml @ 75 mls/hr IV . [id number] ALEX Rx#:[id number] Intake, IV Titration 825 93.167 Amount Diltiazem 125 mg In 18.167 Sodium Chloride 0.9% 100 ml @ 10 MG/HR 10 mls/hr IV .[id number] ALEX Rx#: [id number] Sodium Chloride 0.9% 1, 825 75 000 ml @ 75 mls/hr IV . [id number] ALEX Rx#:[id number] Blood Product 570 Rc As-3 Unit 310 [id number] Rc As-3 Unit 260 [id number] Rc As-3 Unit 0 [id number] Output: Urine 153 768 8009 Uretheral (Cardenas) 300 Other: Voiding Method Indwelling Catheter Indwelling Catheter Indwelling Catheter - Exam General appearance: alert, in distress (moderate tachypnea) and the patient is currently on a full face BiPAP mask which she is tolerating it without any major difficulties and is very synchronous with the BiPAP mask., other (Mildly tremulous), the patient also lethargic and he would open up his eyes and respond to commands and subsequently go back to sleep. He may be under the affect of Benadryl that was given at the time of his acute drug reaction. Head exam: Present: atraumatic, normocephalic Eye exam: Present: normal appearance Neck exam: Present: normal inspection Respiratory exam: Present: respiratory distress (Mild tachypnea), wheezes, rales (Bilateral bases), rhonchi. Absent: chest wall tenderness, accessory muscle use, decreased breath sounds, prolonged expiratory Cardiovascular Exam: Present: irregular rhythm, systolic murmur. Absent: diastolic murmur, rubs, gallop GI/Abdominal exam: Present: soft, hernia, other (There is a colostomy in the left lower quadrants with peristomal hernia. No abdominal tenderness). Absent : distended, tenderness, guarding, rebound. As for the right inguinal hernia, the patient has a hernia that is very much reducible and there is no evidence of incarceration or strangulation. Extremities exam: Present: normal capillary refill, pedal edema (There is trace edema at the ankles bilaterally). Absent: tenderness, calf tenderness Back exam: Present: normal inspection. Absent: CVA tenderness (R), CVA tenderness (L) Neurological exam: Present: alert Skin exam: Present: warm, dry, intact, normal color. Absent: rash - Labs CBC & Chem 7: 03/22/17 12:09 03/22/17 12:09 Labs: Abnormal Lab Results - Last 24 Hours (Table) 03/21/17 03/21/17 03/21/17 Range/Units 04:30 15:30 19:06 WBC 12.7 H (3.8-10.6) k/uL RBC 3.29 L (4.30-5.90) m/uL Hgb 9.7 L D (13.0-17.5) gm/dL Hct 30.4 L (39.0-53.0) % RDW 19.3 H (11.5-15.5) % Plt Count 90 L (150-450) k/uL Neutrophils # (1.3-7.7) k/uL Lymphocytes # (1.0-4.8) k/uL APTT (22.0-30.0) sec ABG pH (7.35-7.45) ABG pO2 (83-108) mmHg ABG HCO3 (21-25) mmol/L ABG Total CO2 (19-24) mmol/L ABG O2 Saturation (94-97) % Sodium (137-145) mmol/L Chloride (98-107) mmol/L Carbon Dioxide (22-30) mmol/L BUN (9-20) mg/dL Creatinine (0.66-1.25) mg/dL POC Glucose (mg/dL) 102 H (75-99) mg/dL Calcium (8.4-10.2) mg/dL Troponin I (0.000-0.034) ng/mL Crossmatch See Detail 03/21/17 03/21/17 03/21/17 Range/Units 19:06 19:06 19:06 WBC (3.8-10.6) k/uL RBC (4.30-5.90) m/uL Hgb (13.0-17.5) gm/dL Hct (39.0-53.0) % RDW (11.5-15.5) % Plt Count (150-450) k/uL Neutrophils # (1.3-7.7) k/uL Lymphocytes # (1.0-4.8) k/uL APTT 21.8 L (22.0-30.0) sec ABG pH (7.35-7.45) ABG pO2 (83-108) mmHg ABG HCO3 (21-25) mmol/L ABG Total CO2 (19-24) mmol/L ABG O2 Saturation (94-97) % Sodium (137-145) mmol/L Chloride (98-107) mmol/L Carbon Dioxide 31 H (22-30) mmol/L BUN 69 H (9-20) mg/dL Creatinine 1.30 H (0.66-1.25) mg/dL POC Glucose (mg/dL) (75-99) mg/dL Calcium 7.7 L (8.4-10.2) mg/dL Troponin I 0.382 H* (0.000-0.034) ng/mL Crossmatch 03/21/17 03/21/17 03/22/17 Range/Units 22:27 22:27 05:06 WBC 13.1 H 12.5 H (3.8-10.6) k/uL RBC 3.31 L 3.11 L (4.30-5.90) m/uL Hgb 9.9 L 9.2 L (13.0-17.5) gm/dL Hct 31.1 L 29.1 L (39.0-53.0) % RDW 19.2 H 19.0 H (11.5-15.5) % Plt Count 93 L 92 L (150-450) k/uL Neutrophils # 11.3 H (1.3-7.7) k/uL Lymphocytes # 0.6 L (1.0-4.8) k/uL APTT (22.0-30.0) sec ABG pH (7.35-7.45) ABG pO2 (83-108) mmHg ABG HCO3 (21-25) mmol/L ABG Total CO2 (19-24) mmol/L ABG O2 Saturation (94-97) % Sodium (137-145) mmol/L Chloride (98-107) mmol/L Carbon Dioxide (22-30) mmol/L BUN (9-20) mg/dL Creatinine (0.66-1.25) mg/dL POC Glucose (mg/dL) (75-99) mg/dL Calcium (8.4-10.2) mg/dL Troponin I 0.447 H* (0.000-0.034) ng/mL Crossmatch 03/22/17 03/22/17 03/22/17 Range/Units 05:06 12:09 12:09 WBC 15.1 H (3.8-10.6) k/uL RBC 3.24 L (4.30-5.90) m/uL Hgb 9.6 L (13.0-17.5) gm/dL Hct 30.3 L (39.0-53.0) % RDW 18.0 H (11.5-15.5) % Plt Count 97 L (150-450) k/uL Neutrophils # 13.9 H (1.3-7.7) k/uL Lymphocytes # 0.4 L (1.0-4.8) k/uL APTT (22.0-30.0) sec ABG pH (7.35-7.45) ABG pO2 (83-108) mmHg ABG HCO3 (21-25) mmol/L ABG Total CO2 (19-24) mmol/L ABG O2 Saturation (94-97) % Sodium 147 H 147 H (137-145) mmol/L Chloride 110 H 111 H (98-107) mmol/L Carbon Dioxide 31 H (22-30) mmol/L BUN 63 H 56 H (9-20) mg/dL Creatinine (0.66-1.25) mg/dL POC Glucose (mg/dL) (75-99) mg/dL Calcium 7.9 L 8.0 L (8.4-10.2) mg/dL Troponin I (0.000-0.034) ng/mL Crossmatch 03/22/17 Range/Units 12:09 WBC (3.8-10.6) k/uL RBC (4.30-5.90) m/uL Hgb (13.0-17.5) gm/dL Hct (39.0-53.0) % RDW (11.5-15.5) % Plt Count (150-450) k/uL Neutrophils # (1.3-7.7) k/uL Lymphocytes # (1.0-4.8) k/uL APTT (22.0-30.0) sec ABG pH 7.49 H (7.35-7.45) ABG pO2 181 H (83-108) mmHg ABG HCO3 30 H (21-25) mmol/L ABG Total CO2 31 H (19-24) mmol/L ABG O2 Saturation 99.5 H (94-97) % Sodium (137-145) mmol/L Chloride (98-107) mmol/L Carbon Dioxide (22-30) mmol/L BUN (9-20) mg/dL Creatinine (0.66-1.25) mg/dL POC Glucose (mg/dL) (75-99) mg/dL Calcium (8.4-10.2) mg/dL Troponin I (0.000-0.034) ng/mL Crossmatch Microbiology - Last 24 Hours (Table) 03/21/17 09:36 Blood Culture - Preliminary Blood No Growth after 24 hours 03/21/17 09:14 Blood Culture - Preliminary Blood No Growth after 24 hours 03/21/17 01:09 Urine Culture - Preliminary Urine,Catheterized Assessment and Plan Plan: Assessment 1 acute upper GI bleeding with hematemesis and melanotic stool. Rule out peptic ulcer disease, rule out AV malformation as the source of the bleeding. The patient got admitted to the intensive care unit. Over the past 12 hours there is a been no clinical evidence of bleeding and the patient's hemodynamics and hemoglobin has remained stable. Most recent hemoglobin is above 9. Nevertheless, the patient is having some issues with worsening shortness of breath, possibly heart failure, in addition to atrial fibrillation with rapid ventricular response. 2 acute blood loss anemia and the patient is transfused with a total of 2 units of packed RBC and currently is up to 9.6. 3 acute atrial fibrillation with rapid ventricular response currently on a Cardizem drip for heart rate control. The patient is also having frequent PVCs. The patient had a short run of SVT and he was converted with adenosine and he went into atrial fibrillation again. Cardiology on the case. Echocardiac [place]son is in progress. 4 hypotension secondary to above, recovered 5 acute COPD exacerbation and the patient is an acute respiratory failure, currently BiPAP dependent. 6 atherosclerotic heart disease with previous coronary bypass surgery, echocardiogram showing a preserved LV function with an ejection fraction of 45- 50%. The patient has had previous non-ST segment elevation myocardial infarction. 7 bladder cancer status post transurethral resection of the bladder tumor following that the patient received intravesicular chemotherapy 8 diverticular disease with history of complicated diverticulitis with bowel perforation requiring colostomy and colectomy. 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 Patient also has cerebral atrophy. Plan Continue BiPAP for respiratory support. Blood gases was noted and there is no significant hypercapnia and the patient is actually taking well on a 40% FiO2. Continue the bronchodilators. Put the patient IV Solu Medrol 6 mg every 6 hours. The patient was given a dose of Lasix with adequate diuresis. IV Fluids to 50 ML an Hour. Monitor Hemoglobin. Watch for Any Signs of GI Bleeding. Cardizem drip for rate control. Echocardiogram. IV Protonix. Keep the patient denies he'll make further recommendations based on his overall progress. Condition remains quite critical special with his poor underlying baseline performance and functional status. Case was discussed with the family and the , Asha, was updated on his condition. There is a critically care evaluation was done more than 35 minutes. Time with Patient: Greater than 30
[2017-03-22] MEDS: FUROSEMIDE 10 MG/ML 2 ML VIAL IV SCH ×2 (15:53→20:11)
[2017-03-22 20:58] LABS: Glucose,Whole Blood 140 mg/dL (75-99)
[2017-03-22 21:30] LABS: Anion Gap 8 mmol/L; Blood Urea Nitrogen 49 mg/dL (9-20); Carbon Dioxide 30 mmol/L (22-30); Chloride 105 mmol/L (98-107); Glucose 126 mg/dL (74-99); Potassium 3.7 mmol/L (3.5-5.1); Sodium 143 mmol/L (137-145)
--- NOTE | 2017-03-22 22:30 | PN ---
PROGRESS NOTE DATE OF SERVICE: 03/22/2017. The patient remains in ICU. He has been admitted with a GI bleed and severe anemia. The patient's family is at the bedside. General appearance: The patient is alert. He does have a BiPAP mask on the face, but does not seem to be in any distress. VITAL SIGNS; temperature of 97.8, pulse 90, respiration 27, blood pressure of 136/66, O2 saturation 98. HEENT atraumatic, normocephalic. Pupils equal and reactive to light. Extraocular movements intact. Buccal mucosa is fair. NECK EXAM: Neck is supple without any goiter, lymphadenopathy. JVD is negative. No carotid bruit heard. Respiratory examination: Lungs: Mild respiratory distress with tachypnea with scattered wheezes and scattered rhonchi. Minimal rales both lung [place]. Cardiovascular examination: Heart is irregularly irregular withoutany murmurs, gallop rhythm. Abdomen/GI: Abdomen is soft, nontender, nondistended. Bowel sounds are positive. Extremities: No edema, clubbing or cyanosis. Pulses are palpable. Neurological examination: Patient is awake, alert and oriented. No gross motor or sensory deficit. Skin is warm and dry without any rashes. Musculoskeletal: Patient moves all 4 extremities. LAB: CBC, white blood count of 15.1, hemoglobin 9.6, hematocrit 30.3, and platelet count of 97. Chemical profile sodium 137, potassium 4.0, chloride 111, bicarb 29, BUN 56 , creatinine 1.2. Glucose of 91. ASSESSMENT: 1. Acute upper gastrointestinal bleed. The patient remains in ICU. Hemoglobin has been stable after initial transfusion and remains above 9. 2. Atrial fibrillation with RVR, possibly secondary to severe anemia. 3. Acute exacerbation congestive heart failure. 4. Hypotension, volume depletion. Possibly secondary to gastrointestinal bleed. 5. Acute exacerbation chronic obstructive pulmonary disease with acute hypoxemic respiratory failure. Patient is currently on BiPAP. 6. Coronary artery disease status post coronary artery bypass grafting. The patient's echocardiogram showing ejection fraction of 45-50%. 7. Bladder cancer. Patient is status post transurethral resection of the bladder tumor and chemotherapy. 8. Hypertension. 9. Hyperlipidemia. PLAN: Continue to monitor patient in ICU. The patient remains on BiPAP support. He is on an FiO2 of 40%. Continue with inhaled bronchodilators, IV Solu-Medrol. The patient was given dose of Lasix with diuresis. The patient's IV fluids have been decreased. Plan is to monitor hemoglobin, hematocrit. The patient is on IV Cardizem drip for rate control. Echocardiogram is pending. Remains on IV Protonix. The patient's prognosis is guarded. Questions of family members at the bedside were answered to satisfaction. MMODL / IJN: [id number] / GIN
[2017-03-22] MEDS ORDERED: Potassium Replacement Protocol 1 EACH MISC MISCELLANE PRN (23:49)
[2017-03-23] MEDS: POTASSIUM CHLORIDE 10 MEQ in WATER FOR INJECTION 1 100ML.BAG IVPB SCH ×4 (00:48→20:44)
[2017-03-23] MEDS: methylPREDNISolone SOD SUCCI 125 MG/2 ML VIAL IV SCH ×4 (00:48→17:01)
[2017-03-23] MEDS: LORazepam 2 MG/ML INJ IV PRN ×2 (04:39→14:40)
[2017-03-23 05:30] LABS: Anisocytosis Slight; Basophils % (A) 0 %; Eosinophils % (A) 0 %; HCT 27.6 % (39.0-53.0); HGB 9.1 gm/dL (13.0-17.5); Hypochromasia Slight; Lymphocytes # (A) 0.2 k/uL (1.0-4.8); Lymphocytes % (A) 2 %; MCH 30.4 pg (25.0-35.0); MCHC 32.9 g/dL (31.0-37.0); MCV 92.6 fL (80.0-100.0); Mean Platelet Volume 10.2; Monocytes # (A) 0.2 k/uL (0-1.0); Monocytes % (A) 2 %; Neutrophils # (A) 11.8 k/uL (1.3-7.7); Neutrophils % (A) 96 %; RBC 2.98 m/uL (4.30-5.90); RDW 17.9 % (11.5-15.5); WBC 12.3 k/uL (3.8-10.6)
[2017-03-23 05:44] LABS: Anion Gap 10 mmol/L; Blood Urea Nitrogen 50 mg/dL (9-20); Carbon Dioxide 29 mmol/L (22-30); Chloride 104 mmol/L (98-107); Glucose 130 mg/dL (74-99); Potassium 4.3 mmol/L (3.5-5.1); Sodium 143 mmol/L (137-145)
[2017-03-23 05:55] LABS: Platelet Count 85 k/uL (150-450)
[2017-03-23] MEDS: IPRATROPIUM-ALBUTEROL 3 ML NEB INHALATION PRN ×3 (07:30→15:13)
[2017-03-23] MEDS: SODIUM CHLORIDE 0.45% 1,000 ML IV SCH (07:35)
[2017-03-23] MEDS: PANTOPRAZOLE 40 MG/10 ML VIAL IVP SCH ×2 (08:16→20:45)
[2017-03-23] MEDS: FUROSEMIDE 10 MG/ML 2 ML VIAL IV SCH ×2 (08:16→20:45)
--- NOTE | 2017-03-23 08:58 | XR ---
EXAMINATION TYPE: XR chest 1V portable DATE OF EXAM: 03/23/2017 COMPARISON: Prior chest x-ray 03/22/2017 HISTORY: Shortness of breath TECHNIQUE: Single frontal view of the chest is obtained. FINDINGS: Similar findings to prior exam. IMPRESSION: Correlate to exclude pneumonia. Follow-up to resolution to exclude underlying mass. Ther e is underlying emphysema change.
--- NOTE | 2017-03-23 11:03 | CDI ---
Acute Systolic CHF Documentation Clarification Form Date: 03/23/2017 CDS: Viky Ceballos, CCS, CCDS Admit Date: 03/21/2017 Patient Name: Cliff Ward ATTENTION: The Clinical Documentation Specialists (CDI) and [facility] Coding Staff appreciate your assistance in clarifying documentation. Please respond to the clarification below the line at the bottom and electronically sign. The CDI & [facility] Coding staff will review the response and follow-up if needed. Please note: Queries are made part of the Legal Health Record. If you have any questions, please contact the author of this message via ITS. Dr. Seymour Haque: Per the patient's history: CHF is documented. Per the 03/22 Attending progress note: . Acute exacerbation congestive heart failure. History/Risk Factors: COPD, CHF, CAD w/coronary stents & CABG, Hypertension, Hyperlipidemia. Clinical Indicators: Presents with SOB, increased coughing & sputum production. VS: Resp rate 24 (retracting), BP 173/71, PO 95 2Lnc BNP: 5540 Chest X Ray: Bilateral upper lobe pleural & pulmonary scarring. No heart failure. Repeat 03/22: Abnormal apical density on right could be due to underlying pneumonia. apical density on right could be due to underlying pneumonia. Treatment: Albuteral INH, IV fluids, IV Lasix 40 mg started 03/22, IV Cardizem for A Fib. In your professional opinion, can you please clarify the acuity and type of CHF if known? Systolic Heart Failure: Acute Chronic Acute on Chronic Diastolic Heart Failure: Acute Chronic Acute on Chronic Systolic & Diastolic Heart Failure: Acute Chronic Acute on Chronic Heart Failure Unable to Determine Other, please specify Please continue to document in your progress notes and discharge summary in order to capture severity of illness and risk of mortality. Include clinical findings that support your diagnosis. MTDD
--- NOTE | 2017-03-23 11:09 | ECHOF ---
Referral Reason:shortness of breath MEASUREMENTS -------- HEIGHT: 175.3 cm WEIGHT: 68.5 kg BP: 126/56 IVSd: 1.6 cm (0.6 - 1.1) LVIDd: 3.8 cm (3.9 - 5.3) LVPWd: 1.4 cm (0.6 - 1.1) IVSs: 1.2 cm LVIDs: 3.6 cm LVPWs: 1.3 cm Ao Diam: 3.1 cm (2.0 - 3.7) AV Cusp: 1.4 cm (1.5 - 2.6) LA Diam: 3.1 cm (2.7 - 3.8) MV EXCURSION: 12.495 mm (> 18.000) MV EF SLOPE: 61 mm/s (70 - 150) EPSS: 0.5 cm MV E Jason: 0.64 m/s MV DecT: 260 ms MV A Jason: 1.04 m/s MV E/A Ratio: 0.61 AR PHT: 320 ms RAP: 5.00 mmHg RVSP: 13.79 mmHg FINDINGS -------- Sinus rhythm with extra systolic beats. This was a technically difficult study with suboptimal views. The left ventricular size is normal. There is moderate concentric left ventricular hypertrophy. O verall left ventricular systolic function is mildly impaired with, an EF between 45 - 50 %. Basal i nferolateral hypokinesis. The right ventricle is normal in size and function. The left atrium is normal in size. The right atrium is normal in size. Lumason used Aortic valve is trileaflet and is mildly thickened. Mild mitral regurgitation is present. Mild tricuspid regurgitation present. The right ventricular systolic pressure, as measured by Doppl er, is 13.79mmHg. Pulmonic valve appears structurally normal. CONCLUSIONS -------- 1. Sinus rhythm with extra systolic beats. 2. This was a technically difficult study with suboptimal views. 3. The left ventricular size is normal. 4. There is moderate concentric left ventricular hypertrophy. 5. Overall left ventricular systolic function is mildly impaired with, an EF between 45 - 50 %. 6. Basal inferolateral hypokinesis. 7. The right ventricle is normal in size and function. 8. The left atrium is normal in size. 9. The right atrium is normal in size. 10. Lumason used 11. Aortic valve is trileaflet and is mildly thickened. 12. Mild mitral regurgitation is present. 13. Mild tricuspid regurgitation present. 14. The right ventricular systolic pressure, as measured by Doppler, is 13.79mmHg. 15. Pulmonic valve appears structurally normal. LOLLYPOP MACHINE OPERATOR: Berna Escalante RDCS
[2017-03-23 11:48] LABS: Glucose,Whole Blood 141 mg/dL (75-99)
[2017-03-23] MEDS: PRIMIDONE 25 MG TAB PO SCH ×2 (12:15→20:47)
[2017-03-23] MEDS: CITALOPRAM HYDROBROMIDE 20 MG TAB PO SCH (12:16)
[2017-03-23] MEDS: FINASTERIDE 5 MG TAB PO SCH (12:16)
--- NOTE | 2017-03-23 12:33 | PN ---
PROGRESS NOTE This patient was admitted with GI bleeding. The patient has advanced COPD. The patient was in atrial fibrillation yesterday, now he has converted to normal sinus rhythm, and has intermittent PVCs. The patient is comfortable. Patient is being treated conservatively with blood transfusions and IV Protonix. They are treated for possible that the patient has an ulcer. The patient is unable to take anything orally at present. Patient is afebrile. Blood pressure is 114/45 mmHg. Heart rate is 80 per minute. First and second heart sounds. MMODL / IJN: [id number] /
--- NOTE | 2017-03-23 12:38 | P.PN ---
Subjective Progress Note Date: 03/23/17 Principal diagnosis: Acute suspected upper GI bleed with hematochezia melena No further episodes of hematemesis. Melanotic stool in colostomy bag has significantly improved. Patient received 2 full units of blood since admission present hemoglobin is 9.1. Tolerating clears. Denies abdominal pain. Objective - Vital Signs Vital signs: Vital Signs Temp 97 F L 03/23/17 12:00 Pulse 84 03/23/17 12:00 Resp 27 H 03/23/17 12:00 BP 101/68 03/23/17 12:00 Pulse Ox 96 03/23/17 12:00 Intake & Output 03/22/17 03/23/17 03/23/17 18:59 06:59 18:59 Intake Total 603.167 852.416 250 Output Total 3500 1650 500 Balance -2896.833 -797.584 -250 Weight 67.1 kg 67.1 kg Intake: IV 510 800 250 Potassium Chloride 10 meq 200 In Water For Injection 1 100ml.bag @ 100 mls/hr IVPB Q1H [facility] Rx#: [id number] Sodium Chloride 0.45% 1, 450 600 250 000 ml @ 50 mls/hr IV . Q20H [facility] Rx#:[id number] Sodium Chloride 0.9% 1, 60 000 ml @ 75 mls/hr IV . [id number] [facility] Rx#:[id number] Intake, IV Titration 93.167 52.416 Amount Diltiazem 125 mg In 18.167 52.416 Sodium Chloride 0.9% 100 ml @ 10 MG/HR 10 mls/hr IV .[id number] [facility] Rx#: [id number] Sodium Chloride 0.9% 1, 75 000 ml @ 75 mls/hr IV . [id number] [facility] Rx#:[id number] Output: Urine 3500 1650 500 Other: Voiding Method Indwelling Catheter Indwelling Catheter Indwelling Catheter - Exam General appearance: The patient is alert, oriented, in no acute distress. HET: Head is normocephalic and atraumatic. Pupils are equal and reactive. Oropharynx is clear without lesions. Neck: Supple without lymphadenopathy. Trachea midline. Heart: S1 S2. Lungs: Coarse sounds in the upper airways with diminishment in bases bilaterally. Abdomen: Soft, nontender, nondistended with bowel sounds. Colostomy with scant black colored stool <10 mL. No peritoneal signs. No palpable organomegaly or masses. Extremities: Normal skin color and turgor. No cyanosis, rash, ulceration, clubbing, or edema. Radial and pedal pulses are 2/4 bilaterally. Neurological: No focal deficits. Strength and sensation are grossly intact. - Labs CBC & Chem 7: 03/23/17 04:57 03/23/17 04:57 Labs: Abnormal Lab Results - Last 24 Hours (Table) 03/22/17 03/22/17 03/22/17 Range/Units 12:09 20:56 20:57 WBC (3.8-10.6) k/uL RBC (4.30-5.90) m/uL Hgb (13.0-17.5) gm/dL Hct (39.0-53.0) % RDW (11.5-15.5) % Plt Count (150-450) k/uL Neutrophils # (1.3-7.7) k/uL Lymphocytes # (1.0-4.8) k/uL Sodium 147 H (137-145) mmol/L Chloride 111 H (98-107) mmol/L BUN 56 H 49 H (9-20) mg/dL Glucose 126 H (74-99) mg/dL POC Glucose (mg/dL) 140 H (75-99) mg/dL Calcium 8.0 L 8.0 L (8.4-10.2) mg/dL 03/23/17 03/23/17 03/23/17 Range/Units 04:57 04:57 11:46 WBC 12.3 H (3.8-10.6) k/uL RBC 2.98 L (4.30-5.90) m/uL Hgb 9.1 L (13.0-17.5) gm/dL Hct 27.6 L (39.0-53.0) % RDW 17.9 H (11.5-15.5) % Plt Count 85 L (150-450) k/uL Neutrophils # 11.8 H (1.3-7.7) k/uL Lymphocytes # 0.2 L (1.0-4.8) k/uL Sodium (137-145) mmol/L Chloride (98-107) mmol/L BUN 50 H (9-20) mg/dL Glucose 130 H (74-99) mg/dL POC Glucose (mg/dL) 141 H (75-99) mg/dL Calcium 8.0 L (8.4-10.2) mg/dL Microbiology - Last 24 Hours (Table) 03/21/17 09:36 Blood Culture - Preliminary Blood No Growth after 48 hours 03/21/17 09:14 Blood Culture - Preliminary Blood No Growth after 48 hours 03/21/17 01:09 Urine Culture - Final Urine,Catheterized Assessment and Plan (1) GI bleed Narrative/Plan: Acute upper GI bleed with hematemesis and melena possible peptic ulcer duodenal disease possible bleeding angiectasia AVM. Current Visit: Yes Status: Acute Code(s): K92.2 - GASTROINTESTINAL HEMORRHAGE, UNSPECIFIED SNOMED Code(s): 88332147 (2) Hematemesis Current Visit: Yes Status: Acute Code(s): K92.0 - HEMATEMESIS SNOMED Code( s): 0737299 (3) Acute blood loss anemia Current Visit: Yes Status: Acute Code(s): D62 - ACUTE POSTHEMORRHAGIC ANEMIA SNOMED Code(s): 852905016 (4) Melena Current Visit: Yes Status: Acute Code(s): K92.1 - MELENA SNOMED Code(s): 4083659 (5) Advanced COPD Current Visit: Yes Status: Acute Code(s): J44.9 - CHRONIC OBSTRUCTIVE PULMONARY DISEASE, UNSPECIFIED SNOMED Code(s): 68322620 (6) History of colostomy Current Visit: Yes Status: Acute Code(s): Z98.890 - OTHER SPECIFIED POSTPROCEDURAL STATES SNOMED Code(s): 706415995 Plan: 1. Patient is high risk for endoscopic procedures/ anesthesia secondary to his underlying advanced COPD disease with minimal reserve. At this time tailor helper Dr. Hayes recommends conservative measures. 2. Best course of management today would be to continue with observation and conservative measures. Upper endoscopy is not recommended at this time as it appears his bleeding is slowing down and improving. Hemoglobin relatively stable. Receiving intravenous Protonix twice daily. 3. Agreeable for full liquid diet with ensure supplement. CBC monitoring. 4. EGD contingent only if necessary but at this time pulmonology is not providing clearance. Patient and spouse are agreeable with this plan of care. We'll continue to follow closely. Assessment and plan a care discussed with Dr. Hurst
--- NOTE | 2017-03-23 12:46 | PN ---
PROGRESS NOTE This patient was admitted with GI bleed. Patient has advanced COPD. Patient was in atrial fibrillation with a rapid rate yesterday and was treated with Cardizem drip. He is feeling better now. Bleeding was stabilized. His hemoglobin is stable patient is now converted to the normal sinus rhythm. We will discontinue the IV Cardizem drip. First and second heart sounds are normal. Lungs reveal bilateral scattered wheezes. We will treat the patient periodically with IV Cardizem drip, if he goes into atrial fibrillation with a rapid rate. MMODL / IJN: [id number] /
[2017-03-23] MEDS: DILTIAZEM 125 MG in SODIUM CHLORIDE 0.9% 100 ML IV SCH (13:47)
[2017-03-23] MEDS ORDERED: PRIMIDONE 25 MG TAB PO SCH (14:00)
[2017-03-23 14:46] LABS: Glucose,Whole Blood 263 mg/dL (75-99)
[2017-03-23 14:46] LABS: Glucose,Whole Blood 285 mg/dL (75-99)
[2017-03-23] MEDS: INSULIN ASPART 100 UNIT/ML 1 ML 10 ML VIAL SQ SCH ×2 (14:55→21:03)
--- NOTE | 2017-03-23 15:49 | P.PN ---
Subjective Progress Note Date: 03/23/17 A 81-year-old male patient with known history of advanced oxygen-dependent COPD , bladder cancer, coronary artery disease with previous bypass surgery, hypertension, hyperlipidemia and diverticulosis and large anterior abdominal wall parastomal and inguinal hernia was becoming progressively more debilitated especially over the past 6 months. The patient is very well-known to me. Of taking care of him for many years. During his last hospitalization the patient came in for an acute COPD exacerbation and was sent to [facility] for further recuperation. Yesterday evening, this patient got transferred back to the hospital because of an acute GI bleeding. Apparently at around 4 AM this morning the patient had 3 large gross red bloody emesis and following that there was large amount of black tarry stools in the colostomy bag without having any significant abdominal pain. He is known to have a diverticular colostomy following a complicated perforated diverticulitis treatment for which she underwent colectomy and diverting colostomy. Subsequently had developed a large parastomal hernia. In the emergency department, the patient had another emesis. His hemoglobin dropped from 10.3 down to 7.3. The patient was being given a unit of packed RBC and 15 minutes into the transfusion the patient had an acute febrile reaction and the transfusion was stopped based on the protocol. The patient was given IV Tylenol and the protocol for transient reaction is being conducted at this point. The patient is somewhat weak and lethargic. He was having some increased shortness of breath even at rest. No chest pain. No eye [place] 3. Platelet count is at 141. No significant hypotension although his blood pressure systolic dropped as low as the low 100s. He was somewhat tachycardic and his heart rate is around 101. I discussed the case with gastroenterology and general surgery. Ideally would need an EGD as soon as possible to further investigate his upper GI bleed. However he carries a DNR/DNI CODE STATUS and putting him for an EGD at this point with compromises respiratory status and more than likely put him into respiratory failure. Based on that we decided to transfer him to the intensive care unit, resuscitated patient with fluids and blood, insert an NG tube and stabilize the condition following that proceed with an EGD. The family including the left. Understands the risk of the procedure at this point especially with his very borderline pulmonary status. The computed tomography scan of the abdomen was done and emerged department that showed a stable parastomal hernia containing multiple small bowel loops without evidence of any strangulation of bowel obstruction. The patient also has a stable-appearing Márquez's pouch with multiple diverticuli and small right-sided pleural effusion. There is interval progression of the compression deformity of the L1 vertebral body. He does have still chronic compression fracture. The chest x- ray shows upper lobe pleural based scarring. There is also some progression of the left apical scarring at this point. Density in the right apex is also increased. On 03/22/2017, the patient is being seen in follow-up in the intensive care unit. Noted the patient was initially hospitalized with a massive upper GI bleed. He was very unstable and he was unable to go through a EGD for further investigation of his upper GI bleed. He was brought to the intensive care unit and fortunately he did not have any further episodes of bleeding. He got transfused with 2 units of packed RBC and hemoglobin has remained stable and currently hemoglobin is up to 9.6. Meanwhile, the patient did not have any melanotic stools collecting in his colostomy bag. No reported hematemesis overnight. Around 7 to 8:00 this morning the patient became progressively more short of breath. He was given a dose of Lasix 40 mg IV push during which she diuresed more than liters. Nevertheless, he continued to be bronchospastic and wheezy and he went into SVT. Cardiology was on the case and the patient was given Adenocard and subsequently converted into A. fib with rapid ventricular response and currently is on a Cardizem drip for rate control. The patient is also on a BiPAP for respiratory support. Blood gases were obtained and the pH was 7.49 with a pCO2 of 39 and pO2 of 181. The patient is very anxious. He is short of breath. He does have some diminished level of consciousness however is still arousable and he is able to follow simple commands. Note that he is a DNR/DNI CODE STATUS. His sodium today is at 147. His BUN is at 56 with a creatinine of 1.2. He is having frequent PVCs on the pouncer machine. The urine output has been considerably high following the diuresis and the patient is in a negative fluid balance of 1.9 L. The chest x-ray from today is essentially unchanged and there is some increased interstitial markings bilaterally along with biapical scarring. The blood cultures of been negative thus far. The troponins are 0.3 and 0.4 respectively. He denies having any chest pain. On , I'm seeing this patient for a follow-up. The patient is looking better compared to yesterday. Fortunately has not bled in his hemoglobin remains stable and the patient has no melanotic stool or hematemesis. He is less short of breath compared to yesterday and this morning he is off the BiPAP and he is able to breathe comfortably. He is atrial fibrillation is converted back to normal sinus rhythm. He is very tremulous and he has known history of essential tremors and I think is reasonable to start this patient back on his usual Mysoline. The patient is still on bronchodilators and systemic steroids. The patient on Cardizem at 10 mg an hour. He is receiving 20 mg of IV Lasix every 12 hours. Is on IV Protonix. GI is on the case yet there are no plans to endoscope this patient based on his very poor pulmonary status and underlying debilitated condition. He denies having any chest pain. No cough or sputum production. We'll try to allow some clear liquid/soft diet. Objective - Vital Signs Vital signs: Vital Signs Temp 97 F L 03/23/17 12:00 Pulse 88 03/23/17 15:28 Resp 24 03/23/17 15:00 BP 102/67 03/23/17 15:00 Pulse Ox 96 03/23/17 15:00 Intake & Output 03/22/17 03/23/17 03/23/17 18:59 06:59 18:59 Intake Total 603.167 852.416 724.917 Output Total 3500 1650 650 Balance -2896.833 -797.584 74.917 Weight 67.1 kg 67.1 kg Intake: IV 510 800 350 Potassium Chloride 10 meq 200 In Water For Injection 1 100ml.bag @ 100 mls/hr IVPB Q1H [facility] Rx#: [id number] Sodium Chloride 0.45% 1, 450 600 350 000 ml @ 50 mls/hr IV . Q20H [facility] Rx#:[id number] Sodium Chloride 0.9% 1, 60 000 ml @ 75 mls/hr IV . [id number] [facility] Rx#:[id number] Intake, IV Titration 93.167 52.416 124.917 Amount Diltiazem 125 mg In 18.167 52.416 124.917 Sodium Chloride 0.9% 100 ml @ 10 MG/HR 10 mls/hr IV .[id number] [facility] Rx#: [id number] Sodium Chloride 0.9% 1, 75 000 ml @ 75 mls/hr IV . [id number] [facility] Rx#:[id number] Oral 250 Output: Urine 3500 1650 650 Other: Voiding Method Indwelling Catheter Indwelling Catheter Indwelling Catheter - Exam General appearance: alert, currently off the BiPAP and much more comfortable compared to yesterday other (Mildly tremulous), t Head exam: Present: atraumatic, normocephalic Eye exam: Present: normal appearance Neck exam: Present: normal inspection Respiratory exam: Present: respiratory distress (Mild tachypnea), wheezes, rales (Bilateral bases), rhonchi. Absent: chest wall tenderness, accessory muscle use, decreased breath sounds, prolonged expiratory Cardiovascular Exam: Present: irregular rhythm, systolic murmur. Absent: diastolic murmur, rubs, gallop GI/Abdominal exam: Present: soft, hernia, other (There is a colostomy in the left lower quadrants with peristomal hernia. No abdominal tenderness). Absent : distended, tenderness, guarding, rebound. As for the right inguinal hernia, the patient has a hernia that is very much reducible and there is no evidence of incarceration or strangulation. Extremities exam: Present: normal capillary refill, pedal edema (There is trace edema at the ankles bilaterally). Absent: tenderness, calf tenderness Back exam: Present: normal inspection. Absent: CVA tenderness (R), CVA tenderness (L) Neurological exam: Present: alert Skin exam: Present: warm, dry, intact, normal color. Absent: rash - Labs CBC & Chem 7: 03/23/17 04:57 03/23/17 04:57 Labs: Abnormal Lab Results - Last 24 Hours (Table) 03/22/17 03/22/17 03/23/17 Range/Units 20:56 20:57 04:57 WBC 12.3 H (3.8-10.6) k/uL RBC 2.98 L (4.30-5.90) m/uL Hgb 9.1 L (13.0-17.5) gm/dL Hct 27.6 L (39.0-53.0) % RDW 17.9 H (11.5-15.5) % Plt Count 85 L (150-450) k/uL Neutrophils # 11.8 H (1.3-7.7) k/uL Lymphocytes # 0.2 L (1.0-4.8) k/uL BUN 49 H (9-20) mg/dL Glucose 126 H (74-99) mg/dL POC Glucose (mg/dL) 140 H (75-99) mg/dL Calcium 8.0 L (8.4-10.2) mg/dL 03/23/17 03/23/17 03/23/17 Range/Units 04:57 11:46 14:41 WBC (3.8-10.6) k/uL RBC (4.30-5.90) m/uL Hgb (13.0-17.5) gm/dL Hct (39.0-53.0) % RDW (11.5-15.5) % Plt Count (150-450) k/uL Neutrophils # (1.3-7.7) k/uL Lymphocytes # (1.0-4.8) k/uL BUN 50 H (9-20) mg/dL Glucose 130 H (74-99) mg/dL POC Glucose (mg/dL) 141 H 285 H (75-99) mg/dL Calcium 8.0 L (8.4-10.2) mg/dL 03/23/17 Range/Units 14:43 WBC (3.8-10.6) k/uL RBC (4.30-5.90) m/uL Hgb (13.0-17.5) gm/dL Hct (39.0-53.0) % RDW (11.5-15.5) % Plt Count (150-450) k/uL Neutrophils # (1.3-7.7) k/uL Lymphocytes # (1.0-4.8) k/uL BUN (9-20) mg/dL Glucose (74-99) mg/dL POC Glucose (mg/dL) 263 H (75-99) mg/dL Calcium (8.4-10.2) mg/dL Microbiology - Last 24 Hours (Table) 03/21/17 09:36 Blood Culture - Preliminary Blood No Growth after 48 hours 03/21/17 09:14 Blood Culture - Preliminary Blood No Growth after 48 hours 03/21/17 01:09 Urine Culture - Final Urine,Catheterized Assessment and Plan Plan: Assessment 1 acute upper GI bleeding with hematemesis and melanotic stool. Rule out peptic ulcer disease, rule out AV malformation as the source of the bleeding. The patient got admitted to the intensive care unit. Over the past 12 hours there is a been no clinical evidence of bleeding and the patient's hemodynamics and hemoglobin has remained stable. Most recent hemoglobin is above 9.1. No plans to perform any endoscopies on this patient. The patient has remained stable without evidence of any ongoing bleeding over the past 48 hours and based on that the patient will be asked to start some clear liquid diet on today 's evaluation. 2 acute blood loss anemia and the patient is transfused with a total of 2 units of packed RBC and currently is up to 9.1. 3 acute atrial fibrillation with rapid ventricular response currently on a Cardizem drip for heart rate control. The patient converted back to normal sinus rhythm. Cardiology is on the case. Still on a Cardizem drip at 10 mg an hour. The echocardiogram was done and showed moderate concentric limits to hypertrophy. Left ventricle ejection fraction between 45-50%. There is some interval basal and lateral hypokinesis. Rest of the cardiac structures are all within normal limits. 4 hypotension secondary to above, recovered 5 acute COPD exacerbation and the patient is an acute respiratory failure, currently off BiPAP 6 atherosclerotic heart disease with previous coronary bypass surgery, echocardiogram showing a preserved LV function with an ejection fraction of 45- 50%. The patient has had previous non-ST segment elevation myocardial infarction. 7 bladder cancer status post transurethral resection of the bladder tumor following that the patient received intravesicular chemotherapy 8 diverticular disease with history of complicated diverticulitis with bowel perforation requiring colostomy and colectomy. 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 Patient also has cerebral atrophy. Plan I doubt this patient to take some clear liquid diet. Proceed with oral medication. Monitor hemoglobin. Watch for any signs of GI bleeding. Discussed the case again with gastroenterology and we think that the patient is not a good candidate for EGD based on his underlying comorbidities and borderline pulmonary status. He is more comfortable compared to yesterday. Is off the BiPAP. He was dynamically stable. He is back to normal sinus rhythm. He is not a candidate for anticoagulation. He is having increased tremors and will start him back on Mysoline. We'll start tapering steroids as of tomorrow. Continue IV fluids at 50 mL an hour normal saline. Keep the patient ICU. DNR /DNI CODE STATUS.
[2017-03-23] MEDS ORDERED: FLUCONAZOLE 100 MG TAB PO SCH (17:00)
[2017-03-23 17:12] LABS: Anion Gap 8 mmol/L; Blood Urea Nitrogen 53 mg/dL (9-20); Calcium 7.8 mg/dL (8.4-10.2); Carbon Dioxide 29 mmol/L (22-30); Chloride 106 mmol/L (98-107); Glucose 142 mg/dL (74-99); Potassium 3.6 mmol/L (3.5-5.1); Sodium 143 mmol/L (137-145)
[2017-03-23] MEDS ORDERED: Potassium Replacement Protocol 1 EACH MISC MISCELLANE PRN (17:50)
[2017-03-23] MEDS: TAMSULOSIN 0.4 MG CAP.ER.24H PO SCH (20:47)
[2017-03-23 21:04] LABS: Glucose,Whole Blood 120 mg/dL (75-99)
--- NOTE | 2017-03-23 23:10 | PN ---
PROGRESS NOTE DATE OF SERVICE: 03/23/2017. The patient remains in ICU, is somewhat less responsive compared to yesterday. The patient had the remains on IV Cardizem drip, IV Lasix. IV Protonix. VITAL SIGNS: Temperature of 97, pulse 88, respirations 24, blood pressure 102/67, O2 saturation 96%. In general, patient opens eyes on verbal stimulation. HEENT: Atraumatic, normocephalic. Pupils equal and reactive to light. Extraocular movements intact. Buccal mucosa is moist. NECK: Neck is supple. No goiter or lymphadenopathy. JVD is negative. No carotid bruit heard. RESPIRATORY: The patient continues to have tachypnea with scattered rales and rhonchi, diffuse wheezing. CARDIOVASCULAR: Heart is irregularly irregular, tachycardic. ABDOMEN/GI: Abdomen is soft, nontender, nondistended. The patient does have a colostomy in the left lower quadrant, which is stable. Bowel sounds are positive. EXTREMITIES: The patient has no edema, clubbing or cyanosis. Pulses are palpable. NEUROLOGICAL: Patient is awake, alert, oriented, somewhat sleepy. Cranial nerves are intact. SKIN: Skin is warm, dry with normal color. MUSCULOSKELETAL: Patient moves all 4 extremities. LABS: CBC: White blood count of 12.3, hemoglobin 9.5, hematocrit 27.6 and platelet count of 85. Chemical profile: Sodium of 143, potassium 4.3, chloride 104, bicarb 29, BUN 50, creatinine 1.2 and glucose 150. ASSESSMENT: 1. Acute upper gastrointestinal bleed with a hematemesis and melenic stools. 2. Acute blood loss anemia. 3. Atrial fibrillation with rapid ventricular response. 4. Hypotension. 5. Acute hypoxemic respiratory failure. 6. Acute exacerbation of chronic obstructive pulmonary disease. 7. Acute exacerbation of congestive heart failure. 8. Coronary artery disease status post coronary artery bypass grafting. 9. Bladder cancer. The patient remains in ICU, but continues to need BiPAP support. He is on FiO2 of 40%. He remains on bronchodilators and IV Solu-Medrol, IV Lasix, IV Cardizem for rate control, remains on IV Protonix. The patient's echocardiogram shows ejection fraction of 45%-50% with left ventricular hypertrophy. The patient has been deemed high risk by Cardiology and Pulmonary to undergo EGD, which is which is a put on hold for conservative treatment. MMODL / IJN: [id number] /
[2017-03-24] MEDS: LORazepam 2 MG/ML INJ IV PRN ×2 (01:41→20:49)
[2017-03-24] MEDS: DILTIAZEM 125 MG in SODIUM CHLORIDE 0.9% 100 ML IV SCH ×2 (01:42→13:07)
[2017-03-24 03:35] LABS: Glucose,Whole Blood 134 mg/dL (75-99)
[2017-03-24] MEDS: INSULIN ASPART 100 UNIT/ML 1 ML 10 ML VIAL SQ SCH ×4 (03:40→22:14)
[2017-03-24 05:38] LABS: Anisocytosis Slight; Basophils % (A) 0 %; Eosinophils % (A) 0 %; HCT 27.3 % (39.0-53.0); HGB 8.3 gm/dL (13.0-17.5); Hypochromasia Slight; Lymphocytes # (A) 0.3 k/uL (1.0-4.8); Lymphocytes % (A) 2 %; MCH 28.9 pg (25.0-35.0); MCHC 30.5 g/dL (31.0-37.0); MCV 94.9 fL (80.0-100.0); Mean Platelet Volume 9.8; Monocytes # (A) 0.4 k/uL (0-1.0); Monocytes % (A) 3 %; Neutrophils # (A) 12.1 k/uL (1.3-7.7); Neutrophils % (A) 94 %; RBC 2.87 m/uL (4.30-5.90); RDW 16.9 % (11.5-15.5); WBC 12.9 k/uL (3.8-10.6)
[2017-03-24 05:43] LABS: Platelet Count 84 k/uL (150-450)
[2017-03-24 05:45] LABS: Anion Gap 7 mmol/L; Blood Urea Nitrogen 52 mg/dL (9-20); Carbon Dioxide 29 mmol/L (22-30); Chloride 105 mmol/L (98-107); Glucose 116 mg/dL (74-99); Potassium 3.8 mmol/L (3.5-5.1); Sodium 141 mmol/L (137-145)
--- NOTE | 2017-03-24 07:00 | XR ---
EXAMINATION TYPE: XR chest 1V portable DATE OF EXAM: 03/24/2017 HISTORY: shortness of breath. REFERENCE: Previous study dated 03/23/2017. FINDINGS: There has been a midline sternotomy. Lung volumes are prominent. There is right upper lobe airspace disease. Heart size is upper limits of normal. Pleural spaces are clear. IMPRESSION: 1. COPD. 2. CONTINUING RIGHT UPPER LOBE OPACITY. PLEASE CORRELATE FOR PNEUMONIA. 3. BORDERLINE CARDIOMEGALY.
[2017-03-24] MEDS: POTASSIUM CHLORIDE 10 MEQ in WATER FOR INJECTION 1 100ML.BAG IVPB SCH ×2 (08:38→11:09)
[2017-03-24] MEDS: CITALOPRAM HYDROBROMIDE 20 MG TAB PO SCH (08:39)
[2017-03-24] MEDS: methylPREDNISolone SOD SUCCI 125 MG/2 ML VIAL IV SCH ×2 (08:39)
[2017-03-24] MEDS: PRIMIDONE 25 MG TAB PO SCH (08:40)
[2017-03-24] MEDS: FINASTERIDE 5 MG TAB PO SCH (08:40)
[2017-03-24] MEDS: PANTOPRAZOLE 40 MG/10 ML VIAL IVP SCH ×2 (08:40→20:49)
[2017-03-24] MEDS: TAMSULOSIN 0.4 MG CAP.ER.24H PO SCH (08:40)
[2017-03-24] MEDS: FUROSEMIDE 10 MG/ML 2 ML VIAL IV SCH ×2 (08:40→20:49)
[2017-03-24] MEDS: IPRATROPIUM-ALBUTEROL 3 ML NEB INHALATION PRN ×4 (08:52→21:00)
[2017-03-24 11:08] LABS: Glucose,Whole Blood 185 mg/dL (75-99)
[2017-03-24] MEDS: SODIUM CHLORIDE 0.45% 1,000 ML IV SCH (11:09)
--- NOTE | 2017-03-24 11:23 | PN ---
PROGRESS NOTE DATE OF SERVICE: 03/24/17 Patient is an 81-year-old pleasant white male admitted to the hospital with massive hematemesis and black tarry stools. Denies any history of diverting colostomy. History of colostomy because of perforated diverticulitis several years ago, but because of his comorbid condition that was never reversed. He has multiple comorbid conditions, presently on BiPAP in the ICU being monitored closely. He did not have any further episodes of bleeding for the last 2 days. He is maintained on IV Protonix 40 mg q.12 hours. Has some green stool in the ostomy bag today. He denies any abdominal pain. No nausea, vomiting. PHYSICAL EXAMINATION: Appears comfortable, no apparent distress. VITAL SIGNS: Stable. Blood pressure is 131/59, pulse rate 82, and respirations were . HEENT examination unremarkable. Conjunctivae pink. Sclerae anicteric. Oral cavity no lesions. Neck: No jugular venous distention or lymph node enlargement. Chest was clear to auscultation. Decreased breath sounds bilaterally. HEART: Regular rate and rhythm. Abdomen colostomy in place. Green stool noted in the colostomy bag. It was benign. Extremities: No pedal edema. Skin no rashes. NEUROLOGIC: Alert and oriented x3. No focal deficits. LAB: From today, hemoglobin is 8.3, WBC 12.9, platelets are normal at 84. IMPRESSION: 1. Acute upper gastrointestinal bleed. The patient presents with hematemesis and black tarry stools. Hemoglobin is currently stable at 8.2 g/dL. No further bleeding for the last 48 hours. Presently on IV Protonix, doing well. 2. Severe chronic obstructive pulmonary disease. 3. Atrial fibrillation with well controlled heart rate. 4. History of bladder cancer. 5. Advanced chronic obstructive pulmonary disease. RECOMMENDATION: I had a lengthy discussion with Dr. Hayes who thinks at this time, the patient is not a candidate for any endoscopy intervention. At this time, the bleeding has subsided, so we will continue to watch him closely and continue with conservative approach. Transfuse as needed. No plans for endoscopy intervention at the present time. We will follow him closely during his hospital stay. MMCRISTINEL / JOEYN: [id number] /
--- NOTE | 2017-03-24 13:51 | P.PN ---
<Mickie Slaughter - Last Filed: 03/24/17 13:43> Subjective Progress Note Date: 03/24/17 Principal diagnosis: Acute upper gastrointestinal bleeding. A 81-year-old male patient with known history of advanced oxygen-dependent COPD , bladder cancer, coronary artery disease with previous bypass surgery, hypertension, hyperlipidemia and diverticulosis and large anterior abdominal wall parastomal and inguinal hernia was becoming progressively more debilitated especially over the past 6 months. The patient is very well-known to me. Of taking care of him for many years. During his last hospitalization the patient came in for an acute COPD exacerbation and was sent to [facility] for further recuperation. Yesterday evening, this patient got transferred back to the hospital because of an acute GI bleeding. Apparently at around 4 AM this morning the patient had 3 large gross red bloody emesis and following that there was large amount of black tarry stools in the colostomy bag without having any significant abdominal pain. He is known to have a diverticular colostomy following a complicated perforated diverticulitis treatment for which she underwent colectomy and diverting colostomy. Subsequently had developed a large parastomal hernia. In the emergency department, the patient had another emesis. His hemoglobin dropped from 10.3 down to 7.3. The patient was being given a unit of packed RBC and 15 minutes into the transfusion the patient had an acute febrile reaction and the transfusion was stopped based on the protocol. The patient was given IV Tylenol and the protocol for transient reaction is being conducted at this point. The patient is somewhat weak and lethargic. He was having some increased shortness of breath even at rest. No chest pain. No eye [place] 3. Platelet count is at 141. No significant hypotension although his blood pressure systolic dropped as low as the low 100s. He was somewhat tachycardic and his heart rate is around 101. I discussed the case with gastroenterology and general surgery. Ideally would need an EGD as soon as possible to further investigate his upper GI bleed. However he carries a DNR/DNI CODE STATUS and putting him for an EGD at this point with compromises respiratory status and more than likely put him into respiratory failure. Based on that we decided to transfer him to the intensive care unit, resuscitated patient with fluids and blood, insert an NG tube and stabilize the condition following that proceed with an EGD. The family including the left. Understands the risk of the procedure at this point especially with his very borderline pulmonary status. The computed tomography scan of the abdomen was done and emerged department that showed a stable parastomal hernia containing multiple small bowel loops without evidence of any strangulation of bowel obstruction. The patient also has a stable-appearing Márquez's pouch with multiple diverticuli and small right-sided pleural effusion. There is interval progression of the compression deformity of the L1 vertebral body. He does have still chronic compression fracture. The chest x- ray shows upper lobe pleural based scarring. There is also some progression of the left apical scarring at this point. Density in the right apex is also increased. On 03/22/2017, the patient is being seen in follow-up in the intensive care unit. Noted the patient was initially hospitalized with a massive upper GI bleed. He was very unstable and he was unable to go through a EGD for further investigation of his upper GI bleed. He was brought to the intensive care unit and fortunately he did not have any further episodes of bleeding. He got transfused with 2 units of packed RBC and hemoglobin has remained stable and currently hemoglobin is up to 9.6. Meanwhile, the patient did not have any melanotic stools collecting in his colostomy bag. No reported hematemesis overnight. Around 7 to 8:00 this morning the patient became progressively more short of breath. He was given a dose of Lasix 40 mg IV push during which she diuresed more than liters. Nevertheless, he continued to be bronchospastic and wheezy and he went into SVT. Cardiology was on the case and the patient was given Adenocard and subsequently converted into A. fib with rapid ventricular response and currently is on a Cardizem drip for rate control. The patient is also on a BiPAP for respiratory support. Blood gases were obtained and the pH was 7.49 with a pCO2 of 39 and pO2 of 181. The patient is very anxious. He is short of breath. He does have some diminished level of consciousness however is still arousable and he is able to follow simple commands. Note that he is a DNR/DNI CODE STATUS. His sodium today is at 147. His BUN is at 56 with a creatinine of 1.2. He is having frequent PVCs on the industry consultant. The urine output has been considerably high following the diuresis and the patient is in a negative fluid balance of 1.9 L. The chest x-ray from today is essentially unchanged and there is some increased interstitial markings bilaterally along with biapical scarring. The blood cultures of been negative thus far. The troponins are 0.3 and 0.4 respectively. He denies having any chest pain. On , I'm seeing this patient for a follow-up. The patient is looking better compared to yesterday. Fortunately has not bled in his hemoglobin remains stable and the patient has no melanotic stool or hematemesis. He is less short of breath compared to yesterday and this morning he is off the BiPAP and he is able to breathe comfortably. He is atrial fibrillation is converted back to normal sinus rhythm. He is very tremulous and he has known history of essential tremors and I think is reasonable to start this patient back on his usual [place]. The patient is still on bronchodilators and systemic steroids. The patient on Cardizem at 10 mg an hour. He is receiving 20 mg of IV Lasix every 12 hours. Is on IV Protonix. GI is on the case yet there are no plans to endoscope this patient based on his very poor pulmonary status and underlying debilitated condition. He denies having any chest pain. No cough or sputum production. We'll try to allow some clear liquid/soft diet. The patient is seen again today 03/24/2017 in follow-up in the intensive care unit. He is more awake and alert today as compared to yesterday. He has not had any further bleeding noted. His current hemoglobin is 8.3. Creatinine 1.30. Blood and urine cultures have been negative. Today's chest x-ray reveals continued right upper lobe opacity, chronic obstructive pulmonary disease and borderline cardiomegaly. He is currently maintaining good O2 saturations in the 90s on 2 L/m per nasal cannula. He is afebrile. Remains on Cardizem drip at 10 mg per hour. Objective - Vital Signs Vital signs: Vital Signs Temp 98.0 F 03/24/17 12:00 Pulse 107 H 03/24/17 13:19 Resp 31 H 03/24/17 13:00 BP 110/66 03/24/17 13:00 Pulse Ox 99 03/24/17 13:00 Intake & Output 01/26/18 01/27/18 01/27/18 18:59 06:59 18:59 Intake Total 924.917 960.801 435.567 Output Total 755 715 140 Balance 169.917 245.801 295.567 Weight 67.1 kg 68 kg 68 kg Intake: IV 550 400 100 Potassium Chloride 10 meq 200 In Water For Injection 1 100ml.bag @ 100 mls/hr IVPB Q1H ALEX Rx#: [id number] Sodium Chloride 0.45% 1, 550 200 100 000 ml @ 50 mls/hr IV . Q20H ALEX Rx#:[id number] Intake, IV Titration 124.917 560.801 215.567 Amount Diltiazem 125 mg In 124.917 160.801 65.567 Sodium Chloride 0.9% 100 ml @ 10 MG/HR 10 mls/hr IV .[id number] ALEX Rx#: [id number] Potassium Chloride 10 meq 100 In Water For Injection 1 100ml.bag @ 100 mls/hr IVPB Q1H ALEX Rx#: [id number] Sodium Chloride 0.45% 1, 400 50 000 ml @ 50 mls/hr IV . Q20H ALEX Rx#:[id number] Oral 250 120 Output: Urine 755 715 140 Other: Voiding Method Indwelling Catheter Indwelling Catheter Indwelling Catheter - Exam General appearance: alert, currently off the BiPAP and much more comfortable compared to yesterday other (Mildly tremulous), t Head exam: Present: atraumatic, normocephalic Eye exam: Present: normal appearance Neck exam: Present: normal inspection Respiratory exam: Present: respiratory distress (Mild tachypnea), wheezes, rales (Bilateral bases), rhonchi. Absent: chest wall tenderness, accessory muscle use, decreased breath sounds, prolonged expiratory Cardiovascular Exam: Present: irregular rhythm, systolic murmur. Absent: diastolic murmur, rubs, gallop GI/Abdominal exam: Present: soft, hernia, other (There is a colostomy in the left lower quadrants with peristomal hernia. No abdominal tenderness). Absent : distended, tenderness, guarding, rebound. As for the right inguinal hernia, the patient has a hernia that is very much reducible and there is no evidence of incarceration or strangulation. Extremities exam: Present: normal capillary refill, pedal edema (There is trace edema at the ankles bilaterally). Absent: tenderness, calf tenderness Back exam: Present: normal inspection. Absent: CVA tenderness (R), CVA tenderness (L) Neurological exam: Present: alert Skin exam: Present: warm, dry, intact, normal color. Absent: rash - Labs CBC & Chem 7: 03/24/17 04:50 03/24/17 04:50 Labs: Abnormal Lab Results - Last 24 Hours (Table) 03/23/17 03/23/17 03/23/17 Range/Units 14:41 14:43 16:24 WBC (3.8-10.6) k/uL RBC (4.30-5.90) m/uL Hgb (13.0-17.5) gm/dL Hct (39.0-53.0) % MCHC (31.0-37.0) g/dL RDW (11.5-15.5) % Plt Count (150-450) k/uL Neutrophils # (1.3-7.7) k/uL Lymphocytes # (1.0-4.8) k/uL BUN 53 H (9-20) mg/dL Creatinine 1.30 H (0.66-1.25) mg/dL Glucose 142 H (74-99) mg/dL POC Glucose (mg/dL) 285 H 263 H (75-99) mg/dL Calcium 7.8 L (8.4-10.2) mg/dL 03/23/17 03/24/17 03/24/17 Range/Units 21:03 03:32 04:50 WBC 12.9 H (3.8-10.6) k/uL RBC 2.87 L (4.30-5.90) m/uL Hgb 8.3 L (13.0-17.5) gm/dL Hct 27.3 L (39.0-53.0) % MCHC 30.5 L (31.0-37.0) g/dL RDW 16.9 H (11.5-15.5) % Plt Count 84 L (150-450) k/uL Neutrophils # 12.1 H (1.3-7.7) k/uL Lymphocytes # 0.3 L (1.0-4.8) k/uL BUN (9-20) mg/dL Creatinine (0.66-1.25) mg/dL Glucose (74-99) mg/dL POC Glucose (mg/dL) 120 H 134 H (75-99) mg/dL Calcium (8.4-10.2) mg/dL 03/24/17 03/24/17 Range/Units 04:50 11:05 WBC (3.8-10.6) k/uL RBC (4.30-5.90) m/uL Hgb (13.0-17.5) gm/dL Hct (39.0-53.0) % MCHC (31.0-37.0) g/dL RDW (11.5-15.5) % Plt Count (150-450) k/uL Neutrophils # (1.3-7.7) k/uL Lymphocytes # (1.0-4.8) k/uL BUN 52 H (9-20) mg/dL Creatinine 1.30 H (0.66-1.25) mg/dL Glucose 116 H (74-99) mg/dL POC Glucose (mg/dL) 185 H (75-99) mg/dL Calcium 8.0 L (8.4-10.2) mg/dL Microbiology - Last 24 Hours (Table) 03/21/17 09:36 Blood Culture - Preliminary Blood No Growth after 72 hours 03/21/17 09:14 Blood Culture - Preliminary Blood No Growth after 72 hours Assessment and Plan Assessment: Assessment 1 acute upper GI bleeding with hematemesis and melanotic stool. Rule out peptic ulcer disease, rule out AV malformation as the source of the bleeding. The patient got admitted to the intensive care unit. Over the past 12 hours there is a been no clinical evidence of bleeding and the patient's hemodynamics and hemoglobin has remained stable. Most recent hemoglobin is above 9.1. No plans to perform any endoscopies on this patient. The patient has remained stable without evidence of any ongoing bleeding over the past 48 hours and based on that the patient will be asked to start some clear liquid diet on today 's evaluation. 2 acute blood loss anemia and the patient is transfused with a total of 2 units of packed RBC and currently is 8.3 3 acute atrial fibrillation with rapid ventricular response currently on a Cardizem drip for heart rate control. The patient converted back to normal sinus rhythm. Cardiology is on the case. Still on a Cardizem drip at 10 mg an hour. The echocardiogram was done and showed moderate concentric limits to hypertrophy. Left ventricle ejection fraction between 45-50%. There is some interval basal and lateral hypokinesis. Rest of the cardiac structures are all within normal limits. 4 hypotension secondary to above, recovered 5 acute COPD exacerbation and the patient is an acute respiratory failure, currently off BiPAP 6 atherosclerotic heart disease with previous coronary bypass surgery, echocardiogram showing a preserved LV function with an ejection fraction of 45- 50%. The patient has had previous non-ST segment elevation myocardial infarction. 7 bladder cancer status post transurethral resection of the bladder tumor following that the patient received intravesicular chemotherapy 8 diverticular disease with history of complicated diverticulitis with bowel perforation requiring colostomy and colectomy. 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 Patient also has cerebral atrophy. Plan The patient is seen and evaluated by Dr. Hayes. He is improved today as compared to yesterday. More awake and alert as well. He is tolerating a soft diet. No further bleeding noted. Current hemoglobin 8.3. GI services is on the case as well. We'll continue with his current medications. We will increase his activity as tolerated. We'll continue to follow. I, the cosigning physician, performed a history & physical examination of the patient. Lungs sounds have bilateral scattered rhonchi. Diminished. Maintaining good O2 saturations in the 90s on 2 L/m per nasal cannula. I discussed the assessment and plan of care with my nurse practitioner, Mickie Slaughter. I attest to the above note as dictated by her. <Fiona Hayes - Last Filed: 03/25/17 16:04> Objective - Vital Signs Vital signs: Vital Signs Temp 97.4 F L 03/25/17 04:00 Pulse 85 03/25/17 15:58 Resp 15 03/25/17 12:00 BP 124/55 03/25/17 12:00 Pulse Ox 99 03/25/17 12:00 Intake & Output 03/24/17 03/25/17 03/25/17 18:59 06:59 18:59 Intake Total 955.567 725 307.667 Output Total 430 665 550 Balance 525.567 60 -242.333 Weight 68 kg 68.1 kg 68.1 kg Intake: IV 500 50 250 Sodium Chloride 0.45% 1, 500 50 250 000 ml @ 50 mls/hr IV . Q20H ALEX Rx#:[id number] Intake, IV Titration 215.567 675 57.667 Amount Diltiazem 125 mg In 65.567 125 7.667 Sodium Chloride 0.9% 100 ml @ 10 MG/HR 10 mls/hr IV .[id number] ALEX Rx#: [id number] Potassium Chloride 10 meq 100 In Water For Injection 1 100ml.bag @ 100 mls/hr IVPB Q1H ALEX Rx#: [id number] Sodium Chloride 0.45% 1, 50 550 50 000 ml @ 50 mls/hr IV . Q20H ALEX Rx#:[id number] Oral 240 Output: Urine 430 665 550 Other: Voiding Method Indwelling Catheter Indwelling Catheter Indwelling Catheter - Labs CBC & Chem 7: 03/25/17 04:26 03/25/17 04:26 Labs: Abnormal Lab Results - Last 24 Hours (Table) 03/24/17 03/24/17 03/25/17 Range/Units 17:25 20:11 04:26 RBC 2.63 L (4.30-5.90) m/uL Hgb 7.8 L (13.0-17.5) gm/dL Hct 25.0 L (39.0-53.0) % RDW 17.9 H (11.5-15.5) % Plt Count 81 L (150-450) k/uL Neutrophils # 7.9 H (1.3-7.7) k/uL Lymphocytes # 0.2 L (1.0-4.8) k/uL BUN (9-20) mg/dL Creatinine (0.66-1.25) mg/dL Glucose (74-99) mg/dL POC Glucose (mg/dL) 138 H 170 H (75-99) mg/dL Calcium (8.4-10.2) mg/dL Phosphorus (2.5-4.5) mg/dL 03/25/17 03/25/17 03/25/17 Range/Units 04:26 07:38 11:34 RBC (4.30-5.90) m/uL Hgb (13.0-17.5) gm/dL Hct (39.0-53.0) % RDW (11.5-15.5) % Plt Count (150-450) k/uL Neutrophils # (1.3-7.7) k/uL Lymphocytes # (1.0-4.8) k/uL BUN 55 H (9-20) mg/dL Creatinine 1.40 H (0.66-1.25) mg/dL Glucose 113 H (74-99) mg/dL POC Glucose (mg/dL) 138 H 126 H (75-99) mg/dL Calcium 8.2 L (8.4-10.2) mg/dL Phosphorus 4.6 H (2.5-4.5) mg/dL 03/25/17 Range/Units 12:19 RBC (4.30-5.90) m/uL Hgb (13.0-17.5) gm/dL Hct (39.0-53.0) % RDW (11.5-15.5) % Plt Count (150-450) k/uL Neutrophils # (1.3-7.7) k/uL Lymphocytes # (1.0-4.8) k/uL BUN (9-20) mg/dL Creatinine (0.66-1.25) mg/dL Glucose (74-99) mg/dL POC Glucose (mg/dL) 125 H (75-99) mg/dL Calcium (8.4-10.2) mg/dL Phosphorus (2.5-4.5) mg/dL Microbiology - Last 24 Hours (Table) 03/21/17 09:36 Blood Culture - Preliminary Blood No Growth after 96 hours 03/21/17 09:14 Blood Culture - Preliminary Blood No Growth after 96 hours Assessment and Plan Assessment: This is a joint evaluation that was done along with a nurse practitioner. Patient seems to be much more stable compared to yesterday. He'll be taken off the BiPAP. His hemoglobin is stable. We do not see any signs of GI bleeding. We'll continue with primidone for his tremors. Long-term prognosis remains poor due to above-mentioned comorbidities. Hemoglobin is stable.
[2017-03-24] MEDS: methylPREDNISolone SOD SUCCI 40 MG/ML 1 ML VIAL IV SCH ×2 (15:48→23:52)
[2017-03-24 17:28] LABS: Glucose,Whole Blood 138 mg/dL (75-99)
--- NOTE | 2017-03-24 19:30 | P.PN ---
Progress Note - Text Progress Note Date: 03/24/17 DATE OF SERVICE: 03/24/2017 PRESENTING COMPLAINT: Increasing shortness of breath HISTORY OF PRESENT ILLNESS: 81-year-old male with a known history of advanced oxygen-dependent COPD bladder cancer coronary artery disease with previous bypass surgery March anterior abdominal wall parastomal and inguinal hernia repair with colostomy bag who had a recent hospitalization for COPD exacerbation and was subsequently sent to [facility] for further recuperation. Presented to the emergency department due to an acute GI bleed. At the shelter patient had 3 large gross bloody emesis and a black tarry stool in the colostomy bag. On arrival to the emergency department patient had an additional bloody emesis. Hemoglobin dropped from 10.3-7.3 and he received a unit of packed red blood cells had an acute febrile reaction transfusion was stopped. Patient admitted to the ICU, received fluid and blood for resuscitation, NG tube placement and then hopefully go forward with an EGD however given patient's tenuous respiratory status EGD may put the patient at significant risk and put him into respiratory failure. Once in the ICU patient developed SVT, received a dental card and subsequently converted to atrial fibrillation with rapid ventricular response placed on a Cardizem drip for rate control. INTERVAL HISTORY: 03/24/2017 Seen in the ICU, sitting up at the bedside more awake and alert. No further episodes of bleeding noted either rectally or orally or in his colostomy bag. Hemoglobin remained stable at 8.3. Creatinine 1.30. Vital signs stable afebrile. On the monitor patient is normal sinus rhythm with some PVCs continues on Cardizem drip at 10 mg an hour. Short of breath even at rest , but appears comfortable. Remains on 2 L nasal cannula, BiPAP support available. Diet advanced to clear liquids, patient is tolerating this, colostomy bag producing dark green liquid stool. REVIEW OF SYSTEMS: Done for constitutional ,cardiovascular, GI, pulmonary with relevant findings as above. CURRENT MEDICATIONS DuoNeb, Celexa, diltiazem, Proscar, Lasix, NovoLog insulin, Ativan, Solu-Medrol , Protonix, primidone, Flomax. PHYSICAL EXAM VITAL SIGNS: Temperature 98.7, respiratory rate 37, blood pressure 107/80, oxygen saturation 92% on 2 L. GENERAL APPEARANCE: Lying in bed, mild distress and mild tremors noted. HENT: Normocephalic, JVD not raised. Mass not palpable. Oral cavity with white patches noted to posterior pharynx, external appearance of ears and nose normal. EYES:Pupils equal. Conjunctiva normal. RESPIRATORY: Respiratory effort increased, tachypnea Lungs wheezing and coarse rhonchi CARDIOVASCULAR: First and second sounds normal. Mild edema. ABDOMEN: Soft. Liver and spleen not palpable. No tenderness. No mass palpable. Left Lower quadrant with colostomy in place draining green-brown liquid stool. PSYCHIATRY: Alert and oriented x3. Mood and affect normal. INVESTIGATIONS: LABS: White blood cell count 12.9, hemoglobin 8.3, BUN 52, creatinine 1.30, Accu -Cheks noted. CHEST X-ray: COPD, continue right upper lobe opacity, correlate for pneumonia, borderline cardiomegaly. ASSESSMENT: -Acute upper GI bleed with hematemesis and melanotic stools, status post 3 units of blood improving -Acute blood loss anemia, likely GI source, received 3 units of packed red cells , hemoglobin stabilized -Paroxysmal atrial fibrillation with rapid ventricular response, now converted into sinus, remains on Cardizem drip, improving -Acute hypoxic respiratory failure -Acute exacerbation of chronic obstructive pulmonary disease in an ex-smoker, improving -Acute exacerbation of congestive heart failure from hypertensive heart disease , ejection fraction 55-60%. -Essential hypertension -Hyperlipidemia -Coronary artery disease with prior history of stent and coronary artery bypass grafting -Bladder cancer -Anxiety/depression not otherwise specified -Chronic carotid artery stenosis -Chronic colostomy -Chronic cognitive impairment -Chronic Tremors responded well with primidone -Medical debility secondary to age and various other medical problems. PLAN: Continue conservative management from a GI perspective, Protonix to continue, transfuse as needed, no further bleeding, no plans for endoscopy at the present time. Advance diet as patient can tolerate, increase activity, Cardizem to continue per cardiology await additional input. Continue nebulized bronchodilators, IV steroids, BiPAP support as needed. Plan of care discussed with family and patient at the bedside they're in agreement. We'll follow closely. [employer] statement: Patient was seen and examined by nurse practitioner Aarti Patel and all elements of the case discussed with attending Dr. Maddox
[2017-03-24 20:15] LABS: Glucose,Whole Blood 170 mg/dL (75-99)
[2017-03-24] MEDS ORDERED: FLUCONAZOLE 100 MG TAB PO ONE (20:30)
--- NOTE | 2017-03-24 20:30 | P.PN ---
Subjective Progress Note Date: 03/24/17 Principal diagnosis: GI bleeding UGI bleeding. No further episodes of GI bleeding. Colostomy has formed stool. Objective - Vital Signs Vital signs: Vital Signs Temp 97.8 F 03/24/17 16:00 Pulse 93 03/24/17 19:00 Resp 30 H 03/24/17 19:00 BP 115/52 03/24/17 19:00 Pulse Ox 94 L 03/24/17 19:00 Intake & Output 03/24/17 03/24/17 03/25/17 06:59 18:59 06:59 Intake Total 960.801 955.567 50 Output Total 715 430 30 Balance 245.801 525.567 20 Weight 68 kg 68 kg Intake: IV 400 500 50 Potassium Chloride 10 meq 200 In Water For Injection 1 100ml.bag @ 100 mls/hr IVPB Q1H ALEX Rx#: [id number] Sodium Chloride 0.45% 1, 200 500 50 000 ml @ 50 mls/hr IV . Q20H ALEX Rx#:[id number] Intake, IV Titration 560.801 215.567 Amount Diltiazem 125 mg In 160.801 65.567 Sodium Chloride 0.9% 100 ml @ 10 MG/HR 10 mls/hr IV .[id number] ALEX Rx#: [id number] Potassium Chloride 10 meq 100 In Water For Injection 1 100ml.bag @ 100 mls/hr IVPB Q1H ALEX Rx#: [id number] Sodium Chloride 0.45% 1, 400 50 000 ml @ 50 mls/hr IV . Q20H ALEX Rx#:[id number] Oral 240 Output: Urine 715 430 30 Other: Voiding Method Indwelling Catheter Indwelling Catheter - Exam Tremors Noisy breathing Ostomy has good stool output - Labs CBC & Chem 7: 03/24/17 04:50 03/24/17 04:50 Labs: Abnormal Lab Results - Last 24 Hours (Table) 03/23/17 03/24/17 03/24/17 Range/Units 21:03 03:32 04:50 WBC 12.9 H (3.8-10.6) k/uL RBC 2.87 L (4.30-5.90) m/uL Hgb 8.3 L (13.0-17.5) gm/dL Hct 27.3 L (39.0-53.0) % MCHC 30.5 L (31.0-37.0) g/dL RDW 16.9 H (11.5-15.5) % Plt Count 84 L (150-450) k/uL Neutrophils # 12.1 H (1.3-7.7) k/uL Lymphocytes # 0.3 L (1.0-4.8) k/uL BUN (9-20) mg/dL Creatinine (0.66-1.25) mg/dL Glucose (74-99) mg/dL POC Glucose (mg/dL) 120 H 134 H (75-99) mg/dL Calcium (8.4-10.2) mg/dL 03/24/17 03/24/17 03/24/17 Range/Units 04:50 11:05 17:25 WBC (3.8-10.6) k/uL RBC (4.30-5.90) m/uL Hgb (13.0-17.5) gm/dL Hct (39.0-53.0) % MCHC (31.0-37.0) g/dL RDW (11.5-15.5) % Plt Count (150-450) k/uL Neutrophils # (1.3-7.7) k/uL Lymphocytes # (1.0-4.8) k/uL BUN 52 H (9-20) mg/dL Creatinine 1.30 H (0.66-1.25) mg/dL Glucose 116 H (74-99) mg/dL POC Glucose (mg/dL) 185 H 138 H (75-99) mg/dL Calcium 8.0 L (8.4-10.2) mg/dL 03/24/17 Range/Units 20:11 WBC (3.8-10.6) k/uL RBC (4.30-5.90) m/uL Hgb (13.0-17.5) gm/dL Hct (39.0-53.0) % MCHC (31.0-37.0) g/dL RDW (11.5-15.5) % Plt Count (150-450) k/uL Neutrophils # (1.3-7.7) k/uL Lymphocytes # (1.0-4.8) k/uL BUN (9-20) mg/dL Creatinine (0.66-1.25) mg/dL Glucose (74-99) mg/dL POC Glucose (mg/dL) 170 H (75-99) mg/dL Calcium (8.4-10.2) mg/dL Microbiology - Last 24 Hours (Table) 03/21/17 09:36 Blood Culture - Preliminary Blood No Growth after 72 hours 03/21/17 09:14 Blood Culture - Preliminary Blood No Growth after 72 hours Assessment and Plan (1) GI bleed Current Visit: Yes Status: Acute Code(s): K92.2 - GASTROINTESTINAL HEMORRHAGE, UNSPECIFIED SNOMED Code(s): 67824339 (2) Hematemesis Current Visit: Yes Status: Acute Code(s): K92.0 - HEMATEMESIS SNOMED Code( s): 8530799 (3) CAD (coronary artery disease) Current Visit: No Status: Acute Code(s): I25.10 - ATHSCL HEART DISEASE OF [place] CORONARY ARTERY W/O ANG PCTRS SNOMED Code(s): 11943918 Plan: 1. Continue watching Hb 2. Will continue to follow
[2017-03-24] MEDS: PRIMIDONE 50 MG TAB PO SCH (20:49)
--- NOTE | 2017-03-24 22:26 | PN ---
PROGRESS NOTE DATE OF SERVICE: March 24, 2017. ATTENDING NOTE: Patient seen and examined by me. I discussed with my nurse practitioner Lili Jorge. The patient remains in the ICU. Presented with a GI bleed, not felt to be a candidate for EGD because of her pulmonary status. Started on clear liquids today. The patient also had atrial fibrillation now, Coronary sinus rhythm, but heart rate goes up. Has been on a Cardizem drip. Some family members present at the bedside. EXAM: Afebrile, heart rate 110, respiration 26 to 28, blood pressure 106/56, pulse ox 95% on room air. HEART: Sounds are regular. LUNGS: Diminished breath sounds. Psych: Answering questions. Baseline tremors present. INVESTIGATIONS: Hemoglobin 8.3, platelets 84. Potassium 3.8, BUN 32, creatinine 1.30. ASSESSMENT: 1. Acute gastrointestinal bleed, status post 3 units of blood. 2. Paroxysmal atrial fibrillation, now in sinus rhythm. 3. Acute chronic obstructive pulmonary disease exacerbation. Possible congestive heart failure exacerbation. 4. Multiple other problems. Care was discussed with the patient and family at the bedside. The patient remains on IV drip, also on IV Solu-Medrol. Prognosis is guarded. Follow. MMODL / IJN: [id number] /
[2017-03-25] MEDS: LORazepam 2 MG/ML INJ IV PRN (02:05)
[2017-03-25 05:02] LABS: Anisocytosis Slight; Basophils % (A) 0 %; Eosinophils % (A) 0 %; HGB 7.8 gm/dL (13.0-17.5); Hypochromasia Moderate; Lymphocytes # (A) 0.2 k/uL (1.0-4.8); Lymphocytes % (A) 2 %; MCH 29.7 pg (25.0-35.0); MCHC 31.3 g/dL (31.0-37.0); Macrocytosis Slight; Mean Platelet Volume 10.6; Monocytes # (A) 0.3 k/uL (0-1.0); Monocytes % (A) 3 %; Neutrophils # (A) 7.9 k/uL (1.3-7.7); Neutrophils % (A) 94 %; RBC 2.63 m/uL (4.30-5.90); RDW 17.9 % (11.5-15.5); WBC 8.4 k/uL (3.8-10.6)
[2017-03-25 05:13] LABS: Calcium 8.2 mg/dL (8.4-10.2); Magnesium 2.1 mg/dL (1.6-2.3); Phosphorus 4.6 mg/dL (2.5-4.5); Potassium 4.1 mmol/L (3.5-5.1)
[2017-03-25 05:26] LABS: Platelet Count 81 k/uL (150-450)
[2017-03-25] MEDS: DILTIAZEM 125 MG in SODIUM CHLORIDE 0.9% 100 ML IV SCH ×3 (06:25→23:02)
[2017-03-25 07:41] LABS: Glucose,Whole Blood 138 mg/dL (75-99)
[2017-03-25] MEDS: INSULIN ASPART 100 UNIT/ML 1 ML 10 ML VIAL SQ SCH ×4 (07:43→21:03)
[2017-03-25] MEDS: PANTOPRAZOLE 40 MG/10 ML VIAL IVP SCH ×2 (07:44→21:03)
[2017-03-25] MEDS: methylPREDNISolone SOD SUCCI 40 MG/ML 1 ML VIAL IV SCH ×3 (07:44→23:02)
[2017-03-25] MEDS: FUROSEMIDE 10 MG/ML 2 ML VIAL IV SCH ×2 (07:44→21:03)
[2017-03-25] MEDS: SODIUM CHLORIDE 0.45% 1,000 ML IV SCH ×2 (07:45→23:03)
[2017-03-25] MEDS: IPRATROPIUM-ALBUTEROL 3 ML NEB INHALATION PRN ×3 (08:21→15:57)
[2017-03-25 11:36] LABS: Glucose,Whole Blood 126 mg/dL (75-99)
[2017-03-25 12:21] LABS: Glucose,Whole Blood 125 mg/dL (75-99)
--- NOTE | 2017-03-25 12:33 | P.PN ---
Progress Note - Text Progress Note Date: 03/25/17 DATE OF SERVICE: 03/25/2017 PRESENTING COMPLAINT: Increasing shortness of breath HISTORY OF PRESENT ILLNESS: 81-year-old male with a known history of advanced oxygen-dependent COPD bladder cancer coronary artery disease with previous bypass surgery March anterior abdominal wall parastomal and inguinal hernia repair with colostomy bag who had a recent hospitalization for COPD exacerbation and was subsequently sent to [facility] for further recuperation. Presented to the emergency department due to an acute GI bleed. At the senior living patient had 3 large gross bloody emesis and a black tarry stool in the colostomy bag. On arrival to the emergency department patient had an additional bloody emesis. Hemoglobin dropped from 10.3-7.3 and he received a unit of packed red blood cells had an acute febrile reaction transfusion was stopped. Patient admitted to the ICU, received fluid and blood for resuscitation, NG tube placement and then hopefully go forward with an EGD however given patient's tenuous respiratory status EGD may put the patient at significant risk and put him into respiratory failure. Once in the ICU patient developed SVT, received a dental card and subsequently converted to atrial fibrillation with rapid ventricular response placed on a Cardizem drip for rate control. INTERVAL HISTORY: 03/25/2017: Seen in the ICU lying in bed currently on the BiPAP. Patient had a very difficult night, very confused very restless requiring 2 doses of Ativan. No further episodes of bleeding either orally, rectally or through the colostomy bag. Hemoglobin remained stable at 7.8 down from 8.3 yesterday. Cardizem drip continues at 10 mL an hour. Heart rate in the 60s to 70s. Continues to have considerable amount of work with breathing even on the BiPAP. Diet advanced to consistent carbohydrate diet, patient's appetite waxes and wanes, needs encouragement. Colostomy continues to produce dark green brown semi-formed stool. 03/24/2017 Seen in the ICU, sitting up at the bedside more awake and alert. No further episodes of bleeding noted either rectally or orally or in his colostomy bag. Hemoglobin remained stable at 8.3. Creatinine 1.30. Vital signs stable afebrile. On the monitor patient is normal sinus rhythm with some PVCs continues on Cardizem drip at 10 mg an hour. Short of breath even at rest , but appears comfortable. Remains on 2 L nasal cannula, BiPAP support available. Diet advanced to clear liquids, patient is tolerating this, colostomy bag producing dark green liquid stool. REVIEW OF SYSTEMS: Done for constitutional ,cardiovascular, GI, pulmonary with relevant findings as above. CURRENT MEDICATIONS DuoNeb, Celexa, diltiazem, Proscar, Lasix, NovoLog insulin, Ativan, Solu-Medrol , Protonix, primidone, Flomax. PHYSICAL EXAM VITAL SIGNS: Temperature 97.4, pulse 66, respiratory rate 15, blood pressure 115/54, oxygen saturation 97% on the BiPAP. GENERAL APPEARANCE: Lying in bed, appears comfortable on the BiPAP mild tremors noted. HENT: Normocephalic, JVD not raised. Mass not palpable. Oral cavity with white patches noted to posterior pharynx, external appearance of ears and nose normal. EYES:Pupils equal. Conjunctiva normal. RESPIRATORY: Respiratory effort increased, tachypnea Lungs wheezing and coarse rhonchi CARDIOVASCULAR: First and second sounds normal. Mild edema. ABDOMEN: Soft. Liver and spleen not palpable. No tenderness. No mass palpable. Left Lower quadrant with colostomy in place draining green-brown liquid stool. PSYCHIATRY: Alert and oriented x2-3. Mood and affect normal. NEUROLOGIC: Upper and lower extremity tremors. INVESTIGATIONS: LABS: Hemoglobin 7.8, platelets 81, BUN 55, creatinine 1.40, Accu-Cheks noted. ASSESSMENT: -Acute upper GI bleed with hematemesis and melanotic stools, status post 3 units of blood improving -Acute blood loss anemia, likely GI source, received 3 units of packed red cells , hemoglobin stabilized -Paroxysmal atrial fibrillation with rapid ventricular response, now converted into sinus, remains on Cardizem drip, improving -Acute delirium multifactorial -Acute hypoxic respiratory failure -Acute exacerbation of chronic obstructive pulmonary disease in an ex-smoker, improving -Chronic congestive heart failure from hypertensive heart disease, ejection fraction 55-60%. -Essential hypertension -Hyperlipidemia -Coronary artery disease with prior history of stent and coronary artery bypass grafting -Bladder cancer -Anxiety/depression not otherwise specified -Chronic carotid artery stenosis -Chronic colostomy -Chronic cognitive impairment -Chronic Tremors responded well with primidone -Medical debility secondary to age and various other medical problems. PLAN: No further bleeding, continue conservative management from a GI and surgical perspective. Diet advanced, increase activity as patient can tolerate. Cardizem to continue per cardiology await additional input. Continue nebulized bronchodilators, IV steroids, BiPAP support as needed. Plan of care discussed with family and patient at the bedside they're in agreement. We'll follow closely. [employer] statement: Patient was seen and examined by nurse practitioner Aarti Patel and all elements of the case discussed with attending Dr. Maddox
--- NOTE | 2017-03-25 13:37 | P.PN ---
Subjective Progress Note Date: 03/25/17 Principal diagnosis: GI bleeding UGI bleeding. No further episodes of GI bleeding. Colostomy has formed stool.Tolerating regular diet Objective - Vital Signs Vital signs: Vital Signs Temp 97.4 F L 03/25/17 04:00 Pulse 65 03/25/17 12:10 Resp 15 03/25/17 12:00 BP 124/55 03/25/17 12:00 Pulse Ox 99 03/25/17 12:00 Intake & Output 03/24/17 03/25/17 03/25/17 18:59 06:59 18:59 Intake Total 955.567 725 307.667 Output Total 430 665 550 Balance 525.567 60 -242.333 Weight 68 kg 68.1 kg 68.1 kg Intake: IV 500 50 250 Sodium Chloride 0.45% 1, 500 50 250 000 ml @ 50 mls/hr IV . Q20H ALEX Rx#:[id number] Intake, IV Titration 215.567 675 57.667 Amount Diltiazem 125 mg In 65.567 125 7.667 Sodium Chloride 0.9% 100 ml @ 10 MG/HR 10 mls/hr IV .[id number] ALEX Rx#: [id number] Potassium Chloride 10 meq 100 In Water For Injection 1 100ml.bag @ 100 mls/hr IVPB Q1H ALEX Rx#: [id number] Sodium Chloride 0.45% 1, 50 550 50 000 ml @ 50 mls/hr IV . Q20H ALEX Rx#:[id number] Oral 240 Output: Urine 430 665 550 Other: Voiding Method Indwelling Catheter Indwelling Catheter Indwelling Catheter - Exam Tremors Noisy breathing Ostomy has good stool output - Labs CBC & Chem 7: 03/25/17 04:26 03/25/17 04:26 Labs: Abnormal Lab Results - Last 24 Hours (Table) 03/24/17 03/24/17 03/25/17 Range/Units 17:25 20:11 04:26 RBC 2.63 L (4.30-5.90) m/uL Hgb 7.8 L (13.0-17.5) gm/dL Hct 25.0 L (39.0-53.0) % RDW 17.9 H (11.5-15.5) % Plt Count 81 L (150-450) k/uL Neutrophils # 7.9 H (1.3-7.7) k/uL Lymphocytes # 0.2 L (1.0-4.8) k/uL BUN (9-20) mg/dL Creatinine (0.66-1.25) mg/dL Glucose (74-99) mg/dL POC Glucose (mg/dL) 138 H 170 H (75-99) mg/dL Calcium (8.4-10.2) mg/dL Phosphorus (2.5-4.5) mg/dL 03/25/17 03/25/17 03/25/17 Range/Units 04:26 07:38 11:34 RBC (4.30-5.90) m/uL Hgb (13.0-17.5) gm/dL Hct (39.0-53.0) % RDW (11.5-15.5) % Plt Count (150-450) k/uL Neutrophils # (1.3-7.7) k/uL Lymphocytes # (1.0-4.8) k/uL BUN 55 H (9-20) mg/dL Creatinine 1.40 H (0.66-1.25) mg/dL Glucose 113 H (74-99) mg/dL POC Glucose (mg/dL) 138 H 126 H (75-99) mg/dL Calcium 8.2 L (8.4-10.2) mg/dL Phosphorus 4.6 H (2.5-4.5) mg/dL 03/25/17 Range/Units 12:19 RBC (4.30-5.90) m/uL Hgb (13.0-17.5) gm/dL Hct (39.0-53.0) % RDW (11.5-15.5) % Plt Count (150-450) k/uL Neutrophils # (1.3-7.7) k/uL Lymphocytes # (1.0-4.8) k/uL BUN (9-20) mg/dL Creatinine (0.66-1.25) mg/dL Glucose (74-99) mg/dL POC Glucose (mg/dL) 125 H (75-99) mg/dL Calcium (8.4-10.2) mg/dL Phosphorus (2.5-4.5) mg/dL Microbiology - Last 24 Hours (Table) 03/21/17 09:36 Blood Culture - Preliminary Blood No Growth after 96 hours 03/21/17 09:14 Blood Culture - Preliminary Blood No Growth after 96 hours Assessment and Plan (1) GI bleed Current Visit: Yes Status: Acute Code(s): K92.2 - GASTROINTESTINAL HEMORRHAGE, UNSPECIFIED SNOMED Code(s): 53031593 (2) Hematemesis Current Visit: Yes Status: Acute Code(s): K92.0 - HEMATEMESIS SNOMED Code( s): 3169173 (3) CAD (coronary artery disease) Current Visit: No Status: Acute Code(s): I25.10 - ATHSCL HEART DISEASE OF [place] CORONARY ARTERY W/O ANG PCTRS SNOMED Code(s): 07091391 Plan: 1. Continue watching Hb 2. Will continue to follow
[2017-03-25] MEDS: TAMSULOSIN 0.4 MG CAP.ER.24H PO SCH (14:11)
[2017-03-25] MEDS: CITALOPRAM HYDROBROMIDE 20 MG TAB PO SCH (14:11)
[2017-03-25] MEDS: FLUCONAZOLE 100 MG TAB PO SCH (14:11)
[2017-03-25] MEDS: FINASTERIDE 5 MG TAB PO SCH (14:11)
[2017-03-25] MEDS: PRIMIDONE 50 MG TAB PO SCH ×2 (14:11→21:03)
[2017-03-25] MEDS ORDERED: HALOPERIDOL LACTATE 5 MG/ML 1 ML VIAL IVP PRN (15:57)
--- NOTE | 2017-03-25 15:57 | P.PN ---
Subjective Progress Note Date: 03/25/17 A 81-year-old male patient with known history of advanced oxygen-dependent COPD , bladder cancer, coronary artery disease with previous bypass surgery, hypertension, hyperlipidemia and diverticulosis and large anterior abdominal wall parastomal and inguinal hernia was becoming progressively more debilitated especially over the past 6 months. The patient is very well-known to me. Of taking care of him for many years. During his last hospitalization the patient came in for an acute COPD exacerbation and was sent to [facility] for further recuperation. Yesterday evening, this patient got transferred back to the hospital because of an acute GI bleeding. Apparently at around 4 AM this morning the patient had 3 large gross red bloody emesis and following that there was large amount of black tarry stools in the colostomy bag without having any significant abdominal pain. He is known to have a diverticular colostomy following a complicated perforated diverticulitis treatment for which she underwent colectomy and diverting colostomy. Subsequently had developed a large parastomal hernia. In the emergency department, the patient had another emesis. His hemoglobin dropped from 10.3 down to 7.3. The patient was being given a unit of packed RBC and 15 minutes into the transfusion the patient had an acute febrile reaction and the transfusion was stopped based on the protocol. The patient was given IV Tylenol and the protocol for transient reaction is being conducted at this point. The patient is somewhat weak and lethargic. He was having some increased shortness of breath even at rest. No chest pain. No eye [place] 3. Platelet count is at 141. No significant hypotension although his blood pressure systolic dropped as low as the low 100s. He was somewhat tachycardic and his heart rate is around 101. I discussed the case with gastroenterology and general surgery. Ideally would need an EGD as soon as possible to further investigate his upper GI bleed. However he carries a DNR/DNI CODE STATUS and putting him for an EGD at this point with compromises respiratory status and more than likely put him into respiratory failure. Based on that we decided to transfer him to the intensive care unit, resuscitated patient with fluids and blood, insert an NG tube and stabilize the condition following that proceed with an EGD. The family including the left. Understands the risk of the procedure at this point especially with his very borderline pulmonary status. The computed tomography scan of the abdomen was done and emerged department that showed a stable parastomal hernia containing multiple small bowel loops without evidence of any strangulation of bowel obstruction. The patient also has a stable-appearing Márquez's pouch with multiple diverticuli and small right-sided pleural effusion. There is interval progression of the compression deformity of the L1 vertebral body. He does have still chronic compression fracture. The chest x- ray shows upper lobe pleural based scarring. There is also some progression of the left apical scarring at this point. Density in the right apex is also increased. On 03/22/2017, the patient is being seen in follow-up in the intensive care unit. Noted the patient was initially hospitalized with a massive upper GI bleed. He was very unstable and he was unable to go through a EGD for further investigation of his upper GI bleed. He was brought to the intensive care unit and fortunately he did not have any further episodes of bleeding. He got transfused with 2 units of packed RBC and hemoglobin has remained stable and currently hemoglobin is up to 9.6. Meanwhile, the patient did not have any melanotic stools collecting in his colostomy bag. No reported hematemesis overnight. Around 7 to 8:00 this morning the patient became progressively more short of breath. He was given a dose of Lasix 40 mg IV push during which she diuresed more than liters. Nevertheless, he continued to be bronchospastic and wheezy and he went into SVT. Cardiology was on the case and the patient was given Adenocard and subsequently converted into A. fib with rapid ventricular response and currently is on a Cardizem drip for rate control. The patient is also on a BiPAP for respiratory support. Blood gases were obtained and the pH was 7.49 with a pCO2 of 39 and pO2 of 181. The patient is very anxious. He is short of breath. He does have some diminished level of consciousness however is still arousable and he is able to follow simple commands. Note that he is a DNR/DNI CODE STATUS. His sodium today is at 147. His BUN is at 56 with a creatinine of 1.2. 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 The urine output has been considerably high following the diuresis and the patient is in a negative fluid balance of 1.9 L. The chest x-ray from today is essentially unchanged and there is some increased interstitial markings bilaterally along with biapical scarring. The blood cultures of been negative thus far. The troponins are 0.3 and 0.4 respectively. He denies having any chest pain. On , I'm seeing this patient for a follow-up. The patient is looking better compared to yesterday. Fortunately has not bled in his hemoglobin remains stable and the patient has no melanotic stool or hematemesis. He is less short of breath compared to yesterday and this morning he is off the BiPAP and he is able to breathe comfortably. He is atrial fibrillation is converted back to normal sinus rhythm. He is very tremulous and he has known history of essential tremors and I think is reasonable to start this patient back on his usual [place]. The patient is still on bronchodilators and systemic steroids. The patient on Cardizem at 10 mg an hour. He is receiving 20 mg of IV Lasix every 12 hours. Is on IV Protonix. GI is on the case yet there are no plans to endoscope this patient based on his very poor pulmonary status and underlying debilitated condition. He denies having any chest pain. No cough or sputum production. We'll try to allow some clear liquid/soft diet. The patient is seen again today 03/24/2017 in follow-up in the intensive care unit. He is more awake and alert today as compared to yesterday. He has not had any further bleeding noted. His current hemoglobin is 8.3. Creatinine 1.30. Blood and urine cultures have been negative. Today's chest x-ray reveals continued right upper lobe opacity, chronic obstructive pulmonary disease and borderline cardiomegaly. He is currently maintaining good O2 saturations in the 90s on 2 L/m per nasal cannula. He is afebrile. Remains on Cardizem drip at 10 mg per hour. On 03/25/2017, the patient is doing poorly. He is on a BiPAP for now to support his breathing. He was having some increased shortness of breath early this morning and he was placed on a BiPAP at a pressure of 10/5 cm of water. He is very symptoms with the BiPAP. Earlier this morning I was told that the patient was having increased dyspnea cough chest congestion and wheezing. He also became bilious throughout the night and the patient was given Ativan 1 mg every 4 hours on a when necessary basis. The patient is also on a Cardizem drip at 10 mg an hour in regards to his atrial fibrillation for rate control. He is also on half-normal saline at rate of 50 mL an hour. Remains on bronchodilators and systemic steroids. No evidence of any acute GI bleed. Very debilitated. Shaky and tremulous. No fever or chills. Colostomy site is functional. No abdominal distention. No abdominal pain. Very poor performance and functional status secondary to above-mentioned comorbidities. Objective - Vital Signs Vital signs: Vital Signs Temp 97.4 F L 03/25/17 04:00 Pulse 65 03/25/17 12:10 Resp 15 03/25/17 12:00 BP 124/55 03/25/17 12:00 Pulse Ox 99 03/25/17 12:00 Intake & Output 03/24/17 03/25/17 03/25/17 18:59 06:59 18:59 Intake Total 955.567 725 307.667 Output Total 430 665 550 Balance 525.567 60 -242.333 Weight 68 kg 68.1 kg 68.1 kg Intake: IV 500 50 250 Sodium Chloride 0.45% 1, 500 50 250 000 ml @ 50 mls/hr IV . Q20H ALEX Rx#:[id number] Intake, IV Titration 215.567 675 57.667 Amount Diltiazem 125 mg In 65.567 125 7.667 Sodium Chloride 0.9% 100 ml @ 10 MG/HR 10 mls/hr IV .[id number] ALEX Rx#: [id number] Potassium Chloride 10 meq 100 In Water For Injection 1 100ml.bag @ 100 mls/hr IVPB Q1H ALEX Rx#: [id number] Sodium Chloride 0.45% 1, 50 550 50 000 ml @ 50 mls/hr IV . Q20H ALEX Rx#:[id number] Oral 240 Output: Urine 430 665 550 Other: Voiding Method Indwelling Catheter Indwelling Catheter Indwelling Catheter - Exam General appearance: Lethargic and somewhat sleepy, currently on the BiPAP machine Head exam: Present: atraumatic, normocephalic Eye exam: Present: normal appearance Neck exam: Present: normal inspection Respiratory exam: Present: respiratory distress (Mild tachypnea), wheezes, rales (Bilateral bases), rhonchi. Absent: chest wall tenderness, accessory muscle use, decreased breath sounds, prolonged expiratory Cardiovascular Exam: Present: irregular rhythm, systolic murmur. Absent: diastolic murmur, rubs, gallop GI/Abdominal exam: Present: soft, hernia, other (There is a colostomy in the left lower quadrants with peristomal hernia. No abdominal tenderness). Absent : distended, tenderness, guarding, rebound. As for the right inguinal hernia, the patient has a hernia that is very much reducible and there is no evidence of incarceration or strangulation. Extremities exam: Present: normal capillary refill, pedal edema (There is trace edema at the ankles bilaterally). Absent: tenderness, calf tenderness Back exam: Present: normal inspection. Absent: CVA tenderness (R), CVA tenderness (L) Neurological exam: Present: Lethargic and sleepy and is having some tremors Skin exam: Present: warm, dry, intact, normal color. Absent: rash - Labs CBC & Chem 7: 03/25/17 04:26 03/25/17 04:26 Labs: Abnormal Lab Results - Last 24 Hours (Table) 03/24/17 03/24/17 03/25/17 Range/Units 17:25 20:11 04:26 RBC 2.63 L (4.30-5.90) m/uL Hgb 7.8 L (13.0-17.5) gm/dL Hct 25.0 L (39.0-53.0) % RDW 17.9 H (11.5-15.5) % Plt Count 81 L (150-450) k/uL Neutrophils # 7.9 H (1.3-7.7) k/uL Lymphocytes # 0.2 L (1.0-4.8) k/uL BUN (9-20) mg/dL Creatinine (0.66-1.25) mg/dL Glucose (74-99) mg/dL POC Glucose (mg/dL) 138 H 170 H (75-99) mg/dL Calcium (8.4-10.2) mg/dL Phosphorus (2.5-4.5) mg/dL 03/25/17 03/25/17 03/25/17 Range/Units 04:26 07:38 11:34 RBC (4.30-5.90) m/uL Hgb (13.0-17.5) gm/dL Hct (39.0-53.0) % RDW (11.5-15.5) % Plt Count (150-450) k/uL Neutrophils # (1.3-7.7) k/uL Lymphocytes # (1.0-4.8) k/uL BUN 55 H (9-20) mg/dL Creatinine 1.40 H (0.66-1.25) mg/dL Glucose 113 H (74-99) mg/dL POC Glucose (mg/dL) 138 H 126 H (75-99) mg/dL Calcium 8.2 L (8.4-10.2) mg/dL Phosphorus 4.6 H (2.5-4.5) mg/dL 03/25/17 Range/Units 12:19 RBC (4.30-5.90) m/uL Hgb (13.0-17.5) gm/dL Hct (39.0-53.0) % RDW (11.5-15.5) % Plt Count (150-450) k/uL Neutrophils # (1.3-7.7) k/uL Lymphocytes # (1.0-4.8) k/uL BUN (9-20) mg/dL Creatinine (0.66-1.25) mg/dL Glucose (74-99) mg/dL POC Glucose (mg/dL) 125 H (75-99) mg/dL Calcium (8.4-10.2) mg/dL Phosphorus (2.5-4.5) mg/dL Microbiology - Last 24 Hours (Table) 03/21/17 09:36 Blood Culture - Preliminary Blood No Growth after 96 hours 03/21/17 09:14 Blood Culture - Preliminary Blood No Growth after 96 hours Assessment and Plan Plan: Assessment 1 acute upper GI bleeding with hematemesis and melanotic stool. Rule out peptic ulcer disease, rule out AV malformation as the source of the bleeding. The patient got admitted to the intensive care unit. The patient had no intervention and the patient showed no further signs of bleeding and for now his hemoglobin is stable at 7.8. Diet is being gradually advanced. 2 acute blood loss anemia and the patient is transfused with a total of 2 units of packed RBC and currently is 7.8 3 acute atrial fibrillation with rapid ventricular response currently on a Cardizem drip for heart rate control. The patient is having paroxysmal of atrial fibrillation with rapid ventricular response. He is back having A. fib issues and currently is on a Cardizem drip at 10 mg an hour. The echocardiogram was done and showed moderate concentric limits to hypertrophy. Left ventricle ejection fraction between 45-50%. There is some interval basal and lateral hypokinesis. Rest of the cardiac structures are all within normal limits. 4 hypotension secondary to above, recovered 5 acute COPD exacerbation and the patient is an acute respiratory failure, currently requiring on and off BiPAP, overnight he became more short of breath and he had to go back on the BiPAP for respiratory support. He has a minimal reserve at this point. 6 atherosclerotic heart disease with previous coronary bypass surgery, echocardiogram showing a preserved LV function with an ejection fraction of 45- 50%. The patient has had previous non-ST segment elevation myocardial infarction. 7 bladder cancer status post transurethral resection of the bladder tumor following that the patient received intravesicular chemotherapy 8 diverticular disease with history of complicated diverticulitis with bowel perforation requiring colostomy and colectomy. 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 Patient also has cerebral atrophy. Plan Prognosis extremely poor. The patient has no reserve in terms of his breathing. His COPD is advanced. His performance and functional status is poor. He is not bleeding however he is very debilitated is having issues with atrial fibrillation and COPD exacerbation on and off during this current ICU stay. We'll continue treatment for another 24-48 hours. We'll consider hospice care or comfort care if no improvement in his condition over the next few days. Case was discussed with his .
[2017-03-25 17:44] LABS: Glucose,Whole Blood 144 mg/dL (75-99)
--- NOTE | 2017-03-25 20:24 | PN ---
PROGRESS NOTE DATE OF SERVICE: 03/25/17. ATTENDING NOTE: Patient seen and examined by me. Discussed with my nurse practitioner, Ms. Patel. The patient presents acute GI bleed which since resolved. Patient last night actually became confused, delirious. Doing better this morning. Did tolerate a little bit of diet. at the bedside. PHYSICAL EXAMINATION: On examination, afebrile, pulse 100, respirations 23, blood pressure 105/54, pulse ox 94% 2 L. LUNGS: Decreased breath sounds. Some crackles. Tremors are present. The patient is able to answer simple questions. INVESTIGATION: White count 8.5, hemoglobin 7.8, potassium 4.1, creatinine 1.4. ASSESSMENT: 1. Acute GI bleed, having patient received 2 units of blood. 2. Paroxysmal atrial fibrillation and sinus tachycardia. 3. Acute chronic obstructive pulmonary disease exacerbation. 4. Chronic congestive heart failure. Ejection fraction 55-60%, stable. 5. Acute delirium multifactorial. PLAN: Care was discussed with the at the bedside. Prognosis remains guarded. Patient's code status is DNR. The patient has been on a Cardizem drip, nebulized bronchodilators, later remains on IV steroids. We will see if patient can use the Xopenex from home. MMODL / IJN: [id number] /
[2017-03-25 20:49] LABS: Glucose,Whole Blood 219 mg/dL (75-99)
[2017-03-25] MEDS ORDERED: LEVALBUTEROL INHALATION PRN (21:24)
[2017-03-25] MEDS: LEVALBUTEROL INHALATION SCH (21:51)
[2017-03-26] MEDS: LORazepam 2 MG/ML INJ IV PRN (01:11)
--- NOTE | 2017-03-26 07:53 | PCN ---
PROCEDURE NOTE This patient is admitted with upper GI bleeding. He remained stable. The patient still remains lethargic. He is afebrile. Respiratory rate is 20 to 25 per minute, heart rate is 100 per minute. Patient is in normal sinus rhythm with intermittent PACs. First and second heart sounds are normal. Lungs reveal bilateral scattered wheezes. Patient's hemoglobin is 7.8, white count is 8400. Electrolytes are normal. BUN is 55 and creatinine is 1.40. We will continue the Cardizem p.r.n. at present we will discontinue the IV Cardizem drip. MMODL / IJN: [id number] /
[2017-03-26] MEDS: LEVALBUTEROL INHALATION SCH ×4 (08:04→19:57)
[2017-03-26 08:14] LABS: Anisocytosis Slight; HCT 26.4 % (39.0-53.0); HGB 8.2 gm/dL (13.0-17.5); Hypochromasia Moderate; MCH 29.8 pg (25.0-35.0); Macrocytosis Slight; Mean Platelet Volume 11.1; RBC 2.75 m/uL (4.30-5.90); RDW 17.7 % (11.5-15.5); WBC 9.8 k/uL (3.8-10.6)
[2017-03-26 08:20] LABS: Platelet Count 86 k/uL (150-450)
[2017-03-26 08:24] LABS: Anion Gap 7 mmol/L; Blood Urea Nitrogen 57 mg/dL (9-20); Carbon Dioxide 29 mmol/L (22-30); Chloride 107 mmol/L (98-107); Glucose 93 mg/dL (74-99); Magnesium 2.1 mg/dL (1.6-2.3); Phosphorus 4.5 mg/dL (2.5-4.5); Potassium 4.1 mmol/L (3.5-5.1); Sodium 143 mmol/L (137-145)
[2017-03-26] MEDS: INSULIN ASPART 100 UNIT/ML 1 ML 10 ML VIAL SQ SCH ×4 (09:47→21:39)
[2017-03-26] MEDS: methylPREDNISolone SOD SUCCI 40 MG/ML 1 ML VIAL IV SCH ×2 (09:48→15:32)
[2017-03-26] MEDS: FUROSEMIDE 10 MG/ML 2 ML VIAL IV SCH ×2 (09:50→21:34)
[2017-03-26] MEDS: PANTOPRAZOLE 40 MG/10 ML VIAL IVP SCH ×2 (09:52→21:34)
--- NOTE | 2017-03-26 10:12 | P.PN ---
Subjective Progress Note Date: 03/26/17 Principal diagnosis: Acute upper GI bleeding, acute on chronic respiratory failure secondary to COPD. A 81-year-old male patient with known history of advanced oxygen-dependent COPD , bladder cancer, coronary artery disease with previous bypass surgery, hypertension, hyperlipidemia and diverticulosis and large anterior abdominal wall parastomal and inguinal hernia was becoming progressively more debilitated especially over the past 6 months. The patient is very well-known to me. Of taking care of him for many years. During his last hospitalization the patient came in for an acute COPD exacerbation and was sent to [facility] for further recuperation. Yesterday evening, this patient got transferred back to the hospital because of an acute GI bleeding. Apparently at around 4 AM this morning the patient had 3 large gross red bloody emesis and following that there was large amount of black tarry stools in the colostomy bag without having any significant abdominal pain. He is known to have a diverticular colostomy following a complicated perforated diverticulitis treatment for which she underwent colectomy and diverting colostomy. Subsequently had developed a large parastomal hernia. In the emergency department, the patient had another emesis. His hemoglobin dropped from 10.3 down to 7.3. The patient was being given a unit of packed RBC and 15 minutes into the transfusion the patient had an acute febrile reaction and the transfusion was stopped based on the protocol. The patient was given IV Tylenol and the protocol for transient reaction is being conducted at this point. The patient is somewhat weak and lethargic. He was having some increased shortness of breath even at rest. No chest pain. No eye [place] 3. Platelet count is at 141. No significant hypotension although his blood pressure systolic dropped as low as the low 100s. He was somewhat tachycardic and his heart rate is around 101. I discussed the case with gastroenterology and general surgery. Ideally would need an EGD as soon as possible to further investigate his upper GI bleed. However he carries a DNR/DNI CODE STATUS and putting him for an EGD at this point with compromises respiratory status and more than likely put him into respiratory failure. Based on that we decided to transfer him to the intensive care unit, resuscitated patient with fluids and blood, insert an NG tube and stabilize the condition following that proceed with an EGD. The family including the left. Understands the risk of the procedure at this point especially with his very borderline pulmonary status. The computed tomography scan of the abdomen was done and emerged department that showed a stable parastomal hernia containing multiple small bowel loops without evidence of any strangulation of bowel obstruction. The patient also has a stable-appearing Márquez's pouch with multiple diverticuli and small right-sided pleural effusion. There is interval progression of the compression deformity of the L1 vertebral body. He does have still chronic compression fracture. The chest x- ray shows upper lobe pleural based scarring. There is also some progression of the left apical scarring at this point. Density in the right apex is also increased. On 03/22/2017, the patient is being seen in follow-up in the intensive care unit. Noted the patient was initially hospitalized with a massive upper GI bleed. He was very unstable and he was unable to go through a EGD for further investigation of his upper GI bleed. He was brought to the intensive care unit and fortunately he did not have any further episodes of bleeding. He got transfused with 2 units of packed RBC and hemoglobin has remained stable and currently hemoglobin is up to 9.6. Meanwhile, the patient did not have any melanotic stools collecting in his colostomy bag. No reported hematemesis overnight. Around 7 to 8:00 this morning the patient became progressively more short of breath. He was given a dose of Lasix 40 mg IV push during which she diuresed more than liters. Nevertheless, he continued to be bronchospastic and wheezy and he went into SVT. Cardiology was on the case and the patient was given Adenocard and subsequently converted into A. fib with rapid ventricular response and currently is on a Cardizem drip for rate control. The patient is also on a BiPAP for respiratory support. Blood gases were obtained and the pH was 7.49 with a pCO2 of 39 and pO2 of 181. The patient is very anxious. He is short of breath. He does have some diminished level of consciousness however is still arousable and he is able to follow simple commands. Note that he is a DNR/DNI CODE STATUS. His sodium today is at 147. His BUN is at 56 with a creatinine of 1.2. He is having frequent PVCs on the quality assurance monitor. The urine output has been considerably high following the diuresis and the patient is in a negative fluid balance of 1.9 L. The chest x-ray from today is essentially unchanged and there is some increased interstitial markings bilaterally along with biapical scarring. The blood cultures of been negative thus far. The troponins are 0.3 and 0.4 respectively. He denies having any chest pain. On , I'm seeing this patient for a follow-up. The patient is looking better compared to yesterday. Fortunately has not bled in his hemoglobin remains stable and the patient has no melanotic stool or hematemesis. He is less short of breath compared to yesterday and this morning he is off the BiPAP and he is able to breathe comfortably. He is atrial fibrillation is converted back to normal sinus rhythm. He is very tremulous and he has known history of essential tremors and I think is reasonable to start this patient back on his usual [place]. The patient is still on bronchodilators and systemic steroids. The patient on Cardizem at 10 mg an hour. He is receiving 20 mg of IV Lasix every 12 hours. Is on IV Protonix. GI is on the case yet there are no plans to endoscope this patient based on his very poor pulmonary status and underlying debilitated condition. He denies having any chest pain. No cough or sputum production. We'll try to allow some clear liquid/soft diet. The patient is seen again today 03/24/2017 in follow-up in the intensive care unit. He is more awake and alert today as compared to yesterday. He has not had any further bleeding noted. His current hemoglobin is 8.3. Creatinine 1.30. Blood and urine cultures have been negative. Today's chest x-ray reveals continued right upper lobe opacity, chronic obstructive pulmonary disease and borderline cardiomegaly. He is currently maintaining good O2 saturations in the 90s on 2 L/m per nasal cannula. He is afebrile. Remains on Cardizem drip at 10 mg per hour. On 03/25/2017, the patient is doing poorly. He is on a BiPAP for now to support his breathing. He was having some increased shortness of breath early this morning and he was placed on a BiPAP at a pressure of 10/5 cm of water. He is very symptoms with the BiPAP. Earlier this morning I was told that the patient was having increased dyspnea cough chest congestion and wheezing. He also became bilious throughout the night and the patient was given Ativan 1 mg every 4 hours on a when necessary basis. The patient is also on a Cardizem drip at 10 mg an hour in regards to his atrial fibrillation for rate control. He is also on half-normal saline at rate of 50 mL an hour. Remains on bronchodilators and systemic steroids. No evidence of any acute GI bleed. Very debilitated. Shaky and tremulous. No fever or chills. Colostomy site is functional. No abdominal distention. No abdominal pain. Very poor performance and functional status secondary to above-mentioned comorbidities. Reevaluated today on 03/26/2017, patient was on BiPAP through the night, today I took him off BiPAP and place him on nasal cannula. Patient continues to have intermittent episodes of cough wheezing and congestion. Apparently intermittently the patient becomes a bit delirious and confused. Agitated. Remains on bronchodilators for underlying COPD, patient will be a poor candidate for EGD, hence it is presently on hold. Remains on bronchodilators for COPD exacerbation. Presently no evidence of active GI bleeding. No fever no chills, colostomy site is functioning. No abdominal pain and no distention. CBC showed a hemoglobin of 8.2 electrolytes are normal BUN is 57 creatinine is 1.24. Objective - Vital Signs Vital signs: Vital Signs Temp 96.8 F L 03/26/17 08:00 Pulse 64 03/26/17 09:00 Resp 15 03/26/17 09:00 BP 114/52 03/26/17 09:00 Pulse Ox 96 03/26/17 09:00 Intake & Output 03/25/17 03/26/17 03/26/17 18:59 06:59 18:59 Intake Total 815.000 639.467 100 Output Total 860 635 120 Balance -45.000 4.467 -20 Weight 68.1 kg 70.4 kg Intake: IV 550 600 100 Sodium Chloride 0.45% 1, 550 600 100 000 ml @ 50 mls/hr IV . Q20H ALEX Rx#:[id number] Intake, IV Titration 145.000 39.467 Amount Diltiazem 125 mg In 95.000 39.467 Sodium Chloride 0.9% 100 ml @ 10 MG/HR 10 mls/hr IV .[id number] ALEX Rx#: [id number] Sodium Chloride 0.45% 1, 50 000 ml @ 50 mls/hr IV . Q20H ALEX Rx#:[id number] Oral 120 Output: Urine 860 635 120 Other: Voiding Method Indwelling Catheter Indwelling Catheter # Bowel Movements 1 - Exam General appearance: Revealed an 81-year-old white male off BiPAP, restless agitated, in no distress. Presently on nasal cannula. Head exam: Present: atraumatic, normocephalic Eye exam: Present: normal appearance Neck exam: Present: normal inspection Respiratory exam: Present: respiratory distress (Mild tachypnea), wheezes, rales (Bilateral bases), rhonchi. Absent: chest wall tenderness, accessory muscle use, decreased breath sounds, prolonged expiratory Cardiovascular Exam: Present: irregular rhythm, systolic murmur. Absent: diastolic murmur, rubs, gallop GI/Abdominal exam: Present: soft, hernia, other (There is a colostomy in the left lower quadrants with peristomal hernia. No abdominal tenderness). Absent : distended, tenderness, guarding, rebound. As for the right inguinal hernia, the patient has a hernia that is very much reducible and there is no evidence of incarceration or strangulation. Extremities exam: Present: normal capillary refill, pedal edema (There is trace edema at the ankles bilaterally). Absent: tenderness, calf tenderness Back exam: Present: normal inspection. Absent: CVA tenderness (R), CVA tenderness (L) Neurological exam: Present: Lethargic and sleepy and is having some tremors Skin exam: Present: warm, dry, intact, normal color. Absent: rash - Labs CBC & Chem 7: 03/26/17 08:01 03/26/17 08:01 Labs: Abnormal Lab Results - Last 24 Hours (Table) 03/25/17 03/25/17 03/25/17 Range/Units 11:34 12:19 17:42 RBC (4.30-5.90) m/uL Hgb (13.0-17.5) gm/dL Hct (39.0-53.0) % RDW (11.5-15.5) % Plt Count (150-450) k/uL BUN (9-20) mg/dL POC Glucose (mg/dL) 126 H 125 H 144 H (75-99) mg/dL Calcium (8.4-10.2) mg/dL 03/25/17 03/26/17 03/26/17 Range/Units 20:47 08:01 08:01 RBC 2.75 L (4.30-5.90) m/uL Hgb 8.2 L (13.0-17.5) gm/dL Hct 26.4 L (39.0-53.0) % RDW 17.7 H (11.5-15.5) % Plt Count 86 L (150-450) k/uL BUN 57 H (9-20) mg/dL POC Glucose (mg/dL) 219 H (75-99) mg/dL Calcium 8.0 L (8.4-10.2) mg/dL Microbiology - Last 24 Hours (Table) 03/21/17 09:36 Blood Culture - Preliminary Blood No Growth after 96 hours 03/21/17 09:14 Blood Culture - Preliminary Blood No Growth after 96 hours Assessment and Plan Assessment: 1 acute upper GI bleeding with hematemesis and melanotic stool. Rule out peptic ulcer disease, rule out AV malformation as the source of the bleeding. The patient got admitted to the intensive care unit. The patient had no intervention and the patient showed no further signs of bleeding and for now his hemoglobin is stable at 8.2 2 acute blood loss anemia and the patient is transfused with a total of 2 units of packed RBC and currently is 8.2 3 acute atrial fibrillation with rapid ventricular response currently on a Cardizem drip for heart rate control. The patient is having paroxysmal of atrial fibrillation with rapid ventricular response. He is back having A. fib issues and currently is on a Cardizem drip at 10 mg an hour. The echocardiogram was done and showed moderate concentric limits to hypertrophy. Left ventricle ejection fraction between 45-50%. There is some interval basal and lateral hypokinesis. Rest of the cardiac structures are all within normal limits. 4 hypotension secondary to above, recovered 5 acute on chronic hypoxic and hypercapnic respiratory failure secondary to severe COPD, requiring intermittently BiPAP. 6 atherosclerotic heart disease with previous coronary bypass surgery, echocardiogram showing a preserved LV function with an ejection fraction of 45- 50%. The patient has had previous non-ST segment elevation myocardial infarction. 7 bladder cancer status post transurethral resection of the bladder tumor following that the patient received intravesicular chemotherapy 8 diverticular disease with history of complicated diverticulitis with bowel perforation requiring colostomy and colectomy. 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 Patient also has cerebral atrophy. Recommendation: Discussed his condition with at bedside, she is very well aware that his overall prognosis is poor, we'll continue to monitor for the next 24 hours, and likely transfer to a monitor bed in the next 24 hours. Patient remains DO NOT RESUSCITATE. Overall prognosis remains very poor and guarded. Time with Patient: Less than 30
[2017-03-26] MEDS: PRIMIDONE 50 MG TAB PO SCH ×2 (10:54→22:09)
[2017-03-26] MEDS: TAMSULOSIN 0.4 MG CAP.ER.24H PO SCH (10:54)
[2017-03-26] MEDS: FINASTERIDE 5 MG TAB PO SCH (10:54)
[2017-03-26] MEDS: FLUCONAZOLE 100 MG TAB PO SCH (10:55)
[2017-03-26] MEDS: CITALOPRAM HYDROBROMIDE 20 MG TAB PO SCH (10:55)
--- NOTE | 2017-03-26 10:56 | P.PN ---
Subjective Progress Note Date: 03/26/17 this patient's remains a lethargic in the morning. His and received Ativan during the night's and remained stable cardiac-meier he remains in normal sinus rhythm with intermittent PACs and PVCs. We will discontinue the Cardizem drip. Objective - Vital Signs Vital signs: Vital Signs Temp 96.8 F L 03/26/17 08:00 Pulse 73 03/26/17 10:00 Resp 36 H 03/26/17 10:00 BP 126/61 03/26/17 10:00 Pulse Ox 96 03/26/17 10:00 Intake & Output 03/25/17 03/26/17 03/26/17 18:59 06:59 18:59 Intake Total 815.000 639.467 150 Output Total 860 635 285 Balance -45.000 4.467 -135 Weight 68.1 kg 70.4 kg Intake: IV 550 600 150 Sodium Chloride 0.45% 1, 550 600 150 000 ml @ 50 mls/hr IV . Q20H ALEX Rx#:[id number] Intake, IV Titration 145.000 39.467 Amount Diltiazem 125 mg In 95.000 39.467 Sodium Chloride 0.9% 100 ml @ 10 MG/HR 10 mls/hr IV .[id number] ALEX Rx#: [id number] Sodium Chloride 0.45% 1, 50 000 ml @ 50 mls/hr IV . Q20H ALEX Rx#:[id number] Oral 120 Output: Urine 860 635 285 Other: Voiding Method Indwelling Catheter Indwelling Catheter # Bowel Movements 1 - Exam vital signs are reviewed. First and second heart sounds are normal. Lungs reveal bilateral diminished air entry - Labs CBC & Chem 7: 03/26/17 08:01 03/26/17 08:01 Labs: Abnormal Lab Results - Last 24 Hours (Table) 03/25/17 03/25/17 03/25/17 Range/Units 11:34 12:19 17:42 RBC (4.30-5.90) m/uL Hgb (13.0-17.5) gm/dL Hct (39.0-53.0) % RDW (11.5-15.5) % Plt Count (150-450) k/uL BUN (9-20) mg/dL POC Glucose (mg/dL) 126 H 125 H 144 H (75-99) mg/dL Calcium (8.4-10.2) mg/dL 03/25/17 03/26/17 03/26/17 Range/Units 20:47 08:01 08:01 RBC 2.75 L (4.30-5.90) m/uL Hgb 8.2 L (13.0-17.5) gm/dL Hct 26.4 L (39.0-53.0) % RDW 17.7 H (11.5-15.5) % Plt Count 86 L (150-450) k/uL BUN 57 H (9-20) mg/dL POC Glucose (mg/dL) 219 H (75-99) mg/dL Calcium 8.0 L (8.4-10.2) mg/dL Microbiology - Last 24 Hours (Table) 03/21/17 09:36 Blood Culture - Preliminary Blood No Growth after 96 hours 03/21/17 09:14 Blood Culture - Preliminary Blood No Growth after 96 hours Assessment and Plan Assessment: we will discontinue the Cardizem drip. The patient is able to take the things orally I we will start the patient on oral Cardizem.
[2017-03-26 11:54] LABS: Glucose,Whole Blood 178 mg/dL (75-99)
[2017-03-26 14:36] VITALS: BMI 22.8
[2017-03-26] MEDS: SODIUM CHLORIDE 0.45% 1,000 ML IV SCH ×2 (15:32→21:35)
[2017-03-26 16:41] LABS: Glucose,Whole Blood 164 mg/dL (75-99)
[2017-03-26] MEDS: guaiFENesin 600 MG TABLET.ER PO SCH (17:46)
[2017-03-26] MEDS: DILTIAZEM ORAL 60 MG TAB PO SCH (18:51)
--- NOTE | 2017-03-26 19:25 | P.PN ---
Progress Note - Text Progress Note Date: 03/26/17 DATE OF SERVICE: 03/26/2017 PRESENTING COMPLAINT: Increasing shortness of breath HISTORY OF PRESENT ILLNESS: 81-year-old male with a known history of advanced oxygen-dependent COPD bladder cancer coronary artery disease with previous bypass surgery March anterior abdominal wall parastomal and inguinal hernia repair with colostomy bag who had a recent hospitalization for COPD exacerbation and was subsequently sent to [facility] for further recuperation. Presented to the emergency department due to an acute GI bleed. At the assisted patient had 3 large gross bloody emesis and a black tarry stool in the colostomy bag. On arrival to the emergency department patient had an additional bloody emesis. Hemoglobin dropped from 10.3-7.3 and he received a unit of packed red blood cells had an acute febrile reaction transfusion was stopped. Patient admitted to the ICU, received fluid and blood for resuscitation, NG tube placement and then hopefully go forward with an EGD however given patient's tenuous respiratory status EGD may put the patient at significant risk and put him into respiratory failure. Once in the ICU patient developed SVT, received a dental card and subsequently converted to atrial fibrillation with rapid ventricular response placed on a Cardizem drip for rate control. INTERVAL HISTORY: 03/26/2017: Lying in bed just taken off the BiPAPplaced on nasal cannula. quite lethargic.no further episodes of bleeding either orally or rectally or through the colostomy bag. Has had several episodes of coughing wheezing and congestion. Has also episodes of being a bit delirious and confused times with some agitation. EGD remains on hold per GI as patient is really not a great candidate.appetites poor, requires quite a bit of encouragement to eat. Protein shakes provided. Colostomy continues to produce dark green-brown semi- formed stool. 03/25/2017: Seen in the ICU lying in bed currently on the BiPAP. Patient had a very difficult night, very confused very restless requiring 2 doses of Ativan. No further episodes of bleeding either orally, rectally or through the colostomy bag. Hemoglobin remained stable at 7.8 down from 8.3 yesterday. Cardizem drip continues at 10 mL an hour. Heart rate in the 60s to 70s. Continues to have considerable amount of work with breathing even on the BiPAP. Diet advanced to consistent carbohydrate diet, patient's appetite waxes and wanes, needs encouragement. Colostomy continues to produce dark green brown semi-formed stool. 03/24/2017 Seen in the ICU, sitting up at the bedside more awake and alert. No further episodes of bleeding noted either rectally or orally or in his colostomy bag. Hemoglobin remained stable at 8.3. Creatinine 1.30. Vital signs stable afebrile. On the monitor patient is normal sinus rhythm with some PVCs continues on Cardizem drip at 10 mg an hour. Short of breath even at rest , but appears comfortable. Remains on 2 L nasal cannula, BiPAP support available. Diet advanced to clear liquids, patient is tolerating this, colostomy bag producing dark green liquid stool. REVIEW OF SYSTEMS: Done for constitutional ,cardiovascular, GI, pulmonary with relevant findings as above. CURRENT MEDICATIONS Xopenex, Celexa, diltiazem, Proscar, Diflucan,Lasix,Haldol, Mucinex NovoLog insulin, Ativan, Solu-Medrol, Protonix, primidone, Flomax. PHYSICAL EXAM VITAL SIGNS: temperature 96.8, pulse 68, respiratory rate 16, blood pressure 114/61, oxygen saturation 95% on BiPAP 30%. GENERAL APPEARANCE: Lying in bed, appears Lethargic taken off the BiPAP nasal cannula placed mild tremors noted. HENT: Normocephalic, JVD not raised. Mass not palpable. Oral cavity with white patches noted to posterior pharynx, external appearance of ears and nose normal. EYES:Pupils equal. Conjunctiva normal. RESPIRATORY: Respiratory effort increased, tachypnea Lungs wheezing and coarse rhonchi CARDIOVASCULAR: First and second sounds normal. Mild edema. ABDOMEN: Soft. Liver and spleen not palpable. No tenderness. No mass palpable. Left Lower quadrant with colostomy in place draining green-brown liquid stool. PSYCHIATRY: Alert to voice. Mood and affect lethargic. NEUROLOGIC: Upper and lower extremity tremors. INVESTIGATIONS: LABS: hemoglobin 8.2, BUN 57, creatinine 1.24, Accu-Cheks noted. ASSESSMENT: -Acute upper GI bleed with hematemesis and melanotic stools, status post 3 units of blood improving -Acute blood loss anemia, likely GI source, received 3 units of packed red cells , hemoglobin stabilized -Paroxysmal atrial fibrillation with rapid ventricular response, now converted into sinus, remains on Cardizem drip, improving -Acute delirium multifactorial -Acute hypoxic respiratory failure -Acute exacerbation of chronic obstructive pulmonary disease in an ex-smoker, improving -Chronic congestive heart failure from hypertensive heart disease, ejection fraction 55-60%. -Essential hypertension -Hyperlipidemia -Coronary artery disease with prior history of stent and coronary artery bypass grafting -Bladder cancer -Anxiety/depression not otherwise specified -Chronic carotid artery stenosis -Chronic colostomy -Chronic cognitive impairment -Chronic Tremors responded well with primidone -Medical debility secondary to age and various other medical problems. PLAN: No further bleeding, continue conservative management from a GI and surgical perspective. Diet advanced,Appetite continues to be poor,increase activity as patient can tolerate. Cardizem drip discontinued and switched to oralto continue per cardiology. Continue nebulized bronchodilators, IV steroids, BiPAP support as needed. Plan of care discussed with family and patient at the bedside they're in agreement. We'll follow closely. MEDICAL ADMINISTRATIVE TECHNICIAN statement: Patient was seen and examined by nurse practitioner Aarti Patel and all elements of the case discussed with attending Dr. Maddox
[2017-03-26 21:35] LABS: Glucose,Whole Blood 151 mg/dL (75-99)
--- NOTE | 2017-03-26 21:43 | PN ---
PROGRESS NOTE DATE OF SERVICE: 03/26/17 ATTENDING NOTE: The patient seen and examined by me. I discussed with nurse practitioner, Ms. Patel. The patient remains in the ICU. Somewhat tired and lethargic. Ate a little bit. Answering simple questions. PHYSICAL EXAMINATION: Temperature is 97.9, heart rate 93, respirations 29, blood pressure 136/68, pulse ox 98% on 2 L. LUNGS: Decreased breath sounds. Some wheezing. HEART: Sounds are regular. Psych: Anxious. Answering some simple questions. INVESTIGATIONS: White count 9.8, hemoglobin 8.2, creatinine 1.24. ASSESSMENT: 1. Status post upper gastrointestinal bleed, status post 3 units of blood, normal bleeding. 2. Paroxysmal atrial fibrillation, rapid ventricular rate. The patient has now been in sinus rhythm. 3. Acute delirium. 4. Multiple medical problems. PLAN: Patient overall condition is waxing and waning. Had a long talk with the patient and from last admission too. Overall prognosis is guarded. We will continue current medication and treatment plan. Follow. MMODL / IJN: [id number] /
[2017-03-27] MEDS: methylPREDNISolone SOD SUCCI 40 MG/ML 1 ML VIAL IV SCH ×3 (01:06→17:39)
[2017-03-27] MEDS: DILTIAZEM ORAL 60 MG TAB PO SCH ×3 (01:06→17:05)
[2017-03-27 05:32] LABS: Anisocytosis Slight; HCT 26.9 % (39.0-53.0); HGB 8.1 gm/dL (13.0-17.5); Hypochromasia Slight; MCH 29.3 pg (25.0-35.0); MCHC 30.2 g/dL (31.0-37.0); MCV 96.9 fL (80.0-100.0); Macrocytosis Slight; Mean Platelet Volume 10.1; Platelet Count 103 k/uL (150-450); RBC 2.78 m/uL (4.30-5.90); RDW 16.1 % (11.5-15.5); WBC 8.9 k/uL (3.8-10.6)
[2017-03-27 05:44] LABS: Anion Gap 7 mmol/L; Blood Urea Nitrogen 53 mg/dL (9-20); Calcium 8.1 mg/dL (8.4-10.2); Carbon Dioxide 29 mmol/L (22-30); Chloride 104 mmol/L (98-107); Glucose 116 mg/dL (74-99); Magnesium 2.1 mg/dL (1.6-2.3); Phosphorus 4.1 mg/dL (2.5-4.5); Potassium 3.5 mmol/L (3.5-5.1); Sodium 140 mmol/L (137-145)
[2017-03-27 06:00] LABS: Glucose,Whole Blood 124 mg/dL (75-99)
[2017-03-27] MEDS: INSULIN ASPART 100 UNIT/ML 1 ML 10 ML VIAL SQ SCH ×4 (08:03→17:05)
[2017-03-27] MEDS: LEVALBUTEROL INHALATION SCH ×3 (08:35→16:33)
[2017-03-27] MEDS: guaiFENesin 600 MG TABLET.ER PO SCH (08:48)
[2017-03-27] MEDS: PANTOPRAZOLE 40 MG/10 ML VIAL IVP SCH (08:48)
[2017-03-27] MEDS: POTASSIUM CHLORIDE 10 MEQ in WATER FOR INJECTION 1 100ML.BAG IVPB SCH ×2 (08:49→10:44)
[2017-03-27] MEDS: CITALOPRAM HYDROBROMIDE 20 MG TAB PO SCH (08:49)
[2017-03-27] MEDS: FINASTERIDE 5 MG TAB PO SCH (08:49)
[2017-03-27] MEDS: FUROSEMIDE 10 MG/ML 2 ML VIAL IV SCH (08:49)
[2017-03-27] MEDS: PRIMIDONE 50 MG TAB PO SCH (08:49)
[2017-03-27] MEDS: FLUCONAZOLE 100 MG TAB PO SCH (08:49)
[2017-03-27] MEDS: TAMSULOSIN 0.4 MG CAP.ER.24H PO SCH (08:50)
[2017-03-27] MEDS ORDERED: FLECAINIDE 50 MG TAB PO SCH (09:00)
--- NOTE | 2017-03-27 09:59 | PN ---
PROGRESS NOTE This patient was admitted with upper GI bleed. He remains stable. Patient is more alert and awake, now. The patient does not have any more episodes of bleeding. HEART: The patient remains in normal sinus rhythm with intermittent episodes of atrial fibrillation. Blood pressure is 160/73 mmHg. Heart rate is 100 per minute. The patient was started on Cardizem 60 mg t.i.d. yesterday. Lungs are clear to auscultation and percussion. PLAN: We will start the patient on flecainide 50 mg b.i.d. to prevent episodes of atrial fibrillations and patient is having multiple PACs and if it is okay with the erp engineer, we will recommend to start the patient on Eliquis 2.5 mg b.i.d. MMCRISTINEL / JOEYN: [id number] /
--- NOTE | 2017-03-27 11:47 | P.PN ---
Subjective Progress Note Date: 03/27/17 Principal diagnosis: Acute upper GI bleeding, acute on chronic respiratory failure secondary to COPD. A 81-year-old male patient with known history of advanced oxygen-dependent COPD , bladder cancer, coronary artery disease with previous bypass surgery, hypertension, hyperlipidemia and diverticulosis and large anterior abdominal wall parastomal and inguinal hernia was becoming progressively more debilitated especially over the past 6 months. The patient is very well-known to me. Of taking care of him for many years. During his last hospitalization the patient came in for an acute COPD exacerbation and [facility]. Yesterday evening, this patient got transferred back to the hospital because of an acute GI bleeding. Apparently at around 4 AM this morning the patient had 3 large gross red bloody emesis and following that there was large amount of black tarry stools in the colostomy bag without having any significant abdominal pain. He is known to have a diverticular colostomy following a complicated perforated diverticulitis treatment for which she underwent colectomy and diverting colostomy. Subsequently had developed a large parastomal hernia. In the emergency department, the patient had another emesis. His hemoglobin dropped from 10.3 down to 7.3. The patient was being given a unit of packed RBC and 15 minutes into the transfusion the patient had an acute febrile reaction and the transfusion was stopped based on the protocol. The patient was given IV Tylenol and the protocol for transient reaction is being conducted at this point. The patient is somewhat weak and lethargic. He was having some increased shortness of breath even at rest. No chest pain. No eye [place] 3. Platelet count is at 141. No significant hypotension although his blood pressure systolic dropped as low as the low 100s. He was somewhat tachycardic and his heart rate is around 101. I discussed the case with gastroenterology and general surgery. Ideally would need an EGD as soon as possible to further investigate his upper GI bleed. However he carries a DNR/DNI CODE STATUS and putting him for an EGD at this point with compromises respiratory status and more than likely put him into respiratory failure. Based on that we decided to transfer him to the intensive care unit, resuscitated patient with fluids and blood, insert an NG tube and stabilize the condition following that proceed with an EGD. The family including the left. Understands the risk of the procedure at this point especially with his very borderline pulmonary status. The computed tomography scan of the abdomen was done and emerged department that showed a stable parastomal hernia containing multiple small bowel loops without evidence of any strangulation of bowel obstruction. The patient also has a stable-appearing Márquez's pouch with multiple diverticuli and small right-sided pleural effusion. There is interval progression of the compression deformity of the L1 vertebral body. He does have still chronic compression fracture. The chest x- ray shows upper lobe pleural based scarring. There is also some progression of the left apical scarring at this point. Density in the right apex is also increased. On 03/22/2017, the patient is being seen in follow-up in the intensive care unit. Noted the patient was initially hospitalized with a massive upper GI bleed. He was very unstable and he was unable to go through a EGD for further investigation of his upper GI bleed. He was brought to the intensive care unit and fortunately he did not have any further episodes of bleeding. He got transfused with 2 units of packed RBC and hemoglobin has remained stable and currently hemoglobin is up to 9.6. Meanwhile, the patient did not have any melanotic stools collecting in his colostomy bag. No reported hematemesis overnight. Around 7 to 8:00 this morning the patient became progressively more short of breath. He was given a dose of Lasix 40 mg IV push during which she diuresed more than liters. Nevertheless, he continued to be bronchospastic and wheezy and he went into SVT. Cardiology was on the case and the patient was given Adenocard and subsequently converted into A. fib with rapid ventricular response and currently is on a Cardizem drip for rate control. The patient is also on a BiPAP for respiratory support. Blood gases were obtained and the pH was 7.49 with a pCO2 of 39 and pO2 of 181. The patient is very anxious. He is short of breath. He does have some diminished level of consciousness however is still arousable and he is able to follow simple commands. Note that he is a DNR/DNI CODE STATUS. His sodium today is at 147. His BUN is at 56 with a creatinine of 1.2. He is having frequent PVCs on the monitor and storage bin tender. The urine output has been considerably high following the diuresis and the patient is in a negative fluid balance of 1.9 L. The chest x-ray from today is essentially unchanged and there is some increased interstitial markings bilaterally along with biapical scarring. The blood cultures of been negative thus far. The troponins are 0.3 and 0.4 respectively. He denies having any chest pain. On , I'm seeing this patient for a follow-up. The patient is looking better compared to yesterday. Fortunately has not bled in his hemoglobin remains stable and the patient has no melanotic stool or hematemesis. He is less short of breath compared to yesterday and this morning he is off the BiPAP and he is able to breathe comfortably. He is atrial fibrillation is converted back to normal sinus rhythm. He is very tremulous and he has known history of essential tremors and I think is reasonable to start this patient back on his usual [place]. The patient is still on bronchodilators and systemic steroids. The patient on Cardizem at 10 mg an hour. He is receiving 20 mg of IV Lasix every 12 hours. Is on IV Protonix. GI is on the case yet there are no plans to endoscope this patient based on his very poor pulmonary status and underlying debilitated condition. He denies having any chest pain. No cough or sputum production. We'll try to allow some clear liquid/soft diet. The patient is seen again today 03/24/2017 in follow-up in the intensive care unit. He is more awake and alert today as compared to yesterday. He has not had any further bleeding noted. His current hemoglobin is 8.3. Creatinine 1.30. Blood and urine cultures have been negative. Today's chest x-ray reveals continued right upper lobe opacity, chronic obstructive pulmonary disease and borderline cardiomegaly. He is currently maintaining good O2 saturations in the 90s on 2 L/m per nasal cannula. He is afebrile. Remains on Cardizem drip at 10 mg per hour. On 03/25/2017, the patient is doing poorly. He is on a BiPAP for now to support his breathing. He was having some increased shortness of breath early this morning and he was placed on a BiPAP at a pressure of 10/5 cm of water. He is very symptoms with the BiPAP. Earlier this morning I was told that the patient was having increased dyspnea cough chest congestion and wheezing. He also became bilious throughout the night and the patient was given Ativan 1 mg every 4 hours on a when necessary basis. The patient is also on a Cardizem drip at 10 mg an hour in regards to his atrial fibrillation for rate control. He is also on half-normal saline at rate of 50 mL an hour. Remains on bronchodilators and systemic steroids. No evidence of any acute GI bleed. Very debilitated. Shaky and tremulous. No fever or chills. Colostomy site is functional. No abdominal distention. No abdominal pain. Very poor performance and functional status secondary to above-mentioned comorbidities. Reevaluated today on 03/26/2017, patient was on BiPAP through the night, today I took him off BiPAP and place him on nasal cannula. Patient continues to have intermittent episodes of cough wheezing and congestion. Apparently intermittently the patient becomes a bit delirious and confused. Agitated. Remains on bronchodilators for underlying COPD, patient will be a poor candidate for EGD, hence it is presently on hold. Remains on bronchodilators for COPD exacerbation. Presently no evidence of active GI bleeding. No fever no chills, colostomy site is functioning. No abdominal pain and no distention. CBC showed a hemoglobin of 8.2 electrolytes are normal BUN is 57 creatinine is 1.24. Patient was reevaluated today on 03/27/2017, remains about the same, continues to have profound shortness of breath with any activity, intermittent episodes of cough wheezing shortness of breath, no chest pain, no fever, no chills, no hemoptysis. No nausea no vomiting no melena no hematemesis. Hemoglobin is 8.1 , electrolytes are relatively normal BUN is 53 creatinine 1.20. Patient was placed on flecainide to prevent episodes of atrial fibrillation, starting the patient on Eliquis is being considered. However will need to be cleared by gastroenterology before all across could be started. Objective - Vital Signs Vital signs: Vital Signs Temp 97.4 F L 03/27/17 09:00 Pulse 111 H 03/27/17 11:37 Resp 27 H 03/27/17 10:00 BP 140/68 03/27/17 10:00 Pulse Ox 98 03/27/17 10:00 Intake & Output 03/26/17 03/27/17 03/27/17 18:59 06:59 18:59 Intake Total 1030 610 200 Output Total 863 745 700 Balance 167 -135 -500 Weight 70.4 kg 68.2 kg 68.3 kg Intake: IV 550 610 200 Sodium Chloride 0.45% 1, 550 610 200 000 ml @ 50 mls/hr IV . Q20H [facility] Rx#:[id number] Oral 480 Output: Gastric Drainage 275 Urine [phone] Other: Voiding Method Indwelling Catheter Indwelling Catheter Indwelling Catheter # Bowel Movements 1 0 - Exam General appearance: Revealed 81-year-old white male in no distress, seems to be comfortable at rest. But in short of breath with any activity. Head exam: Present: atraumatic, normocephalic Eye exam: Present: normal appearance Neck exam: Present: normal inspection Respiratory exam: Present: respiratory distress (Mild tachypnea), wheezes, rales (Bilateral bases), rhonchi. Absent: chest wall tenderness, accessory muscle use, decreased breath sounds, prolonged expiratory Cardiovascular Exam: Present: irregular rhythm, systolic murmur. Absent: diastolic murmur, rubs, gallop GI/Abdominal exam: Present: soft, hernia, other (There is a colostomy in the left lower quadrants with peristomal hernia. No abdominal tenderness). Absent : distended, tenderness, guarding, rebound. As for the right inguinal hernia, the patient has a hernia that is very much reducible and there is no evidence of incarceration or strangulation. Extremities exam: Present: normal capillary refill, pedal edema (There is trace edema at the ankles bilaterally). Absent: tenderness, calf tenderness Back exam: Present: normal inspection. Absent: CVA tenderness (R), CVA tenderness (L) Neurological exam: Present: Lethargic and sleepy and is having some tremors Skin exam: Present: warm, dry, intact, normal color. Absent: rash - Labs CBC & Chem 7: 03/27/17 04:53 03/27/17 04:53 Labs: Abnormal Lab Results - Last 24 Hours (Table) 03/26/17 03/26/17 03/26/17 Range/Units 11:51 16:40 21:33 RBC (4.30-5.90) m/uL Hgb (13.0-17.5) gm/dL Hct (39.0-53.0) % MCHC (31.0-37.0) g/dL RDW (11.5-15.5) % Plt Count (150-450) k/uL BUN (9-20) mg/dL Glucose (74-99) mg/dL POC Glucose (mg/dL) 178 H 164 H 151 H (75-99) mg/dL Calcium (8.4-10.2) mg/dL 03/27/17 03/27/17 03/27/17 Range/Units 04:53 04:53 05:57 RBC 2.78 L (4.30-5.90) m/uL Hgb 8.1 L (13.0-17.5) gm/dL Hct 26.9 L (39.0-53.0) % MCHC 30.2 L (31.0-37.0) g/dL RDW 16.1 H (11.5-15.5) % Plt Count 103 L (150-450) k/uL BUN 53 H (9-20) mg/dL Glucose 116 H (74-99) mg/dL POC Glucose (mg/dL) 124 H (75-99) mg/dL Calcium 8.1 L (8.4-10.2) mg/dL Microbiology - Last 24 Hours (Table) 03/21/17 09:14 Blood Culture - Final Blood No Growth after 144 hours 03/21/17 09:36 Blood Culture - Preliminary Blood No Growth after 120 hours Assessment and Plan Assessment: 1 acute upper GI bleeding with hematemesis and melanotic stool. Rule out peptic ulcer disease, rule out AV malformation as the source of the bleeding. The patient got admitted to the intensive care unit. The patient had no intervention and the patient showed no further signs of bleeding and for now his hemoglobin is stable at 8.1 2 acute blood loss anemia and the patient is transfused with a total of 3 units of packed RBC and currently is 8.1 3 acute atrial fibrillation with rapid ventricular response currently on a Cardizem drip for heart rate control. The patient is having paroxysmal of atrial fibrillation with rapid ventricular response. He is back having A. fib issues and currently is on a Cardizem drip at 10 mg an hour. The echocardiogram was done and showed moderate concentric limits to hypertrophy. Left ventricle ejection fraction between 45-50%. There is some interval basal and lateral hypokinesis. Rest of the cardiac structures are all within normal limits. 4 hypotension secondary to above, recovered 5 acute on chronic hypoxic and hypercapnic respiratory failure secondary to severe COPD, requiring intermittently BiPAP. 6 atherosclerotic heart disease with previous coronary bypass surgery, echocardiogram showing a preserved LV function with an ejection fraction of 45- 50%. The patient has had previous non-ST segment elevation myocardial infarction. 7 bladder cancer status post transurethral resection of the bladder tumor following that the patient received intravesicular chemotherapy 8 diverticular disease with history of complicated diverticulitis with bowel perforation requiring colostomy and colectomy. 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 Patient also has cerebral atrophy. Recommendation: Discussed his condition with at bedside, his overall clinical condition being, I even touch bases about strongly considering hospice and comfort care. Long-term prognosis is extremely poor and I believe comfort care measures and hospice care would be appropriate.. Time with Patient: Greater than 30
--- NOTE | 2017-03-27 16:03 | P.PN ---
Subjective Progress Note Date: 03/27/17 Principal diagnosis: GI bleed Patient has had no further bleeding over the last several days. His shortness of breath however has and the family has just recently decided to switch his level of care to hospice. Denies abdominal pain. Ostomy functioning. Objective - Vital Signs Vital signs: Vital Signs Temp 97.4 F L 03/27/17 09:00 Pulse 111 H 03/27/17 11:37 Resp 27 H 03/27/17 12:00 BP 140/68 03/27/17 10:00 Pulse Ox 98 03/27/17 10:00 Intake & Output 03/26/17 03/27/17 03/27/17 18:59 06:59 18:59 Intake Total 1030 610 200 Output Total 863 745 700 Balance 167 -135 -500 Weight 70.4 kg 68.2 kg 68.3 kg Intake: IV 550 610 200 Sodium Chloride 0.45% 1, 550 610 200 000 ml @ 50 mls/hr IV . Q20H [facility] Rx#:[id number] Oral 480 Output: Gastric Drainage 275 Urine [phone] Other: Voiding Method Indwelling Catheter Indwelling Catheter Indwelling Catheter # Bowel Movements 1 0 - Exam Abdomen: Soft, nondistended, nontender, peristomal hernia noted - Labs CBC & Chem 7: 03/27/17 04:53 03/27/17 04:53 Labs: Abnormal Lab Results - Last 24 Hours (Table) 03/26/17 03/26/17 03/27/17 Range/Units 16:40 21:33 04:53 RBC 2.78 L (4.30-5.90) m/uL Hgb 8.1 L (13.0-17.5) gm/dL Hct 26.9 L (39.0-53.0) % MCHC 30.2 L (31.0-37.0) g/dL RDW 16.1 H (11.5-15.5) % Plt Count 103 L (150-450) k/uL BUN (9-20) mg/dL Glucose (74-99) mg/dL POC Glucose (mg/dL) 164 H 151 H (75-99) mg/dL Calcium (8.4-10.2) mg/dL 03/27/17 03/27/17 Range/Units 04:53 05:57 RBC (4.30-5.90) m/uL Hgb (13.0-17.5) gm/dL Hct (39.0-53.0) % MCHC (31.0-37.0) g/dL RDW (11.5-15.5) % Plt Count (150-450) k/uL BUN 53 H (9-20) mg/dL Glucose 116 H (74-99) mg/dL POC Glucose (mg/dL) 124 H (75-99) mg/dL Calcium 8.1 L (8.4-10.2) mg/dL Microbiology - Last 24 Hours (Table) 03/21/17 09:36 Blood Culture - Final Blood No Growth after 144 hours 03/21/17 09:14 Blood Culture - Final Blood No Growth after 144 hours Assessment and Plan (1) GI bleed Narrative/Plan: Choice of hospice seems very reasonable given his advanced pulmonary disease. We'll sign off at this point. Please contact if needed. Current Visit: Yes Status: Acute Code(s): K92.2 - GASTROINTESTINAL HEMORRHAGE, UNSPECIFIED SNOMED Code(s): 83473431
[2017-03-27 17:07] VITALS: BP 125/67; PULSE 109; RESP 24; TEMP 98.2
[2017-03-27] MEDS ORDERED: SCOPOLAMINE 1.5MG/72HR PATCH TRANSDERM SCH (22:00)
[2017-03-28] MEDS ORDERED: PANTOPRAZOLE 40 MG TABLET PO SCH (09:00)
--- NOTE | 2017-03-28 09:04 | DS ---
DISCHARGE SUMMARY DATE OF ADMISSION: 03/21/2017 DATE OF DISCHARGE: 03/27/2017 FINAL DIAGNOSIS: 1. Acute upper gastrointestinal bleed with hematemesis and melanotic stool. Patient requiring 3 units of blood. 2. Acute blood-loss anemia from gastroinestinal, symptomatic, requiring 3 units of blood. 3. Paroxysmal atrial fibrillation with episodes of rapid ventricular rate. 4. Acute delirium, multifactorial. 5. Acute hypoxic respiratory failure from underlying chronic obstructive pulmonary disease. 6. Acute exacerbation of chronic obstructive pulmonary disease in an ex-smoker. 7. Chronic congestive heart failure from hypertensive heart disease, ejection fraction 55% to 60%. 8. Essential hypertension. 9. Hyperlipidemia. 10.Coronary artery disease, prior history of stent and coronary artery bypass grafting. 11.Bladder cancer. 12.Anxiety, depression, not otherwise specified. 13.Chronic carotid stenosis. 14.Chronic colostomy. 15.Chronic cognitive impairment. 16.Chronic tremors, patient on primidone. 17.Medical debility, secondary to multiple other medical problems. CONSULTATIONS: 1. Dr. Hayes from Critical Care. 2. Dr. Hung from General Surgery. 3. Dr. Gillian Hahn from Cardiology. 4. Dr. Jannette Hurst from GI. HOSPITAL COURSE: This patient is well known to me, presented with bleeding to his colostomy back because of overall cardiopulmonary status. The patient is not a candidate for any endoscopy. The patient kept having episodes of rapid A. Fib and episodes of shortness of breath requiring BiPAP again and again. Patient continued to deteriorate overall. Oral intake has really dwindled. It was the impression of everybody that the patient was doing very poorly, which has been going on for quite some time and the chances of recovery were minimal because overall condition was poor. Patient is therefore being admitted to hospice. Discharge planning more than 35 minutes. ADVANCED CARE PLANNING: Today I spoke to patient's , patient's niece and also then with the patient and end of life care was discussed regarding including the hospice. Did explain to them at length that patient is deteriorated and there is no meaningful recovery. Oral intake had gone down. Patient is quite a bit short of breath at rest. Restless rattling in the chest. They all agreed that patient should be more comfortable with hospice. Per their choice [facility] contacted for inpatient hosp[facility] care and patient will be made general inpatient hospice. Advanced care planning for hospice took about 30 to 40 minutes. DISPOSITION: General inpatient, hospice for symptom control. Respiratory distress. MMODL / IJN: [id number] /
== END 2017-03-27 19:35 | disposition hospice, inpatient (51) | DRG 377 ==
LOC: EC 21:06 → 6SEL 03-21 02:00 → OBSVTOIN 03-21 06:20 → 6ICU 03-21 06:21
PROVIDERS: ADMIT Hospitalist; ATTEND Hospitalist
PROC: 30233N1 Transfusion of Nonautologous Red Blood Cells into Peripheral Vein, Percutaneous Approach (ICD-10-PCS; principal; 2017-03-21)
DX: K92.2 Gastrointestinal hemorrhage, unspecified (principal); J96.21 Acute and chronic respiratory failure with hypoxia; I50.21 Acute systolic (congestive) heart failure; F05 Delirium due to known physiological condition; I47.1 Supraventricular tachycardia; E86.9 Volume depletion, unspecified; I48.0 Paroxysmal atrial fibrillation; J44.1 Chronic obstructive pulmonary disease with (acute) exacerbation; F33.9 Major depressive disorder, recurrent, unspecified; I65.29 Occlusion and stenosis of unspecified carotid artery; J96.22 Acute and chronic respiratory failure with hypercapnia; D62 Acute posthemorrhagic anemia; I11.0 Hypertensive heart disease with heart failure; E78.5 Hyperlipidemia, unspecified; F41.9 Anxiety disorder, unspecified; G25.0 Essential tremor; I25.10 Atherosclerotic heart disease of native coronary artery without angina pectoris; I49.3 Ventricular premature depolarization; K43.2 Incisional hernia without obstruction or gangrene; K43.5 Parastomal hernia without obstruction or gangrene; K57.90 Diverticulosis of intestine, part unspecified, without perforation or abscess without bleeding; N40.0 Benign prostatic hyperplasia without lower urinary tract symptoms; Z51.5 Encounter for palliative care; Z66 Do not resuscitate; I25.2 Old myocardial infarction; Z79.52 Long term (current) use of systemic steroids; Z79.82 Long term (current) use of aspirin; Z79.899 Other long term (current) drug therapy; Z82.49 Family history of ischemic heart disease and other diseases of the circulatory system; Z85.51 Personal history of malignant neoplasm of bladder; Z86.73 Personal history of transient ischemic attack (TIA), and cerebral infarction without residual deficits; Z87.01 Personal history of pneumonia (recurrent); Z87.891 Personal history of nicotine dependence; Z90.49 Acquired absence of other specified parts of digestive tract; Z93.3 Colostomy status; Z95.1 Presence of aortocoronary bypass graft; Z99.81 Dependence on supplemental oxygen; R50.84 Febrile nonhemolytic transfusion reaction
CPT/HCPCS: 36415; 36600; 51702; 71045; 74177; 80048; 80053; 81003; 82272; 82550; 82553; 82805; 83735; 83880; 84100; 84484; 85025; 85027; 85610; 85730; 86850; 86880; 86900; 86901; 86920; 87040; 87086; 87502; 93005; 93306; 94640; 94660; 94760; 96361; 96374; 96375; 99291